=== PATIENT | male | born 1950 | race Two or more races ===

== ENCOUNTER 2020-08-26 16:28 | Emergency (ER) | payer MEDICARE, MEDICAID, SELFPAY ==
--- NOTE | ~2020-08-26 | XR_ITS ---
EXAMINATION: XR FINGER, LEFT CLINICAL INFORMATION: Finger laceration with saw. COMPARISON: No priors. TECHNIQUE: AP oblique and lateral radiographs of the left fifth finger. FINDINGS: The bones are normal. No fracture. Alignment is anatomic. No flexion or extension deformity at the PIP and DIP joints of the fifth finger respectively. Joint spaces are maintained. No radiopaque foreign body. XR/XR finger LT min 2V IMPRESSION: Left fifth finger: No acute fracture or malalignment.
[2020-08-26 16:58] VITALS: BP 132/60; PULSE 73; RESP 18; TEMP 36.4; O2SAT 97; BMI 27.7
--- NOTE | 2020-08-26 20:41 | ED.WOUNDLAC ---
HPI - Wound/Laceration General Chief Complaint: Wound/Laceration Stated Complaint: laceration Time Seen by Provider: 08/26/20 20:10 Source: patient Mode of arrival: ambulatory Limitations: no limitations History of Present Illness HPI narrative: 70-year-old male presents with laceration to his left 5th finger caused by a sawzall. He was cutting down a tree, the blade skipped and slipped down and cut his finger. He does not recall the last time he had a Tdap vaccine. He was able to apply pressure dressing and control the bleeding. Onset (ago): hour(s) (Within the hour of arrival) Extremity Location: left: hand (Fifth finger) Place: home Patient tetanus UTD: No Context: accidental Associated symptoms: pain Treatments prior to arrival: bandage Related Data Previous Rx's Medication Instructions Recorded carvedilol 3.125 mg tablet 3.125 mg PO BID 90 Days #180 tab 06/19/20 lisinopril 5 mg tablet 5 mg PO DAILY 90 Days #90 tab 06/19/20 amoxicillin-pot clavulanate 1 tab PO Q12H 10 Days #20 tab 08/26/20 [Augmentin] Allergies Allergy/AdvReac Type Severity Reaction Status Date / Time aspirin [ASPIRIN] Allergy Unknown SWELLING, Unverified 03/22/20 16:23 rash Review of Systems Review of Systems: Constitutional: No Fever, No Chills ENT/Mouth: No Ear Pain, No Hoarseness, No sore throat Eyes: No Eye Pain, No Swelling, No Redness, No Foreign Body Cardiovascular: No Chest Pain, No SOB Respiratory: No Cough, No Dyspnea Gastrointestinal: No Nausea, No Vomiting, No Diarrhea, No abdominal Pain Genitourinary: No Dysuria, No Hematuria Musculoskeletal: positive left 5th finger pain, No Myalgias, No Joint Swelling Skin: Positive left 5th finger lacerations, No rash Neuro: No Weakness, No Numbness, No Paresthesias, No Loss of Consciousness, No Dizziness, No Headache Psych: No Anxiety/Panic, No Depression Heme/Lymph: no easy bruising, no Lymphadenopathy Endocrine: No Polyuria, No Polydipsia Yes all other systems are reviewed and are negative [facility] Past Medical History Attestation statement: The following information was validated with the patient. Source: old records reviewed Social History Social History Advance Directives: No Advance Directives Information Provided: Yes Physical Exam Vital Signs: Vital Signs: Last Vital Signs Temp 97.5 F 08/26/20 16:58 Pulse 62 08/26/20 21:00 Resp 16 08/26/20 21:00 BP 123/78 08/26/20 21:00 Pulse Ox 99 08/26/20 21:00 Body Mass Index 27.7 Appearance: Alert. Oriented X3. No acute distress. Eyes: Pupils equal, round and reactive to light. ENT: Pharynx normal. Neck: Normal inspection. Neck supple. CVS: Normal heart rate and rhythm. Pulses normal. Respiratory: No respiratory distress. Breath sounds normal. Abdomen: Soft and nontender. Skin: Positive 2 cm laceration to the tip of left 5th digit at the D IP. Otherwise all other Skin warm and dry. Normal skin color. Normal skin turgor. Extremities: No lower extremity edema. Has full range of motion to all extremities, no indication of tendon injury, full strength and range of motion to the 5th digit. Brisk capillary refill, no sensory deficit noted. Neuro: No motor deficit. No sensory deficit. Course Course Course Narrative: 70-year-old male presents with a laceration to the tip of his left 5th finger caused by a sawzall. Plan of care is for x-ray, Tdap and laceration repair. Prepped and draped in sterile fashion, patient tolerated procedure well. Please refer to procedure note for full details. X-ray shows no indication of bone involvement. Will treat with p.o. Augmentin. Patient verbalized understanding of wound care. Patient verbalized understanding of and agrees to plan of care discharge home. Procedures Laceration Laceration 1: Site: hand Side (If applicable): left Size (cm): 2 Description: linear Depth: simple, single layer Local Anesthetic: lidocaine 2% Amount of anesthesia used (mL): 4 Pre-repair: wound explored, irrigated extensively, deep structures intact and extensive debridement Skin layer closed with: nylon Size (cm): 4-0 Number of sutures: 6 Technique: simple, interrupted MDM - Wound/Laceration Differential Diagnosis Differential diagnosis: Likely laceration Medical Records Attestation: I reviewed the patient's medical records. Imaging Data Finger x-ray: Attestation: I personally reviewed and interpreted this imaging study as follows: Radiologist's impression: EXAMINATION: XR FINGER, LEFT CLINICAL INFORMATION: Finger laceration with saw. COMPARISON: No priors. TECHNIQUE: AP oblique and lateral radiographs of the left fifth finger. FINDINGS: The bones are normal. No fracture. Alignment is anatomic. No flexion or extension deformity at the PIP and DIP joints of the fifth finger respectively. Joint spaces are maintained. No radiopaque foreign body. XR/XR finger LT min 2V IMPRESSION: Left fifth finger: No acute fracture or malalignment. Discharge Plan Discharge Clinical Impression: Laceration Patient Disposition: Home, Self-Care Instructions: Finger Laceration (ED) Additional Instructions: You were evaluated for laceration injury sustained from a sawzall. Please return in 10 days to have sutures removed please take Augmentin twice a day for the next 10 days. We updated your Tdap vaccine today . You may use Tylenol and Motrin as needed for pain management. Thank you for choosing this emergency department for evaluation. Please follow-up with primary care physician as needed. Return to the emergency department for any new, concerning, or worsening symptoms. Prescriptions: New amoxicillin-pot clavulanate [Augmentin] 875-125 mg tablet 1 tab PO Q12H 10 Days Qty: 20 RF: 0 No Action carvedilol 3.125 mg tablet 3.125 mg PO BID 90 Days Qty: 180 RF: 3 lisinopril 5 mg tablet 5 mg PO DAILY 90 Days Qty: 90 RF: 1 Interventions: ED Discharge Assessment Last Done: 08/26/20 22:58 Discharge Date/Time: 08/26/20 22:59
[2020-08-26 21:00] VITALS: BP 123/78; PULSE 62; RESP 16; O2SAT 99
[2020-08-26] MEDS: Lidocaine HCl 2 % MPF 5 ML VIAL SUBCUT (21:22)
--- NOTE | 2020-08-26 21:34 | PC.NURSE ---
Per RUSSELL Monterroso, elba to NOT have IV access placed. Pt to be sutured with Lidocaine to affected area, then discharge with PCP follow-up.
--- NOTE | 2020-08-26 22:12 | PC.NURSE ---
Sutures applied to fingertip by RUSSELL Monterroso. Bacitracin cream applied afterwards. Pt able to ambulate with steady gait, awaiting discharge instructions. Ice water given as requested. No acute distress noted.
[2020-08-26] MEDS: Amoxicillin/Potassium Clav 875 MG TABLET PO (22:55)
== END 2020-08-26 22:59 | disposition home or self-care (01) ==
PROVIDERS: Emergency Provider Internal Medicine
DX: S61.217A Laceration without foreign body of left little finger without damage to nail, initial encounter (principal); S60.417A Abrasion of left little finger, initial encounter; M79.645 Pain in left finger(s); W26.9XXA Contact with unspecified sharp object(s), initial encounter; Y93.9 Activity, unspecified; Y92.096 Garden or yard of other non-institutional residence as the place of occurrence of the external cause; Y99.8 Other external cause status; Z23 Encounter for immunization
CPT/HCPCS: 12031; 73140; 90471; 90715; 99284

== ENCOUNTER 2020-09-05 09:19 | Emergency (ER) | payer MEDICARE, MEDICAID, SELFPAY ==
[2020-09-05 09:51] VITALS: BP 130/64; PULSE 78; RESP 16; TEMP 36.9; O2SAT 99; BMI 27.4
--- NOTE | 2020-09-05 09:56 | ED_ITS ---
HPI - Recheck/Abnormal Lab/Rx General Chief Complaint: Wound/Laceration Stated Complaint: WOUND CHECK Time Seen by Provider: 09/05/20 09:56 Source: patient, old records reviewed and sign language interpreter Mode of arrival: ambulatory Limitations: no limitations History of Present Illness complaint: suture/staple removal Onset/Timin Initial visit (ago): day(s) Initial visit for: laceration Returns today for: staple/stitch removal Symptoms since prior visit: no new symptoms Context: planned re-check Associated symptoms: none Related Data Previous Rx's Medication Instructions Recorded carvedilol 3.125 mg tablet 3.125 mg PO BID 90 Days #180 tab 06/19/20 lisinopril 5 mg tablet 5 mg PO DAILY 90 Days #90 tab 06/19/20 amoxicillin-pot clavulanate 1 tab PO Q12H 10 Days #20 tab 08/26/20 [Augmentin] Allergies Allergy/AdvReac Type Severity Reaction Status Date / Time aspirin [ASPIRIN] Allergy Unknown SWELLING, Unverified 03/22/20 16:23 rash Review of Systems Review of Systems: Constitutional : No Fever, No Chills, Cardiovascular : No Chest Pain, No SOB Respiratory : No Dyspnea Gastrointestinal : No abdominal pain Musculoskeletal : No Joint Swelling Skin : No rash, no skin laceration Neuro : No Weakness, No Numbness Psych : No SI/HI PMFSH Past Medical History Attestation statement: The following information was validated with the patient. Social History Social History Smoked in Last 30 Days: No Use of substances other than those prescribed or required for medical reasons: No Physical Exam Vital Signs: Vital Signs: Last Vital Signs Temp 98.5 F 09/05/20 09:51 Pulse 78 09/05/20 09:51 Resp 16 09/05/20 09:51 BP 130/64 09/05/20 09:51 Pulse Ox 99 09/05/20 09:51 Body Mass Index 27.4 Appearance: Alert. Oriented X3. No acute distress. Eyes: Pupils equal, round and reactive to light. ENT: Pharynx normal. Neck: Normal inspection. Neck supple. CVS: Pulses normal. Respiratory: No respiratory distress. Skin: Skin warm and dry. Normal skin color. well healed no signs of infection L pinky finger [address] Extremities: No lower extremity edema. No calf ttp Neuro: Oriented X 3. No motor deficit. No sensory deficit. Procedures Procedure Narrative Procedure Narrative: cleansed with betadine removed 5 sutures without complication from left pinky finger MDM - Recheck/Abnormal Lab/Rx MDM Narrative Medical decision making narrative: 70 yo male 10 days post sutures for laceration no infection well healed here for removal Discharge Plan Discharge Clinical Impression: Visit for suture removal Patient Disposition: Home, Self-Care Instructions: Stitches Removal (ED) Additional Instructions: return to ED for any worsening symptoms or concerns Prescriptions: No Action carvedilol 3.125 mg tablet 3.125 mg PO BID 90 Days Qty: 180 RF: 3 lisinopril 5 mg tablet 5 mg PO DAILY 90 Days Qty: 90 RF: 1 amoxicillin-pot clavulanate [Augmentin] 875-125 mg tablet 1 tab PO Q12H 10 Days Qty: 20 RF: 0 Print Language: Kiswahili
== END 2020-09-05 10:15 | disposition home or self-care (01) ==
LOC: HO.ED 10:17
PROVIDERS: Emergency Provider Emergency Medicine; PCP Internal Medicine
DX: Z48.02 Encounter for removal of sutures (principal); S61.217D Laceration without foreign body of left little finger without damage to nail, subsequent encounter; X58.XXXD Exposure to other specified factors, subsequent encounter
CPT/HCPCS: 99283

== ENCOUNTER → 2020-09-17 10:16 | Outpatient (BNV) | payer MEDICARE, OTHER, MEDICAID, SELFPAY | PROVIDERS: PCP Internal Medicine; Visit Provider Internal Medicine | DX: D50.0 Iron deficiency anemia secondary to blood loss (chronic) (principal) | CPT/HCPCS: 99213 ==

== ENCOUNTER 2020-09-21 07:47 | Outpatient (REF) | payer MEDICARE, MEDICAID, SELFPAY ==
--- NOTE | ~2020-09-21 | US_ITS ---
EXAMINATION: US RETROPERITONEAL LIMITED (AORTA) CLINICAL INFORMATION: Smoking history. Age 70. Assess for occult abdominal aortic aneurysm. COMPARISON: None. TECHNIQUE: Ren-scale, color Doppler and spectral Doppler evaluation of the abdominal aorta. FINDINGS: The measurements of the aorta in maximum AP and transverse dimensions respectively are as follows: FINDINGS: There is no aneurysmal enlargement of the aorta or focal ectasia. There is no visible periaortic adenopathy or mass. Aortic measurements are as follows: Proximal: 2.5 x 2.5 cm. Mid: 1.8 x 1.6 cm. Distal: 1.8 x 1.6 cm. PSV: 75.2 cm/s Common iliac arteries: Right: 1.1 x 1.1 cm. Left: 1.2 x 1.1 cm. US/US abdominal aortic aneurysm IMPRESSION: Normal study.
== END 2020-09-21 07:48 | disposition home or self-care (01) ==
LOC: HO.US 07:47
PROVIDERS: PCP Internal Medicine; Visit Provider Internal Medicine
DX: Z13.6 Encounter for screening for cardiovascular disorders (principal); Z72.0 Tobacco use
CPT/HCPCS: 76706

== ENCOUNTER → 2021-03-29 11:00 | Outpatient (RCR) | payer MEDICARE, MEDICAID, SELFPAY | END | disposition home or self-care (01) | LOC: HO.PT 03-01 10:45 | PROVIDERS: PCP Emergency Medicine; Visit Provider Emergency Medicine | DX: M76.891 Other specified enthesopathies of right lower limb, excluding foot (principal) | CPT/HCPCS: 97110; 97161; 97530 ==

== ENCOUNTER → 2021-10-14 08:27 | Outpatient (REF) | payer MEDICARE, MEDICAID, SELFPAY ==
--- NOTE | 2021-10-14 08:31 | CA_ITS ---
Transthoracic Echocardiogram Patient (Last, First, Middle): Josh Souza, Gender: Male Date of : 1950 Age: 71 Procedure Date: 10/14/2021 Procedure Type: Transthoracic Echocardiogram Location: OP Height: 167.64 cm Weight: 77.11 kg BSA: 1.87 m2 Heart Rate: bpm BP: 132 / 70 mmHg Real Estate Sales Manager: ASHA Referring MD: Sunday Salinas MD Symptoms: I42.8 - Other cardiomyopathies Study Quality: Fair/Contrast ECG Rhythm: Sinus Conclusions: - The left ventricular systolic function is mildly decreased. The calculated ejection fraction is 50% by biplane method. - No obvious valvular pathology seen on this study. Findings Procedure Information Contrast agent, definity, is being given per protocol without apparent complications. Left Ventricle Normal left ventricular cavity size. There is normal left ventricular wall thickness. The left ventricular systolic function is mildly decreased. The calculated ejection fraction is 50% by biplane method. There is mild global hypokinesis. E/E prime ratio is <8, consistent with normal filling pressures. Evidence suggests grade I (mild) diastolic dysfunction. Right Ventricle Normal right ventricular cavity size and systolic function. Atria Both atria are normal in size. Aortic Valve There is a normal trileaflet aortic valve. There is no aortic valve stenosis. There is no aortic valve regurgitation. Mitral Valve The mitral valve appears normal. There is trace mitral valve regurgitation. There is no mitral valve stenosis. Pulmonic Valve The pulmonic valve is likely normal. There is trace to mild pulmonic valve regurgitation. Tricuspid Valve Normal tricuspid valve structure. There is trace tricuspid valve regurgitation. The pulmonary artery systolic pressure is normal. Great Vessels The aortic annulus, sinuses of valsalva, and asc aorta are normal in size. Venous The inferior vena cava is normal in size and collapses greater than 50% with inspiration. Pericardium/Pleural There is a trivial pericardial effusion. Prior Study Comparison Changes noted compared to prior study dated: 07/21/2019. LVEF lower than in prior study, but similar to older studies from 2018. Recommendations, Care & Conclusions No obvious valvular pathology seen on this study. Measurements 2D Linear Measurements IVSd: 1.04 0.6-0.9/0.6-1.0 cm LVIDd: 4.75 3.9-5.3/4.2-5.9 cm LVIDd Index: 2.54 2.4-3.2/2.2-3.1 cm/m2 LVIDs: 3.49 2.0-3.6 cm LVPWd: 1.00 0.7-1.1 cm LA Diam: 3.40 2.7-3.8/3.0-4.0 cm LAIDs Index: 1.82 1.5-2.3 cm/m2 LV Mass: 214.11 67-162/88-224 g LV Mass Index: 114.50 43-95/49-115 g/m2 LVOT Diam: 2.20 3.0+(-)1.3 cm 2D Systolic Function EF 4C: 51.60 >55% EF 2C: 46.70 >55% EF BiP: 49.70 >55% Mitral Valve MV Pk E: 0.54 MV PK A: 0.87 MV Decel Time: 162.00 E/A: 0.60 E'Lateral: 6.31 E'Medial: 5.77 E/E' Med: 9.30 E/E' Lat: 8.50 PHT: 48.00 MVA PHT: 4.58 Decel Collin: 3.30 Aortic Valve AoV Pk Stanley: 1.19 AoV Mn Stanley: 0.83 AoV VTI: 0.22 AoV Pk Grad: 6.00 Aov Mn Grad: 3.00 BHAVANI Cont.VTI: 2.56 LVOT LVOT Pk Stanley: 0.76 LVOT Mn Stanley: 0.50 LVOT VTI: 0.15 LVOT Pk Grad: 2.00 LVOT Mn Grad: 1.00 LVOT Diam: 2.20 LVOT Area: 3.80 Diastolic Function MV Pk E: 0.54 MV Pk A: 0.87 E/A: 0.60 E'Medial: 5.77 E/E' Med: 9.30 E' Laterial: 6.31 E/E' Lat: 8.50 Right Ventricle TAPSE (mm): 18.30 TVS' Stanley: 11.20 Tricuspid Valve TR Pk Stanley: 1.68 TR Pk Grad: 11.00 RA Press: 3.00 RVSP: 14.00 Great Vessels Aorta Sinus of Valsalva: 3.56 2.0-3.[address] Ridge: 3.25 1.7-3.4 cm Ao Asc: 3.60 2.1-3.4 cm Ao Arch: 2.70 Updated in Other Vendor System with Status of Final Sunday Salinas MD electronically signed on 10/14/2021 11:51:47 AM with status of Final
== END ==
LOC: HO.CARD 08:27
PROVIDERS: Visit Provider Internal Medicine
DX: I42.9 Cardiomyopathy, unspecified (principal)
CPT/HCPCS: 93306; Q9957

== ENCOUNTER → 2021-10-16 12:24 | Outpatient (BNVA) | payer MEDICARE, MEDICAID, SELFPAY | PROVIDERS: PCP Emergency Medicine; Referring Provider Emergency Medicine; Visit Provider Internal Medicine | DX: I42.8 Other cardiomyopathies (principal); G47.33 Obstructive sleep apnea (adult) (pediatric); Z79.899 Other long term (current) drug therapy | CPT/HCPCS: 93005; 99212 ==

== ENCOUNTER 2022-02-13 07:51 | Outpatient (REF) | payer MEDICARE, MEDICAID, SELFPAY ==
--- NOTE | ~2022-02-13 | XR_ITS ---
EXAMINATION: RIGHT TIBIA AND FIBULA. RIGHT FEMUR. CLINICAL INFORMATION: Pain. COMPARISON: None TECHNIQUE: 2 views right tibia-fibula. 2 views right femur FINDINGS: RIGHT TIBIA AND FIBULA: There is no visible acute fracture, dislocation or subluxation seen. No bony abnormality. The soft tissues are normal. RIGHT FEMUR: There is moderate loss of right hip joint space with periarticular spurring. No bony erosive changes. No visible acute fracture or dislocation. The soft tissues are normal. XR/XR femur RT 2V IMPRESSION: Degenerative arthritic changes right hip joint. No visible acute fracture or dislocation. Unremarkable right tibia and fibula.
--- NOTE | ~2022-02-13 | XR_ITS ---
EXAMINATION: RIGHT TIBIA AND FIBULA. RIGHT FEMUR. CLINICAL INFORMATION: Pain. COMPARISON: None TECHNIQUE: 2 views right tibia-fibula. 2 views right femur FINDINGS: RIGHT TIBIA AND FIBULA: There is no visible acute fracture, dislocation or subluxation seen. No bony abnormality. The soft tissues are normal. RIGHT FEMUR: There is moderate loss of right hip joint space with periarticular spurring. No bony erosive changes. No visible acute fracture or dislocation. The soft tissues are normal. XR/XR tibia fibula RT 2V IMPRESSION: Degenerative arthritic changes right hip joint. No visible acute fracture or dislocation. Unremarkable right tibia and fibula.
== END 2022-02-13 07:52 | disposition home or self-care (01) ==
LOC: HO.XRAY 07:51
PROVIDERS: PCP Internal Medicine; Visit Provider Internal Medicine
DX: M79.604 Pain in right leg (principal)
CPT/HCPCS: 73552; 73590

== ENCOUNTER 2023-01-20 08:32 | Outpatient (REF) | payer OTHER, MEDICAID, SELFPAY ==
[2023-01-20 12:36] LABS: Free T4 (Free Thyroxine) 1.15 ng/dL (0.71-1.85); T4 Thyroxine 8.5 ug/dL (4.5-12.0); Thyroid Stimulating Hormone 0.27 uIU/mL (0.32-4.0)
== END 2023-01-20 08:33 | disposition home or self-care (01) ==
LOC: HO.HHCL 08:32
PROVIDERS: Visit Provider Student in an Organized Health Care Education/Training Program
DX: E03.9 Hypothyroidism, unspecified (principal)
CPT/HCPCS: 36415; 84436; 84439; 84443

== ENCOUNTER 2023-02-06 09:00 | Outpatient (RCR) | payer MEDICARE, MEDICAID, SELFPAY | END 2023-02-26 10:27 | disposition home or self-care (01) | LOC: HO.PT 09:00 | PROVIDERS: PCP Student in an Organized Health Care Education/Training Program; Visit Provider Student in an Organized Health Care Education/Training Program | DX: R10.31 Right lower quadrant pain (principal) | CPT/HCPCS: 97110; 97140; 97161 ==

== ENCOUNTER 2023-02-22 16:33 | Emergency (ER) | payer OTHER, MEDICAID, SELFPAY ==
--- NOTE | 2023-02-22 | ECG_ITS ---
Test Reason : dizziness Blood Pressure : / mmHG Vent. Rate : 069 BPM Atrial Rate : 069 BPM P-R Int : 154 ms QRS Dur : 088 ms QT Int : 386 ms P-R-T Axes : 040 014 032 degrees QTc Int : 413 ms Normal sinus rhythm Normal ECG When compared with ECG of 19-JAN-2018 11:58, Nonspecific T wave abnormality is no longer Present Heart rate has increased Referred By: Generic ED Physician Electronically Signed By:OTTO ESPANA
--- NOTE | ~2023-02-22 | CT_ITS ---
EXAMINATION: CT HEAD WITHOUT CONTRAST CLINICAL INFORMATION: Multiple syncopal episodes COMPARISON: CT head from 03/22/2018 TECHNIQUE: Contiguous axial imaging was performed from the skull base to vertex without intravenous administration of contrast. This CT examination was performed using dose optimization techniques as appropriate, variously including the following: *Automated exposure control *Adjustment of mA and/or kV according to patient size (this includes techniques or standardized protocols for targeted exams where dose is matched to indication/reason for exam; i.e. extremities or head) *Use of iterative reconstruction technique DLP: 597 mGy-cm FINDINGS: There is no evidence of acute intracranial hemorrhage or territorial infarction. No abnormal mass effect or midline shift is seen. Ren to white matter differentiation is well preserved. No extra-axial fluid collections are identified. The ventricles are normal in size. There is no abnormal attenuation within the brain parenchyma. The osseous structures and soft tissues are normal. The mastoid air cells and visualized portions of the paranasal sinuses are well aerated. CT/CT head/brain wo IV con IMPRESSION: No acute intracranial pathology.
[2023-02-22 16:44] VITALS: BP 113/60; BP 116/56; PULSE 69; PULSE 74; RESP 12; TEMP 36.7; O2SAT 100; BMI 27.7
[2023-02-22 17:01] LABS: MANUAL DIFF FLAG NO
--- NOTE | 2023-02-22 17:02 | PC.NURSE ---
alert and oriented, respirations even and unlabored. per ems pt was diaphoretic upon arrival and hypotensive. approx 250mls given with positive effect. pt now resting comfortably on stretcher, labs drawn and sent. call bermeo within reach
[2023-02-22 17:03] LABS: Basophils Percent Auto 0.4 % (0-2); Eosinophils Absolute Auto 0.1 X10*3/uL (0.0-0.4); Eosinophils Percent Auto 1.3 % (0-4); Hematocrit 29.3 % (42.0-52.0); Hemoglobin 9.6 g/dl (14.0-18.0); Imm Gran Abs Auto 0.04 X10*3/uL (0.00-0.03); Imm Gran Pct Auto 0.8 % (0.0-0.4); Lymphocytes Absolute Auto 1.4 X10*3/uL (1.2-4.9); Lymphocytes Percent Auto 25.7 % (20-40); Mean Corpuscular HGB Conc 32.8 g/dl (31.0-36.0); Mean Corpuscular Volume 85.4 fL (80.0-98.0); Mean Platelet Volume 9.8 fL (9.4-12.4); Monocytes Absolute Auto 0.3 X10*3/uL (0.1-1.2); Monocytes Percent Auto 5.6 % (2-11); Neutrophils Absolute Auto 3.5 x10*3/uL (2.0-8.3); Neutrophils Percent Auto 66.2 % (45-73); Platelet Count 129 X10*3/uL (160-400); Red Blood Count 3.43 X10*6/uL (4.60-5.80); Red Cell Distribution Width 13.3 % (11.0-16.0); White Blood Count 5.3 X10*3/uL (4.8-10.8)
[2023-02-22 17:24] LABS: Alanine Aminotransferase 13 U/L (0-40); Alkaline Phosphatase 61 U/L (39-117); Anion Gap 14 (12-20); Aspartate Amino Transferase 13 U/L (5-37); Bilirubin Total 0.3 mg/dL (0.0-1.0); Blood Urea Nitrogen 17 mg/dL (9-16); Calcium 9.4 mg/dL (8.4-10.2); Carbon Dioxide 22 mmol/L (22-29); Chloride 111 mmol/L (96-108); Creatinine Clr Calc Pharmacy 47.5; Estimated Glomerular Filt Rate 49; Glucose Random 112 mg/dL (60-115); Potassium 3.5 mmol/L (3.3-5.1); Sodium 143 mmol/L (135-145); Total Protein 6.8 g/dL (6.5-8.0)
[2023-02-22 17:32] LABS: Troponin-I High Sensitivity < 2.7 ng/L (<3.5-35.0)
[2023-02-22 17:50] VITALS: BP 109/49; PULSE 79; RESP 13; TEMP 36.6; O2SAT 98
[2023-02-22 18:18] VITALS: BP 110/57; PULSE 75
[2023-02-22 18:21] VITALS: BP 115/62; PULSE 76
[2023-02-22 18:22] VITALS: BP 125/68; PULSE 77
--- NOTE | 2023-02-22 18:25 | ED.SYNCOPE ---
HPI - Syncope General Chief Complaint: Dizziness Stated Complaint: syncope per EMS Time Seen by Provider: 02/22/23 17:35 Source: patient, family and EMS Mode of arrival: EMS Limitations: no limitations History of Present Illness HPI narrative: patient is a 72-year-old male who presents to the emergency department with his daughter via EMS for evaluation after multiple syncopal episodes today. Patient was reportedly sitting in a chair in the garage outdoors, though there is also air conditioning. He had something to eat. Patient was without any complaints. Daughter reports that she looked over at him but he suddenly appeared urge to be unwell, Diffusely sweating, sitting in the chair and looking off to the side while not speaking. This lasted a few seconds. She reports tapping him in the face when he regained consciousness and was speaking. She reports that he just did not appear well. He had multiple episodes like this occurring over the next few minutes. They attempted to stand the patient up, when he became very limp and loss consciousness again, was lowered to the ground onto his knees. When he regained consciousness daughter was calling for EMS, and patient was requesting for her not to call. He does not recall the events. He denies any precipitating symptoms. He denies any current physical complaints. Denies any history, there was no bladder or bowel impairment. Daughter reports a history of a similar event a few months ago but he did not lose consciousness, and it only occurred a single time Related Data Home Medications Medication Instructions Recorded Confirmed levothyroxine 112 mcg tablet 112 mcg PO DAILY 10/16/21 10/16/21 Previous Rx's Medication Instructions Recorded lisinopril 5 mg tablet 5 mg PO DAILY 90 days #90 tabs 11/14/22 carvedilol 3.125 mg tablet 3.125 mg PO BID #180 tabs 01/08/23 Allergies Allergy/AdvReac Type Severity Reaction Status Date / Time aspirin [ASPIRIN] Allergy Unknown SWELLING, Verified 10/16/21 12:32 rash Review of Systems Review of Systems: Constitutional: No weight loss. No fever. No chills. No weakness. No fatigue. Eye: No swelling. No redness. ENT: No sore throat. No rhinorrhea. No nasal congestion. No sore throat. No difficulty swallowing. Skin: No rash. No itching. Cardiovascular: No chest pain. No chest pressure. No palpitations. No pedal edema. Respiratory: No shortness of breath. No cough. No sputum production. Gastrointestinal: No anorexia. No nausea. No vomiting. No diarrhea. No abdominal pain. No blood in stool. Genitourinary: No burning micturition. No urinary frequency. No incontinence. Neurologic: No headache. No dizziness. positiveyncope. No unilateral weakness. No ataxia. No numbness. No tingling. No change in bowel or bladder control. Musculoskeletal: No muscle pain. No back pain. No joint pain. No stiffness. Hematologic: No bleeding. No bruising. Lymphatics: No enlarged lymph nodes. Psychiatric:No depression. No anxiety. Endocrine: No reports of sweating. No cold or heat intolerance. No polyuria. No polydipsia. [facility] Past Medical History Attestation statement: The following information was validated with the patient. Source: old records reviewed Medical History Anemia HTN (hypertension) Hypothyroidism NICM (nonischemic cardiomyopathy) VIJI (obstructive sleep apnea) Urolithiasis Surgical History No pertinent past surgical history Family History Family History (Updated 10/16/21 @ 12:33 by FRANC Gomez) Father No problems noted. Mother No problems noted. Social History Social History (Updated 10/16/21 @ 12:46 by FRANC Gomez) Alcohol intake: never Patient Tobacco Use Status: Current everyday Tobacco user Cigarettes Per Day: 5 Use of substances other than those prescribed or required for medical reasons: No Advance Directives: No Advance Directives Information Provided: No Physical Exam Vital Signs: Vital Signs: Last Vital Signs Temp 98.1 F 02/22/23 19:23 Pulse 82 02/22/23 19:23 Resp 17 02/22/23 19:23 BP 117/53 L 02/22/23 19:23 Pulse Ox 99 02/22/23 19:23 O2 Del Method Room Air 02/22/23 19:23 BMI result Body Mass Index 27.7 Appearance: Alert.?Oriented to person, place and time. No acute distress.?Normal affect. Eyes: Pupils equal, round and reactive to light.? ENT: Pharynx normal.?? Neck: Normal inspection.? Neck supple.?? CVS: Heart sounds normal. Normal heart rate and rhythm.? Pulses normal.?? Respiratory: No respiratory distress.? Lung sounds clear to auscultation bilaterally?? Abdomen: Soft and non-tender. Normoactive bowel sounds. No pulsatile mass.?? Skin: Skin warm and dry.? Normal skin color.? Normal skin turgor.?? Extremities: No lower extremity edema.? No calf ttp? Neuro: No focal neurological deficit observed, CN II-XII intact, normal sensory observed, normal coordination observed. Level of consciousness: Appropriate for age. Motor strength: Proximal right upper extremity 5 /5, distal right upper extremity 5 /5, proximal left upper extremity 5 /5, distal left upper extremity 5 /5, right lower extremity 5 /5, left lower extremity 5 /5.?Speech: Normal, Gait: Normal, Njlqji-ng-[id number] test: Normal, Dzwu-gb-[id number] test: Normal. Course Reevaluation(s) Reevaluation #1: high sensitivity troponin non-detectable, EKG revealing normal sinus rhythm without acute ischemic findings. given age And multiple syncopal episodes of unknown etiology was recommended the patient be admitted to medicine service for further evaluation, at this time patient does not agree to hospital admission. I had an at length discussion with patient regarding potential complications of leaving against medical advice including and patient verbalizes understanding of this. He continues to wish to leave against medical advice at this time stating that he will follow up with his primary care provider tomorrow and/or return with any new or worsening symptoms or concerns. Time: 19:50 Medications Administered Discontinued Medications Generic Name Dose Route Start Last Admin Trade Name Freq PRN Reason Stop Dose Admin Sodium Chloride 1,000 mls @ 999 mls/hr 02/22/23 19:45 02/22/23 21:18 Ns IV 02/22/23 20:45 Infused .Q1H1M [facility] Infusion Medical Decision Making Medical Decision Making [facility] Narrative: Patient is a 72-year-old male presents emergency department with his daughter for evaluation of multiple syncopal episodes. Based on history and physical examination concern for ACS / cardiac etiology versus atypical seizure though this seems unlikely versus CVA. Will obtain CBC to evaluate for leukocytosis/ anemia, CMP and lipase to evaluate for abnormal electrolytes /abnormal renal function/ abnormal hepatic/biliary function, EKG and troponin to evaluate for ischemia/ACS. Chest x-ray to evaluate for consolidation/ infiltrate/ mass/ pulmonary congestion and Urinalysis. Differential Diagnosis Differential Diagnoses: The differential diagnosis associated with the presentation includes ( arrhythmia, ACS, pulmonary embolism, CVA, hemorrhage, anemia, atypical seizure) Admission/Observation Consideration of admission/observation: Escalation of care including admission/observation considered ( I considered admission for multiple syncopal episodes of unknown etiology, see course narrative for further detail) Lab Data MDM Lab Attestation statement: I reviewed the patient's lab results. CBC reveals no leukocytosis daughter is, normocytic anemia and thrombocytopenia. CMP revealing STEVE with BUN 17 creatinine 1.42. troponin nondetectable 02/22/23 16:54 02/22/23 16:54 Labs: Lab Results 02/22/23 02/22/23 02/22/23 Range/Units 16:54 16:54 16:54 WBC 5.3 (4.8-10.8) X10*3/uL RBC 3.43 L (4.60-5.80) X10*6/uL Hgb 9.6 L (14.0-18.0) g/dl Hct 29.3 L (42.0-52.0) % MCV 85.4 (80.0-98.0) fL MCH 28.0 (27.0-33.0) pg MCHC 32.8 (31.0-36.0) g/dl RDW 13.3 (11.0-16.0) % Plt Count 129 L (160-400) X10*3/uL MPV 9.8 (9.4-12.4) fL Immature Gran % (Auto) 0.8 H (0.0-0.4) % Neut % (Auto) 66.2 (45-73) % Lymph % (Auto) 25.7 (20-40) % [place] % (Auto) 5.6 (2-11) % Eos % (Auto) 1.3 (0-4) % Baso % (Auto) 0.4 (0-2) % Lymph # (Auto) 1.4 (1.2-4.9) X10*3/uL [place] # (Auto) 0.3 (0.1-1.2) X10*3/uL Eos # (Auto) 0.1 (0.0-0.4) X10*3/uL Baso # (Auto) 0.0 (0.0-0.2) X10*3/uL Abs Immat Gran (auto) 0.04 H (0.00-0.03) X10*3/uL Absolute Neuts (auto) 3.5 (2.0-8.3) x10*3/uL Absolute Nucleated RBC 0.000 (0.0-0.012) X10*3/uL Nucleated RBC % (auto) 0.0 (0.0-0.2) /100WBC Sodium 143 (135-145) mmol/L Potassium 3.5 (3.3-5.1) mmol/L Chloride 111 H (96-108) mmol/L Carbon Dioxide 22 (22-29) mmol/L Anion Gap 14 (12-20) BUN 17 H (9-16) mg/dL Creatinine 1.42 H (0.5-1.4) mg/dL Estim Creat Clear Calc 47.5 Estimated GFR 49 Random Glucose 112 (60-115) mg/dL Calcium 9.4 D (8.4-10.2) mg/dL Total Bilirubin 0.3 (0.0-1.0) mg/dL AST 13 (5-37) U/L ALT 13 (0-40) U/L Alkaline Phosphatase 61 (39-117) U/L Troponin I High Sens < 2.7 (<3.5-35.0) ng/L Total Protein 6.8 (6.5-8.0) g/dL Albumin 4.0 (3.5-5.0) g/dL Independent Interpretation I performed an independent interpretation of an: EKG Interpretation: Rate: Sixty-nine Rhythm:? normal sinus rhythm [place]:? normal Normal P waves.? Normal RIC.?? Normal QRS complex.?? ST T wave :?? no ST elevation, no ST depression, no T-wave inversion qTC: 413 The study has been interpreted contemporaneously by me. Radiology Impression Discussion of test interpretation with radiology: I have reviewed the radiologist's reading. Radiologist Impression: CT/CT head/brain wo IV con IMPRESSION: No acute intracranial pathology. Independent Historian Clinical information obtained from an independent historian. History obtained from or confirmed by: Other ( daughters present at bedside who confirms history) External Record Review External record reviewed: Outpatient record Discharge Plan Discharge Clinical Impression: Syncope, Acute kidney injury Patient Disposition: Left Against Medical Advice Additional Instructions: as discussed it was recommended that you remain in the hospital for further evaluation however you declined and chose to leave against medical advice. at this time it is unknown as to why you had these episodes of unconsciousness today. Because of these episodes may potentially be life threatening. He verbalized understanding of this and have chosen to leave against medical advice. Please contact your primary care provider to arrange for follow-up. You may return back to the emergency department at any time with any new or worsening symptoms or concerns. Prescriptions: No Action lisinopril 5 mg tablet 5 mg PO DAILY 90 Days Qty: 90 0RF Rx Instructions: Please call to schedule cardiology appt for refills carvedilol 3.125 mg tablet 3.125 mg PO BID Qty: 180 0RF Rx Instructions: OVERDUE FOR APPT. PLEASE CALL [phone] TO SCHEDULE FOLLOW UP FOR 2022 SO WE CAN CONTINUE REFILLING YOUR MEDICATIONS. If you do not want to schedule appt with customer success specialist, you can opt to get future refills from your PCP, Dr. Malinda Dunbar levothyroxine 112 mcg tablet 112 mcg PO DAILY Referrals: [facility] [Primary Care Provider] - Interventions: ED Discharge Assessment Last Done: 02/22/23 21:17 Discharge Date/Time: 02/22/23 21:19
[2023-02-22 19:23] VITALS: BP 117/53; PULSE 82; RESP 17; TEMP 36.7; O2SAT 99
[2023-02-22] MEDS: 0.9 % Sodium Chloride 1,000 ML 999 ML IV (19:53)
== END 2023-02-22 21:19 | disposition left against medical advice (07) ==
PROVIDERS: Emergency Provider Internal Medicine
DX: R55 Syncope and collapse (principal); R42 Dizziness and giddiness; F17.200 Nicotine dependence, unspecified, uncomplicated; Z71.6 Tobacco abuse counseling; Z79.899 Other long term (current) drug therapy
CPT/HCPCS: 36415; 70450; 80053; 84484; 85025; 93005; 99285

== ENCOUNTER 2023-02-26 09:43 | Outpatient (AMB) | payer MEDICARE, MEDICAID, SELFPAY ==
--- NOTE | 2023-02-26 09:48 | A.OFFVIS_ITS ---
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 Pt was diagnosed with VIJI around 2010 and has been using CPAP since then. He had a new CPAP 2017, but no repeat sleep study done. The CPAP working well but he has not received supplies more than 2 years. He does not have filler and keep coughing when he uses the current CPAP, and can't use it every night. Pt reports he sleeps well, 7-9 hours at night. Denies difficulty falling asleep or staying sleep. He states his snoring has improved with CPAP. He is on APAP [id number]. [facility] Medical History Anemia HTN (hypertension) Hypothyroidism NICM (nonischemic cardiomyopathy) VIJI (obstructive sleep apnea) Urolithiasis Surgical History No pertinent past surgical history Family History (Updated 10/16/21 @ 12:33 by FRANC Gomez) Father No problems noted. Mother No problems noted. Social History (Updated 02/26/23 @ 09:52 by Carlie Hallman CMA) Alcohol intake: never Patient Tobacco Use Status: Current everyday Tobacco user Cigarettes Per Day: 5 Review of Systems Const All systems reviewed & are unremarkable except as noted in HPI and below ENT Reports Normal hearing present Neuro Reports Normal hearing present Physical Exam Vital Signs: Last Vital Signs Pulse 75 02/26/23 09:52 BP 120/66 02/26/23 09:52 BMI result Body Mass Index 27.3 Const General: cooperative and comfortable Nutritional Appearance: overweight Orientation/consciousness: patient oriented x3 Neck Neck: Yes full ROM and Yes supple Resp Effort & Inspection: normal respiratory effort and able to speak in complete sentences Neuro General: patient oriented x3, gait normal, moves all extremities and no focal motor deficits Cranial nerves: Yes Bilaterally intact EOM present, Yes Normal facial strength present, Yes Midline tongue present, Yes Symmetric palate elevation present, Yes Normal hearing present, Yes Ability to bilaterally rotate head present and Yes Ability to bilaterally elevate shoulders present Cognition (Neuro): normal cognition Gait exam (Neuro): Normal gait present Motor exam (neuro): 5/5 motor strength present throughout, Pronator motor function not present and no tremor noted Psych Appearance: grossly normal Mental Status: mental status grossly normal Speech and movement: Normal speech and movement present Affect: normal affect Attitude: cooperative Assessment & Plan Assessment & Plan (1) VIJI (obstructive sleep apnea): Code(s): G47.33 - Obstructive sleep apnea (adult) (pediatric) Plan Pt is advised to undergo repeat home sleep study to assess for sleep apnea. Will f/u with pt after study to discuss results and appropriate treatment options. Will send supply prescription to [facility]. Pt to call with any worsening concerns or questions. Orders: Orders RT home sleep study Today G47.33 - Obstructive sleep apnea (adult) (pediatric), I42.8 - Other cardiomyopathies Coding Level of Care Code New Pt Level 3 (41130) Diagnoses VIJI (obstructive sleep apnea) G47.33
[2023-02-26 09:52] VITALS: BP 120/66; PULSE 75; BMI 27.3
== END 2023-02-26 10:30 | disposition home or self-care (01) ==
PROVIDERS: PCP Student in an Organized Health Care Education/Training Program; Visit Provider Nurse Practitioner Family
DX: G47.33 Obstructive sleep apnea (adult) (pediatric) (principal)
CPT/HCPCS: 99203

== ENCOUNTER → 2023-02-26 09:43 | Outpatient (BNVA) | payer MEDICARE, MEDICAID, SELFPAY | PROVIDERS: PCP Student in an Organized Health Care Education/Training Program; Visit Provider Nurse Practitioner Family | DX: G47.33 Obstructive sleep apnea (adult) (pediatric) (principal) | CPT/HCPCS: 99202 ==

== ENCOUNTER 2023-03-06 09:39 | Outpatient (AMB) | payer OTHER, MEDICAID, SELFPAY ==
--- NOTE | 2023-03-06 09:42 | A.OFFVIS_ITS ---
Intake Vital Signs 03/06/23 09:43 Height 5 ft 6 in Weight 170 lb 3.15 oz BMI 27.5 BP 120/72 Blood Pressure Location Lt brachial Position Sitting Pulse 69 Pulse Source Pulse Oximeter Intake Visit Reasons[place] [facility] [place] [facility] [place] Double End Tenon Operator Required: Yes Double End Tenon Operator Name: marcel morrell [id number] Allergies aspirin [ASPIRIN] Allergy (Unknown, Verified 03/06/23 09:48) SWELLING, rash Medication List - Last Reconciled 03/06/23 by Damaris Hobbs NP-C carvedilol 3.125 mg PO BID levothyroxine 112 mcg PO DAILY lisinopril 5 mg PO DAILY 90 days HPI [facility] [place] f[place]u HPI Details Josh is a 72-year-old male with past medical history of hypertension, obstructive sleep apnea, not treated, mild nonischemic cardiomyopathy who was recently seen in the emergency room for syncopal events at home. He had lab work showing mild STEVE, mild anemia. His EKG showed no acute findings. Admission was suggested however he signed out AMA. Today he reports he has been feeling generally well. He denies any recurrent presyncope or syncope. He denies chest discomfort at rest or with activity. No shortness of breath, palpitations, PND, orthopnea or edema. He tells me has been taking his meds as directed. He continues to not use CPAP. He uses a stationary bike at home for 50 minutes each day which he says he tolerates well. 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 [facility] Medical History Anemia HTN (hypertension) Hypothyroidism NICM (nonischemic cardiomyopathy) VIJI (obstructive sleep apnea) Urolithiasis Surgical History No pertinent past surgical history Family History Father No problems noted. Mother No problems noted. Social History Alcohol intake: never Patient Tobacco Use Status: Current everyday Tobacco user Cigarettes Per Day: 5 Review of Systems Const All systems reviewed & are unremarkable except as noted in HPI and below ENT Denies dizziness Card Denies chest pain, Denies chest pain at rest, Denies chest pain with activity, Denies rapid heart rate, Denies pedal edema, Denies edema, Denies leg edema, Denies lightheadedness, Denies palpitations, Denies dyspnea, Denies dyspnea on exertion and Denies orthopnea Resp Denies cough, Denies dyspnea and Denies dyspnea on exertion GI Denies hematochezia and Denies change in stool character Musc Denies abnormal gait, Denies limited range of motion, Denies muscle cramps, Denies muscle weakness, Denies numbness, Denies radiating pain into limb, Denies stiffness and Denies tingling Neuro Denies abnormal gait, Denies dizziness, Denies numbness and Denies tingling Endo Denies palpitations Physical Exam Vital Signs: Last Vital Signs Pulse 69 03/06/23 09:43 BP 120/72 03/06/23 09:43 BMI result Body Mass Index 27.5 Const General: cooperative, healthy appearing, comfortable and no acute distress Orientation/consciousness: patient oriented x3 Neck Neck: Yes normal visual inspection Resp Effort & Inspection: normal respiratory effort Auscultation: clear to auscultation bilaterally, no crackles, no rales, no rhonchi and no wheezes Cardio Jugular venous distension: no JVD Rate: regular rate Rhythm: regular rhythm Heart sounds: S1 normal heart sound present, S2 normal heart sound present, no gallops, no murmurs and no rubs Neuro General: patient oriented x3 Extrem General: Yes normal to inspection Psych Appearance: grossly normal Mental Status: mental status grossly normal Speech and movement: Normal speech and movement present Assessment & Plan Assessment & Plan (1) Syncope: Code(s): R55 - Syncope and collapse Plan: ER visit 02/22/2023 for reports of syncopal events at home, witnessed by family. Patient was sitting in chair, diaphoretic, appeared on well. Family assisted him to standing or he lost can not consciousness. EMS was called. Daughter describes similar events a few months ago. Blood pressure in the ER was on the low side. His lab work was done showing potassium 3.5, BUN 17, creatinine 1.42, hematocrit 29.9, troponin normal. He had no reported signs of bleeding. His EKG showed sinus rhythm with no acute ST or T-wave abnormalities, rate 69. Admission was recommended and patient signed out AMA. He tells me he has not perez d any recurrent events since that time. He denies dizziness or presyncope, no falls. Tells me he is feeling well and using his stationary bike 50 minutes each day. No anginal sounding symptoms. Blood pressure today 120/72. Will update echocardiogram to reassess EF, wall motion. Will check Holter monitor to assess for any arrhythmia. Will recheck lab work including CBC, CMP. Prior stress test a few years ago was normal. If EF is reduce then stress test will be ordered. Instructed to sit/lay down if he becomes lightheaded, presyncopal. Good hydration reviewed. Continue current meds at present time. Cardiology follow-up 2 months, sooner if needed (2) Acute kidney injury: Code(s): N17.9 - Acute kidney failure, unspecified Plan: Recent labs showing creatinine 1.42. He is on low-dose lisinopril for blood pressure control and history of mild nonischemic cardiomyopathy. Will be rechecking labs and adjust dose/med if warranted. (3) NICM (nonischemic cardiomyopathy): Code(s): I42.8 - Other cardiomyopathies Plan: History of nonischemic cardiomyopathy with EF as low as 40-45% in the past. Last echo 10/14/2021 showed EF 50%, no valve abnormalities. Will be updating echo as above (4) VIJI (obstructive sleep apnea): Code(s): G47.33 - Obstructive sleep apnea (adult) (pediatric) Plan: Does not use CPAP mask (5) Anemia: Code(s): D64.9 - Anemia, unspecified Plan: Mild anemia noted on lab work done in the emergency room recently. Patient denies any signs of bleeding. He is not on anticoagulation. Will recheck CBC and forward to PCP if he remains anemic Orders: Orders CA echo transthoracic complete Today I42.8 - Other cardiomyopathies, R55 - Syncope and collapse Comprehensive Met. Panel Today N17.9 - Acute kidney failure, unspecified, R55 - Syncope and collapse ECG 3 day holter monitor Today I42.8 - Other cardiomyopathies, R55 - Syncope and collapse Complete Blood Count Auto Diff Today D64.9 - Anemia, unspecified Coding Level of Care Code Est Pt Level 4 (74758) Diagnoses Syncope R55 Acute kidney injury N17.9 NICM (nonischemic cardiomyopathy) I42.8 VIJI (obstructive sleep apnea) G47.33 Anemia D64.9 Time Spent (min) 28 Comment Chart review, documentation, interview, assessment
[2023-03-06 09:43] VITALS: BP 120/72; PULSE 69; BMI 27.5
== END 2023-03-06 10:13 | disposition home or self-care (01) ==
PROVIDERS: PCP Student in an Organized Health Care Education/Training Program; Referring Provider Student in an Organized Health Care Education/Training Program; Visit Provider Nurse Practitioner Family
DX: R55 Syncope and collapse (principal); N17.9 Acute kidney failure, unspecified; I42.8 Other cardiomyopathies; G47.33 Obstructive sleep apnea (adult) (pediatric); D64.9 Anemia, unspecified
CPT/HCPCS: 99214

== ENCOUNTER → 2023-03-06 09:39 | Outpatient (BNVA) | payer OTHER, MEDICAID, SELFPAY | PROVIDERS: PCP Student in an Organized Health Care Education/Training Program; Referring Provider Student in an Organized Health Care Education/Training Program; Visit Provider Nurse Practitioner Family ==

== ENCOUNTER 2023-03-12 12:54 | Outpatient (REF) | payer MEDICARE, MEDICAID, SELFPAY ==
[2023-03-12 16:41] LABS: Free T4 (Free Thyroxine) 1.14 ng/dL (0.71-1.85); T4 Thyroxine 7.5 ug/dL (4.5-12.0); Thyroid Stimulating Hormone 0.39 uIU/mL (0.32-4.0)
== END 2023-03-12 12:55 | disposition home or self-care (01) ==
LOC: HO.HHCL 12:54
PROVIDERS: Visit Provider Student in an Organized Health Care Education/Training Program
DX: E03.9 Hypothyroidism, unspecified (principal)
CPT/HCPCS: 36415; 84436; 84439; 84443

== ENCOUNTER → 2023-04-02 14:41 | Outpatient (REF) | payer MEDICARE, MEDICAID, SELFPAY | LOC: HO.SL 14:41 | PROVIDERS: PCP Student in an Organized Health Care Education/Training Program; Visit Provider Nurse Practitioner Family | DX: G47.33 Obstructive sleep apnea (adult) (pediatric) (principal); I42.8 Other cardiomyopathies | CPT/HCPCS: 95806 ==

== ENCOUNTER → 2023-04-02 14:59 | Outpatient (BNV) | payer MEDICARE, MEDICAID, SELFPAY | PROVIDERS: PCP Student in an Organized Health Care Education/Training Program; Visit Provider Psychiatry & Neurology Neurology | DX: G47.33 Obstructive sleep apnea (adult) (pediatric) (principal) | CPT/HCPCS: 95806 ==

== ENCOUNTER → 2023-04-03 09:47 | Outpatient (REF) | payer MEDICARE, MEDICAID, SELFPAY ==
--- NOTE | 2023-04-03 09:50 | HM_ITS ---
Conclusion: 1. Patient was monitored for total period of 2 days and 22 hours 2. Baseline was normal sinus with average heart of 82 beats per minute 3. No significant pauses noted 4. Rare PVCs noted 5. No patient reported events MTDD
--- NOTE | 2023-04-03 09:50 | CA_ITS ---
Transthoracic Echocardiogram Patient (Last, First, Middle): Josh Asif, Gender: Male Date of : 1950 Age: 72 Procedure Date: 04/03/2023 Procedure Type: Transthoracic Echocardiogram Location: OP Height: 167.64 cm Weight: 77.11 kg BSA: 1.87 m2 Heart Rate: 76 bpm BP: 120 / 70 mmHg Polymer Scientist: ELOISE Gibson MD: Damaris Hobbs CASEWORKERGabriel Abnormal Psychology Teacher: Berhane Trinidad MD Symptoms: R55 - Syncope and collapse Study Quality: Adequate/w Contrast ECG Rhythm: Sinus Conclusions: - 1. Finp-su-blhnipdh LV systolic dysfunction with LVEF of 40-45% with grade 1 diastolic dysfunction 2. Normal cardiac valvular Dopplers 3. Mildly dilated ascending aorta 4. No gross pericardial effusion Findings Procedure Information Contrast agent, definity, is being given per protocol without apparent complications. Left Ventricle Normal left ventricular cavity size. There is normal left ventricular wall thickness. The left ventricular systolic function is mild to moderately decreased. The visually estimated ejection fraction is between 40-45%. Spectral Doppler is indicative of an impaired relaxation filling pattern. E/E prime ratio is <8, consistent with normal filling pressures. Evidence suggests grade I (mild) diastolic dysfunction. Right Ventricle Normal right ventricular cavity size and systolic function. Atria The left atrium is normal in size. There is no evidence of interatrial shunt. The right atrium is normal in size. Aortic Valve Normal aortic valve structure and function. There is no aortic valve stenosis. There is no aortic valve regurgitation. Mitral Valve Normal mitral valve structure and function. There is trace mitral valve regurgitation. There is no mitral valve stenosis. Pulmonic Valve The pulmonic valve is likely normal. Tricuspid Valve Normal tricuspid valve structure. Tricuspid regurgitation envelope is inadequate for calculation of right ventricular systolic pressure. Normal right atrial pressure. Great Vessels The pulmonary artery was not well visualized. There is mild dilatation of the ascending aorta measuring 3.80 cm. Venous The inferior vena cava is normal in size and collapses greater than 50% with inspiration. Pericardium/Pleural There is no evidence of pericardial effusion. Prior Study Comparison Changes noted compared to prior study dated: 10/14/2021. LV systolic function is reduced. Ascending aorta is mildly dilated Measurements 2D Linear Measurements IVSd: 0.94 0.6-0.9/0.6-1.0 cm LVIDd: 4.75 3.9-5.3/4.2-5.9 cm LVIDd Index: 2.54 2.4-3.2/2.2-3.1 cm/m2 LVIDs: 3.43 2.0-3.6 cm LVPWd: 0.78 0.7-1.1 cm LA Diam: 3.90 2.7-3.8/3.0-4.0 cm LAIDs Index: 2.09 1.5-2.3 cm/m2 LV Mass: 169.30 67-162/88-224 g LV Mass Index: 90.54 43-95/49-115 g/m2 LVOT Diam: 2.40 3.0+(-)1.3 cm 2D Systolic Function EF 4C: 42.90 >55% EF 2C: 41.80 >55% EF BiP: 42.10 >55% Mitral Valve MV Pk E: 0.55 MV PK A: 0.91 MV Decel Time: 221.00 E/A: 0.60 E'Lateral: 7.83 E'Medial: 6.42 E/E' Med: 8.50 E/E' Lat: 7.00 PHT: 65.00 MVA PHT: 3.38 Decel Churchill: 2.48 Aortic Valve AoV Pk Stanley: 1.03 AoV Mn Stanley: 0.81 AoV VTI: 0.21 AoV Pk Grad: 4.00 Aov Mn Grad: 3.00 BHAVANI Cont.VTI: 3.51 LVOT LVOT Pk Stanley: 0.85 LVOT Mn Stanley: 0.60 LVOT VTI: 0.16 LVOT Pk Grad: 3.00 LVOT Mn Grad: 2.00 LVOT Diam: 2.40 LVOT Area: 4.52 Diastolic Function MV Pk E: 0.55 MV Pk A: 0.91 E/A: 0.60 E'Medial: 6.42 E/E' Med: 8.50 E' Laterial: 7.83 E/E' Lat: 7.00 Right Ventricle TAPSE (mm): 22.40 TVS' Stanley: 10.10 Tricuspid Valve TR Pk Stanley: 1.84 TR Pk Grad: 14.00 Great Vessels Aorta Sinus of Valsalva: 3.60 2.0-3.5 cm Ao Asc: 3.80 2.1-3.4 cm Pulmonary Valve PV Pk Stanley: 0.90 Peak PV Grad: 3.00 Updated in Other Vendor System with Status of Final Berhane Trinidad MD electronically signed on 04/03/2023 2:34:17 PM with status of Final
== END ==
LOC: HO.CARD 09:47
PROVIDERS: PCP Student in an Organized Health Care Education/Training Program; Visit Provider Nurse Practitioner Family
DX: R55 Syncope and collapse (principal); I42.8 Other cardiomyopathies
CPT/HCPCS: 93242; 93306; Q9957

== ENCOUNTER → 2023-04-03 09:50 | Outpatient (BNV) | payer MEDICARE, MEDICAID, SELFPAY | PROVIDERS: PCP Student in an Organized Health Care Education/Training Program; Visit Provider Internal Medicine Cardiovascular Disease | DX: I49.3 Ventricular premature depolarization (principal) | CPT/HCPCS: 93244; 93306 ==

== ENCOUNTER 2023-04-14 09:03 | Outpatient (REF) | payer MEDICARE, MEDICAID, SELFPAY | END 2023-04-14 09:04 | disposition home or self-care (01) | LOC: HO.HHCL 09:03 | PROVIDERS: Visit Provider Internal Medicine | DX: N17.9 Acute kidney failure, unspecified (principal) | CPT/HCPCS: 36415; 80048 ==

== ENCOUNTER → 2023-04-21 08:23 | Outpatient (BNVA) | payer MEDICARE, MEDICAID, SELFPAY | PROVIDERS: PCP Student in an Organized Health Care Education/Training Program; Visit Provider Nurse Practitioner Family ==

== ENCOUNTER → 2023-05-21 08:21 | Outpatient (REF) | payer MEDICARE, MEDICAID, SELFPAY ==
--- NOTE | ~2023-05-21 | NM_ITS ---
EXERCISE MYOCARDIAL PERFUSION STUDY INDICATION: Cardiomyopathy, assess for ischemia TECHNIQUE: The patient was brought in for an exercise perfusion study on 05/21/2023. Patient performed exercise as per Sergio protocol and was injected 25 mCi of sestamibi once target heart rate was achieved. Images were obtained using the SPECT gamma camera interlaced with the gating device. Images were obtained in supine position. Resting perfusion study was performed on 05/22/2023. Patient was administered 25 mCi of sestamibi intravenously at rest. Images were then obtained in supine position. Images were processed with the software and compared side to side in short axis, horizontal long axis and vertical long axis views. Total DLP 97mGy-cm. FINDINGS: Raw images were reviewed. The stress perfusion study showed no significant perfusion abnormality. Both uncorrected as well as CT attenuation corrected images were reviewed. The gated study shows mildly diminished LV systolic function with calculated LVEF of 52%. LV cavity is normal in size. The gated study shows normal wall thickening and contraction of segments. Resting study shows no significant perfusion abnormality. Gating at rest reveals normal wall motion with ejection fraction at 42%. The findings are consistent with no clear reversible or fixed perfusion abnormality. NM/NM cardiolite stress test IMPRESSION: 1. Myocardial perfusion imaging study shows normal myocardial perfusion. 2. Gated LVEF is 52% during stress and 42% during rest. 3. Transient ischemic dilatation not present. EKG component of the test reported separately.
--- NOTE | 2023-05-21 08:24 | CA_ITS ---
Acquisition Time: 2023-05-21 08:40:00 Total Exercise Time: 00:05:01 Test Indications: CARDIOMYOPATHY Medications: CARVEDILOL LISINOPRIL LEVOTHYROXINE Protocol: CYN Max HR: 150 BPM 100% of Pred: 150 BPM Max BP: 184/040 mmHG Max Work Load: 7.0 METS Exercise stress test exercise 5 min 1 sec of Cyn protocol achieving 97% MPHR, without anginal symptoms, with isolated PAC and PVCs, with normotensive response to exericse, with t wave inversion in lead v3-v4. Nuclear images pending. Test reviewed with Dr. Salinas. Referred By: Damaris Hobbs Overread By: Dorie Oro
== END ==
LOC: HO.CARD 08:21
PROVIDERS: PCP Student in an Organized Health Care Education/Training Program; Visit Provider Nurse Practitioner Family
DX: I42.8 Other cardiomyopathies (principal); R93.1 Abnormal findings on diagnostic imaging of heart and coronary circulation
CPT/HCPCS: 78452; 93017; A9500

== ENCOUNTER → 2023-05-21 08:24 | Outpatient (BNV) | payer MEDICARE, MEDICAID, SELFPAY | PROVIDERS: PCP Student in an Organized Health Care Education/Training Program; Visit Provider Nurse Practitioner | DX: I42.8 Other cardiomyopathies (principal); R93.1 Abnormal findings on diagnostic imaging of heart and coronary circulation | CPT/HCPCS: 78452; 93016; 93018 ==

== ENCOUNTER 2023-06-09 11:07 | Outpatient (REF) | payer MEDICARE, MEDICAID, SELFPAY ==
--- NOTE | ~2023-06-09 | MR_ITS ---
EXAMINATION: MR HIP WITHOUT CONTRAST, RIGHT CLINICAL INFORMATION: Chronic right hip pain for one year, right hip locking COMPARISON: X-ray right femur on 02/13/2022, x-ray pelvis on 05/12/2019 TECHNIQUE: Examination was performed in a high field strength MRI scanner. Multiplanar multisequence MR imaging of right hip was performed without IV contrast enhancement. FINDINGS: BONES: The pelvis and right hip are intact. Patchy T2 hyperintensity is seen in the right acetabulum. There is marked lateral right acetabular osteophytosis. 2 prominent T2 hyperintense subcortical cystic erosions are seen in anterior superior right femoral head measuring up to 0.7 cm in diameter. Smaller subchondral cystic erosions are seen in anterior lateral right acetabular roof, series 5 image #7. There is marked loss of right acetabular and femoral head articular cartilage including full-thickness cartilage loss in superior right hip. A T1 hypointense lesion is seen in inferior left iliac bone extending to the left acetabulum, measuring 2.2 cm in vertical height and with, series 3 image #9. LIGAMENTS: The Left iliofemoral ligament is intact. LABRUM: The Left acetabular labrum is markedly eroded. FEMOROACETABULAR ANATOMY: There is marked over-coverage of femoral head by acetabulum, mostly due to hypertrophic osteophyte. The lateral center edge angle is 53 degrees (normal range 25-40 degrees). No significant acetabular retroversion is seen. No pistol bakery clerk deformity of the femoral head could be seen. The femoroacetabular impingement alpha angle is 53 degrees (normal limits 55 degrees). PELVIS: Urinary bladder is normal. Right Pelvic fat plane is clean. No abnormally enlarged right iliac or inguinal lymph nodes are found. MR/MR hip RT wo con IMPRESSION: 1. Severe osteoarthritis of the right hip is present. 2. No fracture or dislocation of right hip or signs of femoral head avascular necrosis could be seen. 3. Over coverage of right femoral head is due to lateral acetabular osteophytosis. No diagnostic evidence of femoroacetabular impingement syndrome could be found. 4. Incidental finding of T1 hypointense lesion in inferior left iliac bone extending to left acetabular roof, with no sclerotic lesion in the corresponding region seen on plain x-ray of pelvis on 05/12/2019. The lesion cannot be characterized by the current MRI of right hip. If the patient has known primary carcinoma, further evaluation with nuclear medicine bone scan is recommended.
== END 2023-06-09 11:08 | disposition home or self-care (01) ==
LOC: HO.MRI 11:07
PROVIDERS: PCP Student in an Organized Health Care Education/Training Program; Visit Provider Student in an Organized Health Care Education/Training Program
DX: R10.31 Right lower quadrant pain (principal)
CPT/HCPCS: 73721

== ENCOUNTER 2023-06-10 07:43 | Emergency (ER) | payer MEDICARE, MEDICAID, SELFPAY ==
--- NOTE | ~2023-06-10 | US_ITS ---
EXAMINATION: US RETROPERITONEAL LIMITED (RENAL ONLY) CLINICAL INFORMATION: Left low back pain, hematuria, UTI. COMPARISON: None available. TECHNIQUE: Routine grayscale imaging of kidneys was performed. FINDINGS: RIGHT KIDNEY: 10.3 x 5.7 x 5.9 cm (SAG x AP x TRV). The kidney is normal in size, contour, and echogenicity. Renal cortical thickness is normal. No calculi or focal parenchymal lesions. No hydronephrosis. There are 3 anechoic simple cysts seen. The largest cyst measures 6.0 x 4.0 x 5.0 cm in the midpole. LEFT KIDNEY: 11.4 x 6.7 x 4.9 cm (SAG x AP x TRV). The kidney is normal in size, contour, and echogenicity. Renal cortical thickness is normal. There is an echogenic nonobstructive calculi lower pole left kidney measuring 0.7 x 0.3 x 0.6 cm. There are 2 anechoic simple cysts. The largest simple cyst lower pole measures 1.7 x 1.5 x 2.0 cm. US/US renal BI IMPRESSION: Bilateral renal cysts. Nonobstructive echogenic calculi lower pole left kidney.
[2023-06-10 08:07] VITALS: BP 139/68; PULSE 75; RESP 16; TEMP 36.6; O2SAT 99; BMI 28.4
--- NOTE | 2023-06-10 08:36 | ED.BACK ---
HPI - Back Pain/Injury General Chief Complaint: Back Pain/Injury Stated Complaint: Low Back Pain No Injury Time Seen by Provider: 06/10/23 08:35 Source: patient, RN notes reviewed and old records reviewed Mode of arrival: ambulatory History of Present Illness HPI Narrative: 72-year-old male with a past medical history, anemia, VIJI, cardiomyopathy, hypothyroid, anemia, hypertension, presenting to the ED complaining of left low back pain radiating to left side/abdomen x4 days. Denies known injury, trauma or fall. Reports taking Tylenol at home with little relief. Reports MRI yesterday of right hip due to chronic pain ordered by PCP. Denies fever, chills, dysuria/hematuria, incontinence/retention, abdominal pain, nausea/vomiting. MD elicited complaint: back pain Related Data Home Medications Medication Instructions Recorded Confirmed levothyroxine 112 mcg tablet 112 mcg PO DAILY 10/16/21 05/06/23 Previous Rx's Medication Instructions Recorded lisinopril 5 mg tablet 5 mg PO DAILY 90 days #90 tabs 11/14/22 carvedilol 3.125 mg tablet 3.125 mg PO BID #180 tabs 04/10/23 bisacodyl 5 mg tablet,delayed 20 mg (4 x 5 mg) PO ONCE 1 day #4 04/21/23 release (Dulcolax (bisacodyl)) tabs polyethylene glycol 3350 17 238 g PO ONCE #238 grams 04/21/23 gram/dose oral powder (Miralax) ciprofloxacin HCl 500 mg tablet 500 mg PO BID 7 days #14 tabs 06/10/23 cyclobenzaprine 5 mg tablet 5 mg PO Q8H PRN pain (scale score 06/10/23 7-10) 5 days #14 tabs lidocaine 5 % topical patch 1 patch topical DAILY PRN pain #30 06/10/23 (Lidoderm) ea tamsulosin 0.4 mg capsule (Flomax) 0.4 mg PO DAILY #14 caps 06/10/23 Allergies Allergy/AdvReac Type Severity Reaction Status Date / Time aspirin [ASPIRIN] Allergy Unknown SWELLING, Verified 06/10/23 08:02 rash Review of Systems Review of Systems: Constitutional: No Fever, No Chills ENT/Mouth: No Ear Pain, No Nasal Congestion, No Sinus Pain, No Hoarseness, No sore throat, No Rhinorrhea, No Swallowing Difficulty Cardiovascular: No Chest Pain, No SOB Respiratory: No Cough, No Sputum Gastrointestinal: No Nausea, No Vomiting, No Diarrhea, No Constipation, No Abdominal pain Genitourinary: No Dysuria, No Urinary Frequency, No Hematuria, No Urinary Incontinence/retention, No Urgency, No Flank Pain Musculoskeletal: +joint pain, No Myalgias, No Joint Swelling Skin: No Skin Lesions, No rash Neuro: No Weakness, No Numbness, No Paresthesias Yes all other systems are reviewed and are negative Constitutional: Constitutional: Reports as per HPI Neurologic: Denies Sensory deficit (Neuro) [facility] Past Medical History Attestation statement: The following information was validated with the patient. Source: old records reviewed Medical History Abscess of scalp VIJI (obstructive sleep apnea) NICM (nonischemic cardiomyopathy) Urolithiasis Hypothyroidism Anemia HTN (hypertension) Surgical History No pertinent past surgical history Family History Family History Father No problems noted. Mother No problems noted. Social History Social History Household Members: Spouse Housing: Apartment Alcohol intake: never Patient Tobacco Use Status: Former Tobacco user Advance Directives: No Advance Directives Information Provided: No service: No Current occupational status: retired Physical Exam Vital Signs: Vital Signs: Last Vital Signs Temp 98 F 06/10/23 08:07 Pulse 75 06/10/23 08:07 Resp 16 06/10/23 08:07 BP 139/68 06/10/23 08:07 Pulse Ox 99 06/10/23 08:07 O2 Del Method Room Air 06/10/23 08:07 BMI result Body Mass Index 28.4 Const: General: cooperative, healthy appearing and no acute distress Orientation/consciousness: patient oriented x3 Limitations: no limitations HEENT: Head: Yes normal to inspection and Yes atraumatic Ears: hearing grossly normal bilaterally General nose exam: Normal external nose present Face and sinus: Yes normal facial exam Eyes: General: appearance normal, both eyes and all related structures EOM: EOMs intact bilaterally Neck: Neck: Yes normal visual inspection and Yes no meningeal signs Resp: Effort & Inspection: normal respiratory effort and no respiratory distress Auscultation: clear to auscultation bilaterally Cardio: Rate: regular rate Heart sounds: S1 normal heart sound present and S2 normal heart sound present GI: Inspection: Yes normal to inspection Palpation (GI): Soft to palpation, nontender, no guarding and not rigid : General: Yes no CVA tenderness Back/Spine/Pelvis: Other: No midline cervical/thoracic/lumbar spinous tenderness/step-off or deformity. + left-sided lower lumbar MSK reproducible ttp. No erythema/ecchymosis or rash Back: no CVA tenderness Skin: Rashes: no rashes Wounds: no wounds Neuro: Other: Strength intact throughout. No saddle anesthesia. Sensation intact to light touch. Neurovascular intact distally General: patient oriented x3, tone normal, moves all extremities, no meningeal signs and no focal motor deficits Cranial nerves: Yes CN's II-XII intact bilaterally Gait exam (Neuro): Antalgic gait present Motor exam (neuro): 5/5 motor strength present throughout Sensory Exam: No Sensory deficit (Neuro) Extrem: General: Yes normal to inspection Course Course Course Narrative: -0944--UA with blood/RBC's, leuk esterase and wbc's > will obtain labs and ultrasound for possible ?pyelo/stone although patient pain seems more MSK on exam -1226--no leukocytosis. Renal function WNL. Labs reassuring US renal BI IMPRESSION: Bilateral renal cysts. Nonobstructive echogenic calculi lower pole left kidney. > will treat patient for pyelonephritis due to back pain and UTI as well as MSK pain, possible he passed a stone. Will also refer to Urology Results discussed with patient including worrisome signs and symptoms and strict return precautions, and when to return to the emergency department. They verbalized understanding and feel safe for discharge at this time. Medications Administered Discontinued Medications Generic Name Dose Route Start Last Admin Trade Name Yovani PRN Reason Stop Dose Admin Lidocaine 1 patch 06/10/23 08:49 06/10/23 09:16 Lidocaine 4 % Patch Adh..Patch TRANSDERMA 06/10/23 08:50 1 patch ONCE ONE Administration Protocol Medical Decision Making Medical Decision Making [facility] Narrative: 72-year-old male with a past medical history, anemia, VIJI, cardiomyopathy, hypothyroid, anemia, hypertension, presenting to the ED complaining of left low back pain radiating to left side/abdomen x4 days. On exam vital signs stable, NAD, nontoxic appearing, no midline spinous tenderness throughout the physical exam as above reproduces said MSK tenderness to palpation. A ambulating with antalgic gait, no saddle anesthesia. No CVAT. Abdomen soft/nontender. Concern for MSK pain/strain. Renal stone/pyelo on differential however lower. Unlikely cauda equina/cord compression or epidural abscess Plan: UA, pain control Please refer to course for remaining clinical decision making, interpretation of labs/imaging results, and discussions with consultants and/or family members. Differential Diagnosis Differential Diagnoses: The differential diagnosis associated with the presentation includes As above Lab Data 06/10/23 10:57 06/10/23 10:57 Labs: Lab Results 06/10/23 06/10/23 Range/Units 09:18 10:57 WBC 6.1 (4.8-10.8) X10*3/uL RBC 4.51 L (4.60-5.80) X10*6/uL Hgb 12.4 L (14.0-18.0) g/dl Hct 38.9 L (42.0-52.0) % MCV 86.3 (80.0-98.0) fL MCH 27.5 (27.0-33.0) pg MCHC 31.9 (31.0-36.0) g/dl RDW 13.6 (11.0-16.0) % Plt Count 196 (160-400) X10*3/uL MPV 9.3 L (9.4-12.4) fL Immature Gran % (Auto) 0.3 (0.0-0.4) % Neut % (Auto) 61.3 (45-73) % Lymph % (Auto) 30.8 (20-40) % Louisa % (Auto) 5.7 (2-11) % Eos % (Auto) 1.6 (0-4) % Baso % (Auto) 0.3 (0-2) % Lymph # (Auto) 1.9 (1.2-4.9) X10*3/uL Louisa # (Auto) 0.4 (0.1-1.2) X10*3/uL Eos # (Auto) 0.1 (0.0-0.4) X10*3/uL Baso # (Auto) 0.0 (0.0-0.2) X10*3/uL Abs Immat Gran (auto) 0.02 (0.00-0.03) X10*3/uL Absolute Neuts (auto) 3.7 (2.0-8.3) x10*3/uL Absolute Nucleated RBC 0.000 (0.0-0.012) X10*3/uL Nucleated RBC % (auto) 0.0 (0.0-0.2) /100WBC Sodium 142 (135-145) mmol/L Potassium 4.0 (3.3-5.1) mmol/L Chloride 108 (96-108) mmol/L Carbon Dioxide 25 (22-29) mmol/L Anion Gap 13 (12-20) BUN 15 (9-16) mg/dL Creatinine 1.02 (0.5-1.4) mg/dL Estim Creat Clear Calc 66.9 Estimated GFR > 60 Random Glucose 86 (60-115) mg/dL Calcium 9.4 (8.4-10.2) mg/dL Total Bilirubin 0.4 (0.0-1.0) mg/dL Direct Bilirubin 0.2 (0.0-0.5) mg/dL AST 17 (5-37) U/L ALT 18 (0-40) U/L Alkaline Phosphatase 76 (39-117) U/L Total Protein 7.5 (6.5-8.0) g/dL Albumin 4.2 (3.5-5.0) g/dL Urine Color Yellow Urine Appearance Clear Urine pH 6.0 (5.0-9.0) Ur Specific Fletcher 1.025 (1.005-1.025) Urine Protein Negative (Neg-Trace) mg/dL Urine Glucose (UA) Negative (Negative) mg/dL Urine Ketones Negative (Negative) mg/dL Urine Blood Small (1+) H (Negative) Urine Nitrite Negative (Negative) Ur Leukocyte Esterase Small (1+) H (Negative) Urine RBC 11-20 H (0-2) /HPF Urine WBC 6-10 H (0-5) /HPF Ur Squamous Epith Cells 3-5 (0-2) /HPF Urine Bacteria None Seen (None Seen) Hyaline Casts 0-2 (0-2) /LPF External Record Review External record reviewed: Inpatient record, Office record, Outpatient record, Prior outpatient labs, Prior outpatient radiology, Primary care record and Outside ED record Tests considered The following testing was considered but not selected: As above Prescription Management I considered prescription management with: Pain Medication Discharge Plan Discharge Clinical Impression: Pyelonephritis, Strain of lumbar region Patient Disposition: Home, Self-Care Instructions: Kidney Infection (ED), Acute Low Back Pain (ED) Additional Instructions: You have a UTI/possible kidney infection. It is also possible you passed a stone Cipro is an antibiotic please take as prescribed Flomax to help dilate your ureter You need to follow-up with urology Flexeril is a muscle relaxer, take at night as it makes you drowsy, do not drive, drink alcohol, or operate machinery while taking it Lidoderm patches are numbing patches, apply to painful area In addition take Tylenol at home If symptoms persist or worsen, pain becomes unbearable, you developed urinary retention or incontinence, or weakness return to the ED Tiene elvia ITU/posible infecci?n renal. Tambi?n es posible que hayas pasado elvia diana. Cipro es un antibi?mary, t?reddy seg?n lo recetado. Flomax para ayudar a dilatar el ur?ter Necesitas seguimiento con urolog?a. Flexeril es un relajante muscular, t?reddy por la noche ya que produce somnolencia, no conduzca, elissa alcohol ni opere maquinaria mientras lo sonya. Los parches de Lidoderm son parches adormecedores, se aplican en el ?cristhian dolorida. Adem?s, tome Tylenol en casa. Si los s?ntomas persisten o empeoran, el dolor se vuelve insoportable, usted desarrolla retenci?n urinaria o incontinencia, o debilidad, regrese al servicio de urgencias. Prescriptions: New ciprofloxacin HCl 500 mg tablet 500 mg PO BID 7 Days Qty: 14 0RF tamsulosin [Flomax] 0.4 mg capsule 0.4 mg PO DAILY Qty: 14 0RF lidocaine [Lidoderm] 5 % adhesive patch,medicated 1 patch topical DAILY MDD remove after 12 hours PRN (Reason: pain) Qty: 30 0RF Rx Instructions: leave on most painful area for up to 12 hrs cyclobenzaprine 5 mg tablet 5 mg PO Q8H PRN (Reason: pain (scale score 7-10)) 5 Days Qty: 14 0RF No Action lisinopril 5 mg tablet 5 mg PO DAILY 90 Days Qty: 90 0RF Rx Instructions: Please call to schedule cardiology appt for refills carvedilol 3.125 mg tablet 3.125 mg PO BID Qty: 180 0RF levothyroxine 112 mcg tablet 112 mcg PO DAILY bisacodyl [Dulcolax (bisacodyl)] 5 mg tablet,delayed release (DR/EC) 20 mg PO ONCE 1 Days Qty: 4 0RF Rx Instructions: take 4 tabs at noon the day before your colonoscopy polyethylene glycol 3350 [Miralax] 17 gram/dose powder 238 g PO ONCE Qty: 238 0RF Rx Instructions: As directed by gastroenterology department at [facility] Referrals: [facility] – [place] U[facility] Services [Provider Group] - 1 week Malinda Flowers MD [Primary Care Provider] - Print Language: Yi
[2023-06-10] MEDS: Lidocaine 4 % Patch ADH..PATCH 1 PATCH TRANSDERMA (09:16)
[2023-06-10 09:25] LABS: Appearance Urine Clear; Color Urine Yellow; Glucose Urine UA Negative (Negative); Leukocyte Esterase Urine Small (1+) (Negative); Nitrite Urine Negative (Negative); Specific Gravity - Urine 1.025 (1.005-1.025); UMIC TRIGGER UACC YES; Urine Blood Small (1+) (Negative); Urine Ketones Negative (Negative); Urine Protein Negative (Neg-Trace)
--- NOTE | 2023-06-10 09:25 | PC.NURSE ---
aox4, ambulatory steady gait. reports lower left back pain since thursday. urine sample obtained and sent to lab, lido patch applied. plan of care ongoing
[2023-06-10 09:28] LABS: Bacteria Urine None Seen (None Seen); Hyaline Casts Urine 0-2 /LPF (0-2); UACC Culture Trigger YES
[2023-06-10 11:02] LABS: MANUAL DIFF FLAG NO
[2023-06-10 11:04] LABS: Basophils Percent Auto 0.3 % (0-2); Eosinophils Absolute Auto 0.1 X10*3/uL (0.0-0.4); Eosinophils Percent Auto 1.6 % (0-4); Hematocrit 38.9 % (42.0-52.0); Hemoglobin 12.4 g/dl (14.0-18.0); Imm Gran Abs Auto 0.02 X10*3/uL (0.00-0.03); Imm Gran Pct Auto 0.3 % (0.0-0.4); Lymphocytes Absolute Auto 1.9 X10*3/uL (1.2-4.9); Lymphocytes Percent Auto 30.8 % (20-40); Mean Corpuscular HGB Conc 31.9 g/dl (31.0-36.0); Mean Corpuscular Hemoglobin 27.5 pg (27.0-33.0); Mean Corpuscular Volume 86.3 fL (80.0-98.0); Mean Platelet Volume 9.3 fL (9.4-12.4); Monocytes Absolute Auto 0.4 X10*3/uL (0.1-1.2); Monocytes Percent Auto 5.7 % (2-11); Neutrophils Absolute Auto 3.7 x10*3/uL (2.0-8.3); Neutrophils Percent Auto 61.3 % (45-73); Platelet Count 196 X10*3/uL (160-400); Red Blood Count 4.51 X10*6/uL (4.60-5.80); Red Cell Distribution Width 13.6 % (11.0-16.0); White Blood Count 6.1 X10*3/uL (4.8-10.8)
[2023-06-10 11:34] LABS: Alanine Aminotransferase 18 U/L (0-40); Albumin Level 4.2 g/dL (3.5-5.0); Alkaline Phosphatase 76 U/L (39-117); Anion Gap 13 (12-20); Aspartate Amino Transferase 17 U/L (5-37); Bilirubin Direct 0.2 mg/dL (0.0-0.5); Bilirubin Total 0.4 mg/dL (0.0-1.0); Blood Urea Nitrogen 15 mg/dL (9-16); Calcium 9.4 mg/dL (8.4-10.2); Carbon Dioxide 25 mmol/L (22-29); Chloride 108 mmol/L (96-108); Creatinine Clr Calc Pharmacy 66.9; Estimated Glomerular Filt Rate > 60; Glucose Random 86 mg/dL (60-115); Sodium 142 mmol/L (135-145); Total Protein 7.5 g/dL (6.5-8.0)
== END 2023-06-10 12:47 | disposition home or self-care (01) ==
PROVIDERS: Physician Assistant; Emergency Provider Emergency Medicine Emergency Medical Services; PCP Student in an Organized Health Care Education/Training Program
DX: N12 Tubulo-interstitial nephritis, not specified as acute or chronic (principal); S39.012A Strain of muscle, fascia and tendon of lower back, initial encounter; X58.XXXA Exposure to other specified factors, initial encounter; I10 Essential (primary) hypertension; Y93.9 Activity, unspecified; Y92.9 Unspecified place or not applicable; Y99.9 Unspecified external cause status; Z87.891 Personal history of nicotine dependence
CPT/HCPCS: 36415; 76775; 80048; 80076; 81001; 85025; 87086; 99282; 99284

== ENCOUNTER 2023-06-22 09:14 | Outpatient (AMB) | payer MEDICARE, MEDICAID, SELFPAY ==
--- NOTE | 2023-06-22 09:16 | A.OFFVIS_ITS ---
Intake Vital Signs 06/22/23 09:21 Height 5 ft 6 in BP 140/80 H Blood Pressure Location Rt brachial Position Sitting Intake Visit Reasons: 4m f/u VIJI-LVM Intake Note: Patient presents for 4 month follow up VIJI. Allergies aspirin [ASPIRIN] Allergy (Unknown, Verified 07/02/23 12:57) SWELLING, rash HPI HPI Comments History of Present Illness Details 72 male patient with VIJI on CPAP present s for follow up. Pt was diagnosed with VIJI around 2010 and has been using CPAP since then. He had a repeat sleep study done. The home sleep study result was significant for a mild degree of sleep apnea. The AHI was 7/hr and oxygen hermelindo was 84%. He started APAP [id number]. The CPAP compliance and therapy response (05/23/23-06/21/23) reviewed. The usage days 30% and the average usage hours 4 hrs 35 min. The max pressure was 10.3 and the residual AHI was 0.9/hr. Pt reports he had tooth infection and had difficulty using CPAP due to face swelling. He finished ABT for tooth infection. Pt reports he sleeps well, 7-9 hours at night. Denies difficulty falling asleep or staying sleep. He states his snoring has improved with CPAP. [facility] Medical History (Updated 07/03/23 @ 08:41 by Santiago Henry CNP) Abscess of scalp VIJI (obstructive sleep apnea) NICM (nonischemic cardiomyopathy) Urolithiasis Hypothyroidism Anemia HTN (hypertension) Surgical History No pertinent past surgical history Family History Father No problems noted. Mother No problems noted. Social History Household Members: Spouse Housing: Apartment Alcohol intake: never Patient Tobacco Use Status: Former Tobacco user service: No Current occupational status: retired Review of Systems Const All systems reviewed & are unremarkable except as noted in HPI and below ENT Reports Normal hearing present Neuro Reports Normal hearing present Physical Exam Vital Signs: Last Vital Signs BP 140/80 H 06/22/23 09:21 Const General: cooperative and comfortable Nutritional Appearance: overweight Orientation/consciousness: patient oriented x3 Neck Neck: Yes full ROM and Yes supple Resp Effort & Inspection: normal respiratory effort and able to speak in complete sentences Neuro General: patient oriented x3, gait normal, moves all extremities and no focal motor deficits Cranial nerves: Yes Bilaterally intact EOM present, Yes Normal facial strength present, Yes Midline tongue present, Yes Symmetric palate elevation present, Yes Normal hearing present, Yes Ability to bilaterally rotate head present and Yes Ability to bilaterally elevate shoulders present Cognition (Neuro): normal cognition Gait exam (Neuro): Normal gait present Motor exam (neuro): 5/5 motor strength present throughout, Pronator motor function not present and no tremor noted Psych Appearance: grossly normal Mental Status: mental status grossly normal Speech and movement: Normal speech and movement present Affect: normal affect Attitude: cooperative Assessment & Plan Assessment & Plan (1) VIJI (obstructive sleep apnea): Comment: Mild degree of sleep apnea. The AHI was 7/hr and oxygen hermelindo was 84%. Code(s): G47.33 - Obstructive sleep apnea (adult) (pediatric) Plan Advised patient to continue to use APAP [id number] as patient experiences good clinical effects, less snoring, sleep quality has improved. Stressed compliance, use CPAP nightly and more than 4 hrs. Coding Level of Care Code Est Pt Level 3 (77032) Diagnoses VIJI (obstructive sleep apnea) G47.33
[2023-06-22 09:21] VITALS: BP 140/80
== END 2023-06-22 09:31 | disposition home or self-care (01) ==
PROVIDERS: PCP Student in an Organized Health Care Education/Training Program; Visit Provider Nurse Practitioner Family
DX: G47.33 Obstructive sleep apnea (adult) (pediatric) (principal)
CPT/HCPCS: 99213

== ENCOUNTER → 2023-06-22 09:14 | Outpatient (BNVA) | payer MEDICARE, MEDICAID, SELFPAY | PROVIDERS: PCP Student in an Organized Health Care Education/Training Program; Visit Provider Nurse Practitioner Family | DX: G47.33 Obstructive sleep apnea (adult) (pediatric) (principal) | CPT/HCPCS: 99212 ==

== ENCOUNTER 2023-07-01 10:25 | Emergency (ER) | payer MEDICARE, MEDICAID, SELFPAY ==
[2023-07-01 10:31] VITALS: BP 101/61; PULSE 94; RESP 18; TEMP 36.7; O2SAT 97; BMI 29.2
--- NOTE | 2023-07-01 10:42 | ECG_ITS ---
Test Reason : SYNCOPE Blood Pressure : / mmHG Vent. Rate : 079 BPM Atrial Rate : 079 BPM P-R Int : 156 ms QRS Dur : 088 ms QT Int : 394 ms P-R-T Axes : 042 -02 048 degrees QTc Int : 451 ms Normal sinus rhythm Nonspecific T wave abnormality Borderline ECG When compared with ECG of 22-FEB-2023 17:13, No significant change was found Referred By: Generic ED Physician Electronically Signed By:DELMIS ROJAS
[2023-07-01 11:12] LABS: MANUAL DIFF FLAG NO
[2023-07-01 11:13] LABS: Basophils Percent Auto 0.7 % (0-2); Eosinophils Absolute Auto 0.1 X10*3/uL (0.0-0.4); Eosinophils Percent Auto 1.8 % (0-4); Hematocrit 39.5 % (42.0-52.0); Hemoglobin 12.8 g/dl (14.0-18.0); Imm Gran Abs Auto 0.04 X10*3/uL (0.00-0.03); Imm Gran Pct Auto 0.7 % (0.0-0.4); Lymphocytes Absolute Auto 1.8 X10*3/uL (1.2-4.9); Lymphocytes Percent Auto 32.8 % (20-40); Mean Corpuscular HGB Conc 32.4 g/dl (31.0-36.0); Mean Corpuscular Hemoglobin 28.3 pg (27.0-33.0); Mean Corpuscular Volume 87.4 fL (80.0-98.0); Monocytes Absolute Auto 0.3 X10*3/uL (0.1-1.2); Monocytes Percent Auto 5.3 % (2-11); Neutrophils Absolute Auto 3.2 x10*3/uL (2.0-8.3); Neutrophils Percent Auto 58.7 % (45-73); Platelet Count 175 X10*3/uL (160-400); Red Blood Count 4.52 X10*6/uL (4.60-5.80); Red Cell Distribution Width 13.4 % (11.0-16.0); White Blood Count 5.5 X10*3/uL (4.8-10.8)
[2023-07-01 11:45] LABS: Troponin-I High Sensitivity < 2.7 ng/L (<3.5-35.0)
[2023-07-01 12:00] VITALS: BP 111/56; PULSE 76; RESP 16; O2SAT 97
--- NOTE | 2023-07-01 12:05 | PC.NURSE ---
Pt resting on stretcher A&Ox3 skin pwd respirations even unlabored, VSS. Offers no complaints, denies any symptoms. Awaiting results and MD reeval, aware of plan of care.
[2023-07-01 12:06] LABS: Anion Gap 11 (12-20)
[2023-07-01 12:09] LABS: Blood Urea Nitrogen 14 mg/dL (9-16); Calcium 9.7 mg/dL (8.4-10.2); Carbon Dioxide 27 mmol/L (22-29); Chloride 106 mmol/L (96-108); Creatinine Clr Calc Pharmacy 61.1; Estimated Glomerular Filt Rate > 60; Glucose Random 146 mg/dL (60-115); Potassium 3.8 mmol/L (3.3-5.1); Sodium 140 mmol/L (135-145)
--- NOTE | 2023-07-01 13:54 | ED_ITS ---
HPI - Syncope General Chief Complaint: Syncope Stated Complaint: Low blood pressure Time Seen by Provider: 07/01/23 11:09 Source: patient and other (Triage nurse) Mode of arrival: ambulatory Limitations: no limitations History of Present Illness HPI narrative: 72-year-old male who presents emergency department for evaluation of itchiness, diaphoresis and syncope. 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 He then became diaphoretic and felt weak. He came to the emergency department he states that the patient has had resolved but he was still feeling weak. Patient was triaged in the triage chair, stood up to get on the scale when he felt lightheaded, he then developed nausea and vomited. Triage nurse then states the patient had a syncopal episode where his eyes rolled in the back of his head and he lost consciousness briefly. By the time I got into the room the patient was awake and alert and had no complaints. He denied fever, chills, rhinorrhea, sore throat, cough, chest pain, change in his bowel movements, black stools or tarry stools. He denied frequency, urgency or dysuria Related Data Home Medications Medication Instructions Recorded Confirmed levothyroxine 112 mcg tablet 112 mcg PO DAILY 10/16/21 05/06/23 Previous Rx's Medication Instructions Recorded lisinopril 5 mg tablet 5 mg PO DAILY 90 days #90 tabs 11/14/22 carvedilol 3.125 mg tablet 3.125 mg PO BID #180 tabs 04/10/23 bisacodyl 5 mg tablet,delayed 20 mg (4 x 5 mg) PO ONCE 1 day #4 04/21/23 release (Dulcolax (bisacodyl)) tabs polyethylene glycol 3350 17 238 g PO ONCE #238 grams 04/21/23 gram/dose oral powder (Miralax) ciprofloxacin HCl 500 mg tablet 500 mg PO BID 7 days #14 tabs 06/10/23 cyclobenzaprine 5 mg tablet 5 mg PO Q8H PRN pain (scale score 06/10/23 7-10) 5 days #14 tabs lidocaine 5 % topical patch 1 patch topical DAILY PRN pain #30 06/10/23 (Lidoderm) ea tamsulosin 0.4 mg capsule (Flomax) 0.4 mg PO DAILY #14 caps 06/10/23 Allergies Allergy/AdvReac Type Severity Reaction Status Date / Time aspirin [ASPIRIN] Allergy Unknown SWELLING, Verified 07/01/23 10:31 rash Review of Systems 2 Review of Systems: Yes all other systems are reviewed and are negative [facility] Past Medical History [facility] Narrative: Social history: He denies tobacco, alcohol and drug use. Medical History Abscess of scalp VIJI (obstructive sleep apnea) NICM (nonischemic cardiomyopathy) Urolithiasis Hypothyroidism Anemia HTN (hypertension) Surgical History No pertinent past surgical history Family History Family History Father No problems noted. Mother No problems noted. Social History Social History Household Members: Spouse Housing: Apartment Alcohol intake: never Patient Tobacco Use Status: Former Tobacco user Smoked in Last 30 Days: No Use of substances other than those prescribed or required for medical reasons: No Advance Directives: No Advance Directives Information Provided: Yes service: No Current occupational status: retired Physical Exam 2 Vital Signs: Vital Signs: Last Vital Signs Temp 98.0 F 07/01/23 10:31 Pulse 76 07/01/23 12:00 Resp 16 07/01/23 12:00 BP 111/56 L 07/01/23 12:00 Pulse Ox 97 07/01/23 12:00 O2 Del Method Room Air 07/01/23 12:00 BMI result Body Mass Index 29.2 Vital signs were normal Exam: General: Awake, alert in no distress Head: Normocephalic, atraumatic EENT: PERRL, Lids normal, sclera normal, conjunctiva normal, nose normal , ears normal, throat without erythema or exudates Neck: Supple, no adenopathy, no trachea midline or C-spine tenderness Lung: breath sounds symmetric, no wheezing, rales or rhonchi Chest: symmetric movement, nontender Heart: regular rate and rhythm, normal S1, S2 no murmurs or rubs Abdomen: soft, non-tender, nondistended, normal bowel sounds Back: no vertebral tenderness, no CVAT Extremities: no deformities, moves all extremities symmetrically Skin: no rashes, no lesion, normal color and warmth Neuro: Awake, alert, oriented, normal speech, cranial nerves intact, moves all extremities symmetrically Psych: Pleasant, cooperative Medical Decision Making Medical Decision Making [facility] Narrative: 72-year-old male with history of hypertension, hypothyroidism, kidney stones who presented to the emergency department for evaluation of itchiness and diaphoresis. While he was being triaged he stood up, developed nausea, vomiting and had a syncopal episode. Patient's vital signs were normal. His physical examination was unremarkable. Following evaluation was ordered: CBC, BMP, troponin, EKG. Patient was placed on a cardiac and O2 saturation monitor 14:27 My interpretation patient's laboratory evaluation is as follows: CBC was normal. BMP revealed an elevated glucose of 146. Troponin was below detectable limits. EKG was unremarkable. Patient most likely had allergic reaction which then caused his blood pressure dropped and while he was here in the emergency department had a vasovagal event. Patient was given printed and verbal instructions and discharged home. Differential Diagnosis Differential Diagnoses: The differential diagnosis associated with the presentation includes Differential diagnosis includes was not limited to myocardial infarction, myocardial ischemia, electrolyte abnormalities, anemia, arrhythmia Admission/Observation Consideration of admission/observation: Escalation of care including admission/observation considered Lab Data [facility] Lab Attestation statement: I reviewed the patient's lab results. See [facility] 07/01/23 11:08 07/01/23 11:50 Labs: Lab Results 07/01/23 07/01/23 Range/Units 11:08 11:50 WBC 5.5 (4.8-10.8) X10*3/uL RBC 4.52 L (4.60-5.80) X10*6/uL Hgb 12.8 L (14.0-18.0) g/dl Hct 39.5 L (42.0-52.0) % MCV 87.4 (80.0-98.0) fL MCH 28.3 (27.0-33.0) pg MCHC 32.4 (31.0-36.0) g/dl RDW 13.4 (11.0-16.0) % Plt Count 175 (160-400) X10*3/uL MPV 10.0 (9.4-12.4) fL Immature Gran % (Auto) 0.7 H (0.0-0.4) % Neut % (Auto) 58.7 (45-73) % Lymph % (Auto) 32.8 (20-40) % O'Brien % (Auto) 5.3 (2-11) % Eos % (Auto) 1.8 (0-4) % Baso % (Auto) 0.7 (0-2) % Lymph # (Auto) 1.8 (1.2-4.9) X10*3/uL O'Brien # (Auto) 0.3 (0.1-1.2) X10*3/uL Eos # (Auto) 0.1 (0.0-0.4) X10*3/uL Baso # (Auto) 0.0 (0.0-0.2) X10*3/uL Abs Immat Gran (auto) 0.04 H (0.00-0.03) X10*3/uL Absolute Neuts (auto) 3.2 (2.0-8.3) x10*3/uL Absolute Nucleated RBC 0.000 (0.0-0.012) X10*3/uL Nucleated RBC % (auto) 0.0 (0.0-0.2) /100WBC Sodium 140 (135-145) mmol/L Potassium 3.8 (3.3-5.1) mmol/L Chloride 106 (96-108) mmol/L Carbon Dioxide 27 (22-29) mmol/L Anion Gap 11 L (12-20) BUN 14 (9-16) mg/dL Creatinine 1.13 (0.5-1.4) mg/dL Estim Creat Clear Calc 61.1 Estimated GFR > 60 Random Glucose 146 H (60-115) mg/dL Calcium 9.7 (8.4-10.2) mg/dL Troponin I High Sens < 2.7 (<3.5-35.0) ng/L Independent Interpretation I performed an independent interpretation of an: EKG Interpretation: My independent interpretation patient's 12 EKG done at 10:54 hours is as follows: Normal sinus rhythm with a rate of 79, normal OH interval, QRS duration QTC interval, no ST segment elevation, no ST segment depression, no T- wave abnormalities, no PACs no PVCs Chronic Conditions Patient?s care impacted by: Hypertension Discharge Plan Discharge Clinical Impression: Vasovagal syncope Allergic reaction Qualifiers: Encounter type: initial encounter Qualified Code(s): T78.40XA - Allergy, unspecified, initial encounter Patient Disposition: Home, Self-Care Instructions: General Allergic Reaction (ED), Syncope (ED) Additional Instructions: Your symptoms of itchiness and sweatiness is consistent with an allergic reaction. When you have an allergic reaction this could make your blood pressure low and cause you to pass out. While your in the triage room, you developed nausea, vomited and then passed out-this is very common if your dehydrated or having allergic reaction. Your blood work was normal. Your EKG was normal. Make sure you eat enough food throughout the day today and make sure you increase your fluid intake to prevent dehydration. Follow-up with your doctor in 2 days. Please return to the emergency department if your symptoms get worse or if you develop any symptoms that are concerning to you. Prescriptions: No Action lisinopril 5 mg tablet 5 mg PO DAILY 90 Days Qty: 90 0RF Rx Instructions: Please call to schedule cardiology appt for refills carvedilol 3.125 mg tablet 3.125 mg PO BID Qty: 180 0RF ciprofloxacin HCl 500 mg tablet 500 mg PO BID 7 Days Qty: 14 0RF tamsulosin [Flomax] 0.4 mg capsule 0.4 mg PO DAILY Qty: 14 0RF lidocaine [Lidoderm] 5 % adhesive patch,medicated 1 patch topical DAILY MDD remove after 12 hours PRN (Reason: pain) Qty: 30 0RF Rx Instructions: leave on most painful area for up to 12 hrs cyclobenzaprine 5 mg tablet 5 mg PO Q8H PRN (Reason: pain (scale score 7-10)) 5 Days Qty: 14 0RF levothyroxine 112 mcg tablet 112 mcg PO DAILY bisacodyl [Dulcolax (bisacodyl)] 5 mg tablet,delayed release (DR/EC) 20 mg PO ONCE 1 Days Qty: 4 0RF Rx Instructions: take 4 tabs at noon the day before your colonoscopy polyethylene glycol 3350 [Miralax] 17 gram/dose powder 238 g PO ONCE Qty: 238 0RF Rx Instructions: As directed by gastroenterology department at [facility]
[2023-07-01 14:30] VITALS: BP 117/52; PULSE 83; RESP 15; O2SAT 98
== END 2023-07-01 14:41 | disposition home or self-care (01) ==
PROVIDERS: Emergency Provider Emergency Medicine Emergency Medical Services; PCP Student in an Organized Health Care Education/Training Program
DX: R55 Syncope and collapse (principal); T78.40XA Allergy, unspecified, initial encounter; X58.XXXA Exposure to other specified factors, initial encounter; I10 Essential (primary) hypertension
CPT/HCPCS: 36415; 80048; 84484; 85025; 93005; 99283; 99285

== ENCOUNTER → 2023-07-01 10:42 | Outpatient (BNV) | payer MEDICARE, MEDICAID, SELFPAY | PROVIDERS: Emergency Provider Emergency Medicine Emergency Medical Services; PCP Student in an Organized Health Care Education/Training Program; Visit Provider Internal Medicine | DX: R55 Syncope and collapse (principal) | CPT/HCPCS: 93010 ==

== ENCOUNTER 2023-07-02 12:47 | Outpatient (AMB) | payer OTHER, MEDICAID, SELFPAY ==
[2023-07-02 12:54] VITALS: BP 120/72; PULSE 79; BMI 28.8
--- NOTE | 2023-07-02 12:54 | A.OFFVIS_ITS ---
Intake Vital Signs 07/02/23 12:54 Height 5 ft 6 in Weight 178 lb 9.191 oz BMI 28.8 BP 120/72 Blood Pressure Location Lt brachial Position Sitting Pulse 79 Pulse Source Pulse Oximeter Intake Visit Reasons: 3 month follow up after testing Reconciliation Accountant Required: Yes Reconciliation Accountant Name: marcel quick [id number] Allergies aspirin [ASPIRIN] Allergy (Unknown, Verified 07/02/23 12:57) SWELLING, rash Medication List - Last Reconciled 07/02/23 by Damaris Hobbs NP-C bisacodyl (Dulcolax (bisacodyl)) 20 mg (4 x 5 mg) PO ONCE 1 day ciprofloxacin HCl 500 mg PO BID 7 days cyclobenzaprine 5 mg PO Q8H PRN 5 days levothyroxine 112 mcg PO DAILY lidocaine 5% (Lidoderm) 1 patch topical DAILY PRN MDD remove after 12 hours lisinopril 5 mg PO DAILY 90 days metoprolol succinate ER 25 mg PO DAILY polyethylene glycol 3350 (Miralax) 238 grams PO ONCE tamsulosin (Flomax) 0.4 mg PO DAILY HPI 3 month follow up after testing HPI Details Josh is a 72-year-old male with past medical history of hypertension, obstructive sleep apnea, not treated, mild nonischemic cardiomyopathy who was in the emergency room for syncopal event at home 02/2023. He was seen in cardiology and testing was ordered including echo, stress and Holter monitor. Was seen again in the emergency room yesterday initially for itchiness that led to a witnessed syncopal event in which they suspected to be vasovagal in response to allergic reaction to unknown cause. He now presents for follow-up. Today he reports that he did have a syncopal episode about 2 months ago. He said he was cleaning his car and then became hot and lightheaded and proceeding to pass out. He did not seek medical care at that time. No reports of chest discomfort at rest or with activity. No heart palpitations, shortness of breat h, PND, orthopnea or edema. He does report feeling lightheaded at times in an upright position. He reports having no history of syncope up until the last few months. Takes all meds as directed. Reports being well hydrated. No recent med changes. [facility] Medical History Abscess of scalp VIJI (obstructive sleep apnea) NICM (nonischemic cardiomyopathy) Urolithiasis Hypothyroidism Anemia HTN (hypertension) Surgical History No pertinent past surgical history Family History Father No problems noted. Mother No problems noted. Social History Household Members: Spouse Housing: Apartment Alcohol intake: never Patient Tobacco Use Status: Former Tobacco user service: No Current occupational status: retired Review of Systems Const All systems reviewed & are unremarkable except as noted in HPI and below ENT Denies dizziness Card Denies chest pain, Denies chest pain at rest, Denies chest pain with activity, Reports syncope, Denies rapid heart rate, Denies pedal edema, Denies edema, D enies leg edema, Denies lightheadedness, Denies palpitations, Denies dyspnea, Denies dyspnea on exertion and Denies orthopnea Resp Denies cough, Denies dyspnea and Denies dyspnea on exertion GI Denies hematochezia and Denies change in stool character Musc Denies abnormal gait, Denies limited range of motion, Denies muscle cramps, Denies muscle weakness, Denies numbness, Denies radiating pain into limb, Denies stiffness and Denies tingling Neuro Denies abnormal gait, Denies dizziness, Reports syncope, Denies numbness and Denies tingling Endo Denies palpitations Physical Exam Vital Signs: Last Vital Signs Pulse 79 07/02/23 12:54 BP 120/72 07/02/23 12:54 BMI result Body Mass Index 28.8 Const General: cooperative, healthy appearing, comfortable and no acute distress Orientation/consciousness: patient oriented x3 Neck Neck: Yes normal visual inspection Resp Effort & Inspection: normal respiratory effort Auscultation: clear to auscultation bilaterally, no crackles, no rales, no rhonchi and no wheezes Cardio Jugular venous distension: no JVD Rate: regular rate Rhythm: regular rhythm Heart sounds: S1 normal heart sound present, S2 normal heart sound present, no gallops, no murmurs and no rubs Neuro General: patient oriented x3 Extrem General: Yes normal to inspection Psych Appearance: grossly normal Mental Status: mental status grossly normal Speech and movement: Normal speech and movement present Assessment & Plan Assessment & Plan (1) Syncope: Code(s): R55 - Syncope and collapse Plan: ER visit 02/22/2023 for reports of syncopal events at home, witnessed by family. Prior to that visit Patient was sitting in chair, diaphoretic, appeared on well. Family assisted him to standing or he lost can not consciousness. EMS was called. Daughter described similar events a few months ago. Blood pressure in the ER was on the low side, no acute findings noted on lab work or EKG. Admission was recommended and patient signed out AMA. He was thought to have orthostatic hypotension. On last visit cardiac testing was ordered. He underwent an echocardiogram on 04/03/2023 showing EF 40-45% which is unchanged from prior echo, grade 1 diastolic dysfunction, normal valves, mild dilated ascending aorta. A Holter monitor was done on 04/03/2023 for 3 days showing sinus rhythm with average heart rate 82, rare PVC. And exercise nuclear stress test was done on 05/21/2023 with exercise 5 minutes, no anginal symptoms, T-wave inversions noted, myocardial perfusion imaging was normal. He was in the emergency room yesterday for itchiness, feeling diaphoretic and weak. While in triage she reported lightheadedness and then proceeded to have a witnessed syncopal event with brief loss of consciousness. Once evaluated by the ER physician he was alert and oriented without complaints. This episode was felt to be vasovagal. Today he reports that he also had a syncopal event 2 months ago when he was cleaning his car. He says he the then became hot and sweaty then passed out. He did not seek emergency medical care at that time. At present he reports feeling well with no concerning symptoms. He is not orthostatic on examination. He tells me that he rides his stationary bike 50 minutes a day and does not have symptoms with that activity. His blood pressure today is normal range. When in the ER his blood pressure again was on the low side. Will have him stop carvedilol and changed to metoprolol XL as this will have less effect on blood pressure. Continue lisinopril low-dose 5 mg daily. Will order tilt-table test to further evaluate type of syncope so it can be better managed. Instructed on increasing fluid intake, patient given a pair of compression stockings from our office stock and instructed on their use. Inform to recognize symptoms and get in a sitting or laying down position if presyncope occurs. Emergency care if needed. Cardiology follow-up in 6 weeks, sooner if needed. (2) NICM (nonischemic cardiomyopathy): Code(s): I42.8 - Other cardiomyopathies Plan: History of nonischemic cardiomyopathy with EF as low as 40-45% in the past. Echo 10/14/2021 showed EF 50%, no valve abnormalities. Echo recently done again with EF 40-45%. Nuclear imaging on stress test is normal. (3) VIJI (obstructive sleep apnea): Code(s): G47.33 - Obstructive sleep apnea (adult) (pediatric) Plan: Does not use CPAP mask. This can contribute to his nonischemic cardiomyopathy (4) Anemia: Code(s): D64.9 - Anemia, unspecified Plan: Stable mild anemia noted. No signs of bleeding reported. Hematocrit 39.5 on recent labs. Plan Time spent on chart review, documentation, interview and assessment Orders: Orders ECG Tilt Table Test Today I42.8 - Other cardiomyopathies, R55 - Syncope and collapse Medications: New metoprolol succinate ER Replaces Carvedilol Take one tablet daily 25 mg PO DAILY 30 tabs 5RF Discontinued carvedilol Discontinued Reason: Doctor's Order 3.125 mg PO BID 180 tabs 0RF Coding Level of Care Code Est Pt Level 4 (57404) Diagnoses Syncope R55 NICM (nonischemic cardiomyopathy) I42.8 VIJI (obstructive sleep apnea) G47.33 Anemia D64.9 Time Spent (min) 30
== END 2023-07-02 13:27 | disposition home or self-care (01) ==
PROVIDERS: PCP Student in an Organized Health Care Education/Training Program; Visit Provider Nurse Practitioner Family
DX: R55 Syncope and collapse (principal); I42.8 Other cardiomyopathies; G47.33 Obstructive sleep apnea (adult) (pediatric); D64.9 Anemia, unspecified
CPT/HCPCS: 99214

== ENCOUNTER → 2023-07-02 12:47 | Outpatient (BNVA) | payer OTHER, MEDICAID, SELFPAY | PROVIDERS: PCP Student in an Organized Health Care Education/Training Program; Visit Provider Nurse Practitioner Family ==

== ENCOUNTER 2023-08-12 09:23 | Outpatient (AMB) | payer MEDICARE, MEDICAID, SELFPAY ==
[2023-08-12 09:31] VITALS: BMI 28.7
--- NOTE | 2023-08-12 09:31 | MHC.OFFVIS ---
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 MRI was done of his right hip on 06/09/23. Patient reports ongoing pain for more than 5 years. He states that his pain is worse when bending forward to put his socks on. Hx of PT with relief. No hx of injections. Patient reports that his pain from his lower back goes down to his hips. 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 Allergies aspirin [ASPIRIN] Allergy (Unknown, Verified 08/12/23 09:32) SWELLING, rash Medication List - Last Reconciled 08/12/23 by Iris Victor MD bisacodyl (Dulcolax (bisacodyl)) 20 mg (4 x 5 mg) PO ONCE 1 day ciprofloxacin HCl 500 mg PO BID 7 days cyclobenzaprine 5 mg PO Q8H PRN 5 days levothyroxine 112 mcg PO DAILY lidocaine 5% (Lidoderm) 1 patch topical DAILY PRN MDD remove after 12 hours lisinopril 5 mg PO DAILY 90 days metoprolol succinate ER 25 mg PO DAILY polyethylene glycol 3350 (Miralax) 238 grams PO ONCE tamsulosin (Flomax) 0.4 mg PO DAILY HPI HPI Comments History of Present Illness Details Referred to us for back pain but he's had recent issues of hip pain as well. Patient says both are the same. He denies personal or family history of cancer. Previous smoker, quit last March 2022, but denies being heavy smoker, was only occasional/social in the past. MRI Right hip reported severe OA and increase signal on left iliac bone/left acetabular. PCP was apparently aware of the results. Points to right lateral hip, with dificulty bending forward. Right groin pain. Denies much left side hip/groin pain. Back pain is midline, goes to right hip, then goes down to right knee. Denies numbness. No foot drop. He's had these issues for at least 3 years. Treated with PT. 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 Mother No problems noted. Social History Household Members: Spouse Housing: Apartment Alcohol intake: never Patient Tobacco Use Status: Former Tobacco user service: No Current occupational status: retired Review of Systems Const All systems reviewed & are unremarkable except as noted in HPI and below Physical Exam Vital Signs: BMI result Body Mass Index 28.7 Constitutional: Patient appears to be in no acute distress, well nourished and well developed. Patient was appropriately conversant and oriented. Good historian. MSK: No specific abnormalities found on inspection of the spine and all extremities. No pain with palpation over the lumbar area. Lumbar ROM was full. Straight-leg raising test negative. FABERE test positive bilateral. Limited bilateral hip range of motion, worse than right. Strength is 5/5 in all muscle groups tested. No increased tone noted. Neurological: Neurologic examination of the upper and lower extremities was nonfocal with intact sensation, muscle stretch reflexes and without focal motor deficits . Vickers?s negative bilaterally. Babinski was down going bilaterally. Clonus was negative. Gait is antalgic without loss of balance. Results Reviewed Results Reviewed: Ordering Physician: Malinda Flowers MD Date of Service: 06/09/23 Procedure(s): MR hip RT wo con Accession Number(s): [id number] cc: Malinda Flowers MD~ EXAMINATION: MR HIP WITHOUT CONTRAST, RIGHT CLINICAL INFORMATION: Chronic right hip pain for one year, right hip locking COMPARISON: X-ray right femur on 02/13/2022, x-ray pelvis on 05/12/2019 TECHNIQUE: Examination was performed in a high field strength MRI scanner. Multiplanar multisequence MR imaging of right hip was performed without IV contrast enhancement. FINDINGS: BONES: The pelvis and right hip are intact. Patchy T2 hyperintensity is seen in the right acetabulum. There is marked lateral right acetabular osteophytosis. 2 prominent T2 hyperintense subcortical cystic erosions are seen in anterior superior right femoral head measuring up to 0.7 cm in diameter. Smaller subchondral cystic erosions are seen in anterior lateral right acetabular roof, series 5 image #7. There is marked loss of right acetabular and femoral head articular cartilage including full-thickness cartilage loss in superior right hip. A T1 hypointense lesion is seen in inferior left iliac bone extending to the left acetabulum, measuring 2.2 cm in vertical height and with, series 3 image #9. LIGAMENTS: The Left iliofemoral ligament is intact. LABRUM: The Left acetabular labrum is markedly eroded. FEMOROACETABULAR ANATOMY: There is marked over-coverage of femoral head by acetabulum, mostly due to hypertrophic osteophyte. The lateral center edge angle is 53 degrees (normal range 25-40 degrees). No significant acetabular retroversion is seen. No pistol market research consultant deformity of the femoral head could be seen. The femoroacetabular impingement alpha angle is 53 degrees (normal limits 55 degrees). PELVIS: Urinary bladder is normal. Right Pelvic fat plane is clean. No abnormally enlarged right iliac or inguinal lymph nodes are found. MR/MR hip RT wo con IMPRESSION: 1. Severe osteoarthritis of the right hip is present. 2. No fracture or dislocation of right hip or signs of femoral head avascular necrosis could be seen. 3. Over coverage of right femoral head is due to lateral acetabular osteophytosis. No diagnostic evidence of femoroacetabular impingement syndrome could be found. 4. Incidental finding of T1 hypointense lesion in inferior left iliac bone extending to left acetabular roof, with no sclerotic lesion in the corresponding region seen on plain x-ray of pelvis on 05/12/2019. The lesion cannot be characterized by the current MRI of right hip. If the patient has known primary carcinoma, further evaluation with nuclear medicine bone scan is recommended. I reviewed records from the following: Notes from Dr. Spivey back in 2019 reviewed. Patient was seen for hip impingement. Assessment & Plan Assessment & Plan (1) Abnormal MRI: Code(s): R93.89 - Abnormal findings on diagnostic imaging of other specified body structures (2) Degenerative joint disease of right hip: Code(s): M16.11 - Unilateral primary osteoarthritis, right hip Qualifiers: Osteoarthritis type: primary Qualified Code(s): M16.11 - Unilateral primary osteoarthritis, right hip Plan Given increased signal seen on left iliac on last MRI, it would be reasonable to get bone scan to rule out malignancy. Patient denies any history of primary malignancy. Then will arrange for him to see Dr. Spivey again, question left hip replacement? Assessment and plan discussed with patient, and patient was agreeable. All questions were answered thoroughly. Iris Victor MD, DEMETRIUS Board Certified, [place] Board [employer] and Rehabilitation (ABPMR) Board Certified, [place] Board of Electrodiagnostic Medicine (ABEM) Orders: Orders XR lumbar spine 2-3V Today M54.9 - Dorsalgia, unspecified NM bone scan whole body Today M16.12 - Unilateral primary osteoarthritis, left hip, R93.89 - Abnormal findings on diagnostic imaging of other specified body structures Referrals Orthopedics Referral M16.12 - Unilateral primary osteoarthritis, left hip, R93.89 - Abnormal findings on diagnostic imaging of other specified body structures Coding Level of Care Code New Pt Level 4 (64542) Diagnoses Abnormal MRI R93.89 Primary osteoarthritis of right hip M16.11 Osteoarthritis type: primary
== END 2023-08-12 10:11 | disposition home or self-care (01) ==
PROVIDERS: PCP Student in an Organized Health Care Education/Training Program; Visit Provider Physical Medicine & Rehabilitation
DX: R93.89 Abnormal findings on diagnostic imaging of other specified body structures (principal); M16.11 Unilateral primary osteoarthritis, right hip
CPT/HCPCS: 99204

== ENCOUNTER 2023-08-12 11:11 | Outpatient (REF) | payer MEDICARE, SELFPAY ==
--- NOTE | ~2023-08-12 | XR_ITS ---
EXAMINATION: XR LUMBOSACRAL SPINE CLINICAL INFORMATION: Dorsalgia. COMPARISON: None available. TECHNIQUE: AP and lateral views of the lumbar spine and lateral view of the lumbosacral junction. FINDINGS: There is bony demineralization. There is marked disc space narrowing at L5-S1. The remaining disc spaces are relatively well-maintained. No acute fracture or spondylolisthesis is seen. There is multi-level marked lower thoracic and mild upper lumbar spondylosis, with an appearance suggesting possible DISH (diffuse idiopathic skeletal hyperostosis). There is multi-level lumbar facet arthropathy. The posterior elements are intact. The paravertebral soft tissues are unremarkable. XR/XR lumbar spine 2-3V IMPRESSION: 1. There is marked degenerative disc disease at L5-S1. 2. There is multi-level thoracolumbar spondylosis, with an appearance suggesting possible DISH. 3. There is multi-level lumbar facet arthropathy.
== END 2023-08-12 11:12 | disposition home or self-care (01) ==
LOC: HO.HOSX 11:11
PROVIDERS: Visit Provider Physical Medicine & Rehabilitation
DX: M54.9 Dorsalgia, unspecified (principal); M16.11 Unilateral primary osteoarthritis, right hip; R93.89 Abnormal findings on diagnostic imaging of other specified body structures
CPT/HCPCS: 72100; 99202

== ENCOUNTER 2023-08-13 13:31 | Outpatient (AMB) | payer OTHER, MEDICAID, SELFPAY ==
[2023-08-13 13:57] VITALS: BP 124/70; PULSE 69; BMI 29.4
--- NOTE | 2023-08-13 13:57 | A.OFFVIS_ITS ---
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 Programmer Language: Uzbek Allergies aspirin [ASPIRIN] Allergy (Unknown, Verified 08/13/23 13:59) SWELLING, rash Medication List - Last Reconciled 08/13/23 by JORGE Chavarria bisacodyl (Dulcolax (bisacodyl)) 20 mg (4 x 5 mg) PO ONCE 1 day ciprofloxacin HCl 500 mg PO BID 7 days cyclobenzaprine 5 mg PO Q8H PRN 5 days levothyroxine 112 mcg PO DAILY lidocaine 5% (Lidoderm) 1 patch topical DAILY PRN MDD remove after 12 hours lisinopril 5 mg PO DAILY 90 days metoprolol succinate ER 25 mg PO DAILY polyethylene glycol 3350 (Miralax) 238 grams PO ONCE tamsulosin (Flomax) 0.4 mg PO DAILY HPI 6 week follow up after tilt table HPI Details Josh is a 73 year-old male with past medical history of hypertension, obstructive sleep apnea, not treated, mild nonischemic cardiomyopathy who was in the emergency room for syncopal event at home 02/2023. He was seen in cardiology and testing was ordered including echo, stress and Holter monitor without significant findings. He then was seen again in the emergency room, on 07/01/2023 initially for itchiness that led to a witnessed syncopal event in which they suspected to be vasovagal in response to allergic reaction to unknown cause. On last visit a tilt-table test was ordered and now he presents for follow-up. Today he reports he has been feeling very well since his last visit in June. At that time his carvedilol was changed to metoprolol due to low blood pressure readings. He says he is feeling much better on this medication. He has not had any lightheadedness, presyncope, syncope, falls. No chest discomfort at rest or with activity. No heart palpitations, shortness of breath, PND, orthopnea or edema. He is taking meds as directed. He reports t olerating normal ADLs without difficulty. Certified per diem interpreter used. 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 Mother No problems noted. Social History Household Members: Spouse Housing: Apartment Alcohol intake: never Patient Tobacco Use Status: Former Tobacco user service: No Current occupational status: retired Review of Systems Const All systems reviewed & are unremarkable except as noted in HPI and below Denies fatigue Card Denies chest pain, Denies chest pain at rest, Denies chest pain with activity, D enies syncope, Denies rapid heart rate, Denies palpitations, Denies dyspnea on exertion and Denies orthopnea Resp Denies dyspnea on exertion Musc Denies back pain and Denies myalgias Neuro Denies syncope Endo Denies fatigue and Denies palpitations Physical Exam Vital Signs: Last Vital Signs Pulse 69 08/13/23 13:57 BP 124/70 08/13/23 13:57 BMI result Body Mass Index 29.4 Const General: cooperative, healthy appearing, comfortable and no acute distress Orientation/consciousness: patient oriented x3 Neck Neck: Yes normal visual inspection Resp Effort & Inspection: normal respiratory effort Auscultation: clear to auscultation bilaterally, no crackles, no rales, no rhonchi and no wheezes Cardio Jugular venous distension: no JVD Rate: regular rate Rhythm: regular rhythm Heart sounds: S1 normal heart sound present, S2 normal heart sound present, no gallops, no murmurs and no rubs Neuro General: patient oriented x3 Extrem General: Yes normal to inspection Psych Appearance: grossly normal Mental Status: mental status grossly normal Speech and movement: Normal speech and movement present Assessment & Plan Assessment & Plan (1) Syncope: Comment: Tilt-table test showing orthostatic hypotension, 08/11/2023 Code(s): R55 - Syncope and collapse Plan: ER visit 02/22/2023 for reports of syncopal events at home, witnessed by family. Prior to that visit Patient was sitting in chair, diaphoretic, appeared on well. Family assisted him to standing or he lost can not consciousness. EMS was called. Blood pressure in the ER was on the low side, no acute findings noted on lab work or EKG. He was thought to have orthostatic hypotension. He was seen in Cardiology and had testing including echocardiogram on 04/03/2023 s howing EF 40-45% which is unchanged from prior echo, grade 1 diastolic dysfunction, normal valves, mild dilated ascending aorta. A Holter monitor was done on 04/03/2023 for 3 days showing sinus rhythm with average heart rate 82, rare PVC. Exercise nuclear stress test was done on 05/21/2023 with exercise 5 minutes, no anginal symptoms, T-wave inversions noted, myocardial perfusion imaging was normal. He was in the emergency room 07/01/2023 for itchiness, feeling diaphoretic and weak. While in triage he reported lightheadedness and then proceeded to have a witnessed syncopal event with brief loss of consciousness. Once evaluated by the ER physician he was alert and oriented without complaints. This episode was felt to be vasovagal. On cardiology follow-up he reports that he also had a syncopal event a few months ago when he was cleaning his car. He says he the then became hot and sweaty then passed out. He did not seek emergency medical care at that time. On last visit a tilt-table test was ordered then done on 08/11/2023 showing orthostatic hypotension. He was instructed to increase his fluid intake. Test results reviewed with him in detail. On last visit he was changed from carvedilol over to metoprolol. He states that change made a big difference in how he feels. He has not had any recurrent presyncopal or syncopal events in the last 6 weeks. His blood pressure is in the normal range at present. Reviewed ongoing increased fluid intake, use of Gatorade 2 to 3 times a week, use of compression stockings daily, take off at night. Recognize symptoms of presyncope then sit or lay down. ED care if recurrent symptoms. Cardiology follow-up 6 months, sooner if needed. (2) NICM (nonischemic cardiomyopathy): Code(s): I42.8 - Other cardiomyopathies Plan: History of nonischemic cardiomyopathy with EF as low as 40-45% in the past. Echo 10/14/2021 showed EF 50%, no valve abnormalities. Echo recently done again with EF 40-45%. Nuclear imaging on stress test is normal. He is on metoprolol XL and lisinopril for neurohormonal modulation. Heart rate and blood pressure are well controlled. No signs of heart failure on examination. (3) VIJI (obstructive sleep apnea): Comment: Mild degree of sleep apnea. The AHI was 7/hr and oxygen hermelindo was 84%. Code(s): G47.33 - Obstructive sleep apnea (adult) (pediatric) Plan: Does not use CPAP mask. This can contribute to his nonischemic cardiomyopathy (4) Anemia: Code(s): D64.9 - Anemia, unspecified Plan: Stable mild anemia noted. No signs of bleeding reported. Hematocrit 39.5 on recent labs. Plan Time spent on chart review, documentation, interview and assessment Coding Level of Care Code Est Pt Level 3 (93999) Diagnoses Syncope R55 NICM (nonischemic cardiomyopathy) I42.8 VIJI (obstructive sleep apnea) G47.33 Anemia D64.9 Time Spent (min) 24
== END 2023-08-13 14:22 | disposition home or self-care (01) ==
PROVIDERS: PCP Student in an Organized Health Care Education/Training Program; Visit Provider Nurse Practitioner Family
DX: R55 Syncope and collapse (principal); I42.8 Other cardiomyopathies; G47.33 Obstructive sleep apnea (adult) (pediatric); D64.9 Anemia, unspecified
CPT/HCPCS: 99213

== ENCOUNTER → 2023-08-13 13:31 | Outpatient (BNVA) | payer OTHER, MEDICAID, SELFPAY | PROVIDERS: PCP Student in an Organized Health Care Education/Training Program; Visit Provider Nurse Practitioner Family ==

== ENCOUNTER 2023-08-20 12:00 | Outpatient (REF) | payer OTHER, MEDICAID, SELFPAY ==
[2023-08-21 12:18] LABS: Urine Cytology See Pathology rpt
== END 2023-08-20 12:01 | disposition home or self-care (01) ==
LOC: HO.LNP 12:00
PROVIDERS: Visit Provider Nurse Practitioner Family
DX: R31.29 Other microscopic hematuria (principal)
CPT/HCPCS: 88112

== ENCOUNTER 2023-08-20 14:44 | Outpatient (AMB) | payer OTHER, MEDICAID, SELFPAY ==
--- NOTE | 2023-08-20 15:02 | MHC.OFFVIS ---
Intake Intake Visit Reasons: kidney stones Intake Note: New Patient presents for initial visit for kidney stones Urology Medications: none Blood Thinner: none Chief Supply Chain Officer Required: Yes Chief Supply Chain Officer Name: YIMI CONROYLEANDER & LISSETT Billet Worker: Billet Worker offered & declined Accompanied by: Self / Same As Patient Allergies aspirin [ASPIRIN] Allergy (Unknown, Verified 08/20/23 21:32) SWELLING, rash Medication List - Last Reconciled 08/20/23 by NAVJOT RiveraP- bisacodyl (Dulcolax (bisacodyl)) 20 mg (4 x 5 mg) PO ONCE 1 day cyclobenzaprine 5 mg PO Q8H PRN 5 days levothyroxine 112 mcg PO DAILY lidocaine 5% (Lidoderm) 1 patch topical DAILY PRN MDD remove after 12 hours lisinopril 5 mg PO DAILY 90 days metoprolol succinate ER 25 mg PO DAILY polyethylene glycol 3350 (Miralax) 238 grams PO ONCE tamsulosin (Flomax) 0.4 mg PO DAILY HPI HPI Comments History of Present Illness Details Josh is a very pleasant 73-year-old Thai-speaking male patient of Dr. Frank Dunbar. 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 He presents to the office today as a new patient for nephrolithiasis. In discussion with the patient today reports having seeked emergency room care approximately the beginning of June for left lower back pain radiating to left side/abdomen at which time a renal ultrasound was ordered for further assessment evaluation. These results were reviewed with the patient today. Right kidney with no lesions or hydronephrosis. There are 3 anechoic simple cysts seen the largest measuring 6 cm in the midpole. Left kidney with nonobstructive calculi in the lower pole measuring 0.7 cm. There are 2 anechoic simple cyst the largest measuring approximately 2.0cm. When asked he does continue to report intermittent left-sided flank pain. Discussed at length potential causes of nephrolithiasis. Recent urinalysis results reviewed with the patient today. When asked he does reported history of nicotine dependence however quit in March of last year. He reports smoking intermittently throughout his life for approximately a total of 6 years. He otherwise denies any bothersome urinary issues. He denies urinary urgency, urinary frequency, incontinence, nocturia, hematuria, dysuria, foul smelling urine, changes to urinary stream, fever, and or chills. He is happy with his current voiding parameters. He does however report noting a long standing history of intermittent scrotal discomfort. In assessment of the patient penis, scrotum, and testicles no lesions, drainage, or redness noted. No masses, lumps, or edema noted. Mild bilateral epididymal head tenderness noted otherwise no other pain elicited on exam today. Discussed further workup with CT urogram and scrotal ultrasound for further assessment and evaluation. When asked he denies any previous history of nephrolithiasis and or surgical intervention for nephrolithiasis. He otherwise offers no other issues or concerns at this time [facility] Medical History Degenerative joint disease of right hip Degenerative joint disease of left hip Abscess of scalp VIJI (obstructive sleep apnea) NICM (nonischemic cardiomyopathy) Urolithiasis Hypothyroidism Anemia HTN (hypertension) Surgical History No pertinent past surgical history Family History Father No problems noted. Mother No problems noted. Social History Household Members: Spouse Housing: Apartment Alcohol intake: never Patient Tobacco Use Status: Former Tobacco user service: No Current occupational status: retired Review of Systems Const Reports no additional complaints Eyes Reports no additional complaints ENT Reports no additional complaints Card Reports as per HPI Resp Reports as per HPI GI Reports no additional complaints Reports as per HPI Musc Reports as per HPI Neuro Reports no additional complaints Psych Reports no additional complaints Endo Reports no additional complaints Usman/Lymph Reports as per HPI Aller/Immun Reports no additional complaints Physical Exam Const General: cooperative, healthy appearing, comfortable, no acute distress, well developed, alert and awake Orientation/consciousness: patient oriented x3 Limitations: no limitations HEENT Head: Yes normal to inspection, Yes normocephalic and Yes atraumatic Ears: hearing grossly normal bilaterally Eyes General: appearance normal, both eyes and all related structures Neck Neck: Yes normal visual inspection and Yes trachea midline Chest Chest palpation & inspection: normal inspection of the chest Resp Effort & Inspection: normal respiratory effort and able to speak in complete sentences Cardio Rate: regular rate GI Inspection: Yes normal to inspection General: Yes no CVA tenderness Back/Spine/Pelvis Back: no CVA tenderness Skin General skin exam: no rashes or lesions noted Neuro General: patient oriented x3 Extrem General: Yes normal to inspection Psych Appearance: grossly normal and well kempt Mental Status: mental status grossly normal Speech and movement: Normal speech and movement present and Clear speech present Affect: normal affect Attitude: cooperative Thought process: Normal thought process present Thought content: Normal thought content present Insight: Fair insight present (Psych) Judgement: Fair judgement present (Psych) Results AMB Urinalysis, Automated UA Leukoctes 15 Susana/uL Last Edit by SoSocio on 08/20/23 15:19 UA Nitrite Negative Last Edit by SoSocio on 08/20/23 15:19 UA Urobilinogen 0.2 mg/dL Last Edit by SoSocio on 08/20/23 15:19 UA Protein 0 mg/dL Last Edit by SoSocio on 08/20/23 15:19 UA pH 6.0 Last Edit by SoSocio on 08/20/23 15:19 UA Blood 200 Ike/uL Last Edit by SoSocio on 08/20/23 15:19 UA Specific Wishram 1.025 Last Edit by SoSocio on 08/20/23 15:19 UA Ketone Negative Last Edit by SoSocio on 08/20/23 15:19 UA Bilirubin 0 mg/dL Last Edit by SoSocio on 08/20/23 15:19 UA Glucose 0 mg/dL Last Edit by SoSocio on 08/20/23 15:19 Results Reviewed Results Reviewed: Laboratory Last Values Urine pH (Auto) 6.0 08/20/23 15:10 Specific Wishram (Auto) 1.025 08/20/23 15:10 Urine Protein (Auto) 0 mg/dL 08/20/23 15:10 Glucose (UA)(Auto) 0 mg/dL 08/20/23 15:10 Urine Ketones (Auto) Negative 08/20/23 15:10 Urine Blood (Auto) 200 Ike/uL 08/20/23 15:10 Urine Nitrite (Auto) Negative 08/20/23 15:10 Urine Bilirubin (Auto) 0 mg/dL 08/20/23 15:10 Urine Urobilinogen (Auto) 0.2 mg/dL 08/20/23 15:10 Leukocyte Esterase (Auto) 15 Susana/uL 08/20/23 15:10 Date of Service: 06/10/23 EXAMINATION: US RETROPERITONEAL LIMITED (RENAL ONLY) FINDINGS: RIGHT KIDNEY: 10.3 x 5.7 x 5.9 cm (SAG x AP x TRV). The kidney is normal in size, contour, and echogenicity. Renal cortical thickness is normal. No calculi or focal parenchymal lesions. No hydronephrosis. There are 3 anechoic simple cysts seen. The largest cyst measures 6.0 x 4.0 x 5.0 cm in the midpole. LEFT KIDNEY: 11.4 x 6.7 x 4.9 cm (SAG x AP x TRV). The kidney is normal in size, contour, and echogenicity. Renal cortical thickness is normal. There is an echogenic nonobstructive calculi lower pole left kidney measuring 0.7 x 0.3 x 0.6 cm. There are 2 anechoic simple cysts. The largest simple cyst lower pole measures 1.7 x 1.5 x 2.0 cm. IMPRESSION: Bilateral renal cysts. Nonobstructive echogenic calculi lower pole left kidney. Assessment & Plan Assessment & Plan (1) Microscopic hematuria: Code(s): R31.29 - Other microscopic hematuria (2) Nephrolithiasis: Code(s): N20.0 - Calculus of kidney (3) Scrotal pain: Code(s): N50.82 - Scrotal pain (4) Renal cyst: Code(s): N28.1 - Cyst of kidney, acquired Plan In office urinalysis results reviewed with the patient today; as noted above; send urine for cytology Recent renal imaging results reviewed with the patient today; as noted above. Discussed at length potential causes of nephrolithiasis as well as scrotal discomfort. Discussed potential causes of renal cysts; will continue with surveillance monitoring. Will obtain CT urogram and scrotal ultrasound for further assessment evaluation. BUN, creatinine, and PSA ordered Discussed, educated, and encouraged to drink water daily. Discussed adding 1 oz of lemon juice to water daily. He reports be happy with current voiding parameters. Follow-up in 1 to 2 months with imaging and labs to be completed prior; or sooner with any issues, concerns, and or questions. Orders: Orders CT urogram 08/20/23 N20.0 - Calculus of kidney, R31.29 - Other microscopic hematuria Blood Urea Nitrogen 08/20/23 R31.29 - Other microscopic hematuria Creatinine 08/20/23 R31.29 - Other microscopic hematuria US scrotum 08/20/23 N50.82 - Scrotal pain AMB Urinalysis Automated 08/20/23 Z13.9 - Encounter for screening, unspecified Urine Cytology Today R31.29 - Other microscopic hematuria Prostate Specific Antigen 02/18/24 N40.0 - Benign prostatic hyperplasia without lower urinary tract symptoms Patient Instructions: The patient had an opportunity to ask questions regarding the treatment plan. All questions were answered. Physical exam, labs, and imaging were discussed and reviewed in detail. As well as risks, benefits, and discussion of treatment choices. No major barriers to understanding were identified. The patient expressed understanding and agreement with the above treatment plan. The patient was made aware they should contact our office by phone for worsening of their current condition, the appearance of new symptoms, or with any questions or concerns. Compliance is encouraged with any medications and follow up testing that is ordered. It is a privilege to be allowed the opportunity to participate in? your urological care.? Again, if you have any questions or concerns If you have any questions or concerns please do not hesitate to contact me. The office is [phone]. This note is constructed using voice recognition software. While every effort has been made to ensure accuracy detective bureau chief errors may have been included. Yours sincerely, ROWAN Rivera Coding Level of Care Code New Pt Level 3 (17988) Diagnoses Microscopic hematuria R31.29 Nephrolithiasis N20.0 Scrotal pain N50.82 Renal cyst N28.1
== END 2023-08-20 15:45 | disposition home or self-care (01) ==
PROVIDERS: PCP Student in an Organized Health Care Education/Training Program; Visit Provider Nurse Practitioner Family
DX: R31.29 Other microscopic hematuria (principal); N20.0 Calculus of kidney; N50.82 Scrotal pain; N28.1 Cyst of kidney, acquired
CPT/HCPCS: 99203

== ENCOUNTER → 2023-08-20 14:44 | Outpatient (BNVA) | payer OTHER, MEDICAID, SELFPAY | PROVIDERS: PCP Student in an Organized Health Care Education/Training Program; Visit Provider Nurse Practitioner Family | DX: R31.29 Other microscopic hematuria (principal); N20.0 Calculus of kidney; N50.82 Scrotal pain; N28.1 Cyst of kidney, acquired | CPT/HCPCS: 81003 ==

== ENCOUNTER 2023-08-25 10:15 | Outpatient (REF) | payer OTHER, MEDICAID, SELFPAY ==
[2023-08-25 11:22] LABS: Blood Urea Nitrogen 12 mg/dL (9-16); Estimated Glomerular Filt Rate > 60
== END 2023-08-25 10:16 | disposition home or self-care (01) ==
LOC: HO.10HDL 10:15
PROVIDERS: Visit Provider Nurse Practitioner Family
DX: R31.29 Other microscopic hematuria (principal)
CPT/HCPCS: 36415; 82565; 84520

== ENCOUNTER 2023-09-07 10:13 | Outpatient (AMB) | payer OTHER, MEDICAID, SELFPAY ==
--- NOTE | 2023-09-07 10:37 | MHC.OFFVIS ---
Intake Intake Visit Reasons: OV - Right Hip OA - Discuss surgery Intake Note: Josh is a 73 year old Lithuanian speaking male who presents today for a follow up appointment for his left hip OA. He was referred by to discuss ANDREWS Allergies aspirin [ASPIRIN] Allergy (Unknown, Verified 09/10/23 08:51) SWELLING, rash HPI OV - Right Hip OA - Discuss surgery HPI Details Josh is a 73 year old man who presents with complaints of right hip OA pain. He complains of pain with daily activity.. He localizes his pain to his groin. he was referred by Dr. Mann to discuss possible surgery following a right hip MRI. He describes pain in his groin and anterior hip. He describes pain with daily activities including getting into and out of cars, standing from a seated position, sleeping, walking. He states he walks with a limp. He feels quality of his life is diminished. [facility] Medical History Degenerative joint disease of right hip Degenerative joint disease of left hip Abscess of scalp VIJI (obstructive sleep apnea) NICM (nonischemic cardiomyopathy) Urolithiasis Hypothyroidism Anemia HTN (hypertension) Surgical History H/O colonoscopy Family History Father No problems noted. Mother No problems noted. Social History Household Members: Spouse Housing: Apartment Alcohol intake: never Patient Tobacco Use Status: Former Tobacco user Quit Date: 03/2023 service: No Current occupational status: retired Review of Systems Const All systems reviewed & are unremarkable except as noted in HPI and below Physical Exam Const General: no acute distress, alert and awake Orientation/consciousness: patient oriented x3 HEENT Head: Yes normocephalic and Yes atraumatic Mouth: moist mucous membranes Eyes General: appearance normal, both eyes and all related structures EOM: EOMs intact bilaterally Chest Other: no audible wheezing. Resp Other: No audible wheezing Effort & Inspection: normal respiratory effort and able to speak in complete sentences Cardio Other: Radial pulse palpable with no rythmic abnormalities Jugular venous distension: no JVD Back/Spine/Pelvis Cervical Spine: normal cervical lordosis Skin General skin exam: turgor normal Rashes: no rashes Neuro General: patient oriented x3 Extrem Other: Antalgic Trendelenburg gait Positive impingement test Positive [facility] Psych Appearance: grossly normal Mental Status: mental status grossly normal Speech and movement: Normal speech and movement present Affect: normal affect Attitude: cooperative Results Reviewed Results Reviewed: I personally reviewed relevant radiographs. Right hip osteoarthritis, moderate to severe with subchondral sclerosis and superior joint space is severely narrowed I personally reviewed the MR images. 1. Severe osteoarthritis of the right hip is present. Assessment & Plan Assessment & Plan (1) Degenerative joint disease of right hip: Code(s): M16.11 - Unilateral primary osteoarthritis, right hip Qualifiers: Osteoarthritis type: primary Qualified Code(s): M16.11 - Unilateral primary osteoarthritis, right hip Plan: This is a 73-year-old gentleman with severe osteoarthritis of the right hip. He is severely disabled by this and I recommend right hip arthroplasty. I reviewed his MRI and his x-rays with him. I discussed the surgery and the risks, benefits and alternatives including but not limited to the risk of infection, pain, leg length discrepancy, fracture, dislocation, aseptic loosening and the potential need for further surgeries as well as the potential medical complications associated with surgery and arthroplasty including blood clots and cardiopulmonary complications. He expressed understanding and we will proceed forward accordingly. Plan Prepared for Isiah Spivey MD by Lawson Vigil, medical assistant, on 09/07/23 at 10:42 AM, EST. Orders: Orders XR pelvis 1-2V 09/07/23 M25.559 - Pain in unspecified hip Coding Level of Care Code Est Pt Level 4 (65163) Diagnoses Primary osteoarthritis of right hip M16.11 Osteoarthritis type: primary
== END 2023-09-07 11:03 | disposition home or self-care (01) ==
PROVIDERS: PCP Student in an Organized Health Care Education/Training Program; Visit Provider Orthopaedic Surgery
DX: M16.11 Unilateral primary osteoarthritis, right hip (principal)
CPT/HCPCS: 99214

== ENCOUNTER 2023-09-07 10:19 | Outpatient (REF) | payer OTHER, MEDICAID, SELFPAY ==
--- NOTE | ~2023-09-07 | XR_ITS ---
EXAMINATION: XR PELVIS CLINICAL INFORMATION: Pain in right hip COMPARISON: Right hip joint from 02/13/2022 TECHNIQUE: AP view of the pelvis. FINDINGS: There are no abnormal findings in the left hip. On the right there is narrowing of hip joint with marginal spurring and subchondral sclerosis. There is no joint effusion. There is no fracture or subluxation seen. There is mild cephalad migration of the right femoral head. XR/XR pelvis 1-2V IMPRESSION: Changes of osteoarthritis in the right hip joint
== END 2023-09-07 10:20 | disposition home or self-care (01) ==
LOC: HO.HOSX 10:19
PROVIDERS: Visit Provider Orthopaedic Surgery
DX: M25.551 Pain in right hip (principal); M25.552 Pain in left hip
CPT/HCPCS: 72170

== ENCOUNTER 2023-09-07 14:23 | Outpatient (REF) | payer OTHER, MEDICAID, SELFPAY ==
--- NOTE | ~2023-09-07 | US_ITS ---
EXAMINATION: US SCROTUM CLINICAL INFORMATION: Scrotal pain. COMPARISON: Scrotal ultrasound 05/04/2018. TECHNIQUE: A sonogram of the scrotum was performed assessing lozano-scale appearance and color Doppler flow. Spectral Doppler analysis of the arterial and venous flow were performed in the testes bilaterally. FINDINGS: RIGHT: Right testicle measures 3.3 x 2.2 x 2.7 cm, volume 10.2 mL. Small intratesticular cyst measures 0.2 x 0.2 x 0.2 cm. Spectral Doppler analysis of the arterial and venous flow is normal in the right testis. Right epididymal head is normal in size. No right hydrocele or varicocele is seen. Right epididymal Doppler flow is normal. LEFT: Left testicle measures 4.2 x 1.9 x 2.8 cm, volume 11.7 mL. No focal testicular parenchymal lesions are visualized. Spectral Doppler analysis of the arterial and venous flow is normal in the left testis. Left testicular appendix. Left epididymal head cyst measures 0.5 x 0.4 x 0.4 cm. No left hydrocele or varicocele is seen. Left epididymal Doppler flow is normal. US/US scrotum IMPRESSION: Small right intratesticular cyst measuring 2 mm. Left epididymal head cyst. Left testicular appendix.
== END 2023-09-07 14:24 | disposition home or self-care (01) ==
LOC: HO.US 14:23
PROVIDERS: PCP Student in an Organized Health Care Education/Training Program; Visit Provider Nurse Practitioner Family
DX: N50.82 Scrotal pain (principal)
CPT/HCPCS: 76870

== ENCOUNTER 2023-09-10 08:22 | Day surgery (SDC) | payer OTHER, MEDICAID, SELFPAY ==
[2023-09-08 12:22] VITALS: BMI 29.4
--- NOTE | 2023-09-09 08:46 | P.CONAN_ITS ---
Documented by User: Candida Esparza NP 09/09/23 08:51 HPI - Anesthesia Eval Consult details Narrative: 73yo M for Colonoscopy [place] [facility] [place] NICM (last EF 45-50%), orthostatic hypotension. OK to proceed per workload. Last office visit 08/2023 and cleared for hip surgery. [facility] Active Problems Active Problems: All Active Problems (Updated 09/08/23 @ 12:20 by Abbi Rosas RN) Renal cyst (Acute) Scrotal pain (Acute) Nephrolithiasis (Acute) Microscopic hematuria (Acute) Abnormal MRI (Acute) Syncope and collapse (Acute) Abnormal echocardiogram (Acute) Anemia (Chronic) Degenerative joint disease of right hip (Acute) Degenerative joint disease of left hip (Acute) VIJI (obstructive sleep apnea) (Acute) NICM (nonischemic cardiomyopathy) (Acute) Past Medical History Medical History Degenerative joint disease of right hip Degenerative joint disease of left hip Abscess of scalp VIJI (obstructive sleep apnea) NICM (nonischemic cardiomyopathy) Urolithiasis Hypothyroidism Anemia HTN (hypertension) Family History Family History Father No problems noted. Mother No problems noted. Surgical History Surgical History H/O colonoscopy Social History Social History Household Members: Spouse Housing: Apartment Alcohol intake: never Patient Tobacco Use Status: Former Tobacco user Quit Date: 03/2023 Use of substances other than those prescribed or required for medical reasons: No Are you DNR?: No Advance Directives: No Advance Directives Information Provided: Yes service: No Current occupational status: retired Meds Allergies Allergy/AdvReac Type Severity Reaction Status Date / Time aspirin [ASPIRIN] Allergy Unknown SWELLING, Verified 09/10/23 08:51 rash Home Medications Medication Instructions Recorded Confirmed Last Taken Type levothyroxine 112 mcg tablet 112 mcg PO DAILY 10/16/21 09/10/23 Unknown History Exam Height,Weight and Vital Signs: Height 5 ft 6 in Weight 82.554 kg Narrative Narrative: EKG 06/2023 Vent. Rate : 079 BPM Atrial Rate : 079 BPM P-R Int : 156 ms QRS Dur : 088 ms QT Int : 394 ms P-R-T Axes : 042 -02 048 degrees QTc Int : 451 ms Normal sinus rhythm Nonspecific T wave abnormality Borderline ECG When compared with ECG of 22-FEB-2023 17:13, No significant change was found ECHO 03/2023 Conclusions: - 1. Obpc-sa-osydwmia LV systolic dysfunction with LVEF of 40-45% with grade 1 diastolic dysfunction 2. Normal cardiac valvular Dopplers 3. Mildly dilated ascending aorta 4. No gross pericardial effusion NM cardiolite stress test 05/2023 IMPRESSION: 1. Myocardial perfusion imaging study shows normal myocardial perfusion. 2. Gated LVEF is 52% during stress and 42% during rest. 3. Transient ischemic dilatation not present. EKG component of the test reported separately. Assessment and Plan Assessment Anesthesia Assessment: Chart Reviewed Documented by User: Shoshana Hanna MD 09/10/23 09:17 PMFSH Past Medical History Medical History Degenerative joint disease of right hip Degenerative joint disease of left hip Abscess of scalp VIJI (obstructive sleep apnea) NICM (nonischemic cardiomyopathy) Urolithiasis Hypothyroidism Anemia HTN (hypertension) Family History Family History Father No problems noted. Mother No problems noted. Family history of problems with anesthesia: No Surgical History Surgical History H/O colonoscopy History of Problems with Anesthesia: Yes Social History Social History Household Members: Spouse Housing: Apartment Alcohol intake: never Patient Tobacco Use Status: Former Tobacco user Quit Date: 03/2023 Use of substances other than those prescribed or required for medical reasons: No Are you DNR?: No Advance Directives: No Advance Directives Information Provided: Yes service: No Current occupational status: retired Meds Allergies Allergy/AdvReac Type Severity Reaction Status Date / Time aspirin [ASPIRIN] Allergy Unknown SWELLING, Verified 09/10/23 08:51 rash Home Medications Medication Instructions Recorded Confirmed Last Taken Type levothyroxine 112 mcg tablet 112 mcg PO DAILY 10/16/21 09/10/23 Unknown History Exam Airway Mallampati Class: II TM Dist: >3cm Neck ROM: Full Heart: rrr Lungs: cta Assessment and Plan Assessment Anesthesia Assessment: Anesthesia Plan Discussed Final Anesthetic Review Family History of Problems with Anesthesia: No History of Problems with Anesthesia: Yes NPO: Yes ASA Class: III Final Preanesthetic Review: No Changes in Pt Med Stat, Meds/Allgs Chart Reviewed, Consent Obtained/Reviewed and Anes Risks/Benef Reviewed Patient Risk: Intermediate Procedure Risk: Low Anesthetic Plan Anesthetic Plan: MAC: Disposition: Standard PACU
[2023-09-10 08:46] VITALS: BMI 29.0
--- NOTE | 2023-09-10 08:50 | MHC.SHP ---
Pre-Procedural Eval Section A - 24 Hr Update-Section A only Date of Service: 09/10/23 Section B - Complete if H&P > 30 days Chief Complaint: screening Relevant Family History (Specify if Yes): No Relevant Social History: None Present Medications: see Short Stay Collaborative assessment Medical History: Significant History (VIJI (obstructive sleep apnea) NICM (nonischemic cardiomyopathy) Urolithiasis Hypothyroidism Anemia HTN (hypertension)) History of Previous Operations: No relevant previous surgery Allergies: Allergies Allergy/AdvReac Type Severity Reaction Status Date / Time aspirin [ASPIRIN] Allergy Unknown SWELLING, Verified 08/20/23 21:32 rash Review of Systems Sugical H&P ROS: Negative: Constitution, Cardiovascular, Respiratory, Neurological, Psychiatric, Hem-Onc, Allergic/Immunologic, Gastrointestinal, Genitourinary, Musculoskeletal, Integumentary, Endocrine and Eyes/Ears/Nose/Throat Exam Surgical H&P Exam: Normal: HEENT, Normal: Heart, Normal: Lungs, Normal: Extremities, Normal: Abdomen, Normal: Skin and Normal: Neurological Plan Diagnosis/Plan: Unchanged I have reviewed the history and physical and performed a pertinent physical examination on my patient. No changes have occurred unless specified. Time Spent With Patient Time: Total time managing care of this patient today ____ minutes.
[2023-09-10 08:57] VITALS: BP 137/69; PULSE 98; RESP 15; TEMP 36.1; O2SAT 99
[2023-09-10] MEDS: Lactated Ringers 1,000 ML 50 ML IVCONT (09:22)
--- NOTE | 2023-09-10 10:04 | W.PM.OPN ---
Operative Note Operative Note Date of Service: 09/10/23 Narrative: Operative Information Procedure Description: Colonoscopy Indication: screening Anesthesia: MAC COLONOSCOPY Instrument: Olympus variable stiffness pediatric scope 190L Colonoscopy Monitoring: Vital signs and clinical assessment, continuous EKG monitoring, Pulse oximetry, Carbon Dioxide monitoring and blood pressure monitoring were done throughout the procedure. Colon withdrawal time was 9 minutes. Procedure: The patient was placed in the left lateral decubitis position and pre-procedure medications were administered. After a digital rectal examination of the ano-rectum, the video colonoscope was inserted into the rectum and advanced through the colon to the cecum/TI. The colonoscope was slowly withdrawn in a retrograde panoramic fashion and the colon mucosa was carefully examined including a retroflexed view of the rectum. Findings and interventions are described below. Procedure Difficulty: easy Findings: Terminal Ileum-normal Cecum:normal Ascending Colon: normal Transverse Colon -normal Descending Colon:normal Sigmoid Colon: normal Rectum: Retroflexion with small internal hemorrhoids seen, grade I Anorectum - normal Intervention: none Colon preparation: [place] Bowel Preparation Scale Right colon; 2 Transverse colon: 3 Left colon; 3 (0 = Unprepared colon segment with mucosa not seen due to solid stool that cannot be cleared. 1 = Portion of mucosa of the colon segment seen, but other areas of the colon segment not well seen due to staining, residual stool and/or opaque liquid. 2 = Minor amount of residual staining, small fragments of stool and/or opaque liquid, but mucosa of colon segment seen well. 3 = Entire mucosa of colon segment seen well with no residual staining, small fragments of stool or opaque liquid) Impression and Post Procedure Diagnosis: internal hemorrhoids Plan: High fiber diet leaflet Avoid straining at stool, epsom salts and sitz bath, anusol supps or cream Repeat Colonoscopy in 10 years if health allows and patient wishes to pursue or earlier if clinically indicated, otherwise this would be the last screening colonoscopy Above findings were reviewed with the patient and relevant handouts were provided if indicated.
[2023-09-10 10:35] VITALS: BP 99/51; PULSE 88; RESP 18; TEMP 36.1; O2SAT 98
[2023-09-10 10:50] VITALS: BP 99/48; PULSE 88; RESP 18; TEMP 36.3; O2SAT 99
== END 2023-09-10 11:18 | disposition home or self-care (01) ==
PROVIDERS: PCP Student in an Organized Health Care Education/Training Program; Visit Provider Internal Medicine Gastroenterology
PROC: 0DJD8ZZ Inspection of Lower Intestinal Tract, Via Natural or Artificial Opening Endoscopic (ICD-10-PCS; CPT 45378; principal; 2023-09-10 10:30)
DX: Z12.11 Encounter for screening for malignant neoplasm of colon (principal); Z86.010 Personal history of colon polyps; K64.0 First degree hemorrhoids; I10 Essential (primary) hypertension; I42.8 Other cardiomyopathies; D64.9 Anemia, unspecified; E03.9 Hypothyroidism, unspecified; N20.9 Urinary calculus, unspecified; G47.33 Obstructive sleep apnea (adult) (pediatric); Z99.89 Dependence on other enabling machines and devices; Z79.899 Other long term (current) drug therapy; Z88.8 Allergy status to other drugs, medicaments and biological substances; Z87.891 Personal history of nicotine dependence
CPT/HCPCS: 45378; J2704

== ENCOUNTER → 2023-09-10 08:22 | Outpatient (BNV) | payer OTHER, MEDICAID, SELFPAY | PROVIDERS: PCP Student in an Organized Health Care Education/Training Program; Visit Provider Internal Medicine Gastroenterology | DX: Z12.11 Encounter for screening for malignant neoplasm of colon (principal); K64.8 Other hemorrhoids | CPT/HCPCS: 45378 ==

== ENCOUNTER → 2023-09-11 09:45 | Outpatient (REF) | payer OTHER, MEDICAID, SELFPAY ==
--- NOTE | ~2023-09-11 | NM_ITS ---
EXAMINATION: NM BONE SCAN OF THE WHOLE BODY CLINICAL INFORMATION: A 73-year-old male with chronic right hip pain for one year following to have severe osteoarthrosis of the right hip and incidental 2.2 x 2.2 cm subchondral T1 hypointense lesion at the roof of the left acetabulum on MRI of the right hip done on 06/09/2023. Subsequent follow-up radiographs of the pelvis done on 09/07/2023 shows moderate to severe osteoarthrosis of the right hip and mild osteoarthrosis and possible subchondral cyst corresponding to the previous MR detected abnormality. COMPARISON: MRI of the right hip done on 06/09/2023 and radiographs of the lumbosacral spine and pelvis done on 08/12/2023 and 09/07/2023 respectively. TECHNIQUE: Multiple gamma scintillation camera images of the whole body were performed 3 hours following the intravenous administration of 29.0 mCi Tc-99m MDP. The radiotracer was injected through the left antecubital superficial vein without complications. FINDINGS: In the head, no suspicious focal abnormality. Incidental note is made of asymmetric increased focal tracer avidity involving the proximal part of the right mandible likely represent changes secondary to dental/odontogenic disease. In the thoracic cage and upper extremities, increased tracer avidity around both shoulder and sternoclavicular joints (right greater than left), most consistent with degenerative arthropathy. In the spine, focal increased tracer avidity at L2 vertebral body to the left of the midline and T8 vertebral body also to the left of the midline projecting in the region of the costovertebral junction likely represent degenerative arthritic/spondylotic changes. In the pelvis, corresponding to the prior MRI, there is indeed asymmetric increased tracer avidity is noted around the right hip, consistent with moderate to severe degenerative arthropathy. Concordant with prior MRI study at the roof of the left acetabulum, there is a focal increased tracer avidity present. Although this is nonspecific however, given its location and morphology as well as the MR findings, this would be most consistent with incidental subchondral degenerative cyst. Follow-up dedicated CT scan may be considered for further clarification, if clinically appropriate. In the lower extremities, increased tracer avidity around both knees (left greater than right) predominantly medially is most consistent with arthritic changes. No other definite bony abnormalities are noted. The urinary bladder and faint visualization of both kidneys are noted. NM/NM bone scan whole body IMPRESSION: 1. No definite evidence of any tracer avid disease to suspect metastasis. Specifically, previous MR detected focal lesion at the left supra-acetabular region is well-visualized however, as you know, the bone scan finding is nonspecific. Based on its location and morphology the finding would be most consistent with subchondral degenerative cyst/arthropathy. 2. Asymmetric increased periarticular tracer avidity at right hip is consistent with moderate to severe degenerative arthropathy. 3. Foci of increased tracer avidity at left-sided L2 and left-sided T8 vertebral body/costovertebral junction likely represent degenerative arthritic/spondylotic changes as well. 4. Increased periarticular tracer avidity around both shoulder, sternoclavicular joints and both knees are also noted, most consistent with nonspecific arthritic changes.
== END ==
LOC: HO.NUCMED 09:45
PROVIDERS: PCP Student in an Organized Health Care Education/Training Program; Visit Provider Physical Medicine & Rehabilitation
DX: M16.12 Unilateral primary osteoarthritis, left hip (principal); R93.89 Abnormal findings on diagnostic imaging of other specified body structures
CPT/HCPCS: 78306; A9503

== ENCOUNTER 2023-09-21 13:43 | Outpatient (AMB) | payer MEDICARE, MEDICAID, SELFPAY ==
[2023-09-21 13:48] VITALS: BP 155/72; PULSE 93; BMI 29.3
--- NOTE | 2023-09-21 13:48 | A.OFFVIS_ITS ---
Intake Vital Signs 09/21/23 13:48 Height 5 ft 6 in Weight 181 lb 10.574 oz BMI 29.3 BP 155/72 H Blood Pressure Location Rt brachial Position Sitting Pulse 93 Intake Visit Reasons: S/P [place]; Chapman Intake Note: Josh returns to in office follow up s/p colonoscopy on 09/09/[address] Chapman. CC: Patient reports doing well and denies having any new GI concerns or symptoms. Ammonium Nitrate Crystallizer Required: No Accompanied by: Self / Same As Patient Allergies aspirin [ASPIRIN] Allergy (Unknown, Verified 09/10/23 08:51) SWELLING, rash HPI S/P [place]; Adela HPI Details LAST VISIT Screen for colon cancer Patient denies any GI, cardiac or respiratory symptoms.? Occasional constipation, drinking water helps. Denies any issues with anesthesia in the past.? History of sleep apnea, using CPAP every night..? No history infectious diseases in the past or present.? Not on any anticoagulation therapy.? No family or personal history of colon cancer. As mentioned above in HPI patient had colonoscopy in 2016 that showed tubular adenoma? Patient denies melena, hematochezia, unintentional weight loss or ribbon like stools.? Patient denies any chest pain or shortness of breath. Syncopal episode, seen in the ER. Currently is being evaluated by Cardiology. Will go for stress testing. Please call Cardiology for clearance. Discussed at length the pre-procedure,? prep, diet & medications as well as what to expect prior, during and after the procedure.?? Stressed the importance of good bowel prep. ?Recommended the use of Vaseline or Calmoseptine OTC & baby wipes with bowel movements to promote comfo rt.? ?Patient verbalizes understanding and agrees to plan of care.? He was given the opportunity to ask questions and all questions answered.? We will see him after the procedure.? Plan Medications New bisacodyl (Dulcolax (bisacodyl)) take 4 tabs at noon the day before your colonoscopy 20 mg (4 x 5 mg) PO ONCE 1 day 4 tabs 0R F Z12.11 polyethylene glycol 3350 (Miralax) As directed by gastroenterology department at [facility] 238 grams PO ONCE 238 grams 0RF Z12.11 COLONOSCOPY Findings: Terminal Ileum-normal Cecum:normal Ascending Colon: normal Transverse Colon -normal Descending Colon:normal Sigmoid Colon: normal Rectum: Retroflexion with small internal hemorrhoids seen, grade I Anorectum - normal Intervention: none Colon preparation: [place] Bowel Preparation Scale Right colon; 2 Transverse colon: 3 Left colon; 3 (0 = Unprepared colon segment with mucos a not seen due to solid stool that cannot be cleared. 1 = Portion of mucosa of the colon segme nt seen, but other areas of the colon segment not well seen due to staining, residual stool and/or opaque liquid. 2 = Minor amount of residual staining, s mall fragments of stool and/or opaque liquid, but mucosa of colon segment seen well. 3 = Entire mucosa of colon segment seen well with no residual staining, small fragments of stool or opaque liquid) Impression and Post Procedure Diagnosis: internal hemorrhoids Plan: High fiber diet leaflet Avoid straining at stool, epsom salts and sitz bath, anusol supps or cream Repeat Colonoscopy in 10 years if health allows and patient wishes to pursue or earlier if clinically indicated, otherwise this would be the last screening colonoscopy TODAY'S VISIT Patient is here today for follow-up and to discuss colonoscopy results. Patient reports that he is feeling well, denies any GI concerning symptoms. States that he has no ill effects from the prep, anesthesia or procedure itself. Patient states that he tolerated procedure well. Denies any melena, hematochezia, unintentional weight loss or ribbon like stools. No polyps found no diverticulosis. Internal hemorrhoids without complications found. Colonoscopy recommended in 10 years if health allows or earlier if clinically necessary. Patient will follow-up in our office on as needed basis. 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 Mother No problems noted. Social History Household Members: Spouse Housing: Apartment Alcohol intake: never Patient Tobacco Use Status: Former Tobacco user Quit Date: 03/2023 service: No Current occupational status: retired Review of Systems Const Denies weight gain and Denies weight loss ENT Reports no additional complaints, Denies dysphagia and Denies odynophagia Card Reports no additional complaints Resp Reports no additional complaints GI Denies abdominal pain, Denies belching, Denies melena, Denies bloating, Denies change in bowel habits, Denies dysphagia, Denies excessive flatus, Denies dyspepsia, Denies heartburn, Denies diarrhea, Denies loose stools, Denies nausea, Denies odynophagia and Denies vomiting Reports no additional complaints Musc Reports no additional complaints Neuro Reports no additional complaints Psych Reports no additional complaints Endo Reports no additional complaints Physical Exam Vital Signs: Last Vital Signs Pulse 93 09/21/23 13:48 BP 155/72 H 09/21/23 13:48 BMI result Body Mass Index 29.3 Const General: healthy appearing and no acute distress Nutritional Appearance: obese Orientation/consciousness: patient oriented x3 Resp Effort & Inspection: normal respiratory effort, able to speak in complete sentences, no tracheal deviation and symmetric chest movement Auscultation: clear to auscultation bilaterally Cardio Rate: regular rate GI Inspection: Yes normal to inspection, No distended and Yes obesity Palpation (GI): Soft to palpation, not firm, nontender and No hepatosplenomegaly present Auscultation: normal bowel sounds General: Yes no CVA tenderness Back/Spine/Pelvis Back: no CVA tenderness Skin General skin exam: elasticity normal, turgor normal and dry skin Neuro General: patient oriented x3 Psych Appearance: grossly normal Mental Status: mental status grossly normal Assessment & Plan Assessment & Plan (1) Status post colonoscopy: Code(s): Z98.890 - Other specified postprocedural states (2) Internal hemorrhoids without complication: Code(s): K64.8 - Other hemorrhoids Plan Normal colonoscopy. Internal hemorrhoids found. Patient was encouraged to increase fiber in his diet. May take stool softener if needed. Patient will call our office if he will have any GI concerning symptoms otherwise colorectal screening in 10 years if help allows. Patient is agreeable to current plan of care and verbalizes understanding of instructions. He was given the opportunity to ask questions and all questions answered. Thank you for allowing me to participate in his care Coding Level of Care Code Est Pt Level 3 (07962) Diagnoses Status post colonoscopy Z98.890 Internal hemorrhoids without complication K64.8 Time Spent (min) 25 Comment 15 minutes spent with patient and additional 10 minutes spent reviewing his records
== END 2023-09-21 14:13 | disposition home or self-care (01) ==
PROVIDERS: PCP Student in an Organized Health Care Education/Training Program; Visit Provider Nurse Practitioner Family
DX: Z98.890 Other specified postprocedural states (principal); K64.8 Other hemorrhoids
CPT/HCPCS: 99213

== ENCOUNTER → 2023-09-21 13:43 | Outpatient (BNVA) | payer MEDICARE, MEDICAID, SELFPAY | PROVIDERS: PCP Student in an Organized Health Care Education/Training Program; Visit Provider Nurse Practitioner Family | DX: Z98.890 Other specified postprocedural states (principal); K64.8 Other hemorrhoids; Z12.11 Encounter for screening for malignant neoplasm of colon | CPT/HCPCS: 99212 ==

== ENCOUNTER 2023-10-27 08:47 | Outpatient (REF) | payer MEDICARE, MEDICAID, SELFPAY ==
[2023-10-27 11:34] LABS: MANUAL DIFF FLAG NO
[2023-10-27 11:43] LABS: Basophils Percent Auto 0.5 % (0-2); Eosinophils Absolute Auto 0.1 X10*3/uL (0.0-0.4); Eosinophils Percent Auto 1.8 % (0-4); Hematocrit 40.4 % (42.0-52.0); Imm Gran Abs Auto 0.02 X10*3/uL (0.00-0.03); Imm Gran Pct Auto 0.3 % (0.0-0.4); Lymphocytes Percent Auto 32.6 % (20-40); Mean Corpuscular HGB Conc 32.2 g/dl (31.0-36.0); Mean Corpuscular Hemoglobin 27.8 pg (27.0-33.0); Mean Corpuscular Volume 86.3 fL (80.0-98.0); Mean Platelet Volume 10.5 fL (9.4-12.4); Monocytes Absolute Auto 0.4 X10*3/uL (0.1-1.2); Monocytes Percent Auto 6.1 % (2-11); Neutrophils Absolute Auto 3.6 x10*3/uL (2.0-8.3); Neutrophils Percent Auto 58.7 % (45-73); Platelet Count 209 X10*3/uL (160-400); Red Blood Count 4.68 X10*6/uL (4.60-5.80); Red Cell Distribution Width 13.7 % (11.0-16.0); White Blood Count 6.2 X10*3/uL (4.8-10.8)
[2023-10-27 12:20] LABS: Anion Gap 11 (12-20); Blood Urea Nitrogen 12 mg/dL (9-16); Calcium 9.6 mg/dL (8.4-10.2); Carbon Dioxide 27 mmol/L (22-29); Chloride 107 mmol/L (96-108); Estimated Glomerular Filt Rate > 60; Glucose Random 94 mg/dL (60-115); Sodium 141 mmol/L (135-145)
== END 2023-10-27 08:48 | disposition home or self-care (01) ==
LOC: HO.HHCL 08:47
PROVIDERS: Visit Provider Internal Medicine Geriatric Medicine
DX: Z01.818 Encounter for other preprocedural examination (principal)
CPT/HCPCS: 36415; 80048; 85025

== ENCOUNTER 2023-11-05 06:50 | Outpatient (REF) | payer MEDICARE, MEDICAID, SELFPAY ==
--- NOTE | ~2023-11-05 | XR_ITS ---
EXAMINATION: XR HIP, RIGHT CLINICAL INFORMATION: Pain in right hip, preoperative. COMPARISON: 09/07/2023. TECHNIQUE: AP view of the pelvis as well as AP and lateral views of the right hip. FINDINGS: Rounded and horizontal linear radiopaque markers overlie the central and left pelvis. Coiled and disc/snap-like radiopaque devices overlie the left mid abdomen. Degenerative changes in the imaged lower lumbar spine. Bilateral sacroiliac joints are symmetric. Moderate narrowing of superior joint space with subchondral sclerosis on AP view of the left hip. Redemonstration of marked narrowing along the superior aspect of the right hip joint with subchondral sclerosis and hypertrophic change. XR/XR hip RT min 2V IMPRESSION: 1. Marked degenerative changes in the right hip. 2. Moderate degenerative changes in the left hip.
== END 2023-11-05 06:51 | disposition home or self-care (01) ==
LOC: HO.HOSX 06:50
PROVIDERS: Visit Provider Physician Assistant
DX: M16.11 Unilateral primary osteoarthritis, right hip (principal)
CPT/HCPCS: 73502

== ENCOUNTER 2023-11-05 10:31 | Outpatient (AMB) | payer OTHER, MEDICAID, SELFPAY ==
--- NOTE | 2023-11-05 06:49 | A.OFFVIS_ITS ---
Vital Signs 11/05/23 10:37 Height 5 ft 6 in Weight 182 lb 8.6 oz BMI 29.5 Intake Visit Reasons: Pre-Op R ANDREWS w/NE 11/10/23 Intake Note: Josh is a 73 year old male, right hand dominant, who presents today for pre-op, right ANDREWS with Dr. Spivey. Patient reports right hip pain has been going on for about 2-3 year. Reports pain is on and off, 1 on a 0-10 pain scale. Patient does not take pain medication. Trim Stencil Maker Required: Yes Trim Stencil Maker Language: Kazakh Information Interpreted: non-clinical & clinical Allergies aspirin [ASPIRIN] Allergy (Intermediate, Verified 11/04/23 09:49) SWELLING, rash Medication List - Last Reconciled 11/05/23 by Ashley Flores PA-C levothyroxine 112 mcg PO QAM lisinopril 5 mg PO QAM metoprolol succinate ER 25 mg PO QAM walker Folding Front wheeled walker HPI Comments Details: Mr Jack presents to the office today for preop visit. He is scheduled for right total hip arthroplasty with Dr. Spivey. He continues to have ongoing pain and difficulty with ambulation in the right hip, which is affecting his quality of life; therefore, he has elected to move forward with surgery. 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 Mother No problems noted. Social History (Updated 11/05/23 @ 10:45 by FRANC Cordero) Household Members: Spouse Housing: Apartment Are you a primary ostomy care nurse to a significant other at home: No Do you presently have visiting nurse or other home services: No Alcohol intake: never Patient Tobacco Use Status: Former Tobacco user Quit Date: 03/2023 Tobacco use type: Cigarette Years Smoked: 5 service: No Current occupational status: retired Current occupation: rt handed Review of Systems Const All systems reviewed & are unremarkable except as noted in HPI and below Physical Exam Vital Signs: BMI result Body Mass Index 29.5 Const General: cooperative and no acute distress Orientation/consciousness: patient oriented x3 Neck Neck: Yes normal visual inspection and Yes no lymphadenopathy Resp Effort & Inspection: normal respiratory effort and able to speak in complete sentences Cardio Peripheral pulses: Peripheral pulses 2+ throughout GI Inspection: Yes normal to inspection Palpation (GI): Soft to palpation Skin General skin exam: no rashes or lesions noted Neuro General: patient oriented x3 Extrem Other: Right hip: Skin intact. No open wound or abrasions. He does have pain with ROM of hip and hip flexion. NVI. Results Reviewed Results Reviewed: Cardiology clearance Pt is scheduled for total hip replacement on 11/10/23. He has known hx of mild nonischemic cardiomyopathy and orthostatic hypotension. Can proceed with low to intermediate cardiac risk. Continue Metoprolol and lisinopril. Avoid dehydration. Call/ consult cardiology if needed Addendum Documented By:Damaris Hobbs 09/07/23 1254 Addendum Signed By: <Electronically signed by Damaris Hobbs> Assessment & Plan Assessment & Plan (1) Degenerative joint disease of right hip: Code(s): M16.11 - Unilateral primary osteoarthritis, right hip Category: Medical Qualifiers: Osteoarthritis type: primary Qualified Code(s): M16.11 - Unilateral primary osteoarthritis, right hip Plan: I discussed in detail the procedure and what to expect pre and post operatively. We discussed the risks, benefits and alternatives to the surgery as well as the rehabilitation course. The risks; which include, but are not limited to infection, bleeding, nerve injury, ongoing pain, swelling, and stiffness, perioperative risk of injury to bones and soft tissues, and blood clots. I?ve answered all questions and with their understanding they have consented to move forward with Right total hip arthroplasty with Dr. Spivey He was given an order for walker and an order for PT was placed to attend [facility] core Orders: Orders XR hip RT min 2V Today M25.551 - Pain in right hip PT Evaluation and Treatment Today Z96.641 - Presence of right artificial hip joint Medications: Refilled walker Folding Front wheeled walker 1 ea 0RF M16.11 - Unilateral primary osteoarthritis, right hip Patient Instructions: Scribed for Ta-KAEL Marcum-C, by [place], medical logistics specialist, on 11/05/2023 at 10:30 AM TONYA. Carrie, Ashley Flores PA-C, have personally reviewed and agree with the information entered by the scribe. Coding Level of Care Code Est Pt Level 3 (95282) Diagnoses Primary osteoarthritis of right hip M16.11 Osteoarthritis type: primary
[2023-11-05 10:37] VITALS: BMI 29.5
== END 2023-11-05 11:02 | disposition home or self-care (01) ==
PROVIDERS: PCP Student in an Organized Health Care Education/Training Program; Visit Provider Physician Assistant
DX: M16.11 Unilateral primary osteoarthritis, right hip (principal)
CPT/HCPCS: 99024

== ENCOUNTER 2023-11-10 09:02 | Day surgery (SDC) | payer MEDICARE, MEDICAID, SELFPAY ==
[2023-11-04 13:04] VITALS: BP 137/73; PULSE 75; RESP 20; O2SAT 100; BMI 29.4
--- NOTE | 2023-11-04 13:19 | HO.ANESPROP2 ---
Documented by User: Candida Esparza NP 11/04/23 13:28 HPI - Anesthesia Eval Consult details Narrative: 73yo M for Right Hip Total Replacement Follows [facility] cardiology for mild nonischemic cardiomyopathy and orthostatic hypotension. Cleared for surgery. PCP cleared No recent illness No CP/SOB with biking, walking VIJI: CPAP QHS Orthostatic: Only symptomatic twice. Last episode [facility] Active Problems Active Problems: All Active Problems Renal cyst (Acute) Scrotal pain (Acute) Nephrolithiasis (Acute) Microscopic hematuria (Acute) Abnormal MRI (Acute) Syncope and collapse (Acute) Abnormal echocardiogram (Acute) Anemia (Chronic) Degenerative joint disease of right hip (Acute) Degenerative joint disease of left hip (Acute) VIJI (obstructive sleep apnea) (Acute) NICM (nonischemic cardiomyopathy) (Acute) Past Medical History Medical History Syncope Degenerative joint disease of right hip Degenerative joint disease of left hip Abscess of scalp VIJI (obstructive sleep apnea) NICM (nonischemic cardiomyopathy) Urolithiasis Hypothyroidism Anemia HTN (hypertension) Family History Family History Father No problems noted. Mother No problems noted. Family history of problems with anesthesia: No Surgical History Surgical History H/O colonoscopy History of Problems with Anesthesia: No Social History Social History Household Members: Spouse Housing: Apartment Are you a primary manager medicare marketing to a significant other at home: No Do you presently have visiting nurse or other home services: No Alcohol intake: never Patient Tobacco Use Status: Former Tobacco user Quit Date: 03/2023 Tobacco use type: Cigarette Years Smoked: 5 service: No Current occupational status: retired Current occupation: rt handed Meds Allergies Allergy/AdvReac Type Severity Reaction Status Date / Time aspirin [ASPIRIN] Allergy Intermediate SWELLING, Verified 11/04/23 09:49 rash Home Medications ?Medication ?Instructions ?Recorded ?Confirmed ?Last Taken ?Type levothyroxine 112 mcg tablet 112 mcg PO QAM 10/16/21 11/05/23 11/10/23 History lisinopril 5 mg tablet 5 mg PO QAM 11/04/23 11/05/23 11/09/23 History metoprolol succinate 25 mg 25 mg PO QAM 11/04/23 11/05/23 11/10/23 History tablet,extended release 24 hr Exam Height,Weight and Vital Signs: Height 5 ft 6 in Weight 82.554 kg Last Vital Signs Pulse 75 11/04/23 13:04 Resp 20 11/04/23 13:04 BP 137/73 11/04/23 13:04 Pulse Ox 100 11/04/23 13:04 O2 Del Method Room Air 11/04/23 13:04 Pertinent Lab Results Pertinent Lab Results: Laboratory Tests 10/27/23 08:49 WBC 6.2 Hgb 13.0 L Hct 40.4 L Plt Count 209 Sodium 141 Potassium 4.0 Chloride 107 Carbon Dioxide 27 BUN 12 Creatinine 1.10 Narrative Narrative: EKG 06/2023 Vent. Rate : 079 BPM Atrial Rate : 079 BPM P-R Int : 156 ms QRS Dur : 088 ms QT Int : 394 ms P-R-T Axes : 042 -02 048 degrees QTc Int : 451 ms Normal sinus rhythm Nonspecific T wave abnormality Borderline ECG When compared with ECG of 22-FEB-2023 17:13, No significant change was found ECHO 2022 Conclusions: - 1. Esjp-iq-welooldv LV systolic dysfunction with LVEF of 40-45% with grade 1 diastolic dysfunction 2. Normal cardiac valvular Dopplers 3. Mildly dilated ascending aorta 4. No gross pericardial effusion NM cardiolite stress test 2022 IMPRESSION: 1. Myocardial perfusion imaging study shows normal myocardial perfusion. 2. Gated LVEF is 52% during stress and 42% during rest. 3. Transient ischemic dilatation not present. EKG component of the test reported separately. 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 Mother No problems noted. Surgical History Surgical History H/O colonoscopy Social History Social History Household Members: Spouse Housing: Apartment Are you a primary manager medicare marketing to a significant other at home: No Do you presently have visiting nurse or other home services: No Alcohol intake: never Patient Tobacco Use Status: Former Tobacco user Quit Date: 03/2023 Tobacco use type: Cigarette Years Smoked: 5 service: No Current occupational status: retired Current occupation: rt handed Meds Allergies Allergy/AdvReac Type Severity Reaction Status Date / Time aspirin [ASPIRIN] Allergy Intermediate SWELLING, Verified 11/04/23 09:49 rash Home Medications ?Medication ?Instructions ?Recorded ?Confirmed ?Last Taken ?Type levothyroxine 112 mcg tablet 112 mcg PO QAM 10/16/21 11/05/23 11/10/23 History lisinopril 5 mg tablet 5 mg PO QAM 11/04/23 11/05/23 11/09/23 History metoprolol succinate 25 mg 25 mg PO QAM 11/04/23 11/05/23 11/10/23 History tablet,extended release 24 hr Assessment and Plan Assessment Anesthesia Assessment: Chart Reviewed Final Anesthetic Review NPO: Yes ASA Class: III Final Preanesthetic Review: No Changes in Pt Med Stat, Meds/Allgs Chart Reviewed, Consent Obtained/Reviewed and Anes Risks/Benef Reviewed Patient Risk: Intermediate Procedure Risk: Intermediate Anesthetic Plan Anesthetic Plan: GA Disposition: Standard PACU
[2023-11-04 16:31] LABS: MRSA Nasal PCR NEGATIVE (Negative); SA Nasal PCR NEGATIVE (Negative)
[2023-11-10] VITALS (15 sets, daily range): BP systolic 101–154; BP diastolic 40–87; PULSE 69–84; RESP 14–20; TEMP 36.1–36.6; O2SAT 96–99; BMI 29.4; BMI 30.6
--- NOTE | ~2023-11-10 | XR_ITS ---
EXAMINATION: XR PELVIS CLINICAL INFORMATION: Right total hip arthroplasty COMPARISON: 11/05/2023 TECHNIQUE: Portable postoperative view of the pelvis FINDINGS: Prosthetic components of the right total hip arthroplasty are appropriately aligned. No periprosthetic fracture. Gas from recent surgery is present in the surrounding soft tissues. Skin adelita are seen over the right hip. XR/XR pelvis 1-2V IMPRESSION: Satisfactory appearance of right total hip arthroplasty.
[2023-11-10] MEDS: Lactated Ringers 1,000 ML 100 ML IVCONT ×2 (10:00→16:23)
[2023-11-10] MEDS: oxyCODONE HCl ER 10 MG TAB.ER.12H PO ×2 (10:01→21:00)
--- NOTE | 2023-11-10 10:45 | MHC.SHP ---
Pre-Procedural Eval Section A - 24 Hr Update-Section A only Date of Service: 11/10/23 The patient is an INPATIENT: No Changes since office visit: No Cold of Flu in the past 2 weeks, No New Medical Problems, No Changes in Medication and No Patient answered all questions The patient has been examined within 24 hours of the surgical procedure. The History & Physical has been completed within 30 days and I have reviewed it.: Yes Section B - Complete if H&P > 30 days Chief Complaint: Unilateral primary osteoarthritis, right hip Allergies: Allergies Allergy/AdvReac Type Severity Reaction Status Date / Time aspirin [ASPIRIN] Allergy Intermediate SWELLING, Verified 11/04/23 09:49 rash Plan I have reviewed the history and physical and performed a pertinent physical examination on my patient. No changes have occurred unless specified. Time Spent With Patient Time: Total time managing care of this patient today ____ minutes.
--- NOTE | 2023-11-10 13:45 | P.BOP_ITS ---
Brief Operative Note Date of Service: 11/10/23 Pre-op diagnosis: Right hip OA Post-op diagnosis: same Procedure: Right ANDREWS Implants: Ina Trident2 54 [place] Accoalde2 #6 127 deg with +0 36 ceramic femoral head Surgeon: Isiah Spivey MD Anesthesia: GETA and local Was an Human Resources Designate used for this Procedure?: Yes Human Resources Designate: Ashley Flores Estimated blood loss (mL): 200 IV fluids (mL): 1,000 Pathology: other Condition: stable Disposition: PACU
[2023-11-10] MEDS: HYDROmorphone HCl 0.5 MG/0.5 ML SYRINGE 0.25 MG IVPUSH ×4 (14:05→14:26)
--- NOTE | 2023-11-10 14:58 | PHA.MEDREC ---
Pharmacy Consult ? Medication Reconciliation Pharmacy has reviewed the medication reconciliation completed by nursing.
--- NOTE | 2023-11-10 16:28 | P.CONHOSP_ITS ---
History of Present Illness Data of Consult Primary Care Provider: Malinda Dunbar MD PENDING SALE TO [facility] Medical History Syncope Degenerative joint disease of right hip Degenerative joint disease of left hip Abscess of scalp VIJI (obstructive sleep apnea) NICM (nonischemic cardiomyopathy) Urolithiasis Hypothyroidism Anemia HTN (hypertension) Family History Father No problems noted. Mother No problems noted. Surgical History H/O colonoscopy Social History Household Members: Spouse Housing: Apartment Are you a primary pharmacist critical care to a significant other at home: No Do you presently have visiting nurse or other home services: No Alcohol intake: never Patient Tobacco Use Status: Former Tobacco user Quit Date: 03/2023 Tobacco use type: Cigarette Years Smoked: 5 service: No Current occupational status: retired Current occupation: rt handed Meds Allergies Allergy/AdvReac Type Severity Reaction Status Date / Time aspirin [ASPIRIN] Allergy Intermediate SWELLING, Verified 11/04/23 09:49 rash Active Medications: Current Medications Acetaminophen (Acetaminophen 325 Mg Tablet) 650 mg PO Q6H PRN PRN Reason: Pain, Mild (Pain Scale 1-3) Aspirin (Aspirin 325 Mg Tablet) 325 mg PO BID [facility] Celecoxib (Celecoxib 200 Mg Capsule) 200 mg PO BID [facility] Docusate Sodium (Docusate Sodium 100 Mg Capsule) 100 mg PO BID [facility] Hydromorphone HCl (Hydromorphone Hcl 0.5 Mg/0.5 Ml Syringe) 0.25 mg IVPUSH Q4H PRN; Protocol PRN Reason: Pain, Severe (Pain Scale 7-10) Lactated Ringer's (Lr) 1,000 mls @ 100 mls/hr IVCONT .Q10H [facility] Stop: 11/11/23 13:55 Last Admin: 11/10/23 16:23 Dose: 100 mls/hr Cefazolin Sodium/Dextrose (Ancef) 2 gm in 50 mls @ 100 mls/hr IV POSTOP ONE Stop: 11/10/23 18:29 Levothyroxine Sodium (Levothyroxine Sodium 112 Mcg Tablet) 112 mcg PO DAILY@0600 [facility] Metoprolol Succinate (Metoprolol Succinate Er 25 Mg Tab.Er.24h) 25 mg PO DAILY [facility]; Protocol Ondansetron HCl (Ondansetron Hcl 4 Mg/2 Ml Vial) 4 mg IVPUSH Q8H PRN PRN Reason: Nausea and Vomiting Oxycodone HCl (Oxycodone Hcl Immed Release 5 Mg Tablet) 5 mg PO Q4H PRN PRN Reason: Pain, Moderate(Pain Scale 4-6) Oxycodone HCl (Oxycodone Hcl Er 10 Mg Tab.Er.12h) 10 mg PO BID [facility] Sodium Chloride (0.9 % Sodium Chloride Flush 3 Ml Syringe) [address] [facility] Last Admin: 11/10/23 16:27 Dose: Not Given Home Medications ?Medication ?Instructions ?Recorded ?Confirmed ?Last Taken ?Type levothyroxine 112 mcg tablet 112 mcg PO [facility] 10/16/21 11/05/23 11/10/23 History lisinopril 5 mg tablet 5 mg PO [facility] 11/04/23 11/05/23 11/09/23 History metoprolol succinate 25 mg 25 mg PO [facility] 11/04/23 11/05/23 11/10/23 History tablet,extended release 24 hr Physical Exam Vital Signs and Narrative: Vital Signs: Last Vital Signs Temp 97.3 F 11/10/23 16:21 Pulse 82 11/10/23 16:21 Resp 16 11/10/23 16:21 BP 136/71 11/10/23 16:21 Pulse Ox 96 11/10/23 16:21 O2 Del Method Room Air 11/10/23 16:21 O2 Flow Rate 2 11/10/23 15:47 BMI result Body Mass Index 29.4
--- NOTE | 2023-11-10 16:34 | PC.NURSE ---
waiting for Turkish interp, vss, no resp distress, scant dressing on RLE. +CMS s/p right hip surgery.
--- NOTE | 2023-11-10 16:59 | HO.PM.IMCN ---
History of Present Illness Data of Consult Service Date: 11/10/23 Primary Care Provider: Malinda Dunbar MD HPI 73-year-old man admitted by Orthopedic surgery with a history of hypertension, hypothyroidism. Status post right total hip arthroplasty. Surgery was unremarkable. Patient has been able to eat and drink without any nausea or vomiting. Patient is hemodynamically stable. No acute medical complaints at this time. Review of Systems Review of Systems: Denies any recent fever chills or decrease in appetite respiratory denies any shortness of breath cardiovascular is adjustment of any PND or edema gastrointestinal denies any dysphagia abdominal pain nausea vomiting or diarrhea genitourinary denies any dysuria frequency or hematuria musculoskeletal denies any joint pain or swelling neuropsych denies any weakness or seizures all other systems reviewed are negative PMFSH Medical History Syncope Degenerative joint disease of right hip Degenerative joint disease of left hip Abscess of scalp VIJI (obstructive sleep apnea) NICM (nonischemic cardiomyopathy) Urolithiasis Hypothyroidism Anemia HTN (hypertension) Family History Father No problems noted. Mother No problems noted. Surgical History H/O colonoscopy Social History Household Members: Family Housing: Apartment Are you a primary patient care associate to a significant other at home: No Do you presently have visiting nurse or other home services: No Alcohol intake: never Patient Tobacco Use Status: Former Tobacco user Quit Date: 03/2023 Tobacco use type: Cigarette Years Smoked: 5 service: No Current occupational status: retired Current occupation: rt handed Meds Allergies Allergy/AdvReac Type Severity Reaction Status Date / Time aspirin [ASPIRIN] Allergy Intermediate SWELLING, Verified 11/04/23 09:49 rash Active Medications: Current Medications Acetaminophen (Acetaminophen 325 Mg Tablet) 650 mg PO Q6H PRN PRN Reason: Pain, Mild (Pain Scale 1-3) Aspirin (Aspirin 325 Mg Tablet) 325 mg PO BID [facility] Celecoxib (Celecoxib 200 Mg Capsule) 200 mg PO BID [facility] Docusate Sodium (Docusate Sodium 100 Mg Capsule) 100 mg PO BID [facility] Hydromorphone HCl (Hydromorphone Hcl 0.5 Mg/0.5 Ml Syringe) 0.25 mg IVPUSH Q4H PRN; Protocol PRN Reason: Pain, Severe (Pain Scale 7-10) Lactated Ringer's (Lr) 1,000 mls @ 100 mls/hr IVCONT .Q10H [facility] Stop: 11/11/23 13:55 Last Admin: 11/10/23 16:23 Dose: 100 mls/hr Cefazolin Sodium/Dextrose (Ancef) 2 gm in 50 mls @ 100 mls/hr IV POSTOP ONE Stop: 11/10/23 18:29 Levothyroxine Sodium (Levothyroxine Sodium 112 Mcg Tablet) 112 mcg PO DAILY@0600 [facility] Metoprolol Succinate (Metoprolol Succinate Er 25 Mg Tab.Er.24h) 25 mg PO DAILY [facility]; Protocol Ondansetron HCl (Ondansetron Hcl 4 Mg/2 Ml Vial) 4 mg IVPUSH Q8H PRN PRN Reason: Nausea and Vomiting Oxycodone HCl (Oxycodone Hcl Immed Release 5 Mg Tablet) 5 mg PO Q4H PRN PRN Reason: Pain, Moderate(Pain Scale 4-6) Oxycodone HCl (Oxycodone Hcl Er 10 Mg Tab.Er.12h) 10 mg PO BID [facility] Sodium Chloride (0.9 % Sodium Chloride Flush 3 Ml Syringe) 3 ml IVFLUSH QSHIFT [facility] Last Admin: 11/10/23 16:27 Dose: Not Given Home Medications ?Medication ?Instructions ?Recorded ?Confirmed ?Last Taken ?Type levothyroxine 112 mcg tablet 112 mcg PO [facility] 10/16/21 11/05/23 11/10/23 History lisinopril 5 mg tablet 5 mg PO [facility] 11/04/23 11/05/23 11/09/23 History metoprolol succinate 25 mg 25 mg PO [facility] 11/04/23 11/05/23 11/10/23 History tablet,extended release 24 hr Physical Exam Vital Signs and Narrative: Vital Signs: Last Vital Signs Temp 97.3 F 11/10/23 16:21 Pulse 82 11/10/23 16:21 Resp 16 11/10/23 16:21 BP 136/71 11/10/23 16:21 Pulse Ox 96 11/10/23 16:21 O2 Del Method Room Air 11/10/23 16:21 O2 Flow Rate 2 11/10/23 15:47 BMI result Body Mass Index 30.6 Appearing in no acute distress head is normocephalic atraumatic eyes pupils are PERRLA sclera is anicteric mouth throat mucous membranes are intact and moist neck is supple no lymphadenopathy, no JVD noted lung sounds are clear to auscultation heart regular rate rhythm, clear S1, S2 positive bowel sounds, abdomen is soft, nontender neuro patient is alert x3, no focal deficits Results Labs 11/11/23 05:40 11/11/23 05:40 Assessment and Plan (1) S/P total right hip arthroplasty: Status: Acute Plan 73 year old admitted by orthopedic surgery and is status post ANDREWS Right total hip arthroplasty Management as per surgical team Pain management Hypertension Stable blood pressure Continue lisinopril and metoprolol Hypothyroidism Continue levothyroxine DVT prophylaxis with full-dose aspirin Full code Medical consultation complete. Will sign off
[2023-11-10] MEDS: ceFAZolin Sodium/Dextrose,Iso 2 GM/50 ML PIGGYBACK IV (17:09)
[2023-11-10] MEDS: ondansetron HCL 4 MG/2 ML VIAL IVPUSH (18:15)
[2023-11-10] MEDS: Celecoxib 200 MG CAPSULE PO (21:00)
[2023-11-10] MEDS: Docusate Sodium 100 MG CAPSULE PO (21:00)
[2023-11-11] MEDS: Lactated Ringers 1,000 ML 100 ML IVCONT ×2 (02:05→12:20)
[2023-11-11 03:28] VITALS: BP 102/51; PULSE 80; RESP 18; TEMP 36.5; O2SAT 96
[2023-11-11] MEDS: Levothyroxine Sodium 112 MCG TABLET PO (05:20)
[2023-11-11 07:04] LABS: MANUAL DIFF FLAG NO
[2023-11-11 07:27] LABS: Basophils Percent Auto 0.1 % (0-2); Hematocrit 31.6 % (42.0-52.0); Hemoglobin 10.7 g/dl (14.0-18.0); Imm Gran Abs Auto 0.06 X10*3/uL (0.00-0.03); Imm Gran Pct Auto 0.6 % (0.0-0.4); Lymphocytes Absolute Auto 0.8 X10*3/uL (1.2-4.9); Lymphocytes Percent Auto 8.1 % (20-40); Mean Corpuscular HGB Conc 33.9 g/dl (31.0-36.0); Mean Corpuscular Hemoglobin 28.8 pg (27.0-33.0); Mean Corpuscular Volume 85.2 fL (80.0-98.0); Mean Platelet Volume 10.2 fL (9.4-12.4); Monocytes Absolute Auto 0.8 X10*3/uL (0.1-1.2); Monocytes Percent Auto 7.6 % (2-11); Neutrophils Absolute Auto 8.2 x10*3/uL (2.0-8.3); Neutrophils Percent Auto 83.6 % (45-73); Platelet Count 170 X10*3/uL (160-400); Red Blood Count 3.71 X10*6/uL (4.60-5.80); Red Cell Distribution Width 13.5 % (11.0-16.0); White Blood Count 9.8 X10*3/uL (4.8-10.8)
[2023-11-11 07:32] LABS: Anion Gap 13 (12-20); Blood Urea Nitrogen 14 mg/dL (9-16); Calcium 8.9 mg/dL (8.4-10.2); Carbon Dioxide 24 mmol/L (22-29); Chloride 106 mmol/L (96-108); Creatinine Clr Calc Pharmacy 68.9; Estimated Glomerular Filt Rate > 60; Glucose Fasting 117 mg/dL (60-99); Potassium 4.2 mmol/L (3.3-5.1); Sodium 139 mmol/L (135-145)
[2023-11-11 07:42] VITALS: BP 112/57; PULSE 75; RESP 18; TEMP 36.5; O2SAT 95
--- NOTE | 2023-11-11 07:52 | PM.PNORT ---
Subjective Subjective Date of Service: 11/11/23 Interval history: POD1 s/p RTHA Patient is resting in bed comfortably No overnight events Pain is managed No additional complaints Physical Exam Vital Signs: Vital Signs: Last Vital Signs Temp 97.7 F 11/11/23 07:42 Pulse 75 11/11/23 07:42 Resp 18 11/11/23 07:42 BP 112/57 L 11/11/23 07:42 Pulse Ox 95 11/11/23 07:42 O2 Del Method Room Air 11/11/23 07:42 O2 Flow Rate 2 11/10/23 15:47 BMI result Body Mass Index 30.6 Extrem: Other: rt hip dressing is c/d/i. Able to dorsi/plantar flex. Calf is supple and nontender. Sensation intact. Pedal pulse intact. Procedures Date of Service Date of Service: 11/11/23 Progress Note: A&P Assessment and plan (1) S/P total right hip arthroplasty: Status: Acute Assessment and Plan: Continue pain mgmnt Begin ASA for dvt ppx begin PT/OT for RTHA Dispo planning-Pending PT eval, pain mgmnt Time Spent With Patient Time: Total time managing care of this patient today ____ minutes. Quality Stroke Does the patient have a stroke diagnosis?: No VTE Prior VTE?: No VTE Risk Level:: Medical - moderate - high VTE Device Contraindication: N/A - Device Ordered VTE Drug Contraindication: N/A - Med Ordered
--- NOTE | 2023-11-11 09:02 | HO.POSTANES ---
Post Anesthesia Evaluation Post Anesthesia Evaluation Date of Service: 11/10/23 Vital Signs: Vital Signs Temp Pulse Resp BP Pulse Ox O2 Del Method 11/11/23 07:42 97.7 F 75 18 112/57 L 95 Room Air 11/11/23 03:28 97.7 F 80 18 102/51 L 96 CPAP Anesthesia: Monitored and Spinal Mental Status: Awake Pain Control: Satisfactory Nausea/Vomiting: None Hydration: Adequate Anesthesia-Related Issues: No Anes. Related Issues
--- NOTE | 2023-11-11 09:07 | MHC.CM.PN ---
pt lives with will be going home with hvns for home pt pt has own ride home
[2023-11-11 09:12] VITALS: BP 112/57; PULSE 75
[2023-11-11] MEDS: 0.9 % Sodium Chloride Flush 3 ML SYRINGE IVFLUSH (09:12)
[2023-11-11] MEDS: Docusate Sodium 100 MG CAPSULE PO (09:12)
[2023-11-11] MEDS: Celecoxib 200 MG CAPSULE PO (09:12)
[2023-11-11] MEDS: Metoprolol Succinate ER 25 MG TAB.ER.24H PO (09:12)
[2023-11-11] MEDS: oxyCODONE HCl ER 10 MG TAB.ER.12H PO (09:12)
[2023-11-11] MEDS: Aspirin 325 MG TABLET PO (12:20)
--- NOTE | 2023-11-11 13:03 | P.DS_ITS ---
DS: Providers Provider Date of Service: 11/11/23 Primary care physician: Malinda Dunbar MD Consults: 11/10/23 16:19 Consult to Hospitalist Routine Comment: Consulting Provider: Hospitalist Reason For Exam: VIJI, cardiomyopathy DS: Diagnosis Discharge Diagnosis (1) S/P total right hip arthroplasty: Status: Acute DS: Summary Hospital Course Hospital Course: The patient underwent a successful right total hip arthroplasty, they were transferred to PACU and then to the floor to recover. During their stay, their vitals were stable, afebrile at 97.7. Labs were unremarkable, H/H 10.7/31.6. POD 1 they were started on Aspirin 325mg po bid for DVT ppx, they also received Physical Therapy services twice a day. Prior to discharge, their dressing was clean dry and intact and the plan was to be discharged home with VNA services. Time Attestation Discharge Coordination Time (in mins): 30 Quality: Safe Use of Opioids Does Pt have an Active Cancer Diagnosis on the Problem List?: No Quality: Stroke Does the patient have a stroke diagnosis?: No Physical Exam Vital Signs: Vital Signs: Last Vital Signs Temp 97.7 F 11/11/23 07:42 Pulse 75 11/11/23 09:12 Resp 18 11/11/23 07:42 BP 112/57 L 11/11/23 09:12 Pulse Ox 95 11/11/23 07:42 O2 Del Method Room Air 11/11/23 07:42 O2 Flow Rate 2 11/10/23 15:47 BMI result Body Mass Index 30.6 Const: General: cooperative, healthy appearing and no acute distress Resp: Effort & Inspection: normal respiratory effort and able to speak in complete sentences Cardio: Rate: regular rate Peripheral pulses: Peripheral pulses 2+ throughout GI: Palpation (GI): Soft to palpation Skin: Lesions: no lesions Rashes: no rashes Extrem: Other: right hip dressing is c/d/i. Able to dorsi/plantar flex. Calf is supple and nontender. Sensation intact. Pedal pulse intact. DS: Data Data Completed and Pending Pending studies at discharge: Pending at discharge 11/10/23 13:27 Surgical [PTH] Routine Labs on day of discharge: Laboratory Results - last 24 hr 11/11/23 05:40 WBC 9.8 RBC 3.71 L D Hgb 10.7 L Hct 31.6 L D MCV 85.2 MCH 28.8 MCHC 33.9 RDW 13.5 Plt Count 170 MPV 10.2 Immature Gran % (Auto) 0.6 H Neut % (Auto) 83.6 H Lymph % (Auto) 8.1 L [place] % (Auto) 7.6 Eos % (Auto) 0.0 Baso % (Auto) 0.1 Lymph # (Auto) 0.8 L [place] # (Auto) 0.8 Eos # (Auto) 0.0 Baso # (Auto) 0.0 Abs Immat Gran (auto) 0.06 H Absolute Neuts (auto) 8.2 Absolute Nucleated RBC 0.000 Nucleated RBC % (auto) 0.0 Sodium 139 Potassium 4.2 Chloride 106 Carbon Dioxide 24 Anion Gap 13 BUN 14 Creatinine 1.01 Estim Creat Clear Calc 68.9 Estimated GFR > 60 Fasting Glucose 117 H Calcium 8.9 D Discharge Plan Discharge Patient Disposition: Home, Self-Care Referrals: Ashley Flores PA-C [Physician Cogeneration Operator] - 11/26/23 1:30 pm Discharge Medications: New celecoxib 200 mg Capsule 200 mg PO BID 30 Days Qty: 60 0RF acetaminophen 325 mg Tablet 650 mg PO Q6H PRN (Reason: Pain, Mild (Pain Scale 1-3)) 30 Days Qty: 240 0RF aspirin 325 mg Tablet 325 mg PO BID 42 Days Qty: 84 0RF docusate sodium 100 mg Capsule 100 mg PO BID 30 Days Qty: 60 0RF oxycodone 5 mg Tablet 5 mg PO Q4H PRN (Reason: Pain, Moderate(Pain Scale 4-6)) 7 Days Qty: 42 0RF Rx Instructions: Partial Fill upon patient request. Continued (DME) Raised toilet seat See Rx Instructions .ROUTE .MEDSUPPLY Qty: 1 0RF Rx Instructions: duration-99days lisinopril 5 mg tablet 5 mg PO QAM Rx Instructions: Please call to schedule cardiology appt for refills metoprolol succinate 25 mg tablet extended release 24 hr 25 mg PO QAM Rx Instructions: Replaces Carvedilol Take one tablet daily levothyroxine 112 mcg tablet 112 mcg PO QAM (DME) walker Misc See Rx Instructions .MEDSUPPLY Qty: 1 0RF Rx Instructions: Folding Front wheeled walker Discharge Orders: Discharge Order (Routine); Ordered 11/11/23 Ordered By: Alena Eisenberg Diet: Advance to usual diet Activity on Discharge: Use cane or walker Activity Restrictions/Additional Instructions: Physical Therapy for total hip arthroplasty: posterior precautions, gait training, ROM, strength Limit stair climbing No showering, no tub bath-keep dressing clean, dry and intact No driving x6 weeks Continue Lovenox tabs once a day x 4 weeks Follow up with [facility] Orthopedics in 2 weeks Print Language: Wolof
--- NOTE | 2023-11-11 13:04 | W.MHC.F2F ---
Service Date Service Date: 11/11/23 Encounter Date of encounter: 11/11/23 Reasons for Services Signs and symptoms assessed: s/p RTHA Pt. is considered homebound due to recent surgery. Unable to drive, poor balance, poor gait mechanics. Reason for physical therapy: home safety and mobility, therapeutic exercises, restore joint function, gait/transfer training, assess need for DME and ADL training Reason for occupational therapy: home safety and mobility, therapeutic exercises, restore joint function, gait/transfer training, assess need for DME and ADL training Homebound: Leaving the home is medically contraindicated at this time without the asist of a device and/or another person due th the listed conditions above and below. Reason homebound: unsteady gait / fall risk, leg weakness, pain with ambulation, poor balance / fall risk and unable to drive Certification: Based on the above findings, I certify that this patient is confined to the home and needs intermittent senior care care, physical therapy and/or speech therapy, or continues to need occupational therapy. The patient is under my care, and I have initiated the establishment of the plan of care. The patient will be followed by a physician who will periodically review the plan of care. Time Spent With Patient Time: Total time managing care of this patient today ____ minutes.
[2023-11-11 15:21] VITALS: BP 129/60; PULSE 78; RESP 18; TEMP 36.8; O2SAT 96
[2023-11-11] MEDS: Enoxaparin Sodium 40 MG/0.4 ML SYRINGE SUBCUT (15:38)
--- NOTE | 2023-11-19 07:36 | P.OP_ITS ---
Operative Note Operative Note Date of Service: 11/10/23 Narrative: Date of Service: 11/10/23 Pre-op diagnosis: Right hip OA Post-op diagnosis: same Procedure: Right ANDREWS Implants: [place] Trident2 54 [place] Accoalde2 #6 127 deg with +0 36 ceramic femoral head Surgeon: Isiah Spivey MD Anesthesia: GETA and local Was an Reception Interviewer used for this Procedure?: Yes Reception Interviewer: Ashley Flores Estimated blood loss (mL): 200 IV fluids (mL): 1,000 Pathology: other Condition: stable Disposition: PACU Procedure in detail: Patient was brought into the operating room and placed in the right lateral decubitus position. All bony prominences were well padded and the limb was prepped and draped in standard sterile fashion. A time-out was called to identify proper site procedure proper surgeon IV antibiotics and 1 g of transaxemic acid were administered. I began by making a curvilinear incision over the posterolateral aspect of the greater trochanter. Dissection was taken down to the tensor fascia which was incised in line with the incision and a Charnley retractor was placed. Cautery was used to maintain hemostasis. The hip was internally rotated and the external rotators were identified. The vessels were cauterized and a full-thickness capsular/external rotator layer was devel oped starting just proximal to the piriformis. This layer was tagged and a dull Hohmann retractor was placed underneath the neck in the hip was dislocated. A neck cut was made 1 cm proximal to the lesser trochanter and the head and neck were removed and measured 50mm on the back table. I then removed the labrum and cauterized the fovea. I started with a 44 reamer and medialized to the inner table. I sequentially reamed up to a size 53 and impacted a 54mm cup at 45 degrees of inclination and 25 degrees of version. I then placed a 20 deg posterior lipped liner and turned my attention to the femur. I identified the piriformis insertion and used this as a starting point for my pool cutter. The medius tendon was protected with a Hibs retractor. A Charnley awl was inserted in the canal and a curved curette used to remove the lateral bone. I irrigated copiously. I then sequentially broached in the patient's natural version to a size 6 and placed my trial implants. I used a #6/127/+0 ba sed on my pre-operative template. Using a trail head I took the hip through range of motion. I was satisfied with the stability and length. I removed all instrumentation and copiously irrigated. I placed my final femoral implant and again took the hip through range of motion and was satisfied with the stability and length. The final +0 implant was impacted in place and the hip reduced. I then irrigatedcopiously and placed 1 g of local transaxemic acid. I performed a capsular closure with 2.0 fiberwire, Calixto's fascia with 0 Vicryl, subcuticular with 2-0 Vicryl and the skin with adelita. Patient was placed into a sterile dressing. Patient was extubated brought to the recovery room in stable condition. There were no known complications.
== END 2023-11-11 16:03 | disposition home health service (06) ==
LOC: HO.SSS 13:57 → HO.S3 15:59
PROVIDERS: Physician Assistant; PCP Student in an Organized Health Care Education/Training Program; Visit Provider Orthopaedic Surgery
PROC: (CPT 27130; principal; 2023-11-10 13:30)
DX: M16.11 Unilateral primary osteoarthritis, right hip (principal); M25.551 Pain in right hip; R26.2 Difficulty in walking, not elsewhere classified; I10 Essential (primary) hypertension; I42.8 Other cardiomyopathies; D64.9 Anemia, unspecified; R55 Syncope and collapse; E03.9 Hypothyroidism, unspecified; G47.33 Obstructive sleep apnea (adult) (pediatric); Z79.899 Other long term (current) drug therapy; Z88.8 Allergy status to other drugs, medicaments and biological substances; Z87.891 Personal history of nicotine dependence
CPT/HCPCS: 27130; 36415; 72170; 80048; 85025; 86850; 86900; 86901; 87640; 87641; 88304; 88311; 97161; C1776; J0131; J0690; J1100; J1170; J1650; J1885; J2405; J2704; J2795; J3010; J7120

== ENCOUNTER → 2023-11-10 09:02 | Outpatient (BNV) | payer MEDICARE, MEDICAID, SELFPAY | PROVIDERS: PCP Student in an Organized Health Care Education/Training Program; Visit Provider Nurse Practitioner Acute Care | DX: Z96.641 Presence of right artificial hip joint (principal) | CPT/HCPCS: 99222 ==

== ENCOUNTER → 2023-11-10 09:02 | Outpatient (BNV) | payer MEDICARE, MEDICAID, SELFPAY | PROVIDERS: PCP Student in an Organized Health Care Education/Training Program; Visit Provider Orthopaedic Surgery | DX: Z47.1 Aftercare following joint replacement surgery (principal); Z96.641 Presence of right artificial hip joint | CPT/HCPCS: 27130; 99024; G0180 ==

== ENCOUNTER 2023-11-26 12:40 | Outpatient (AMB) | payer OTHER, MEDICAID, SELFPAY ==
--- NOTE | 2023-11-26 12:47 | MHC.OFFVIS ---
Intake Visit Reasons: 2WK PO: R ANDREWS w/NE 11/10/23 Intake Note: Day 73 year old male who presents today for a post operative visit of right ANDREWS on 11/10/23 NE. Patient reports he is doing well, states his pain level is a 2 out of 10. Wildlife Conservationist Name: Laury ID#[id number] Allergies aspirin [ASPIRIN] Allergy (Intermediate, Verified 11/26/23 13:03) SWELLING, rash HPI HPI 2WK PO: R ANDREWS w/NE 11/10/23: Details: 73-year-old male who returns to the office today for post-op right ANDREWS, 11/10/[address] Spivey. He states he has pain and rates the pain as 2 on the scale of 0-10. He is taking oxycodone at night. He is attending physical therapy for his hip. He is doing well overall and has no concerns today. 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 Mother No problems noted. Social History Household Members: Family Housing: Apartment Are you a primary health care facilities inspector to a significant other at home: No Do you presently have visiting nurse or other home services: No Alcohol intake: never Patient Tobacco Use Status: Former Tobacco user Quit Date: 03/2023 Tobacco use type: Cigarette Years Smoked: 5 service: No Current occupational status: retired Current occupation: rt handed Review of Systems Const All systems reviewed & are unremarkable except as noted in HPI and below Physical Exam Const General: cooperative and no acute distress Orientation/consciousness: patient oriented x3 Resp Effort & Inspection: normal respiratory effort and able to speak in complete sentences Cardio Peripheral pulses: Peripheral pulses 2+ throughout Neuro General: patient oriented x3 Extrem Other: Right hip: Incision clean, dry and intact. No erythema or drainage. He has good ROM of hip. No pain with hip flexion. Calf supple, nontender. NVI. Assessment & Plan Assessment & Plan (1) S/P total right hip arthroplasty: Code(s): Z96.641 - Presence of right artificial hip joint Category: Surgical Plan [place] removed, steri strips applied. He will begin to transition to Outpatient PT to continue working on Gait training, ROM and quad strength. No driving for another 4 weeks. He will require ppx abx for dental procedures. He will f/u in 4 weeks, sooner if needed. Patient Instructions: Scribed for Ashley Flores PA-C, by [place] registered medical transcriptionist, on 11/26/2023 at 1:00 PM EST.? I, Ashley Flores PA-C, have personally reviewed and agree with the information entered by the scribe. Coding Level of Care Code Global (18046) Diagnoses S/P total right hip arthroplasty Z96.641
== END 2023-11-26 14:49 | disposition home or self-care (01) ==
PROVIDERS: PCP Student in an Organized Health Care Education/Training Program; Visit Provider Physician Assistant
DX: Z96.641 Presence of right artificial hip joint (principal)
CPT/HCPCS: 99024

== ENCOUNTER → 2023-11-26 12:40 | Outpatient (BNVA) | payer OTHER, MEDICAID, SELFPAY | PROVIDERS: PCP Student in an Organized Health Care Education/Training Program; Visit Provider Physician Assistant ==

== ENCOUNTER → 2023-12-01 11:00 | Outpatient (BNV) | payer MEDICARE, MEDICAID, SELFPAY | PROVIDERS: PCP Student in an Organized Health Care Education/Training Program; Visit Provider Physician Assistant | DX: M16.11 Unilateral primary osteoarthritis, right hip (principal); Z47.1 Aftercare following joint replacement surgery | CPT/HCPCS: G0180 ==

== ENCOUNTER 2023-12-03 08:36 | Outpatient (REF) | payer OTHER, MEDICAID, SELFPAY ==
--- NOTE | ~2023-12-03 | CT_ITS ---
EXAMINATION: CT ABDOMEN AND PELVIS WITHOUT AND WITH CONTRAST CLINICAL INFORMATION: Microscopic hematuria. COMPARISON: Renal ultrasound 06/10/2023. TECHNIQUE: Noncontrast CT of the abdomen and pelvis is performed followed by split bolus contrast-enhanced images using 85 mL Omnipaque 350 contrast.? Postcontrast imaging is performed during the combined nephrogram and excretion phase. Sagittal and coronal reformatted images were obtained on the technologist's workstation for both the precontrast and postcontrast phases. This CT examination was performed using dose optimization techniques as appropriate, variously including the following: *Automated exposure control *Adjustment of mA and/or kV according to patient size (this includes techniques or standardized protocols for targeted exams where dose is matched to indication/reason for exam; i.e. extremities or head) *Use of iterative reconstruction technique DLP: 822 mGy-cm FINDINGS: LUNG BASES: The visualized lung bases are unremarkable. LIVER, GALLBLADDER, AND BILIARY TREE: The liver is normal in size, shape, and attenuation. No focal hepatic lesion or biliary ductal dilatation is present. The gallbladder is unremarkable with no evidence of radiopaque gallstones, gallbladder wall thickening, or obvious pericholecystic inflammatory changes. PANCREAS: Unremarkable. SPLEEN: Unremarkable. ADRENAL GLANDS: Unremarkable. There is mild thickening of the lateral limb of the left adrenal without discrete mass. KIDNEYS AND URETERS: The kidneys are normal in size, shape, and attenuation. 2 calculi are present in the lower pole of the left kidney with the largest measuring 3 mm in size. This measures approximately 700 Hounsfield units and is 9.6 cm from posterior axillary line. No hydronephrosis, hydroureter, or right-sided or ureteral calculi seen. No perinephric stranding. BLADDER: Some mild irregularity seen at the bladder base (9:536). No other bladder abnormality is seen. GASTROINTESTINAL TRACT: The small and large bowel are unremarkable. The appendix is unremarkable. ABDOMINAL WALL: No significant hernia is appreciated. Tiny left inguinal hernia seen containing only fat. LYMPH NODES: Retroperitoneal lymphadenopathy. VASCULAR: Unremarkable. PELVIC VISCERA: Mildly prominent prostate with normal-appearing seminal vesicles. Detail is obscured by artifact from the right hip prosthesis. OSSEUS STRUCTURES: Mild degenerative changes in the spine. Right total hip prosthesis. CT/CT urogram IMPRESSION: 1. Nonobstructing left lower pole renal calculi. 2. Mild irregularity at the bladder base. Cystoscopy may be useful for further evaluation. 3. Other incidental findings as described above.
[2023-12-03] MEDS: iohexoL 350 MG/ML 100 ML INFUS..BTL 85 ML IV (09:52)
== END 2023-12-03 08:37 | disposition home or self-care (01) ==
LOC: HO.CT 08:36
PROVIDERS: PCP Student in an Organized Health Care Education/Training Program; Visit Provider Nurse Practitioner Family
DX: R31.29 Other microscopic hematuria (principal); N20.0 Calculus of kidney
CPT/HCPCS: 74178; Q9967

== ENCOUNTER 2023-12-17 06:40 | Outpatient (REF) | payer OTHER, SELFPAY ==
--- NOTE | ~2023-12-17 | XR_ITS ---
EXAMINATION: XR PELVIS CLINICAL INFORMATION: Pain in hip, unspecified. COMPARISON: 11/10/2023, pelvis. TECHNIQUE: AP view of the pelvis. FINDINGS: The right hip arthroplasty components are in the usual position and alignment without evidence of loosening or fracture. Moderate left hip osteoarthritis with superolateral joint space narrowing, degenerative cysts and sclerosis with small marginal osteophytes. XR/XR pelvis 1-2V IMPRESSION: Intact right hip arthroplasty. Moderate left hip osteoarthritis.
== END 2023-12-17 06:41 | disposition home or self-care (01) ==
LOC: HO.HOSX 06:40
PROVIDERS: Visit Provider Orthopaedic Surgery
DX: M25.559 Pain in unspecified hip (principal)
CPT/HCPCS: 72170

== ENCOUNTER 2023-12-17 08:43 | Outpatient (AMB) | payer OTHER, MEDICAID, SELFPAY ==
--- NOTE | 2023-12-17 08:50 | MHC.OFFVIS ---
Intake Visit Reasons: 6WK PO R ANDREWS w/NE 11/10/23 Intake Note: Josh is a 73 year old male who presents today for a post operative appointment s/p right ANDREWS on 11/10/23 NE Allergies aspirin [ASPIRIN] Allergy (Intermediate, Verified 12/17/23 08:50) SWELLING, rash HPI HPI 6WK PO R ANDREWS w/NE 11/10/23: Details: Tyler is 6 weeks status post right hip replacement. He is doing well. He has walking without a cane. He has no complaints. He is asking whether he needs to continue Lovenox. 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 Mother No problems noted. Social History Household Members: Family Housing: Apartment Are you a primary day care attendant to a significant other at home: No Do you presently have visiting nurse or other home services: No Alcohol intake: never Patient Tobacco Use Status: Former Tobacco user Tobacco use type: Cigarette Years Smoked: 5 service: No Current occupational status: retired Current occupation: rt handed Physical Exam Extrem Other: inc c/d/i No pain with hip range of motion. Minimal Trendelenburg gait Results Reviewed Results Reviewed: I personally reviewed relevant radiographs. Right ANDREWS in expected post operative position with no hardware complications or evidence of loosening Assessment & Plan Assessment & Plan (1) S/P total right hip arthroplasty: Code(s): Z96.641 - Presence of right artificial hip joint Category: Surgical Plan: Doing very well status post hip replacement. May discontinue Lovenox. Follow up in 6 weeks. Orders: Orders XR pelvis 1-2V Today M25.559 - Pain in unspecified hip Coding Level of Care Code Global (56817) Diagnoses S/P total right hip arthroplasty Z96.641
== END 2023-12-17 09:07 | disposition home or self-care (01) ==
PROVIDERS: PCP Student in an Organized Health Care Education/Training Program; Visit Provider Orthopaedic Surgery
DX: Z96.641 Presence of right artificial hip joint (principal)
CPT/HCPCS: 99024

== ENCOUNTER 2023-12-29 10:00 | Outpatient (RCR) | payer MEDICARE, OTHER, MEDICAID, SELFPAY ==
--- NOTE | 2023-11-12 13:08 | W.MHC.F2F ---
Service Date Service Date: 11/12/23 Encounter Date of encounter: 11/11/23 Reasons for Services Signs and symptoms assessed: s/p RTHA Pt. is considered homebound due to recent surgery. Unable to drive, poor balance, poor gait mechanics. Reason for prison: administration of IV, SQ, or IM injection and medication treatment Reason for physical therapy: home safety and mobility, therapeutic exercises, restore joint function, gait/transfer training, assess need for DME and ADL training Reason for occupational therapy: home safety and mobility, therapeutic exercises, restore joint function, gait/transfer training, assess need for DME and ADL training Homebound: Leaving the home is medically contraindicated at this time without the asist of a device and/or another person due th the listed conditions above and below. Reason homebound: unsteady gait / fall risk, leg weakness, pain with ambulation, poor balance / fall risk and unable to drive Certification: Based on the above findings, I certify that this patient is confined to the home and needs intermittent prison care, physical therapy and/or speech therapy, or continues to need occupational therapy. The patient is under my care, and I have initiated the establishment of the plan of care. The patient will be followed by a physician who will periodically review the plan of care. Time Spent With Patient Time: Total time managing care of this patient today ____ minutes.
--- NOTE | 2023-12-01 13:36 | MHC.PT.EP ---
[facility] [place] Office [place] Office [place] Office [address] Haroldo Marcus [address] [phone] F: [phone] F: [phone] F: [phone] F: [phone] Physical Therapy Plan of Care Date of Evaluation: 12/01/23 Date of Surgery: 11/10/23 Diagnosis: R ANDREWS 11/10/23 (RL) Assessment: pt is a 73 y/o male presenting to physical therapy w/ referring diagnosis of ANDREWS right. Impairments include pain, decreased range of motion, decreased strength, impaired functional mobility, impaired postural awareness, and altered ambulation mechanics. pt is a good candidate for skilled PT due to age, potential remediation of impairments, typical disease/condition progression and prognosis, comorbidities, and motivation. pt would benefit from skilled PT intervention to provide a tailored strengthening and stretching exercise program, functional training, gait training, postural re-training, neuromuscular re-education, modalities as needed for pain, equipment safety demonstration. Frequency and Duration: The patient will be seen 2x/wk for 4 wks Short Term Goals: pt will be I w/ HEP to promote self-management of condition. pt will improve B hip abduction by at least 1 MMT grade to promote ease in ambulation w/o AD. Environmental Marketer Goals: pt will report a statistically significant improvement in self-reported outcome measure, LEFI, to promote return to PLOF. pt will ascend/descend 12 stairs using reciprocal pattern to promote ease in accessing living spaces. Treatment Plan: Modalities to reduce pain, spasms and effusion. Manual therapy to restore motion and function. Therapeutic exercise to improve strength and flexibility. Neuromuscular re-education for posture and balance. Therapeutic activities to return to functional activities of daily living. Electronically signed by: Rubi Hoyos PT, DPT Please sign and return to therapist. Thank you for your referral.
--- NOTE | 2024-01-22 15:58 | MHC.PT.DC ---
[facility] [place] Office [place] Office [place] Office [address] Haroldo Marcus 140 [facility] [phone] F: [phone] F: [phone] F: [phone] F: [phone] Physical Therapy Discharge Report Diagnosis: R ANDREWS 11/10/23 (RL) Date of Surgery: 11/10/23 Date of Evaluation: 12/01/23 Date of Discharge: 01/22/24 Treatments to Date: 9 Cancellations to Date: 0 No Shows to Date: 0 Discharge Status: Improved Function Independent with HEP Discharge Summary: The patient has made significant progress in physical therapy for his ANDREWS. He is ambulating long distances without obvious gait deviation and no assistive device. He is independent with all aspects of care and household management at this time. He is independent with his home exercise program which we reviewed today and patient endorsed he has cuff weights to use at home. The patient feels he is ready for discharge home to his home exercise program. Electronically signed by: Rubi Hoyos PT, DPT Please sign and return to therapist. Thank you for your referral.
== END 2024-01-22 15:59 | disposition home or self-care (01) ==
LOC: HO.PT 10:00
PROVIDERS: PCP Student in an Organized Health Care Education/Training Program; Visit Provider Physician Assistant
DX: Z96.641 Presence of right artificial hip joint (principal)
CPT/HCPCS: 97110; 97162; 97530

== ENCOUNTER 2024-01-25 09:15 | Outpatient (REF) | payer OTHER, SELFPAY ==
--- NOTE | ~2024-01-25 | XR_ITS ---
EXAMINATION: XR HIP, RIGHT CLINICAL INFORMATION: Pain right hip COMPARISON: 12/17/2023 TECHNIQUE: AP and crosstable lateral views of the right hip. FINDINGS: Prosthetic components of the right total hip arthroplasty are appropriately aligned without periprosthetic fracture or abnormal lucency. No component migration. Soft tissues are normal. Moderate degenerative change in the left hip XR/XR hip RT min 2V IMPRESSION: Appropriate alignment of the right total hip arthroplasty without surrounding abnormalities.
== END 2024-01-25 09:16 | disposition home or self-care (01) ==
LOC: HO.HOSX 09:15
PROVIDERS: Visit Provider Physician Assistant
DX: Z47.1 Aftercare following joint replacement surgery (principal); Z96.641 Presence of right artificial hip joint
CPT/HCPCS: 73502; 99212

== ENCOUNTER 2024-01-25 09:52 | Outpatient (AMB) | payer OTHER, SELFPAY ==
--- NOTE | 2024-01-25 10:09 | A.OFFVIS_ITS ---
Intake Visit Reasons: 6WK PO R ANDREWS w/NE 11/10/23 Intake Note: Day 73 year old male who presents today for a post operative right ANDREWS on 11/10/23 with NE. Patient reports he is doing well, denies any discomfort or pain. He continues to attend PT. He has concerns of constant pain in his left knee as well as his hip. Allergies aspirin [ASPIRIN] Allergy (Intermediate, Verified 01/25/24 10:14) SWELLING, rash HPI HPI 6WK PO R ANDREWS w/NE 11/10/23: Details: 6wk f/u right hip s/p RT ANDREWS 11/10/23. He states he is doing well, he has completed PT. He denies pain. He does c/o left hip pain . 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 Mother No problems noted. Social History Household Members: Family Housing: Apartment Are you a primary manager critical care to a significant other at home: No Do you presently have visiting nurse or other home services: No Alcohol intake: never Patient Tobacco Use Status: Former Tobacco user Tobacco use type: Cigarette Years Smoked: 5 service: No Current occupational status: retired Current occupation: rt handed Review of Systems Const All systems reviewed & are unremarkable except as noted in HPI and below Physical Exam Extrem Other: Right hip incision well healed. No erythema. No pain with hip ROM and hip flexion. NVI. Results Reviewed Results Reviewed: Xrays were obtained in the office today and personally reviewed by me of the right hip show intact hip prosthesis without signs of loosening. Assessment & Plan Assessment & Plan (1) S/P total right hip arthroplasty: Code(s): Z96.641 - Presence of right artificial hip joint Category: Surgical Plan He will continue home exercises. I did remind him of the need for ppx abx with dental visits. He will see us back in [address] Spivey, sooner if needed. Orders: Orders XR hip RT min 2V Today M25.551 - Pain in right hip Coding Level of Care Code Global (57041) Diagnoses S/P total right hip arthroplasty Z96.641
== END 2024-01-25 10:24 | disposition home or self-care (01) ==
PROVIDERS: PCP Student in an Organized Health Care Education/Training Program; Visit Provider Physician Assistant
DX: Z96.641 Presence of right artificial hip joint (principal)
CPT/HCPCS: 99024

== ENCOUNTER 2024-02-10 10:16 | Outpatient (AMB) | payer OTHER, SELFPAY ==
--- NOTE | 2024-02-10 10:21 | MHC.OFFVIS ---
Vital Signs 02/10/24 10:23 Height 5 ft 6 in Weight 186 lb 1.122 oz BMI 30.0 BP 138/66 Blood Pressure Location Lt brachial Position Sitting Pulse 70 Pulse Source Pulse Oximeter Intake Visit Reasons: 6 month fu Medical Appointment Scheduler Required: No Accompanied by: Self / Same As Patient Allergies aspirin [ASPIRIN] Allergy (Intermediate, Verified 01/25/24 10:14) SWELLING, rash Medication List - Last Reconciled 02/10/24 by Sunday Salinas MD acetaminophen 650 mg (2 x 325 mg) PO Q6H PRN 30 days celecoxib 200 mg PO BID 30 days docusate sodium 100 mg PO BID 30 days enoxaparin (Lovenox) 40 mg (0.4 mL) subcut Q24H 42 days levothyroxine 112 mcg PO QAM lisinopril 5 mg PO QAM metoprolol succinate ER 25 mg PO QAM [Raised toilet seat duration-99days] walker Folding Front wheeled walker HPI Comments Details: Josh returns for follow-up regarding cardiomyopathy. He has mild nonischemic cardiomyopathy. Overall, he states he is doing fine. No complaints like angina or shortness of breath or in fact anything cardiac sounding. In the past, it seems that he has had syncopal episodes thought to be vasovagal. Subsequently, he underwent tilt-table testing which diagnosed orthostatic hypotension. After that, it seems that carvedilol has been switched to metoprolol. Otherwise, no new concerns. 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 Mother No problems noted. Social History Household Members: Family Housing: Apartment Are you a primary customer care representative to a significant other at home: No Do you presently have visiting nurse or other home services: No Alcohol intake: never Patient Tobacco Use Status: Former Tobacco user Tobacco use type: Cigarette Years Smoked: 5 service: No Current occupational status: retired Current occupation: rt handed Review of Systems Const Denies chills, Denies fatigue, Denies fever(s), Denies weight gain and Denies weight loss ENT Denies dizziness Card Denies chest pain, Denies leg edema, Denies lightheadedness, Denies palpitations, Denies dyspnea on exertion, Denies orthopnea and Denies other Resp Denies cough and Denies dyspnea on exertion GI Denies hematochezia and Denies change in stool character Musc Denies abnormal gait, Denies muscle weakness, Denies numbness, Denies radiating pain into limb and Denies tingling Neuro Denies abnormal gait, Denies dizziness, Denies numbness and Denies tingling Endo Denies fatigue and Denies palpitations Physical Exam Vital Signs: Last Vital Signs Pulse 70 02/10/24 10:23 BP 138/66 02/10/24 10:23 BMI result Body Mass Index 30.0 Const General: comfortable and no acute distress Orientation/consciousness: patient oriented x3 HEENT Other: Unremarkable Head: Yes normal to inspection Neck Neck: Yes normal visual inspection Chest Chest palpation & inspection: normal inspection of the chest Resp Auscultation: clear to auscultation bilaterally Cardio Palpation: normal PMI Heart sounds: S1 normal heart sound present, S2 normal heart sound present, no gallops, no murmurs and no rubs GI Palpation (GI): Soft to palpation Back/Spine/Pelvis Other: unremarkable Skin General skin exam: no rashes or lesions noted Neuro General: patient oriented x3 Extrem General: Yes normal to inspection Psych Mental Status: mental status grossly normal Assessment & Plan Assessment & Plan (1) NICM (nonischemic cardiomyopathy): Comment: follows w/HCS Code(s): I42.8 - Other cardiomyopathies Category: Medical Plan: Last LVEF 40-45%. Myocardial perfusion imaging study done few years back had shown no ischemic findings or evidence of infarction. In that study, LVEF was 46%. He seems to have mild nonischemic cardiomyopathy but no clinical symptoms or signs of heart failure. Remains on a small dose of beta-blockers and lisinopril. (2) Orthostatic hypotension: Code(s): I95.1 - Orthostatic hypotension Category: Medical Plan: Has had a tilt-table test that shows orthostatic hypotension. Carvedilol has been switched to metoprolol. Patient does not have any further symptoms at this time. (3) VIJI (obstructive sleep apnea): Comment: uses CPAP QHS-Mild degree of sleep apnea. The AHI was 7/hr and oxygen hermelindo was 84%. Code(s): G47.33 - Obstructive sleep apnea (adult) (pediatric) Category: Medical Plan Total time spent including review of data, counseling, documentation, coordination of care 31 minutes. Orders: Orders CA echo transthoracic complete 6 Months I42.8 - Other cardiomyopathies Coding Level of Care Code Est Pt Level 4 (25290) Diagnoses NICM (nonischemic cardiomyopathy) I42.8 Orthostatic hypotension I95.1 VIJI (obstructive sleep apnea) G47.33
[2024-02-10 10:23] VITALS: BP 138/66; PULSE 70
== END 2024-02-10 10:44 | disposition home or self-care (01) ==
PROVIDERS: PCP Student in an Organized Health Care Education/Training Program; Visit Provider Internal Medicine
DX: I42.8 Other cardiomyopathies (principal); I95.1 Orthostatic hypotension; G47.33 Obstructive sleep apnea (adult) (pediatric)
CPT/HCPCS: 99214

== ENCOUNTER → 2024-02-10 10:16 | Outpatient (BNVA) | payer OTHER, SELFPAY | PROVIDERS: PCP Student in an Organized Health Care Education/Training Program; Visit Provider Internal Medicine | DX: I42.8 Other cardiomyopathies (principal); I95.1 Orthostatic hypotension; G47.33 Obstructive sleep apnea (adult) (pediatric) | CPT/HCPCS: 99212 ==

== ENCOUNTER 2024-02-24 10:08 | Emergency (ER) | payer OTHER, SELFPAY ==
[2024-02-24 10:12] VITALS: BP 159/74; PULSE 70; RESP 18; TEMP 36.5; O2SAT 100; BMI 29.6
[2024-02-24 10:26] LABS: MANUAL DIFF FLAG NO
[2024-02-24 10:36] LABS: Basophils Percent Auto 0.7 % (0-2); Eosinophils Absolute Auto 0.1 X10*3/uL (0.0-0.4); Hematocrit 39.9 % (42.0-52.0); Imm Gran Abs Auto 0.02 X10*3/uL (0.00-0.03); Imm Gran Pct Auto 0.3 % (0.0-0.4); Lymphocytes Absolute Auto 1.8 X10*3/uL (1.2-4.9); Lymphocytes Percent Auto 30.6 % (20-40); Mean Corpuscular HGB Conc 32.6 g/dl (31.0-36.0); Mean Corpuscular Hemoglobin 27.5 pg (27.0-33.0); Mean Corpuscular Volume 84.5 fL (80.0-98.0); Mean Platelet Volume 9.4 fL (9.4-12.4); Monocytes Absolute Auto 0.4 X10*3/uL (0.1-1.2); Monocytes Percent Auto 6.3 % (2-11); Neutrophils Absolute Auto 3.6 x10*3/uL (2.0-8.3); Neutrophils Percent Auto 60.1 % (45-73); Platelet Count 223 X10*3/uL (160-400); Red Blood Count 4.72 X10*6/uL (4.60-5.80); Red Cell Distribution Width 13.5 % (11.0-16.0)
[2024-02-24 10:42] LABS: Alanine Aminotransferase 15 U/L (0-40); Albumin Level 4.2 g/dL (3.5-5.0); Alkaline Phosphatase 92 U/L (39-117); Anion Gap 12 (12-20); Aspartate Amino Transferase 18 U/L (5-37); Bilirubin Total 0.4 mg/dL (0.0-1.0); Blood Urea Nitrogen 14 mg/dL (9-16); Calcium 9.7 mg/dL (8.4-10.2); Carbon Dioxide 26 mmol/L (22-29); Chloride 106 mmol/L (96-108); Creatinine Clr Calc Pharmacy 64.1; Estimated Glomerular Filt Rate > 60; Glucose Random 106 mg/dL (60-115); Potassium 3.7 mmol/L (3.3-5.1); Sodium 140 mmol/L (135-145); Total Protein 7.5 g/dL (6.5-8.0)
--- NOTE | 2024-02-24 12:30 | ED.GENADULT ---
HPI - General Adult General Chief complaint: General Medical Stated complaint: swollen mouth Time Seen by Provider: 02/24/24 12:30 Source: patient and clinical nursing assistant (all interactions with this patient were facilitated with an [facility] machine operations supervisor) Mode of arrival: ambulatory Limitations: language barrier (all interactions with this patient were facilitated with an [facility] machine operations supervisor) History of Present Illness ED Provider: Klaudia Almanzar PA-C HPI narrative: Patient is a 73 year old assigned male at with a history of anemia and HTN presenting to the emergency department today with left sided facial and mouth swelling. Patient states that over the last few months he randomly gets left sided facial swelling that eventually resolves with ice. Patient states that he has never been evaluated for this before but today he thought he should. Patient states that he takes lisinopril for his high blood pressure. Patient denies any dizziness, lightheadedness, abdominal pain, nausea, vomiting, fever, chills, blurry vision, double vision, loss of vision, chest pain, difficulty breathing, shortness of breath, back pain, night sweats, pain with urination, increased urinary frequency, increased urinary urgency, blood in his urine or stool, syncope or a near syncopal episode, recent trauma or falls, bowel incontinence, bladder incontinence, or any other complaints at this time. Relieving factors: none Exacerbating factors: none Associated symptoms: denies other symptoms Treatments prior to arrival: none Related Data Home Medications ?Medication ?Instructions ?Recorded ?Confirmed levothyroxine 112 mcg tablet 112 mcg PO QAM 10/16/21 02/10/24 Previous Rx's ?Medication ?Instructions ?Recorded walker #1 ea 11/05/23 Raised toilet seat #1 ea 11/11/23 acetaminophen 325 mg tablet 650 mg (2 x 325 mg) PO Q6H PRN 11/11/23 Pain, Mild (Pain Scale 1-3) 30 days #240 tabs celecoxib 200 mg capsule 200 mg PO BID 30 days #60 caps 11/11/23 docusate sodium 100 mg capsule 100 mg PO BID 30 days #60 caps 11/11/23 enoxaparin 40 mg/0.4 mL 40 mg (0.4 mL) subcut Q24H 42 days 11/11/23 subcutaneous syringe (Lovenox) #16.8 mL metoprolol succinate 25 mg 25 mg PO QAM #90 tabs 12/31/23 tablet,extended release 24 hr Allergies Allergy/AdvReac Type Severity Reaction Status Date / Time aspirin [ASPIRIN] Allergy Intermediate SWELLING, Verified 02/24/24 10:15 rash Review of Systems Constitutional: Constitutional: Reports no additional constitutional complaints, Denies chills, Denies fever(s) and Denies night sweats Eyes: Eyes: Reports no additional eye complaints, Denies blurry vision, Denies change in vision, Denies diplopia, Denies eye discharge, Denies loss of vision and Denies eye pain ENT: Denies dizziness Comments: left sided facial and mouth swelling Cardiovascular: Cardiovascular: Reports no additional cardiovascular complaints, Denies chest pain, Denies lightheadedness, Denies Loss of Consciousness and Denies dyspnea Respiratory: Respiratory: Reports no additional respiratory complaints and Denies dyspnea Gastrointestinal: Gastrointestinal: Reports no additional gastrointestinal complaints, Denies abdominal pain, Denies melena, Denies hematochezia, Denies change in bowel habits and Denies change in stool character Genitourinary: Genitourinary: Reports no additional male genitourinary complaints, Denies hematuria, Denies oliguria, Denies difficulty urinating, Denies dysuria, Denies urinary frequency, Denies urinary hesitancy, Denies urinary incontinence and Denies urinary urgency Musculoskeletal: Musculoskeletal: Reports no additional musculoskeletal complaints, Denies numbness and Denies tingling Neurologic: Denies dizziness, Denies loss of vision, Denies numbness and Denies tingling Psychiatric: Psychiatric: Reports no additional psychiatric complaints Endocrine: Endocrine: Reports no additional endocrine complaints Hematologic/Lymphatic: Hematologic/Lymphatic: Reports no additional hematologic/lymphatic complaints Allergic/Immunologic: Allergic/Immunologic: Reports no additional allergic/immunologic complaints [facility] Past Medical History Attestation statement: The following information was validated with the patient. 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 Mother No problems noted. Social History Social History Household Members: Family Housing: Apartment Are you a primary career representative to a significant other at home: No Do you presently have visiting nurse or other home services: No Alcohol intake: never Patient Tobacco Use Status: Former Tobacco user Tobacco use type: Cigarette Years Smoked: 5 Advance Directives: No Advance Directives Information Provided: Yes Do you have a plan to hurt others: No Plan service: No Current occupational status: retired Current occupation: rt handed Physical Exam ED Vital Signs: Vital Signs - 24 hr 02/24/24 10:12 02/24/24 13:19 02/24/24 14:52 Temperature 97.7 F 97.2 F 97.2 F Pulse Rate 70 57 57 Respiratory Rate 18 16 16 Blood Pressure 159/74 H 148/69 H 148/69 H Pulse Oximetry 100 99 99 Oxygen Delivery Method Room Air Room Air Room Air BMI result Body Mass Index 29.6 Const General: cooperative, no acute distress, alert and awake Nutritional Appearance: well nourished Orientation/consciousness: patient oriented x3 Limitations: no limitations HENMT Head: Yes normal to inspection and Yes atraumatic Ears: hearing grossly normal bilaterally and external ears normal General nose exam: Normal external nose present, no nasal discharge noted and no epistaxis Face and sinus: No abrasion, No laceration and Yes other (patient has swelling to the left side of upper and lower lips) Mouth: Normal oral and palatal mucosa present, no drooling and no muffled voice Eyes General: appearance normal, both eyes and all related structures Periorbital: periorbital findings normal Eyelids: Yes eyelids normal Conjunctivae: conjunctivae normal Pupils: Equal, round and reactive pupils present EOM: EOMs intact bilaterally Neck Neck: Yes normal visual inspection, Yes full ROM and Yes no lymphadenopathy Chest Chest palpation & inspection: normal inspection of the chest Resp Effort & Inspection: normal respiratory effort and able to speak in complete sentences GI Inspection: Yes normal to inspection Neuro General: patient oriented x3 and moves all extremities Cranial nerves: Yes Equal, round and reactive pupils present Cognition (Neuro): normal cognition Extrem General: Yes normal to inspection, Yes full ROM and Yes capillary refill normal Psych Appearance: grossly normal Mental Status: mental status grossly normal Affect: normal affect Attitude: cooperative Thought process: Normal thought process present Thought content: Normal thought content present Insight: Good insight present (Psych) Medications Administered Discontinued Medications Generic Name Dose Route Start Last Admin Trade Name Yovani PRN Reason Stop Dose Admin Diphenhydramine HCl 25 mg 02/24/24 13:08 02/24/24 13:31 Diphenhydramine Hcl 50 Mg/Ml Vial IVPUSH 02/24/24 13:09 25 mg ONCE ONE Administration Famotidine 20 mg 02/24/24 13:08 02/24/24 13:32 Famotidine/Pf 20 Mg/2 Ml Vial IVPUSH 02/24/24 13:09 20 mg ONCE ONE Administration Methylprednisolone Sodium Succinate 60 mg 02/24/24 13:02/24/24 13:31 Methylprednisolone Sod Succ 125 Mg/2 Ml Vial IVPUSH 02/24/24 13:09 60 mg ONCE ONE Administration Medical Decision Making Medical Decision Making MDM Narrative: Patient is a 73 year old assigned male at with a history of anemia and HTN presenting to the emergency department today with left sided facial and mouth swelling. Patient's physical exam showed left sided upper and lower lip swelling with underlying mucousal swelling but a clear airway with no uvular or pharyngeal swelling. Patient's blood work was unremarkable. I staffed this patient with my attending physician, Dr. Rey. We agreed that this is likely angioedema secondary to lisinopril and to treat the patient with usual angioedema medication, monitor, and discharge with strict return precautions and instructions to discontinue the lisinopril. I explained my physical exam findings as well as all test results to the patient. I answered all questions asked by the patient. Patient was given IV Solu-Medrol, pepcid, and benadryl and monitored with no worsening of symptoms. I stressed the importance of the patient taking his medication as directed (either prescribed or as the over the counter packaging recommends) and discontinuing his lisinopril. I stressed the importance of the patient following up with his primary care provider. I stressed the importance of the patient returning to the emergency department immediately if his symptoms were to worsen or if he were to develop any dizziness, shortness of breath, difficulty breathing, chest pain, blurry vision, loss of vision, nausea, vomiting, abdominal pain, fever, chills, back pain, or any other complaints. Patient verbalized agreement and understanding with this treatment plan and discharge. Differential Diagnosis Differential Diagnoses: The differential diagnosis associated with the presentation includes Angioedema Lisinopril angioedema Admission/Observation Consideration of admission/observation: Escalation of care including admission/observation considered Patient would have been admitted to the hospital had his work up had any findings where hospital admission was appropriate and his clinical presentation warranted hospital admission. Lab Data [facility] Lab Attestation statement: I reviewed the patient's lab results. My interpretation of these results are in the [facility] Rationale portion of this note. 02/24/24 10:21 02/24/24 10:21 Labs: Lab Results 02/24/24 Range/Units 10:21 WBC 6.0 (4.8-10.8) X10*3/uL RBC 4.72 D (4.60-5.80) X10*6/uL Hgb 13.0 L D (14.0-18.0) g/dl Hct 39.9 L D (42.0-52.0) % MCV 84.5 (80.0-98.0) fL MCH 27.5 (27.0-33.0) pg MCHC 32.6 (31.0-36.0) g/dl RDW 13.5 (11.0-16.0) % Plt Count 223 D (160-400) X10*3/uL MPV 9.4 (9.4-12.4) fL Immature Gran % (Auto) 0.3 (0.0-0.4) % Neut % (Auto) 60.1 (45-73) % Lymph % (Auto) 30.6 (20-40) % Door % (Auto) 6.3 (2-11) % Eos % (Auto) 2.0 (0-4) % Baso % (Auto) 0.7 (0-2) % Lymph # (Auto) 1.8 (1.2-4.9) X10*3/uL Door # (Auto) 0.4 (0.1-1.2) X10*3/uL Eos # (Auto) 0.1 (0.0-0.4) X10*3/uL Baso # (Auto) 0.0 (0.0-0.2) X10*3/uL Abs Immat Gran (auto) 0.02 (0.00-0.03) X10*3/uL Absolute Neuts (auto) 3.6 (2.0-8.3) x10*3/uL Absolute Nucleated RBC 0.000 (0.0-0.012) X10*3/uL Nucleated RBC % (auto) 0.0 (0.0-0.2) /100WBC Sodium 140 (135-145) mmol/L Potassium 3.7 (3.3-5.1) mmol/L Chloride 106 (96-108) mmol/L Carbon Dioxide 26 (22-29) mmol/L Anion Gap 12 (12-20) BUN 14 (9-16) mg/dL Creatinine 1.07 (0.5-1.4) mg/dL Estim Creat Clear Calc 64.1 Estimated GFR > 60 Random Glucose 106 (60-115) mg/dL Calcium 9.7 D (8.4-10.2) mg/dL Total Bilirubin 0.4 (0.0-1.0) mg/dL AST 18 (5-37) U/L ALT 15 (0-40) U/L Alkaline Phosphatase 92 (39-117) U/L Total Protein 7.5 (6.5-8.0) g/dL Albumin 4.2 (3.5-5.0) g/dL Tests considered The following testing was considered but not selected: I considered obtaining imaging of the patient's face however, the patient's clinical presentation does not warrant this. I discussed this with the patient who verbalized agreement and understanding. Discharge Plan Discharge Clinical Impression: Angioedema Patient Disposition: Home, Self-Care Instructions: Angioedema (ED) Additional Instructions: Follow up with your primary care provider. Return to the emergency department immediately if your symptoms worsen or if you develop any dizziness, shortness of breath, difficulty breathing, chest pain, blurry vision, loss of vision, nausea, vomiting, abdominal pain, fever, chills, back pain, or any other complaints. Alfredo?seguimiento?con silva m?dico de atenci?n primaria. Acuda inmediatamente al servicio de urgencias si bo s?ntomas empeoran o si presenta falta de aliento, dificultad para respirar, dolor tor?cico, mareos, aturdimiento, dolor de espalda, dolor abdominal, fiebre, escalofr?os o cualquier otro s?ntoma. STOP TAKING YOUR LISINOPRIL IMMEDIATELY DEJE DE ALFA SILVA LISINOPRIL INMEDIATAMENTE Prescriptions: Discontinued lisinopril 5 mg tablet 5 mg PO QAM Rx Instructions: Please call to schedule cardiology appt for refills No Action (DME) Raised toilet seat See Rx Instructions .ROUTE .MEDSUPPLY Qty: 1 0RF Rx Instructions: duration-99days metoprolol succinate 25 mg tablet extended release 24 hr 25 mg PO QAM Qty: 90 3RF celecoxib 200 mg Capsule 200 mg PO BID 30 Days Qty: 60 0RF acetaminophen 325 mg Tablet 650 mg PO Q6H PRN (Reason: Pain, Mild (Pain Scale 1-3)) 30 Days Qty: 240 0RF docusate sodium 100 mg Capsule 100 mg PO BID 30 Days Qty: 60 0RF enoxaparin [Lovenox] 40 mg/0.4 mL syringe 40 mg subcut Q24H 42 Days Qty: 16.8 0RF levothyroxine 112 mcg tablet 112 mcg PO QAM (DME) walker Misc See Rx Instructions .MEDSUPPLY Qty: 1 0RF Rx Instructions: Folding Front wheeled walker Referrals: Malinda Flowers MD [Primary Care Provider] - Interventions: ED Discharge Assessment Last Done: 02/24/24 14:52 Discharge Date/Time: 02/24/24 14:52 Print Language: Hungarian
[2024-02-24 13:19] VITALS: BP 148/69; PULSE 57; RESP 16; TEMP 36.2; O2SAT 99
[2024-02-24] MEDS: diphenhydrAMINE HCL 50 MG/ML VIAL 25 MG IVPUSH (13:31)
[2024-02-24] MEDS: methylPREDNISolone Sod Succ 125 MG/2 ML VIAL 60 MG IVPUSH (13:31)
[2024-02-24] MEDS: Famotidine/PF 20 MG/2 ML VIAL IVPUSH (13:32)
--- NOTE | 2024-02-24 14:51 | PC.NURSE ---
pt reports improvement with medications. pt swelling has decreased. no airway involvement, speaking in full sentences, VSS
[2024-02-24 14:52] VITALS: BP 148/69; PULSE 57; RESP 16; TEMP 36.2; O2SAT 99
== END 2024-02-24 14:52 | disposition home or self-care (01) ==
PROVIDERS: Emergency Provider Emergency Medicine; PCP Student in an Organized Health Care Education/Training Program
DX: R51.9 Headache, unspecified (principal); I10 Essential (primary) hypertension; D64.9 Anemia, unspecified; E03.9 Hypothyroidism, unspecified; Z79.899 Other long term (current) drug therapy; Z96.649 Presence of unspecified artificial hip joint
CPT/HCPCS: 36415; 80053; 85025; 96374; 96375; 99283; 99284; J1200; J2919

== ENCOUNTER 2024-03-08 08:31 | Outpatient (REF) | payer OTHER, SELFPAY ==
[2024-03-08 11:38] LABS: Hematocrit 41.2 % (42.0-52.0); Mean Corpuscular HGB Conc 31.6 g/dl (31.0-36.0); Mean Corpuscular Hemoglobin 27.3 pg (27.0-33.0); Mean Corpuscular Volume 86.4 fL (80.0-98.0); Mean Platelet Volume 10.6 fL (9.4-12.4); Platelet Count 210 X10*3/uL (160-400); Red Blood Count 4.77 X10*6/uL (4.60-5.80); Red Cell Distribution Width 13.9 % (11.0-16.0); White Blood Count 5.7 X10*3/uL (4.8-10.8)
[2024-03-08 11:43] LABS: Estimated Average Glucose 123 mg/dL; Hemoglobin A1c % 5.9 % (<6.0)
[2024-03-08 12:04] LABS: Alanine Aminotransferase 16 U/L (0-40); Albumin Level 4.1 g/dL (3.5-5.0); Alkaline Phosphatase 78 U/L (39-117); Anion Gap 12 (12-20); Aspartate Amino Transferase 16 U/L (5-37); Bilirubin Total 0.3 mg/dL (0.0-1.0); Blood Urea Nitrogen 9 mg/dL (9-16); Calcium 9.5 mg/dL (8.4-10.2); Carbon Dioxide 25 mmol/L (22-29); Chloride 108 mmol/L (96-108); Cholesterol 160 mg/dL (<200); Estimated Glomerular Filt Rate > 60; Glucose Random 98 mg/dL (60-115); HDL Cholesterol 43 mg/dL (>40); Iron 82 mcg/dL (45-160); LDL Cholesterol Calculated 95 mg/dL (<100); Percent Iron Saturation 31 % (15-50); Potassium 3.9 mmol/L (3.3-5.1); Sodium 141 mmol/L (135-145); Total Iron Binding Capacity 262 mcg/dL (228-428); Total Protein 7.4 g/dL (6.5-8.0); Triglycerides 110 mg/dL (<150); Unsaturated Iron Binding 180 ug/dL
[2024-03-08 12:20] LABS: Ferritin 62 ng/mL (20-250); Free T4 (Free Thyroxine) 1.07 ng/dL (0.71-1.85); Thyroid Stimulating Hormone 3.07 uIU/mL (0.32-4.0)
[2024-03-08 12:35] LABS: Folate 14.5 ng/mL (> or = 4.0); Prostate Specific Antigen 0.62 ng/mL (<0.05-4.0); Vitamin B12 586 pg/mL (200-900)
[2024-03-15 14:13] LABS: ANA Pattern 2 Nuclear, Speckled; ANA Titer 2 1:40 titer; Anti Nuclear Antibody Screen POSITIVE (NEGATIVE)
== END 2024-03-08 08:32 | disposition home or self-care (01) ==
LOC: HO.HHCL 08:31
PROVIDERS: Visit Provider Student in an Organized Health Care Education/Training Program
DX: Z00.00 Encounter for general adult medical examination without abnormal findings (principal); D64.89 Other specified anemias; Z12.5 Encounter for screening for malignant neoplasm of prostate; Z13.1 Encounter for screening for diabetes mellitus; Z13.89 Encounter for screening for other disorder
CPT/HCPCS: 36415; 80053; 80061; 82607; 82728; 82746; 83036; 83540; 84153; 84439; 84443; 85027; 86038; 86039

== ENCOUNTER 2024-03-21 10:08 | Outpatient (AMB) | payer OTHER, SELFPAY ==
[2024-03-21 10:16] VITALS: BMI 29.5
--- NOTE | 2024-03-21 10:16 | MHC.OFFVIS ---
Vital Signs 03/21/24 10:16 Height 5 ft 6 in Weight 183 lb BMI 29.5 Intake Visit Reasons: OV- 8wk f/u rt bernabe Allergies aspirin [ASPIRIN] Allergy (Intermediate, Verified 02/24/24 10:15) SWELLING, rash HPI HPI OV- 8wk f/u rt bernabe : Details: Josh is a 73 year old male who presents today for a follow up visit s/p right BERNABE DOS: 11/10/23. Patient reports he is doing very well. He mentions no pain or discomfort at this time. He describes being able to walk comfortably and is happy with his results. 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 Mother No problems noted. Social History Household Members: Family Housing: Apartment Are you a primary medicare compliance auditor to a significant other at home: No Do you presently have visiting nurse or other home services: No Alcohol intake: never Patient Tobacco Use Status: Former Tobacco user Tobacco use type: Cigarette Years Smoked: 5 service: No Current occupational status: retired Current occupation: rt handed Physical Exam Vital Signs: BMI result Body Mass Index 29.5 Extrem Other: Normal gait. No pain with hip range of motion. Well-healed incision. Assessment & Plan Assessment & Plan (1) S/P total right hip arthroplasty: Code(s): Z96.641 - Presence of right artificial hip joint Category: Surgical Plan: Tyler is doing well 4 months status post right hip replacement. I discussed the importance of maintaining activity and he can follow up as needed. Coding Level of Care Code Est Pt Level 3 (29395) Diagnoses S/P total right hip arthroplasty Z96.641
== END 2024-03-21 10:44 | disposition home or self-care (01) ==
PROVIDERS: PCP Student in an Organized Health Care Education/Training Program; Visit Provider Orthopaedic Surgery
DX: Z47.1 Aftercare following joint replacement surgery (principal); Z96.641 Presence of right artificial hip joint
CPT/HCPCS: 99212

== ENCOUNTER → 2024-03-21 10:08 | Outpatient (BNVA) | payer OTHER, SELFPAY | PROVIDERS: PCP Student in an Organized Health Care Education/Training Program; Visit Provider Orthopaedic Surgery | DX: Z96.641 Presence of right artificial hip joint (principal) | CPT/HCPCS: 99212 ==

== ENCOUNTER 2024-04-13 10:07 | Emergency (ER) | payer OTHER, SELFPAY ==
--- NOTE | ~2024-04-13 | XR_ITS ---
EXAMINATION: XR KNEE, LEFT CLINICAL INFORMATION: Knee pain COMPARISON: None available. TECHNIQUE: Four views of the left knee. FINDINGS: Examination of the left knee shows medial joint space narrowing and subchondral sclerosis. No fracture, subluxation or joint effusion is detected. XR/XR knee LT 4V IMPRESSION: Medial tibiofemoral osteoarthrosis. Electronically signed by: Josh Mchugh MD 04/13/2024 11:52 AM EDT
--- NOTE | ~2024-04-13 | XR_ITS ---
EXAMINATION: XR HIP, LEFT CLINICAL INFORMATION: Hip pain COMPARISON: 11/10/2023. TECHNIQUE: Two views of the left hip. FINDINGS: Advanced degenerative change noted with a subchondral cyst or geode in the acetabular roof. There is diffuse symmetric joint space narrowing but no fracture, dislocation or destructive process. There is a right hip prosthesis noted. Pelvis is intact. XR/XR hip LT w PEL1V IMPRESSION: Degenerative change noted. No change from 11/10/2023. Electronically signed by: Jignesh Albert MD 04/13/2024 11:43 AM EDT
[2024-04-13 10:25] VITALS: BP 125/61; PULSE 72; RESP 16; TEMP 37; O2SAT 98; BMI 29.0
--- NOTE | 2024-04-13 11:58 | ED.EXTPRO ---
HPI - Extremity Problem General Chief complaint: Extremity Problem Stated complaint: l leg pain Time Seen by Provider: 04/13/24 11:57 Source: patient and old records reviewed Mode of arrival: ambulatory Limitations: no limitations History of Present Illness ED Provider: JANIE LAROSE Narrative: 73 yo male with PMH of VIJI, NICM, s/p R total hip arthroplasty here with c/o L hip pain x 2 weeks no trauma or injury worse with moving and walking. No fevers or rash. Taking tylenol no relief. He hasn't seen ortho for it yet. MD Complaint: joint pain Onset (ago): week(s) (2) Pain Consistency: intermittent Location: left and lower extremity Quality: aching and constant Radiation: distal Relieving factors: immobilization Exacerbating factors: range of motion, weight bearing and walking Associated symptoms: denies other symptoms Context: other Related Data Home Medications ?Medication ?Instructions ?Recorded ?Confirmed levothyroxine 112 mcg tablet 112 mcg PO QAM 10/16/21 02/10/24 Previous Rx's ?Medication ?Instructions ?Recorded walker #1 ea 11/05/23 Raised toilet seat #1 ea 11/11/23 acetaminophen 325 mg tablet 650 mg (2 x 325 mg) PO Q6H PRN 11/11/23 Pain, Mild (Pain Scale 1-3) 30 days #240 tabs celecoxib 200 mg capsule 200 mg PO BID 30 days #60 caps 11/11/23 docusate sodium 100 mg capsule 100 mg PO BID 30 days #60 caps 11/11/23 enoxaparin 40 mg/0.4 mL 40 mg (0.4 mL) subcut Q24H 42 days 11/11/23 subcutaneous syringe (Lovenox) #16.8 mL metoprolol succinate 25 mg 25 mg PO QAM #90 tabs 12/31/23 tablet,extended release 24 hr hydrocodone 5 mg-acetaminophen 325 1 tab PO Q6H PRN pain #10 tabs 04/13/24 mg tablet Allergies Allergy/AdvReac Type Severity Reaction Status Date / Time aspirin [ASPIRIN] Allergy Intermediate SWELLING, Verified 04/13/24 10:28 rash Review of Systems Review of Systems: Constitutional : No Fever, No Chills ENT/Mouth : No Ear Pain, No Hoarseness, No sore throat Eyes: No Eye Pain, No Swelling, No Redness, No Foreign Body Cardiovascular : No Chest Pain, No SOB Respiratory : No Cough, No Dyspnea Gastrointestinal : No Nausea, No Vomiting, No Diarrhea, No abdominal Pain Genitourinary : No Dysuria, No Hematuria Musculoskeletal : positive joint pain, No Myalgias, No Joint Swelling Skin : No Skin lacerations, No rash Neuro : No Weakness, No Numbness, No Loss of Consciousness, No Dizziness, No Headache All other systems reviewed and are negative [facility] Past Medical History Attestation statement: The following information was validated with the patient. 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 Mother No problems noted. Social History Social History Household Members: Family Housing: Apartment Are you a primary home care and home health aides teacher to a significant other at home: No Do you presently have visiting nurse or other home services: No Alcohol intake: never Patient Tobacco Use Status: Former Tobacco user Tobacco use type: Cigarette Years Smoked: 5 Advance Directives: No Advance Directives Information Provided: No service: No Current occupational status: retired Current occupation: rt handed Physical Exam Vital Signs: Vital Signs: Last Vital Signs Temp 98.6 F 04/13/24 10:25 Pulse 72 04/13/24 10:25 Resp 16 04/13/24 10:25 BP 125/61 04/13/24 10:25 Pulse Ox 98 04/13/24 10:25 O2 Del Method Room Air 04/13/24 10:25 BMI result Body Mass Index 29.0 Appearance: Alert. Oriented X3. No acute distress. Eyes: Pupils equal, round and reactive to light. ENT: Pharynx normal. Neck: Normal inspection. Neck supple. CVS: Normal heart rate and rhythm. Pulses normal. Respiratory: No respiratory distress. Breath sounds normal. Abdomen: Soft and nontender. Skin: Skin warm and dry. Normal skin color. Normal skin turgor. Extremities: No lower extremity edema. pain with movement of L hip no redness/rash or flank pain/rash noted Neuro: Oriented X 3. No motor deficit. No sensory deficit. Medical Decision Making Medical Decision Making [facility] Narrative: 73 yo male with PMH of VIJI, NICM, s/p R total hip arthroplasty here with c/o L hip and knee pain known arthritis no trauma, no swelling, pulses intact no fevers no rash - at this time asking for short course of pain medications and will follow up with orthopedics - xrays ordered Differential Diagnosis Differential Diagnoses: The differential diagnosis associated with the presentation includes arthritis, arthralgia Independent Interpretation I performed an independent interpretation of an: Plain X-Ray (arthritis) Radiology Impression Discussion of test interpretation with radiology: I have reviewed the radiologist's reading. External Record Review External record reviewed: Office record Discharge Plan Discharge Clinical Impression: Arthralgia Qualifiers: Joint pain location: hip Laterality: left Qualified Code(s): M25.552 - Pain in left hip Patient Disposition: Home, Self-Care Instructions: Arthralgia (ED) Additional Instructions: arthritis on xrays no broken bones return for worsening pain, fevers, rash, swelling please follow up with Dr. Watts office take pain medications as needed Prescriptions: New hydrocodone-acetaminophen 5-325 mg tablet 1 tab PO Q6H PRN (Reason: pain) Qty: 10 0RF Rx Instructions: partial fill okay; Partial Fill upon patient request. No Action (DME) Raised toilet seat See Rx Instructions .ROUTE .MEDSUPPLY Qty: 1 0RF Rx Instructions: duration-99days metoprolol succinate 25 mg tablet extended release 24 hr 25 mg PO QAM Qty: 90 3RF celecoxib 200 mg Capsule 200 mg PO BID 30 Days Qty: 60 0RF acetaminophen 325 mg Tablet 650 mg PO Q6H PRN (Reason: Pain, Mild (Pain Scale 1-3)) 30 Days Qty: 240 0RF docusate sodium 100 mg Capsule 100 mg PO BID 30 Days Qty: 60 0RF enoxaparin [Lovenox] 40 mg/0.4 mL syringe 40 mg subcut Q24H 42 Days Qty: 16.8 0RF levothyroxine 112 mcg tablet 112 mcg PO QAM (DME) bucky Misc See Rx Instructions .MEDSUPPLY Qty: 1 0RF Rx Instructions: Folding Front wheeled walker Print Language: Uzbek
[2024-04-13 12:19] VITALS: BP 125/61; PULSE 72; RESP 16; TEMP 37; O2SAT 98
== END 2024-04-13 12:21 | disposition home or self-care (01) ==
PROVIDERS: Emergency Provider Emergency Medicine; PCP Student in an Organized Health Care Education/Training Program
DX: M25.552 Pain in left hip (principal); M79.605 Pain in left leg
CPT/HCPCS: 73502; 73564; 99282; 99283

== ENCOUNTER 2024-04-20 07:47 | Outpatient (AMB) | payer OTHER, SELFPAY ==
[2024-04-20 08:05] VITALS: BP 124/74; PULSE 79; O2SAT 97; BMI 29.8
--- NOTE | 2024-04-20 08:05 | A.OFFVIS_ITS ---
Vital Signs 04/20/24 08:05 Height 5 ft 6 in Weight 184 lb 11.958 oz BMI 29.8 BP 124/74 Blood Pressure Location Lt brachial Position Sitting Pulse 79 Pulse Source Pulse Oximeter Pulse Oximetry (%) 97 Oxygen Delivery Method Room Air Intake Visit Reasons: +CARLITOS Intake Note: Patient is a new patient externally referred by PCP for +CARLITOS. Allergies aspirin [ASPIRIN] Allergy (Intermediate, Verified 04/20/24 08:07) SWELLING, rash lisinopril Adverse Reaction (Severe, Verified 04/20/24 08:40) Angioedema Medication List - Last Reconciled 04/20/24 by Corinne Chapa MD hydrocodone-acetaminophen 5-325 mg 1 tab PO Q6H PRN levothyroxine 112 mcg PO QAM metoprolol succinate ER 25 mg PO QAM HPI Comments Details: Patient is a 73 y.o. male with Grave's Disease s/p ablation now with hypothyroidism on levothyroxine, OA, nonischemic cardiomyopathy and orthostatic hypotension who presents for evaluation of elevated CARLITOS in the setting of anemia. Denies rashes, photosensitivity, alopecia, oral/nasal ulcers, sicca symptoms, lymphadenopathy, chest pain/shortness of breath, inflammatory type joint pain, foamy urine, lower extremity edema, muscle weakness, Raynaud's Also denies history of seizure, CVA, psychosis, history of kidney problems, history of cytopenias, history of VTE. Had episodes of recurrent syncope about 1 year ago and was subsequently diagnosed with orthostatic hypotension after tilt table testing Given his cardiomyopathy he was placed on lisinopril and developed angioedema. the lisinopril was stopped and no furtehr episodes of angioedema occurred With respect to his anemia, had colonoscopy 2023 which was normal (per patient). Had hip replacement for hip OA 11/2023, Hb fell post op but has been slowing increasing. No evidence of hemolysis on labs. 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 Mother No problems noted. Social History Household Members: Family Housing: Apartment Are you a primary hearing healthcare practitioner to a significant other at home: No Do you presently have visiting nurse or other home services: No Alcohol intake: never Patient Tobacco Use Status: Former Tobacco user Tobacco use type: Cigarette Years Smoked: 5 service: No Current occupational status: retired Current occupation: rt handed Review of Systems Const Details: Review of Systems Constitutional: Denies fever, chills, weight loss ENT: Denies vision changes, eye pain or eye redness, dental caries, dry mouth GI: Denies nausea, vomiting, diarrhea, abdominal pain, change in BM Pulm: Denies SOB, RIOS, hemoptysis, wheezing Cards: Denies chest pain, palpitations Skin: Denies Raynaud's, rash, nail changes, photosensitivity, COOK SHORT ORDER: Denies headaches, weakness, paresthesias, recurrent falls MSK: as per HPI All other systems reviewed and are unremarkable except noted above Physical Exam Vital Signs: Last Vital Signs Pulse 79 04/20/24 08:05 BP 124/74 04/20/24 08:05 Pulse Ox 97 04/20/24 08:05 Oxygen Delivery Method Room Air 04/20/24 08:05 BMI result Body Mass Index 29.8 Const Other: Physical Examination Patient well appearing and in no apparent painful distress Able to rise from chair without support. ?Gait normal. Constitutional Mucous membranes pink and moist patient alert and cooperative HEENT Conjunctiva and sclera clear. ?Pupils equal round and reactive to light. ?No lymphadenopathy. ?Normal dentition. Respiratory System Normal respiratory effort and able to speak in complete sentences. ?Clear to auscultation bilaterally. ?No crackles, rales, rhonchi, wheezes heard. Cardiac System Regular rate and rhythm. ?S1 and S2 heard no murmurs. ?Radial pulses intact bilaterally MSK No deformity, swelling, abnormalities noted to bilateral hands. Heberden's nodes noted. ?No evidence of synovitis. ?Able to move all joints with full range of motion, without limitation. Results Reviewed Results Reviewed: Laboratory Tests 11/11/23 02/24/24 03/08/24 05:40 10:21 08:37 WBC 9.8 6.0 5.7 RBC 3.71 L D 4.72 D 4.77 Hgb 10.7 L 13.0 L D 13.0 L Hct 31.6 L D 39.9 L D 41.2 L Plt Count 170 223 D 210 Sodium 139 140 141 Potassium 4.2 3.7 3.9 Chloride 106 106 108 Carbon Dioxide 24 26 25 BUN 14 14 9 Creatinine 1.01 1.07 1.04 Estimated GFR > 60 > 60 > 60 Calcium 8.9 D 9.7 D 9.5 Iron 82 TIBC 262 Unsat Iron Binding 180 Ferritin 62 Total Bilirubin 0.4 0.3 AST 18 16 ALT 15 16 Alkaline Phosphatase 92 78 Total Protein 7.5 7.4 CARLITOS Screen POSITIVE A CARLITOS Titer 1:1280 H CARLITOS Pattern 2 Nuclear, Speckled A Assessment & Plan Assessment & Plan (1) CARLITOS positive: Code(s): R76.8 - Other specified abnormal immunological findings in serum Category: Medical Plan: #CARLITOS positive in the setting of Grave's Disease The presence of antinuclear antibodies (CARLITOS) is mainly associated with connective tissue diseases (CTD). ?However, their presence is found in healthy people, infections, medications, thyroid disease, liver disease, lung disease and cancer. At this time there is low suspicion for a connective tissue disease. 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 Nory et al reviewed 265 patients with Grave's Disease. ANAs were detected in 212 (80%) of patients. CARLITOS titres tended to be >/= 1:160. His history of angioedema related to lisinopril administration is a well known side effect. There is no correlation of underlying autoimmunity with regards to the angioedema as the mechanism is thought to be due accumulation of bradykinins caused by ALEJANDRO inhibition. At this time there is low suspicion for an underlying autoimmune condition. His anemia is slowly improving post op as is expected. 1. Blaine Yoder, Ruthie Goldberg, Amaury Freeman. Antinuclear antibodies in healthy people and non-rheumatic diseases - diagnostic and clinical implications. Reumatologia. 2018;56(4):243-248. doi: 10.5114/reum.2018.05733. Epub 2017Mar 05. PMID: [id number]; PMCID: [id number]. 2. Piaz EM, Shonda TE, Kelly JS, Edmundo B, Heriberto R, Don MJ, You T, Regan JA, Tyesha JR, Obie RG, Valentine RN, Norma JS, Audrey NF, Chris RJ, Taktesise Y, Paco A, Tacos MR, Carol JA. Range of antinuclear antibodies in healthy individuals. Arthritis Rheum. 1996;40(9):1601-11. doi: 10.1002/art.0306677582. PMID: 9690495. 3. Nory G, Anita L, Shanei M, Lauriei S, Aidei F, Jan MN, Posmaya C, Fig M, Thangi C, Libia M. Anti-nuclear autoantibodies in Graves' disease and Graves' orbitopathy. J Endocrinol Invest. 2022;46(2):337-344. doi: 10.1007/t38830-290-69551-7. Epub 2021Mar 01. PMID: 77925796; PMCID: [id number]. 4. Rigo ORTIZ, Aramis J, Alexis H, Dannie N, Renata SI. Angiotensin-Converting Enzyme Inhibitor-Induced Angioedema: A Case Report With a Review of Management Options. Cureus. 2022Dec 15;15(6):j67547. doi: 10.7759/cureus.00632. PMID: 15963205; PMCID: [id number]. Plan I spent 30 minutes reviewing the record and labs, seeing the patient, discussing the treatment plan and documenting in the medical record Medications: Discontinued acetaminophen Discontinued Reason: Order 650 mg (2 x 325 mg) PO Q6H 30 days PRN 240 tabs 0RF Pain, Mild (Pain Scale 1-3) celecoxib Discontinued Reason: Order 200 mg PO BID 30 days 60 caps 0RF docusate sodium Discontinued Reason: Patient Completed Course 100 mg PO BID 30 days 60 caps 0RF enoxaparin (Lovenox) Discontinued Reason: Patient Completed Course 40 mg (0.4 mL) subcut Q24H 42 days 16.8 mL 0RF walker Discontinued Reason: Order Folding Front wheeled walker 1 ea 0RF M16.11 - Unilateral primary osteoarthritis, right hip [Raised toilet seat] Discontinued Reason: Order duration-99days 1 ea 0RF M16.11 - Unilateral primary osteoarthritis, right hip Coding Level of Care Code New Pt Level 3 (14108) Diagnoses CARLITOS positive R76.8
== END 2024-04-20 08:39 | disposition home or self-care (01) ==
PROVIDERS: PCP Student in an Organized Health Care Education/Training Program; Visit Provider Student in an Organized Health Care Education/Training Program
DX: R76.8 Other specified abnormal immunological findings in serum (principal)
CPT/HCPCS: 99203

== ENCOUNTER → 2024-04-20 07:47 | Outpatient (BNVA) | payer OTHER, SELFPAY | PROVIDERS: PCP Student in an Organized Health Care Education/Training Program; Visit Provider Student in an Organized Health Care Education/Training Program | DX: R76.8 Other specified abnormal immunological findings in serum (principal) | CPT/HCPCS: 99202 ==

== ENCOUNTER 2024-05-05 10:01 | Outpatient (AMB) | payer OTHER, SELFPAY ==
--- NOTE | 2024-05-05 10:14 | A.OFFVIS_ITS ---
Vital Signs 05/05/24 10:15 Height 5 ft 6 in Weight 183 lb BMI 29.5 Intake Visit Reasons: 6 mo f/u - Viji Intake Note: Patient presents for 6 month follow up VIJI. Allergies aspirin [ASPIRIN] Allergy (Intermediate, Verified 05/05/24 10:24) SWELLING, rash lisinopril Adverse Reaction (Severe, Verified 05/05/24 10:24) Angioedema HPI Comments Details: 73 year old male with h/o cardiomyopathy and orthostatic hypotension, here for a 6 month follow up of VIJI. He is feeling good today, sleeping through the night and uses his CPAP machine regularly. He denies, dizziness, headaches, neck pain, and swallowing issues, and leg pains. He had R. Hip surgery November 2023. L. knee bothers him d/t arthritis, and takes pain meds PRN. He wears his compression stockings for bp control. He is active runs on the treadmill at home for 15 minutes, and walks daily, gets exercise daily. He doesn't have any problems with the pressures or leaks. He cleans the mask and tubing as needed. 90 day CPAP compliance report (Feb-Apr 2024) APAP 5-20 cmH2O Usage >4 hours 79% Average use total days 4 hours 51 min Median Pressures 7.0, max pressure 9.7. Leaks 3.7 AHI 0.8/hr Serial # [id number] [facility] Medical History Graves disease CARLITOS positive Syncope Degenerative joint disease of right hip Degenerative joint disease of left hip Abscess of scalp VIJI (obstructive sleep apnea) NICM (nonischemic cardiomyopathy) Urolithiasis Hypothyroidism Anemia HTN (hypertension) Surgical History History of hip replacement H/O colonoscopy Family History Father No problems noted. Mother No problems noted. Social History Household Members: Family Housing: Apartment Are you a primary urgent care physician to a significant other at home: No Do you presently have visiting nurse or other home services: No Alcohol intake: never Patient Tobacco Use Status: Former Tobacco user Tobacco use type: Cigarette Years Smoked: 5 service: No Current occupational status: retired Current occupation: rt handed Review of Systems Const Reports as per HPI Physical Exam Vital Signs: BMI result Body Mass Index 29.5 Const General: cooperative, comfortable and no acute distress Nutritional Appearance: average body habitus Orientation/consciousness: patient oriented x3 HEENT Mouth: tongue normal Eyes General: appearance normal, both eyes and all related structures Pupils: Equal, round and reactive pupils present, Pupils normal by confrontation and Pupil accommodation reflex normal Neck Neck: Yes normal visual inspection and Yes full ROM Resp Effort & Inspection: normal respiratory effort and able to speak in complete sentences Neuro General: patient oriented x3 Cranial nerves: Yes Equal, round and reactive pupils present Cognition (Neuro): normal cognition Gait exam (Neuro): Normal gait present Psych Appearance: grossly normal Attitude: cooperative Insight: Good insight present (Psych) Judgement: Good judgement present (Psych) Assessment & Plan Assessment & Plan (1) VIJI (obstructive sleep apnea): Comment: uses CPAP QHS-Mild degree of sleep apnea. The AHI was 7/hr and oxygen hermelindo was 84%. Code(s): G47.33 - Obstructive sleep apnea (adult) (pediatric) Category: Medical Plan: Continue using CPAP daily for more than 4 hours a night at a minimum, as pt continues to have good clinical effect from use. Good compliance per last report. Practice Good Hygiene habits Continue to wash mask and equipment daily F/U in 6 months Plan Pt seen by Andres SCRUGGS in coordination w/ myself GUZMAN Lopez- MARGARET, I agree with the above documentation and plan. Coding Level of Care Code Est Pt Level 3 (94099) Diagnoses VIJI (obstructive sleep apnea) G47.33
[2024-05-05 10:15] VITALS: BMI 29.5
== END 2024-05-05 10:47 | disposition home or self-care (01) ==
LOC: HO.HSMS 10:01
PROVIDERS: Absent Provider Nurse Practitioner Family; PCP Student in an Organized Health Care Education/Training Program; Visit Provider Nurse Practitioner Family
DX: G47.33 Obstructive sleep apnea (adult) (pediatric) (principal)
CPT/HCPCS: 99213

== ENCOUNTER → 2024-05-05 10:01 | Outpatient (BNVA) | payer OTHER, SELFPAY | PROVIDERS: Absent Provider Nurse Practitioner Family; PCP Student in an Organized Health Care Education/Training Program; Visit Provider Nurse Practitioner Family | DX: G47.33 Obstructive sleep apnea (adult) (pediatric) (principal); Z99.89 Dependence on other enabling machines and devices | CPT/HCPCS: 99212 ==

== ENCOUNTER → 2024-08-12 08:55 | Outpatient (REF) | payer OTHER, SELFPAY ==
--- OUTSIDE RECORDS SUMMARY | 2024-08-12 09:13 | XMS_ITS | Encounter Summary ---
Author Organization [employer] Address [address] [place] [address] Care Team Providers Care Spanish Interpreter Name Role Phone Malinda Flowers MD Primary Care Pro vider Encounter Details Date Type Department Care Team (Late st Contact Info) Description 10/27/2023 Orders Only [facility] [address] [place] [address] ProviderJose MD Social History Tobacco Use Types Packs/Day Years Used Date Smoking Tobacco: Former Cigarettes Passive Smoke Exposure: Current Smokeless Tobacco: Current Comments:Tobacco smoking 3-5 cigarettes a day--started at 37y until 42 y then stopped and again since 62 y until now --total years of smoking 15 --janice PQT a year 3.75 Alcohol Use Standard Drinks/Week Comments Not Currently 0 (1 standard drink = 0.6 oz pur e alcohol) Depression Answer Date Recorded Patient Health Questionnaire-9 Score 0 12/04/2022 Housing Stability Answer Date Recorded What is your housing situation today? I have emmanuel lanier 04/20/[address] you li ve. Do you have problems with any of the following? None of the above 04/20/2023 Food Insecurity Answer Date Recorded Within the past 12 months, y ou worried that your food would run out before you got money to buy more: Never True 04/20/2023 Within the past 12 months,th e food you bought just didn't last and you didn't have enough money to get more: Never True Transportation Answer Date Recorded In the past 12 months, has l ack of transportation kept you from medical appts, meetings, work or from getting things needed for daily living? No 04/20/2023 Utilities Answer Date Recorded In the past 12 months, has t he electric, gas, oil or water company threatened to shut off services in your home? No 04/20/2023 Depression Answer Date Recorded Patient Health Questionnaire-2 Score 0 12/04/2022 Sex and Gender Information Value Date Recorded Sex Assigned at Male 05/05/2022 10:16 AM EDT Legal Sex Male 10:16 AM EDT Gender Identity Male 05/05/2022 10:16 AM EDT Sexual Orientation Straight 05/05/2022 10 :16 AM EDT documented as of this encounter Plan of Treatment Upcoming Encounters Date Type Department Care Team (Late st Contact Info) Description 10/27/2024 9:30 AM EDT Office Visit [facility] [address] [place] [address] [phone] Malinda Flowers MD [address] [place] [phone] documented as of this encounter Procedures Procedure Name Priority Date/Time Associated Diagnosis Comments HM COLONOSCOPY Routine 11/28/2015 2:35 PM EDT documented in this encounter Results * Hm Colonoscopy (11/28/2015 2:35 PM EDT) us Historical Provider HEALTH MAINTENANCE Final Result documented in this encounter Visit Diagnoses Not on filedocumented in this encounter Additional Health Concerns Assessment Noted Time PHQ-9 Depression Total Score: 0 12/05/19 9:34 AM EDT documented as of this encounter Care Teams Spanish Interpreter Relationship Specialty Start Date End Date Malinda Flowers MD [address] [place] [phone] PCP - General Internal Medicine 11/13/22 documented as of this encounter
--- OUTSIDE RECORDS SUMMARY | 2024-08-12 09:13 | XMS_ITS | Encounter Summary ---
Author Organization [employer] Address [address] [place] [address] [address] [place] [address] Care Team Providers Care Executive Chef Name Role Phone Malinda Flowers MD Primary Care Pro vider Encounter Details Date Type Department Care Team ([facility] st Contact Info) Description 12/17/2022 Abstract [facility] [address] [place] [address] Malinda Flowers MD [address] [place] [address] Social History Tobacco Use Types Packs/Day Years Used Date Smoking Tobacco: Some Days Cigarettes Passive Smoke Exposure: Current Smokeless Tobacco: [...] Recorded Patient Health Questionnaire-9 Score 0 12/04/2022 Depression Answer Date Recorded Patient Health Questionnaire-2 Score 0 12/04/2022 Sex and Gender Information Value Date Recorded Sex Assigned at Male 05/05/2022 10:16 AM EDT Legal Sex Male 10:16 AM EDT Gender Identity Male 05/05/2022 10:16 AM EDT Sexual Orientation Straight 05/05/2022 10 :16 AM EDT COVID-19 Exposure Response Date Recorded In the last 10 days, have yo u been in contact with someone who was confirmed or suspected to have Coronavirus/COVID-19? No / Unsure 12/04/2022 9:18 AM EDT documented as of this encounter Plan of Treatment Upcoming Encounters Date Type Department Care Team (Late st Contact Info) Description 10/27/2024 9:30 AM EDT Office Visit [facility] [address] [place] [address] Malinda Flowers MD [address] [place] [address] documented as of this encounter Visit Diagnoses Not on filedocumented in this encounter Additional Health Concerns Assessment Noted Time PHQ-9 Depression Total Score: 0 12/05/19 9:34 AM EDT documented as of this encounter Care Teams Executive Chef Relationship Specialty Start Date End Date Malinda Flowers MD [address] [place] [id number] PCP - General Internal Medicine 11/13/22 documented as of this encounter
--- OUTSIDE RECORDS SUMMARY | 2024-08-12 09:14 | XMS_ITS | Clinical Summary ---
Author Organization [employer] Address [address] [place] [address] [address] [place] [address] Care Team Providers Care Submarine Worker Name Role Phone Malinda Flowers MD Primary Care Pro vider Allergies Active Allergy Reactions Criticality Noted Date Comments Aspirin Rash Low 11/12/2016 PT tolerates NSAIDS as ibuprofen and celecoxib Lisinopril Angioedema 03/10/2024 Medications acetaminophen (Tylenol) 500 MG tablet Take by mouth. Activ e EPINEPHrine (Epipen) 0.3 MG/0.3ML injection syringeIndicati ons:Angioedema, sequela Inject 0.3 mL (0.3 mg) as directed 1 (one) time if needed for anaphylaxis for up to 1 dose. Inject into upper leg. Call 911 after use. 1 each 2 4 Active Diclofenac Sodium 1 % gel APPLY TO AFFECTED AREA TOPICALLY EVERY DAY NEEDED FOR HIP PAIN 100 g 4 Active levothyroxine (Synthroid, Levoxyl) 112 MCG tablet TAKE 1 TABLET BY MOUTH EVERY DAY IN THE MORNING 90 tablet 4 Active metoprolol succinate XL (Toprol-XL) 25 MG 24 hr tablet TAKE 1 TABLET (25 MG) BY MOUTH ONCE PER DAY. DO NOT CRUSH OR CHEW. 90 tablet 4 Active Active Problems Problem Noted Date Diagnosed Date Angioedema 03/10/2024 Prediabetes 03/10/2024 Orthostatic hypotension 01/14/2024 Non-ischemic cardiomyopathy 01/14/2024 Osteoarthritis 07/16/2023 Kidney cysts 07/16/2023 Tobacco abuse 12/04/2022 Assessment & Plan (01/02/2023 9:35 PM EDT): Tobacco smoking 3-5 cigarettes a day--started at 37y until 42 y then stopped and again since 62 y until now --total years of smoking 15 --janice PQT a year 3.75 -no indication x lung ca screening -AAA 2020 neg -advised in length to stop smoking -refusing x now patches nor lozenges nor chantix -refusing x now tobacco cessation program referral -currently stopped x last 4 weeks -will continue to monitor Assessment & Plan (12/04/2022 10:06 PM EDT): Tobacco smoking 3-5 cigarettes a day--started at 37y until 42 y then stopped and again since 62 y until now --total years of smoking 15 --janice PQT a year 3.75 -no indication x lung ca screening -AAA 2020 neg -advised in length to stop smoking -refusing x now patches nor lozenges nor chantix -refusing x now tobacco cessation program referral Health care maintenance 12/04/2022 Assessment & Plan (01/02/2023 9:38 PM EDT): -colonoscopy 2015: Two polyps were identified at 60 cm and removed with a snare and the biopsy forceps,measuring 6 mm and 4 mm, respectively. ---no bx result but per pt told to repeat in 5 years ----referred already---pt needs to call x apt -already received letter w info of referral -PSA 12/2022 : wnl -vaccines: s/p covid 19 x2 and Bivalent booster, s/p p23 in 2006 and p13 in 2021---s/p p20 12/2022, s/p tdap 2020,s/p zoster x1-states has active refill x 2nd dose -advise pt to get vaccine at px and bring record. Hep B cleared infection w immunity Assessment & Plan (12/04/2022 10:10 PM EDT): -colonoscopy 2016: Two polyps were identified at 60 cm and removed with a snare and the biopsy forceps,measuring 6 mm and 4 mm, respectively. ---no bx result but per pt told to repeat in 5 years ----referred pt today to GI to repeat colonoscopy -vaccines: s/p covid 19 x2 and Bivalent booster, s/p p23 in 2006 and p13 in 2021---today gave p20 here, s/p tdap 2020,s/p zoster x1-states has active refill x 2nd dose -advise pt to get vaccine at px and bring record -labs x annual exam -will RTC in fasting -pt agreed to have STI testing including HIV to have for baseline CARLITOS positive 12/04/2022 Assessment & Plan (01/02/2023 9:33 PM EDT): Hx of + CARLITOS 1: 320 from ems manager note --evaluated for chronic anemia w no other concerning symptoms x lupus -if clinically indicated will repeat CARLITOS titers Assessment & Plan (12/04/2022 10:12 PM EDT): Hx of + CARLITOS 1: 320 from ems manager note --evaluated for chronic anemia w no other concerning symptoms x lupus -if clinically indicated will repeat CARLITOS titers Other specified anemias 12/04/2022 Assessment & Plan (01/02/2023 9:34 PM EDT): Pt w hx of chronic anemia in eval with hematology -had complete workup done w no obvious cause except + CARLITOS but no clinical concern x lupus -had colonoscopy -last 2015 w no source of bleeding and neg stool occult blood 12/2022 hb 13<--12.9 Hb is close to normal -pt will call his ems manager's office to check if due x f up apt Assessment & Plan (12/04/2022 10:14 PM EDT): Pt w hx of chronic anemia in eval with hematology -had complete workup done w no obvious cause -had colonoscopy -last 2015 w no source of bleeding and neg stool occult blood -pt will call his ems manager's office to check if due x f up apt Overweight (BMI 25.0-29.9) 12/04/2022 Assessment & Plan (01/02/2023 9:32 PM EDT): Advised pt to improve diet and exercise,discussed healthy life style -discussed street openings inspector referral --refusing x now Assessment & Plan (12/04/2022 10:17 PM EDT): Advised pt to improve diet and exercise,discussed healthy life style -discussed street openings inspector referral --refusing x now Obstructive sleep apnea syndrome 12/03/2022 Assessment & Plan (01/02/2023 9:29 PM EDT): Pt w VIJI-states not using CPAP x issues with machine -referred to sleep med --has apt scheduled x 02/2023 Assessment & Plan (12/04/2022 9:55 PM EDT): Pt w VIJI-states not using CPAP x issues with machine -referred to sleep med Hypothyroidism 12/17/2017 Assessment & Plan (01/02/2023 9:32 PM EDT): Of levothyroxine x 3 days at the time of last test on 11/2022 TSH 6.13, t4 0.8 -pt reports taking med consistently x the past 4 weeks -will repeat TFT in 2 weeks -will call pt w results Assessment & Plan (12/04/2022 10:04 PM EDT): Of levothyroxine x 3 days -refill meds today -will check labs at baseline but if abnormal will hold on med change and will repeat in 4 to 6 weeks External hemorrhoids 04/06/2012 Urolithiasis 04/06/2012 Assessment & Plan (01/02/2023 9:30 PM EDT): Reports hx of urolithiasis asymptomatic x years Assessment & Plan (12/04/2022 10:15 PM EDT): Reports hx of urolithiasis asymptomatic x years Resolved Problems Problem Noted Date Diagnosed Date Resolved Date Syncope 07/16/2023 01/14/2024 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 Counseled to remain hydrated, avoid Outside activities on days of extreme heat, temp above 87 degrees, drink plenty of water. Complete cardiac w/u per cardiology Nonischemic congestive cardiomyopathy 10/18/2021 07/16/2023 Assessment & Plan (01/02/2023 9:30 PM EDT): -Echocardiogram 2020:Normal LV systolic function with grade 1 diastolic dysfunction -EKG 2018: Sinus bradycardia,Nonspecific T wave abnormality.Nonspecific T wave abnormality now evident in Inferior leads -exercise myocardial perfusion study 2018: Myocardial perfusion imaging study shows likely normal myocardial perfusion. No evidence of ischemia or infarction. LVEF is mildly diminished; 46% during stress; 44% during rest. -Exercise stress test 2018: neg Pt f w cardiology for cardiomyopathy -states f once a year w cards---pt will call to his etcher apprentice photoengraving to check if due x f up Assessment & Plan (12/04/2022 10:03 PM EDT): -Echocardiogram 2020:Normal LV systolic function with grade 1 diastolic dysfunction -EKG 2018: Sinus bradycardia,Nonspecific T wave abnormality.Nonspecific T wave abnormality now evident in Inferior leads -exercise myocardial perfusion study 2018: Myocardial perfusion imaging study shows likely normal myocardial perfusion. No evidence of ischemia or infarction. LVEF is mildly diminished; 46% during stress; 44% during rest. -Exercise stress test 2018: neg Pt f w cardiology for cardiomyopathy -states f once a year w cards---pt will call to his etcher apprentice photoengraving to check if due x f up Chronic low back pain 04/06/20122022 Impaired fasting glucose 04/06/201207/2022 Hepatitis B carrier 11/13/2010 12/05/19 23 Encounters Date Type Department Care Team Description 08/11/2024 Telephone [facility] [address] [place] [place] [phone] Liya Hurley MA October06/25/2024 Refill [facility] [address] [facility] [place] [phone] Malinda Flowers MD 06/13/2024 Telephone [facility] [address] [place] [phone] Liya Hurley MA Appointment 06/06/2024 Telephone [facility] [address] [place] [address] Liya Hurley MA chart prep 05/28/2024 Refill [facility] [address] [place] [address] Malinda Flowers MD 05/15/2024 Refill [facility] [address] [place] [address] Yue Potter ANP from Last 3 Months Immunizations Name Administration Dates Next Due Influenza High-dose Quadriva lent Preservative Free 04/16/2023 Influenza injectable quadriv alent IIV4 with preservative 07/02/2017,06/10/2016,06/04/2015 Influenza injectable quadriv alent preservative free 07/14/2022 Influenza, High Dose Seasona l, Preservative Free 03/29/2018 Influenza, IIV3, injectable 08/06/2005 Pfizer Covid-19 Vaccine 12+ Bivalent 07/14/2022 Pneumococcal Conjugate PCV 13 11/07/2021 Pneumococcal Conjugate PCV 20 01/13/2023, 023 Pneumococcal Polysaccharide PPSV23 11/11/2006 TD (adult), 2 Lf tetanus tox oid, preservative free, adsorbed 11/11/2006 Tdap 08/26/2020,04/06/2012 Zoster, Recombinant 08/12/2023,03/06/2022 Social History Tobacco Use Types Packs/Day Years Used Date Smoking Tobacco: Former Cigarettes Passive Smoke Exposure: Current Smokeless Tobacco: Current Tobacco Cessation:Ready to Q uit: Not Asked; Counseling Given: Not Answered Comments:Tobacco smoking 3-5 cigarettes a day--started at 37y until 42 y then stopped and again since 62 y And stopped 03/2023 --total years of smoking 15 --janice PQT a year 3.75 Alcohol Use Standard Drinks/Week Comments Not Currently 0 (1 standard drink = 0.6 oz pur e alcohol) Depression Answer Date Recorded Patient Health Questionnaire-9 Score 0 01/14/2024 Patient Health Questionnaire-9 Score 0 01/14/2024 Last PHQ-9: Questionnaire Data Not on file 0 01/14/2024 Housing Stability Answer Date Recorded What is your housing situation today? I have emmanuel lanier 01/06/[address] you li ve. Do you have problems with any of the following? None of the above 01/06/2024 Food Insecurity Answer Date Recorded Within the past 12 months, y ou worried that your food would run out before you got money to buy more: Never True 01/06/2024 Within the past 12 months,th e food you bought just didn't last and you didn't have enough money to get more: Never True 09/2023 Transportation Answer Date Recorded In the past 12 months, has l ack of transportation kept you from medical appts, meetings, work or from getting things needed for daily living? No 01/06/2024 Utilities Answer Date Recorded In the past 12 months, has t he electric, gas, oil or water company threatened to shut off services in your home? No 01/06/2024 Depression Answer Date Recorded Patient Health Questionnaire-2 Score 0 01/14/2024 Internet Access Answer Date Recorded Internet Access Q1 Yes 03/07/2024 Internet Access Q2 Not on file 03/07/2024 Sex and Gender Information Value Date Recorded Sex Assigned at Male 05/05/2022 10:16 AM EDT Legal Sex Male 10:16 AM EDT Gender Identity Male 05/05/2022 10:16 AM EDT Sexual Orientation Straight 05/05/2022 10 :16 AM EDT Last Filed Vital Signs Vital Sign Reading Time Taken Comments Blood Pressure 138/80 03/10/2024 9:22 AM EDT Pulse 87 03/10/2024 9:22 AM EDT Temperature 36.1 ??C (96.9 ??F) 03/10/2024 9:22 AM ED T Respiratory Rate 20 03/10/2024 9:22 AM EDT Oxygen Saturation 97% 03/10/2024 9:22 AM EDT Inhaled Oxygen Concentration - - Weight 84.3 kg (185 lb 12.8 oz) 03/10/2024 9:22 AM EDT Height 167.6 cm (5' 6 ) 03/10/2024 9:22 AM EDT Body Mass Index 29.99 03/10/2024 9:22 AM EDT Plan of Treatment Upcoming Encounters Date Type Department Care Team (Late st Contact Info) Description 10/27/2024 9:30 AM EDT Office Visit [facility] [address] [place] [phone] Malinda Flowers MD [address] [place] [address] Health Maintenance Due Date Last Done Comments CT Colonography 1952 FIT DNA/Cologuard 1952 FIT 1952 Sigmoidoscopy 1952 Alcohol/Substance Use Screening 1964 COVID-19 Vaccine ( season) 2024 07/14/2022, 10/09/2020, 09/11/2020 Influenza Vaccine (#1) 2024 , 07/14/2022, 03/29/2018, Additional history exists FOBT 04/16/2024 04/16/2023 Depression Screening 01/13/2025 01/14/2024, 01/14/20 24 SDOH Screening 01/13/2025 01/14/2024 Diabetes: Hemoglobin A1C 03/08/2025 024, 12/05/2022, 11/19/2021, Additional history exists Tobacco Screening 03/10/2025 03/10/2024 Colonoscopy 11/27/2025 11/28/2015 Colorectal Cancer Screening 11/27/2025 RSV Patients and Patients Aged 60 years or older (1 - 1-dose 75+ series) 2027 Lipid Panel 03/08/2029 03/08/2024, 06/0 08/2022, 08/28/2020 DTaP/Tdap/Td Vaccines (3 - Td or Tdap) 08/26/2030 08/26/2020, 04/06/2012, 11/11/2006 Hepatitis C Screening Completed 12/05/2022 Pneumococcal Vaccine: 50+ Years Completed 01/13/2023, 12/04/2022, 11/07/2021, Additional history exists Zoster Vaccines Completed 08/12/2023, 03/06/2022 HIB Vaccines Aged Out No longer eligi ble based on patient's age to complete this topic HPV Vaccines Aged Out No longer eligi ble based on patient's age to complete this topic Hepatitis A Vaccines Aged Out No long er eligible based on patient's age to complete this topic Hepatitis B Vaccines Aged Out No long er eligible based on patient's age to complete this topic IPV Vaccines Aged Out No longer eligi ble based on patient's age to complete this topic Meningococcal Vaccine Aged Out No arnaldo raeann eligible based on patient's age to complete this topic RSV under 20 months Aged Out No longe r eligible based on patient's age to complete this topic Rotavirus Vaccines Aged Out No longer eligible based on patient's age to complete this topic Procedures Procedure Name Priority Date/Time Associated Diagnosis Comments HEMOGLOBIN A1C Routine 03/08/2024 8:37 AM EDT Annual physical exam LIPID PANEL, STANDARD Routine 03/08/2024 8:37 AM EDT Annual physical exam POCT OCCULT BLOOD BY PEROXID,FECES,1-3 NON CA SCREEN Routine 04/16/2023 2:24 PM EDT Iron deficiency anemia, unspecified iron deficiency anemia type HEPATITIS C AB W/REFL TO HCV RNA, QN, PCR Routine 12/05/2022 8:11 AM EDT Health care maintenance HM COLONOSCOPY Routine 11/28/2015 2:35 PM EDT from Last 3 Months or Most Recently Relevant to Health Maintenance Results * Hemoglobin A1c (03/08/2024 8:37 AM EDT) Hemoglobin A1c 5.9 <6.0 % [facility] Comment:Hemoglobin A1C Refer ence Range Adults: 4.8 - 6.0 % Non diabetic: < 6.0 % Goal: < 7.0 %Additional Action Suggested: > 8.0 %Note: Hemoglobin A1c results are invalid for patients with abnormal amounts of HbF. Blood transfusions may impact the HbA1c concentration in the patient sample. Estimated Average Glucose 123 mg/dL [facility] Comment:eAG = Estimated ave rage glucose which is %A1C expressed asaverage glucose, using the formula of the T7S-[id number] Glucose study (ADAG), Diabetes Care, Vol.31,#8,2007 Blood Venous blood specimen / Unknown 03/08/2024 8:37 AM EDT 03/08/2024 11:22 AM EDT us Malinda Dunbar MD LAB BLOOD ORDERAB LES Final Result Performing Organization Address [facility] Co de Phone Number [facility] [address] [place] [address] [phone] * Lipid Panel, Standard (03/08/2024 8:37 AM EDT) Triglycerides 110 <150 mg/dL [facility] Comment:Desirable Triglyceri de: less than 150 mg/dLBorderline High Triglyceride 150-199 mg/dLHigh Triglyceride: 200-499 mg/dLVery High Triglyceride: greater than or equal to 5OO mg/dL Cholesterol 160 <200 mg/dL [facility] Comment:Desirable Cholestero l: less than 200 mg/dLBorderline High Cholesterol: 200-239 mg/dLHigh Cholesterol: greater than 239 mg/dL LDL Cholesterol Calculated 95 <100 mg/dL [facility] Comment:Desirable LDL: less than 100 mg/dLNear Optimal/Above Optimal LDL: 110- 129 mg/dLBorderline High LDL: 130-159 mg/dLHigh LDL: 160-189 mg/dLVery High LDL: greater than or equal to 190 mg/dL HDL Cholesterol 43 >40 mg/dL [facility] Comment:Desirable HDL: great er than 40 mg/dL Note: This HDL assay may give artificially low results in patients with liver disease. Blood Venous blood specimen / Unknown 03/08/2024 8:37 AM EDT 03/08/2024 11:22 AM EDT us Malinda Dunbar MD LAB BLOOD ORDERAB LES Final Result Performing Organization Address [facility]/ZIP Co de Phone Number [facility] [address] [place] [address] [phone] * POCT Occult Blood by Peroxid, Feces, 1-3 Non CA Screen (04/16/2023 2:24 PM EDT) Fecal Occult Blood 1 Negative QC Media Lot # [id number] Lot# Expiration Date [id number] Stool 04/16/2023 2:24 PM EDT Malinda Dunbar MD POINT OF CARE SKIP T ENTER/EDIT ORDERABLES Final Result * Hepatitis C Antibody with Reflex to HCV, RNA, Quantitative, Real-Time PCR (12/05/2022 8:11 AM EDT) Hepatitis C Antibody NON-REACT JASON NON-REACT JASON Edgar Index 0.03 <1.00 Edgar Comment: HCV antibody was non-reactive. There is no laboratory evidence of HCV infection. In most cases, no further action is required. However, if recent HCV exposure is suspected, a test for HCV RNA (test code 83393) is suggested. For additional information please refer to http://education.Namshi/faq/PMK82z7 (This link is being provided for informational/ educational purposes only.) Blood Venous blood specimen / Unknown 12/05/2022 8:11 AM EDT 12/05/2022 8:17 AM EDT Narrative [facility] - 12/10/2022 9:56 AM EDT FASTING:NO PATIENT UNABLE TO VOID; ADVISED TO RETURN FOR COLLECTION. FASTING: NO Malinda Dunbar MD LAB BLOOD ORDERAB LES Final Result [facility] [address], [place] [address] [employer] [address] [place] [address] * Hm Colonoscopy (11/28/2015 2:35 PM EDT) Historical Provider HEALTH MAINTENANCE Final Result from Last 3 Months or Most Recently Relevant to Health Maintenance Insurance [facility] Care Teams Submarine Worker Relationship Specialty Start Date End Date Malinda Flowers MD [address] [place] [address] PCP - General Internal Medicine 11/13/22
--- OUTSIDE RECORDS SUMMARY | 2024-08-12 09:14 | XMS_ITS | Encounter Summary ---
Author Organization [employer] Address [address] [facility] [address] [place] [address] Care Team Providers Care Surgeon Chief Name Role Phone Malinda Flowers MD Primary Care Pro vider Reason for Visit * Reason Onset Date Comments October08/11/2024 Encounter Details Date Type Department Care Team ([facility] st Contact Info) Description 08/11/2024 Telephone [facility] [address] [place], [place] [phone] Liya Hurley MA October recall Social History Tobacco Use Types Packs/Day Years [...] AM EDT documented as of this encounter Miscellaneous Notes * Telephone Encounter - Liya Hurley MA - 08/11/2024 1:40 PM EST T/C- Mutuel Clerk and Patient made a Office Visit appointment with Frank roman October. Appointment reminder sent via mail. documented in this encounter Plan of Treatment Upcoming Encounters Date Type Department Care Team (Late st Contact Info) Description 10/27/2024 9:30 AM EDT Office Visit [facility] [address] [place] [phone] Malinda Flowers MD [address] [place] [phone] documented as of this encounter Visit Diagnoses Not on filedocumented in this encounter Additional Health Concerns Assessment Noted Time PHQ-9 Depression Total Score: 0 01/14/20 24 8:56 AM EDT documented as of this encounter Care Teams Surgeon Chief Relationship Specialty Start Date End Date Malinda Flowers MD [address] [place] [phone] PCP - General Internal Medicine 11/13/22 documented as of this encounter
== END ==
LOC: HO.CARD 08:55
PROVIDERS: PCP Student in an Organized Health Care Education/Training Program; Visit Provider Internal Medicine
DX: I42.8 Other cardiomyopathies (principal)

== ENCOUNTER → 2024-08-12 08:58 | Outpatient (BNV) | payer OTHER, SELFPAY | PROVIDERS: PCP Student in an Organized Health Care Education/Training Program; Visit Provider Internal Medicine Cardiovascular Disease | DX: I35.8 Other nonrheumatic aortic valve disorders (principal) | CPT/HCPCS: 93306 ==

== ENCOUNTER 2024-08-16 09:59 | Outpatient (AMB) | payer OTHER, SELFPAY ==
[2024-08-16 10:17] VITALS: BP 136/76; PULSE 78; BMI 29.2
--- NOTE | 2024-08-16 10:17 | MHC.OFFVIS ---
Vital Signs 08/16/24 10:17 Height 5 ft 6 in Weight 181 lb 3.52 oz BMI 29.2 BP 136/76 Blood Pressure Location Lt brachial Position Sitting Pulse 78 Intake Visit Reasons: 6 mth s/p echo Commercial Production Editor Required: Yes Commercial Production Editor Services: Commercial Production Editor Present Commercial Production Editor Name: Jaime [id number] Accompanied by: Self / Same As Patient Allergies aspirin [ASPIRIN] Allergy (Intermediate, Verified 05/05/24 10:24) SWELLING, rash lisinopril Adverse Reaction (Severe, Verified 05/05/24 10:24) Angioedema Medication List - Last Reconciled 08/16/24 by Sunday Salinas MD hydrocodone-acetaminophen 5-325 mg 1 tab PO Q6H PRN levothyroxine 112 mcg PO QAM metoprolol succinate ER 25 mg PO QAM HPI Comments Details: Josh returns for follow-up regarding cardiomyopathy. He has mild nonischemic cardiomyopathy. He is doing fine for the most part. Does not have any cardiac complaints whatsoever. In the past, he has had syncope thought to be vasovagal. Then underwent tilt-table testing that showed orthostatic hypotension. After that, carvedilol was switched to metoprolol. He was on lisinopril but not in his list anymore. He does not know. Since last seen, no new concerns. [facility] Medical History Graves disease CARLITOS positive Syncope Degenerative joint disease of right hip Degenerative joint disease of left hip Abscess of scalp VIJI (obstructive sleep apnea) NICM (nonischemic cardiomyopathy) Urolithiasis Hypothyroidism Anemia HTN (hypertension) Surgical History History of hip replacement H/O colonoscopy Family History Father No problems noted. Mother No problems noted. Social History Household Members: Family Housing: Apartment Are you a primary childcare administrator to a significant other at home: No Do you presently have visiting nurse or other home services: No Alcohol intake: never Patient Tobacco Use Status: Former Tobacco user Tobacco use type: Cigarette Years Smoked: 5 service: No Current occupational status: retired Current occupation: rt handed Review of Systems Const Denies chills, Denies fatigue, Denies fever(s), Denies weight gain and Denies weight loss ENT Denies dizziness Card Denies chest pain, Denies leg edema, Denies lightheadedness, Denies palpitations, Denies dyspnea on exertion, Denies orthopnea and Denies other Resp Denies cough and Denies dyspnea on exertion GI Denies hematochezia and Denies change in stool character Musc Denies abnormal gait, Denies muscle weakness, Denies numbness, Denies radiating pain into limb and Denies tingling Neuro Denies abnormal gait, Denies dizziness, Denies numbness and Denies tingling Endo Denies fatigue and Denies palpitations Physical Exam Vital Signs: Last Vital Signs Pulse 78 08/16/24 10:17 BP 136/76 08/16/24 10:17 BMI result Body Mass Index 29.2 Const General: comfortable and no acute distress Orientation/consciousness: patient oriented x3 HEENT Other: Unremarkable Head: Yes normal to inspection Neck Neck: Yes normal visual inspection Chest Chest palpation & inspection: normal inspection of the chest Resp Auscultation: clear to auscultation bilaterally Cardio Palpation: normal PMI Heart sounds: S1 normal heart sound present, S2 normal heart sound present, no gallops, no murmurs and no rubs GI Palpation (GI): Soft to palpation Back/Spine/Pelvis Other: unremarkable Skin General skin exam: no rashes or lesions noted Neuro General: patient oriented x3 Extrem General: Yes normal to inspection Psych Mental Status: mental status grossly normal Office Procedures EKG Details: EKG with underlying sinus rhythm at 78/Min; voltage criteria for LVH; nonspecific ST-[place] changes; [place] [address]-Ilnrqindjkdxrdjvb, Complete Assessment & Plan Assessment & Plan (1) NICM (nonischemic cardiomyopathy): Comment: follows w/[facility] Code(s): I42.8 - Other cardiomyopathies Category: Medical Plan: In the most recent echocardiogram, LVEF is 50-55%. In 2022, 40-45%. In 2021, 50%. Myocardial perfusion imaging study from 2022 with normal perfusion. In that study, gated LVEF was 52% during stress and 42% during rest. Overall, mild nonischemic cardiomyopathy with mostly recovered LVEF. Clinically, it does not have any symptoms or signs of congestive heart failure. Okay to continue the small dose of beta-blockers. No longer on lisinopril. (2) Orthostatic hypotension: Code(s): I95.1 - Orthostatic hypotension Category: Medical Plan: Has had a tilt-table test that shows orthostatic hypotension. Carvedilol has been switched to metoprolol. Also has been taken off lisinopril. No further changes today. (3) VIJI (obstructive sleep apnea): Comment: uses CPAP QHS-Mild degree of sleep apnea. The AHI was 7/hr and oxygen hermelindo was 84%. Code(s): G47.33 - Obstructive sleep apnea (adult) (pediatric) Category: Medical Plan: Continue CPAP. Coding Level of Care Code Est Pt Level 4 (02979) Diagnoses NICM (nonischemic cardiomyopathy) I42.8 Orthostatic hypotension I95.1 VIJI (obstructive sleep apnea) G47.33 CPT Codes EKG - CPT: 13471-Ulceanryqdzaqswhk, Complete ([id number])
== END 2024-08-16 10:33 | disposition home or self-care (01) ==
PROVIDERS: PCP Student in an Organized Health Care Education/Training Program; Visit Provider Internal Medicine
DX: I42.8 Other cardiomyopathies (principal); I95.1 Orthostatic hypotension; G47.33 Obstructive sleep apnea (adult) (pediatric)
CPT/HCPCS: 93010; 99214

== ENCOUNTER → 2024-08-16 09:59 | Outpatient (BNVA) | payer OTHER, SELFPAY | PROVIDERS: PCP Student in an Organized Health Care Education/Training Program; Visit Provider Internal Medicine | DX: I42.8 Other cardiomyopathies (principal); I95.1 Orthostatic hypotension; G47.33 Obstructive sleep apnea (adult) (pediatric); R94.31 Abnormal electrocardiogram [ECG] [EKG] | CPT/HCPCS: 93005; 99212 ==

== ENCOUNTER 2024-11-11 11:23 | Outpatient (AMB) | payer OTHER, SELFPAY ==
--- NOTE | 2024-11-11 11:42 | MHC.OFFVIS ---
Vital Signs 11/11/24 11:43 Height 5 ft 6 in Weight 185 lb BMI 29.9 BP 140/80 H Blood Pressure Location Lt brachial Pulse 85 Pulse Source Pulse Oximeter Pulse Oximetry (%) 96 Oxygen Delivery Method Room Air Intake Visit Reasons: Follow Up 6mo Intake Note: Patient presents 6 month follow up for VIJI, Compliance in chart. Secondary Social Studies Teacher Required: Yes Secondary Social Studies Teacher Name: Víctor Accompanied by: Self / Same As Patient Allergies aspirin [ASPIRIN] Allergy (Intermediate, Verified 11/11/24 11:44) SWELLING, rash lisinopril Adverse Reaction (Severe, Verified 11/11/24 11:44) Angioedema HPI Comments Details: 74-year-old male presents for follow-up for VIJI on CPAP. Patient denies any significant interval medical history changes. Patient reports his orthostatic lightheadedness symptoms have resolved following BP medication adjustments by [facility] agricultural science professor. Patient reports he continues to sleep well with CPAP use. He states he has good daytime energy. He reports he continues to cleaning changes CPAP supplies regularly. He states he has sufficient CPAP supplies. He states that he is using distilled water in his CPAP water reservoir. 90 day CPAP compliance report (08/06/2024 - 11/03/2024) Respiratory company: [facility] Overall usage 97% Usage greater than 4 hours 78% Average usage on days used 4 hours and 46 minutes ResMed AirSense 10 AutoSet Serial # [id number] APAP 5-20 cm H2O with EPR 3 Maximum pressure 10.3 cm H2O Median leaks 10.6 L/min AHI 0.6 per hour [facility] Medical History Graves disease CARLITOS positive Syncope Degenerative joint disease of right hip Degenerative joint disease of left hip Abscess of scalp VIJI (obstructive sleep apnea) NICM (nonischemic cardiomyopathy) Urolithiasis Hypothyroidism Anemia HTN (hypertension) Surgical History History of hip replacement H/O colonoscopy Family History Father No problems noted. Mother No problems noted. Social History Household Members: Family Housing: Apartment Are you a primary progressive care manager to a significant other at home: No Do you presently have visiting nurse or other home services: No Alcohol intake: never Patient Tobacco Use Status: Former Tobacco user Tobacco use type: Cigarette Years Smoked: 5 service: No Current occupational status: retired Current occupation: rt handed Physical Exam Vital Signs: Last Vital Signs Pulse 85 11/11/24 11:43 BP 140/80 H 11/11/24 11:43 Pulse Ox 96 11/11/24 11:43 Oxygen Delivery Method Room Air 11/11/24 11:43 BMI result Body Mass Index 29.9 Const General: no acute distress Orientation/consciousness: patient oriented x3 Resp Effort & Inspection: normal respiratory effort and able to speak in complete sentences Neuro General: patient oriented x3 Psych Mental Status: mental status grossly normal Speech and movement: Clear speech present Attitude: cooperative Assessment & Plan Assessment & Plan (1) VIJI (obstructive sleep apnea): Comment: uses CPAP QHS-Mild degree of sleep apnea. The AHI was 7/hr and oxygen hermelindo was 84%. Code(s): G47.33 - Obstructive sleep apnea (adult) (pediatric) Category: Medical Plan For VIJI: Continue APAP 5-20 cmH2O w/ EPR 3 nightly > 4 hours, as pt continues to have good clinical effect from use. Clean CPAP machine and supplies routinely. Change CPAP supplies routinely. Use distilled water in CPAP water reservoir. Pt to contact us or respiratory company with any questions or concerns. Pt to follow-up in 12 months or sooner prn. Coding Level of Care Code Est Pt Level 3 (14457) Diagnoses VIJI (obstructive sleep apnea) G47.33
[2024-11-11 11:43] VITALS: BP 140/80; PULSE 85; O2SAT 96; BMI 29.9
--- OUTSIDE RECORDS SUMMARY | 2024-11-11 11:51 | XMS_ITS | Encounter Summary ---
Author Organization [employer] Address [address] [place] [address] 7 [place] [address] Care Team Providers Care Jewelry Casting Model Maker Apprentice Name Role Phone Malinda Flowers MD Primary Care Pro vider Encounter Details Date Type Department Care Team ([facility] st Contact Info) Description 12/17/2022 Abstract [facility] [address] [place] [address] Malinda Flowers MD [address] [place] [address] Social History Tobacco Use Types Packs/Day Years [...] Care Team (Late st Contact Info) Description 01/19/2025 9:00 AM EDT Office Visit [facility] [address] [place] [address] Malinda Flowers MD [address] [place] [address] documented as of this encounter Visit Diagnoses Not on filedocumented in this encounter Additional Health Concerns Assessment Noted Time PHQ-9 Depression Total Score: 0 12/05/19 9:34 AM EDT documented as of this encounter Care Teams Jewelry Casting Model Maker Apprentice Relationship Specialty Start Date End Date Malinda Flowers MD [address] [place] [phone] PCP - General Internal Medicine 11/13/22 documented as of this encounter
--- OUTSIDE RECORDS SUMMARY | 2024-11-11 11:51 | XMS_ITS | Encounter Summary ---
Author Organization [employer] Address [address] [facility] 7t [place] [address] Care Team Providers Care Evaluator Transfer Students Name Role Phone Malinda Flowers MD Primary Care Pro vider Encounter Details Date Type Department Care Team (Late st Contact Info) Description 10/27/2023 Orders Only [facility] [address] [place] [address] ProviderJose MD Social History Tobacco Use Types [...] Description 01/19/2025 9:00 AM EDT Office Visit [facility] [address] [place] [address] [phone] Malinda Flowers MD [address] [place] [phone] documented as of this encounter Procedures Procedure Name Priority Date/Time Associated Diagnosis Comments HM COLONOSCOPY Routine 11/28/2015 2:35 PM EDT documented in this encounter Results * Hm Colonoscopy (11/28/2015 2:35 PM EDT) Historical Provider HEALTH MAINTENANCE Final Result documented in this encounter Visit Diagnoses Not on filedocumented in this encounter Additional Health Concerns Assessment Noted Time PHQ-9 Depression Total Score: 0 12/05/19 23 9:34 AM EDT documented as of this encounter Care Teams Evaluator Transfer Students Relationship Specialty Start Date End Date Malinda Flowers MD [address] [place] [phone] PCP - General Internal Medicine 11/13/22 documented as of this encounter
--- OUTSIDE RECORDS SUMMARY | 2024-11-11 11:51 | XMS_ITS | Clinical Summary ---
Author Organization [employer] Address [address] [place] [address] 7t [place] [address] Care Team Providers Care Php Mysql Developer Name Role Phone Malinda Flowers MD Primary [...] EVERY DAY IN THE MORNING 90 tablet 5 Active metoprolol succinate XL (Toprol-XL) 25 MG 24 hr tablet TAKE 1 TABLET (25 MG) BY MOUTH ONCE PER DAY. DO NOT CRUSH OR CHEW. 90 tablet 5 Active Active Problems Problem Noted Date Diagnosed Date Angioedema 03/10/2024 Prediabetes 03/10/2024 Orthostatic hypotension 01/14/2024 Non-ischemic cardiomyopathy 01/14/2024 Osteoarthritis 07/16/2023 Kidney cysts 07/16/2023 Health care maintenance 12/04/2022 Assessment & Plan (01/02/2023 9:38 PM EDT): -colonoscopy 2016: Two polyps were [...] Hx of + CARLITOS 1: 320 from sharples machine operator note --evaluated for chronic anemia w no other concerning symptoms x lupus -if clinically indicated will repeat CARLITOS titers Assessment & Plan (12/04/2022 10:12 PM EDT): Hx of + CARLITOS 1: 320 from sharples machine operator note --evaluated for chronic anemia w no [...] close to normal -pt will call his sharples machine operator's office to check if due x f up apt Assessment & Plan (12/04/2022 10:14 PM EDT): Pt w hx of chronic anemia in eval with hematology -had complete workup done w no obvious cause -had colonoscopy -last 2015 w no source of bleeding and neg stool occult blood -pt will call his sharples machine operator's office to check if due x f up apt Overweight (BMI 25.0-29.9) 12/04/2022 Assessment & Plan (01/02/2023 9:32 PM EDT): Advised pt to improve diet and exercise,discussed healthy life style -discussed manager pipeline referral --refusing x now Assessment & Plan (12/04/2022 10:17 PM EDT): Advised pt to improve diet and exercise,discussed healthy life style -discussed manager pipeline referral --refusing x now Obstructive sleep apnea [...] of water. Complete cardiac w/u per cardiology Tobacco abuse 12/04/2022 10/27/2024 Assessment & Plan (01/02/2023 9:35 PM EDT): Tobacco smoking 3-5 cigarettes a day--started at 37y until 42 y then stopped and again since 62 y until now --total years of smoking 15 --janice PQT a year 3.75 -no indication x lung ca screening -AAA US 2020 neg -advised in length to stop [...] -no indication x lung ca screening -AAA US 2020 neg -advised in length to stop smoking -refusing x now patches nor lozenges nor chantix -refusing x now tobacco cessation program referral Nonischemic congestive cardiomyopathy 10/18/2021 07/16/2023 Assessment & [...] year w cards---pt will call to his customer care professional to check if due x f up [...] year w cards---pt will call to his customer care professional to check if due x f up Chronic low back pain 04/06/20122022 Impaired fasting glucose 04/06/201207/2022 Hepatitis B carrier 11/13/2010 12/05/19 23 Encounters Date Type Department Care Team Description 10/27/2024 9:30 AM EDT Office Visit [facility] [address] [place] [address] Malinda Flowers MD Overweight (BMI 25.0-29.9) (Primary Dx); Non-ischemic cardiomyopathy (CMS/HCC); Dietary counseling; Exercise counseling; Health care maintenance; Postablative hypothyroidism 10/27/2024 Travel 10/26/2024 Telephone [facility] [address] [place] [address] Malinda Flowers MD chart prep 10/21/2024 Travel 10/18/2024 Patient Outreach [facility] [address] [place] [address] Malinda Flowers MD Pre-visit Planning (SDOH negative, Tobacco screening negative) 09/22/2024 Refill [facility] [address] [place] [address] Jessenia Rouse MD 08/26/2024 Refill [facility] [address] [place], [place] [phone] Malinda Flowers MD from Last 3 Months Immunizations Name Administration [...] 20 01/13/2023, 023 Pneumococcal Polysaccharide PPSV23 11/11/2006 RSV Bivalent 04/13/2024 TD (adult), 2 Lf tetanus tox oid, [...] Reading Time Taken Comments Blood Pressure 138/80 10/27/2024 9:42 AM EDT Pulse 75 10/27/2024 9:42 AM EDT Temperature 36.1 ??C (96.9 ??F) 10/27/2024 9:42 AM ED T Respiratory Rate 20 10/27/2024 9:42 AM EDT Oxygen Saturation 99% 10/27/2024 9:42 AM EDT Inhaled Oxygen Concentration - - Weight 84 kg (185 lb 3.2 oz) 10/27/2024 9:42 AM EDT Height 167.6 cm (5' 6 ) 10/27/2024 9:42 AM EDT Body Mass Index 29.89 10/27/2024 9:42 AM EDT Plan of Treatment Upcoming Encounters Date Type Department Care Team ([facility] st Contact Info) Description 01/19/2025 9:00 AM EDT Office Visit [facility] [address] [place] [address] Malinda Flowers MD [address] [place], [place] [phone] Health Maintenance Due Date Last Done Comments CT Colonography 1952 FIT DNA/Cologuard 1950 FIT 1950 Sigmoidoscopy 1950 COVID-19 Vaccine ( season) 2024 07/14/2022, 10/09/2020, 09/11/2020 Influenza Vaccine (#1) 2024 , 07/14/2022, 03/29/2018, Additional history exists FOBT 04/16/2024 04/16/2023 Depression Screening 01/13/2025 01/14/2024, 01/14/20 Diabetes: Hemoglobin A1C 03/08/2025 024, 12/05/2022, 11/19/2021, Additional history exists SDOH Screening 10/18/2025 10/18/2024 Alcohol/Substance Use Screening 10/27/2025 10/27/2024 Tobacco Screening 10/27/2025 10/27/2024 Colonoscopy 11/27/2025 11/28/2015 Colorectal Cancer Screening 11/27/2025 Lipid Panel 03/08/2029 03/08/2024, 06/0 08/2022, 08/28/2020 DTaP/Tdap/Td Vaccines (3 - Td or Tdap) 08/26/2030 08/26/2020, 04/06/2012, 11/11/2006 Hepatitis C Screening Completed 12/05/2022 Pneumococcal Vaccine: 50+ Years Completed 01/13/2023, 12/04/2022, 11/07/2021, Additional history exists Zoster Vaccines Completed 08/12/2023, 03/06/2022 RSV Patients and Patients Aged 60 years or older Completed 04/13/2024 HIB Vaccines Aged Out No longer eligi [...] Procedure Name Priority Date/Time Associated Diagnosis Comments AMB REFERRAL TO ALLERGY Routine 09/14/2024 Angioedema, sequela HEMOGLOBIN A1C Routine 03/08/2024 8:37 AM EDT [...] Recently Relevant to Health Maintenance Results * Referral to Allergy (09/14/2024) Malinda Dunbar MD OUTPATIENT REFERR AL ORDERABLES Final Result * Hemoglobin A1c (03/08/2024 8:37 AM EDT) Hemoglobin A1c 5.9 <6.0 % [facility] Comment:Hemoglobin A1C Refer ence Range Adults: 4.8 - 6.0 % Non diabetic: < 6.0 % Goal: < 7.0 %Additional Action Suggested: > 8.0 %Note: Hemoglobin A1c results are invalid for patients with abnormal amounts of HbF. Blood transfusions may impact the HbA1c concentration in the patient sample. Estimated Average Glucose 123 mg/dL [facility] Comment:eAG = Estimated ave rage glucose which is %A1C expressed asaverage glucose, using the formula of the Q2Q-DozooiaQzgbidr Glucose study (ADAG), Diabetes Care, Vol.31,#8,Feb. 2007 Blood Venous blood specimen / Unknown 03/08/2024 8:37 AM EDT 03/08/2024 11:22 AM EDT Malinda Dunbar MD LAB BLOOD ORDERAB LES Final Result [facility] [address] [place] [phone] * Lipid Panel, Standard (03/08/2024 8:37 AM EDT) Triglycerides 110 <150 mg/dL [facility] Comment:Desirable Triglyceri de: less than 150 mg/dLBorderline High Triglyceride 150-199 mg/dLHigh Triglyceride: 200-499 mg/dLVery High Triglyceride: greater than or equal to 5OO mg/dL Cholesterol 160 <200 mg/dL [facility] Comment:Desirable Cholestero l: less than 200 mg/dLBorderline High Cholesterol: 200-239 mg/dLHigh Cholesterol: greater than 239 mg/dL LDL Cholesterol Calculated 95 <100 mg/dL [facility] Comment:Desirable LDL: less than 100 mg/dLNear Optimal/Above Optimal LDL: 110- 129 mg/dLBorderline High LDL: 130-159 mg/dLHigh LDL: 160-189 mg/dLVery High LDL: greater than or equal to 190 mg/dL HDL Cholesterol 43 >40 mg/dL [facility] Comment:Desirable HDL: great er than 40 mg/dL Note: This HDL assay may give artificially low results in patients with liver disease. Blood Venous blood specimen / Unknown 03/08/2024 8:37 AM EDT 03/08/2024 11:22 AM EDT Malinda Dunbar MD LAB BLOOD ORDERAB LES Final Result [facility] [address] [place] [phone] * POCT Occult Blood by Per[employer], Feces, 1-3 Non CA Screen (04/16/2023 2:24 PM EDT) Fecal Occult Blood 1 Negative QC Media Lot # [id number] Lot# Expiration Date [id number] Stool 04/16/2023 2:24 PM EDT Result [facility] Malinda Dunbar MD POINT OF CARE SKIP T ENTER/EDIT ORDERABLES Final Result * Hepatitis C Antibody with Reflex to HCV, RNA, Quantitative, Real-Time PCR (12/05/2022 8:11 AM EDT) Hepatitis C Antibody NON-REACT JASON NON-REACT JASON [employer] [place] [employer]t Index 0.03 <1.00 [facility] [place] [employer] Comment: HCV antibody was non-reactive. There is no laboratory evidence of HCV infection. In most cases, no further action is required. However, if recent HCV exposure is suspected, a test for HCV RNA (test code 19550) is suggested. For additional information please refer to http://education.[employer]/faq/ABE05c6 (This link is being provided for informational/ educational purposes only.) Blood Venous blood specimen / Unknown 12/05/2022 8:11 AM EDT 12/05/2022 8:17 AM EDT Narrative [facility] - 12/10/2022 9:56 AM EDT FASTING:NO PATIENT UNABLE TO VOID; ADVISED TO RETURN FOR COLLECTION. FASTING: NO Malinda Dunbar MD LAB BLOOD ORDERAB LES Final Result [facility] [address] [place] [address], [place] [address] [facility] [address] [place] [phone] * Hm Colonoscopy (11/28/2015 2:35 PM EDT) us Historical Provider HEALTH MAINTENANCE Final Result from Last 3 Months or Most Recently Relevant to Health Maintenance Insurance [facility] STANDARD [facility] OPTIONS (HMO D-SNP) Care Teams Php Mysql Developer Relationship Specialty Start Date End Date Malinda Flowers MD [address] [place] [address] PCP - General Internal Medicine 11/13/22
== END 2024-11-11 12:14 | disposition home or self-care (01) ==
LOC: HO.HSMS 11:24
PROVIDERS: PCP Student in an Organized Health Care Education/Training Program; Visit Provider Nurse Practitioner Family
DX: G47.33 Obstructive sleep apnea (adult) (pediatric) (principal)
CPT/HCPCS: 99213

== ENCOUNTER → 2024-11-11 11:23 | Outpatient (BNVA) | payer OTHER, SELFPAY | PROVIDERS: PCP Student in an Organized Health Care Education/Training Program; Visit Provider Nurse Practitioner Family | DX: G47.33 Obstructive sleep apnea (adult) (pediatric) (principal); Z99.89 Dependence on other enabling machines and devices | CPT/HCPCS: 99212 ==

== ENCOUNTER 2025-01-23 08:51 | Outpatient (REF) | payer OTHER, SELFPAY ==
--- NOTE | ~2025-01-23 | XR_ITS ---
EXAMINATION: XR KNEE 3 VIEWS LEFT HISTORY: ongoing left knee pain - chronic COMPARISON: Comparison is made with the prior examination dated 04/13/2024. FINDINGS: Three views of the left knee are submitted. Osseous mineralization is normal. There is no fracture or dislocation. There is moderate osteoarthritis of the medial compartment with joint space narrowing and osteophyte formation. Findings have progressed since the prior study. There is mild degenerative change of the patellofemoral compartment. The soft tissues are unremarkable. There is no joint effusion. XR/XR knee LT 3V IMPRESSION: Moderate osteoarthritis of the medial compartment with progression since the prior study. Electronically signed by: Ranjeet Drake MD 01/23/2025 09:41 AM EDT
== END 2025-01-23 08:52 | disposition home or self-care (01) ==
LOC: HO.HHCX 08:51
PROVIDERS: PCP Student in an Organized Health Care Education/Training Program; Visit Provider Student in an Organized Health Care Education/Training Program
DX: M25.562 Pain in left knee (principal); G89.29 Other chronic pain
CPT/HCPCS: 73562

== ENCOUNTER → 2025-01-23 09:05 | Outpatient (BNV) | payer OTHER, SELFPAY | PROVIDERS: PCP Student in an Organized Health Care Education/Training Program; Visit Provider Radiology Diagnostic Radiology | DX: M17.12 Unilateral primary osteoarthritis, left knee (principal) | CPT/HCPCS: 73562 ==

== ENCOUNTER 2025-01-31 12:55 | Outpatient (REF) | payer OTHER, SELFPAY | END 2025-01-31 12:56 | disposition home or self-care (01) | LOC: HO.LAB 12:55 | PROVIDERS: PCP Student in an Organized Health Care Education/Training Program; Visit Provider Nurse Practitioner Family | DX: N39.0 Urinary tract infection, site not specified (principal); R31.9 Hematuria, unspecified | CPT/HCPCS: 87086; 88112 ==

== ENCOUNTER 2025-02-20 13:33 | Outpatient (AMB) | payer OTHER, SELFPAY ==
--- NOTE | 2025-02-20 13:37 | MHC.OFFVIS ---
Vital Signs 02/20/25 13:41 Height 5 ft 6 in Weight 180 lb BMI 29.0 Intake Visit Reasons: Newprob-Left knee pain Intake Note: Josh is a 74 year old male who presents today as a new problem for his Left knee pain. Patient has had a X Ray of the left knee,01/23/25. At today's visit he states that the pain has been going on since 2010 and the pain radiates down to the martínez. He reports that he does have a burning sensation that radiates down the leg but is not consistent. Patient added that he has gone to physical therapy but never tried injections to help with the pain. Allergies aspirin (ASPIRIN) Allergy (Intermediate, Verified 02/20/25 13:42) SWELLING, rash lisinopril Adverse Reaction (Severe, Verified 02/20/25 13:42) Angioedema HPI HPI Newprob-Left knee pain: Details: 74-year-old gentleman presents to the office today for a new problem left knee pain which he has been experiencing for quite some time. 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 He also complains of anterior knee pain associated with grinding sensation. 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 Mother No problems noted. 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 Medial joint line tenderness present. No ligamentous laxity. Neurovascularly intact. Results Reviewed Results Reviewed: XR knee LT 3V IMPRESSION: Moderate osteoarthritis of the medial compartment with progression since the prior study. Assessment & Plan Assessment & Plan (1) Osteoarthritis of left knee: Code(s): M17.12 - Unilateral primary osteoarthritis, left knee Category: Medical Plan: We discussed options today which includes physical therapy. An order was placed today and he will contact them to make an appointment. He tolerated Celebrex in the past with a previous hip replacement therefore a new order for Celebrex was sent to the pharmacy to help with discomfort. He will take this twice a day for 2 weeks. If symptoms worsen he will contact our office to discuss steroid injection otherwise she will follow up as needed. Orders: Orders PT Evaluation and Treatment Today M17.12 - Unilateral primary osteoarthritis, left knee Medications: New celecoxib (Celebrex) 200 mg PO BID 60 caps 3RF 30 days Coding Level of Care Code Est Pt Level 3 (77043) Complex EM visit Add On G2211 Diagnoses Osteoarthritis of left knee M17.12
[2025-02-20 13:41] VITALS: BMI 29.0
--- OUTSIDE RECORDS SUMMARY | 2025-02-20 14:27 | XMS_ITS | Encounter Summary ---
Author Organization [employer] Address [address] [facility] [address] [place] [address] Care Team Providers Care Nuclear Monitoring Technician Name Role Phone Malinda Flowers MD Primary Care Pro vider Encounter Details Date Type Department Care Team (Late st Contact Info) Description 10/27/2023 Orders Only [facility] MED[facility]INE [address] [place] [address] ProviderJose MD Social History Tobacco Use Types [...] Care Team (Late st Contact Info) Description 03/16/2025 9:30 AM EDT Office Visit [facility] [address] [place] [address] [phone] Malinda Flowers MD [address] [place] [phone] documented as of this encounter Procedures Procedure [...] documented as of this encounter Care Teams Nuclear Monitoring Technician Relationship Specialty Start Date End Date Malinda Flowers MD [address] [place] [phone] PCP - General Internal Medicine 11/13/22 documented as of this encounter
== END 2025-02-20 14:21 | disposition home or self-care (01) ==
LOC: HO.HOS 13:34
PROVIDERS: PCP Student in an Organized Health Care Education/Training Program; Visit Provider Physician Assistant
DX: M17.12 Unilateral primary osteoarthritis, left knee (principal)
CPT/HCPCS: 99213; G2211

== ENCOUNTER → 2025-02-20 13:33 | Outpatient (BNVA) | payer OTHER, SELFPAY | PROVIDERS: PCP Student in an Organized Health Care Education/Training Program; Visit Provider Physician Assistant | DX: M17.12 Unilateral primary osteoarthritis, left knee (principal) | CPT/HCPCS: 99212 ==

== ENCOUNTER 2025-03-13 08:46 | Outpatient (REF) | payer OTHER, SELFPAY ==
--- OUTSIDE RECORDS SUMMARY | 2025-03-13 09:48 | XMS_ITS | Encounter Summary ---
Author Organization [employer] Address [address] [facility] 7t [place] [address] Care Team Providers Care Camera Assembler Name Role Phone Malinda Flowers MD Primary Care Pro vider Encounter Details Date Type Department Care Team ([facility] st Contact Info) Description 12/17/2022 Abstract [facility] MEDICINE [address] [place] [address] Malinda Flowers MD [address] [place] [address] Social History Tobacco Use Types Packs/Day Years [...] Description 03/16/2025 9:30 AM EDT Office Visit [facility]IC[facility] [address] [place] [address] Malinda Flowers MD [address] [place] [address] 06/20/2025 11:00 AM EST Office Visit [facility] OPTOMETRY [address] [place] [address] TarkaLaury, OD [address] [place] [address] documented as of this encounter Visit Diagnoses Not on filedocumented in this encounter Additional Health Concerns Assessment Noted Time PHQ-9 Depression Total Score: 0 12/05/19 9:34 AM EDT documented as of this encounter Care Teams Camera Assembler Relationship Specialty Start Date End Date Malinda Flowers MD [address] [place] [phone] PCP - General Internal Medicine 11/13/22 documented as of this encounter
--- OUTSIDE RECORDS SUMMARY | 2025-03-13 09:48 | XMS_ITS | Clinical Summary ---
Author Organization [employer] Address [address] [facility] [address] [place] [address] Care Team Providers Care Case Operator Name Role Phone Malinda Flowers MD Primary Care Pro vider Allergies Active Allergy Reactions Criticality Noted Date Comments Aspirin Rash Low 11/12/2016 PT tolerates NSAIDS as ibuprofen and celecoxib Lisinopril Angioedema 03/10/2024 Medications acetaminophen (Tylenol) 500 MG tablet Take by mouth. Activ e levothyroxine (Synthroid, Levoxyl) 112 MCG tablet TAKE 1 TABLET BY MOUTH EVERY DAY IN THE MORNING 90 tablet 1 5 Active metoprolol succinate XL (Toprol-XL) 25 MG 24 hr tablet TAKE 1 TABLET (25 MG) BY MOUTH ONCE PER DAY. DO NOT CRUSH OR CHEW. 90 tablet 5 Active EPINEPHrine (Epipen) 0.3 MG/0.3ML injection syringeIndicati ons:Angioedema, sequela Inject 0.3 mL (0.3 mg) as directed 1 (one) time if needed for anaphylaxis for up to 1 dose. Inject into upper leg. Call 911 after use. 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 --evaluated for chronic anemia w no other concerning symptoms x lupus -if clinically indicated will repeat CARLITOS titers Assessment & Plan (12/04/2022 10:12 PM EDT): Hx of + CARLITOS 1: 320 from front desk worker note --evaluated for chronic anemia w no [...] close to normal -pt will call his front desk worker's office to check if due x f up apt Assessment & Plan (12/04/2022 10:14 PM EDT): Pt w hx of chronic anemia in eval with hematology -had complete workup done w no obvious cause -had colonoscopy -last 2015 w no source of bleeding and neg stool occult blood -pt will call his front desk worker's office to check if due x f up apt Overweight (BMI 25.0-29.9) 12/04/2022 Assessment & Plan (01/02/2023 9:32 PM EDT): Advised pt to improve diet and exercise,discussed healthy life style -discussed actuarial associate referral --refusing x now Assessment & Plan (12/04/2022 10:17 PM EDT): Advised pt to improve diet and exercise,discussed healthy life style -discussed actuarial associate referral --refusing x now Obstructive sleep apnea [...] year w cards---pt will call to his platform engineer to check if due x f up [...] year w cards---pt will call to his platform engineer to check if due x f up Chronic low back pain 04/06/20122022 Impaired fasting glucose 04/06/201207/2022 Hepatitis B carrier 11/13/2010 12/05/19 23 Encounters Date Type Department Care Team Description 01/27/2025 8:00 AM EDT Office Visit [facility] ADULT DENTAL [address] [place] [address] Kayla Hannah Dental caries (Primary Dx) 01/26/2025 Travel 01/23/2025 Results Follow-Up [facility] MEDICINE [address] [place] [address] Malinda Flowers MD XR Knee 3 Views Left 01/20/2025 2:00 PM EDT Office Visit [facility]AL [address] [place] [address] Kayla Hannah Periodontal disease (Primary Dx) 01/19/2025 9:00 AM EDT Office Visit [address] [address] Malinda Flowers MD Chronic pain of left knee (Primary Dx); Angioedema, sequela; Annual physical exam; Postablative hypothyroidism; Health care maintenance 01/19/2025 Travel 01/18/[address] [address] Malinda Flowers MD CHART PREP 01/16/2025 8:00 AM EDT Office Visit [facility] ADULT DENTAL [address] [place] [address] Kayla Hannah Excessive attrition of teeth (Primary Dx); Non-carious lesion at cervical margin of tooth; Periodontal disease; Missing teeth, acquired; Dental plaque; Dental caries; Dental calculus; Gingival bleeding 01/12/2025 Patient Outreach [facility] [address] [place] [address] Malinda Flowers MD 01/12/2025 Patient Outreach [facility] [address] [place] [address] Malinda Flowers MD Pre-visit Planning (SDOH was already completed) 12/18/[address] [address] Ki Crane MD from Last 3 Months Immunizations Immunization Administration Dates Next Due Influenza High-dose Quadriva [...] Date Recorded Patient Health Questionnaire-9 Score 0 01/19/2025 Patient Health Questionnaire-9 Score 0 01/19/2025 Last PHQ-9: Questionnaire Data Not on file 0 01/19/2025 Housing Stability Answer Date Recorded What is [...] Date Recorded Patient Health Questionnaire-2 Score 0 01/19/2025 Internet Access Answer Date Recorded Internet Access [...] Sign Reading Time Taken Comments Blood Pressure 130/80 01/27/2025 7:59 AM EDT Pulse 70 01/27/2025 7:59 AM EDT Temperature 36.2 C (97.1 F) 01/19/2025 9:03 AM EDT Respiratory Rate 20 01/19/2025 9:03 AM EDT Oxygen Saturation 99% 01/19/2025 9:03 AM EDT Inhaled Oxygen Concentration - - Weight 83.6 kg (184 lb 6.4 oz) 01/19/2025 9:03 A M EDT Height 167.6 cm (5' 6 ) 01/19/2025 9:03 AM EDT Body Mass Index 29.76 01/19/2025 9:03 AM EDT Plan of Treatment Upcoming Encounters Date Type Department Care Team (Late st Contact Info) Description 03/16/2025 9:30 AM EDT Office Visit [facility] [address] [place] [address] Malinda Flowers MD [address] [place] [address] 06/20/2025 11:00 AM EST Office Visit [facility] OPTOMETRY [address] [place] [address] Laury Ceballos, OD [address] [place] [address] Health Maintenance Due Date Last Done Comments CT Colonography 1950 FIT DNA/Cologuard 1950 FIT 1950 Sigmoidoscopy 1950 FOBT 04/16/2024 04/16/2023 COVID-19 Vaccine ( season) 2025 07/14/2022, 10/09/2020, 09/11/2020 Influenza Vaccine (#1) 2025 , 07/14/2022, 03/29/2018, Additional history exists Diabetes: Hemoglobin A1C 03/08/2025 024, 12/05/2022, 11/19/2021, Additional history exists Dental Oral Exam 07/20/2025 01/16/2025 Dental Prophylaxis 07/20/2025 01/16/2025 SDOH Screening 10/18/2025 10/18/2024 Alcohol/Substance Use Screening 10/27/2025 10/27/2024 Colonoscopy 11/27/2025 11/28/2015 Colorectal Cancer Screening 11/27/2025 Dental X-Ray: Bitewings 01/17/2026 01/16/2025 Depression Screening 01/19/2026 01/19/2025, 01/20/20 Tobacco Screening 01/27/2026 01/27/2025 Dental X-Ray: Full Mouth 01/18/2028 01/16/2025 Lipid Panel 03/08/2029 03/08/2024, 06/0 08/2022, 08/28/2020 [...] patient's age to complete this topic Meningococcal B Vaccine Aged Out No l onger eligible based on patient's age to complete [...] Procedure Name Priority Date/Time Associated Diagnosis Comments CYTOPATH-CELL ENHANCED Routine 4:50 PM EDT CULTURE, URINE, ROUTINE Routine 01/31/2025 12:55 PM EDT 1 O RESIN-BASED COMPOSITE - 1 SURF, POSTERIOR Routine 01/27/2025 8:00 AM EDT Dental caries XR KNEE 3 VIEWS LEFT Routine 01/23/2025 8:27 AM EDT Chronic pain of left knee 14 EXTRACTION, ERUPTED TOOTH OR EXPOSED ROOT (ELEVATION/FORCEPS REMOVAL) Routine 01/20/2025 2:00 PM EDT CASE PRESENTATION, DETAILED AND EXTENSIVE TREATMENT PLANNING Routine 01/20/2025 2:00 PM EDT CASE PRESENTATION, DETAILED AND EXTENSIVE TREATMENT PLANNING Routine 01/16/2025 8:00 AM EDT ORAL HYGIENE INSTRUCTIONS Routine 01/16/2025 8:00 AM EDT INTRAORAL - COMPLETE SERIES OF RADIOGRAPHIC IMAGES Routine 01/16/2025 8:00 AM EDT PROPHYLAXIS - ADULT Routine 01/16/2025 8 :00 AM EDT Dental plaque Dental calculus Gingival bleeding COMPREHENSIVE ORAL EVALUATION - NEW OR ESTABLISHED PATIENT Routine 01/16/2025 8:00 AM EDT Excessive attrition of teeth Non-carious lesion at cervical margin of tooth Periodontal disease Missing teeth, acquired Dental plaque Dental caries Dental calculus Gingival bleeding 14 O AMALGAM FILLING Routine 01/16/2025 12:00 AM EDT 32 O AMALGAM FILLING Routine 01/16/2025 12:00 AM EDT HEMOGLOBIN A1C Routine 03/08/2024 8:37 AM EDT [...] Recently Relevant to Health Maintenance Results * Cytopath-cell enhanced (01/31/2025 4:50 PM EDT) 01/31/2025 4:50 PM EDT 02/01/2025 9:41 AM EDT [facility] - 02/01/2025 4:06 PM EDT ----- ------- Name: Josh Asif Age/Sex: 74/M : 1950 Unit#: [id number] Attend Dr: Giselle Batista [facility] Re01/31/25 Status: DEP [facility] Disch: ----- ------- SPEC : [id number] RECD: 02/01/25 STATUS: STEPH CALABRESE NUM: [id number] MARTHA: 01/31/[address]: Giselle Batista [facility]- ENTERED: 02/01/25 SP TYPE: Cytology OTHR DR: Malinda Flowers MD ORDERED: Cyto-enhanced Diagnosis Urine: Negative for high-grade urothelial carcinoma. See comment. COMMENT: Cellular specimen consisting of single urothelial cells with reactive and degenerative changes, squamous cells, red blood cells and acute inflammatory cells. Clinical History Hematuria, unspecified Material Received Urine Gross Description Received is 25 cc of clear yellow fluid from which a ThinPrep slide is prepared. IHC S/NG Disclaimer NOTE: Unless otherwise stated, all tissue is formalin-fixed and paraffin-embedded. Some or all of the immunohistochemical tests reported herein may have been developed and their performance characteristics determined by [facility]. They have not been cleared or approved by the U.S. Food and Drug Administration (FDA). However, the FDA has determined that such clearance or approval is not necessary. This laboratory is certified under the Clinical Laboratory Improvement Amendments of 1988 (CLIA) as qualified to perform high complexity clinical laboratory testing. Copies To: Giselle Batista [facility] [address] [place] [address] [address] [place] [address] [email or web address] Malinda Flowers MD [address] [place] [phone] CONTINUED ON NEXT PAGE ----- ------- Name: Josh Asif Age/Sex: 74/M : 1950 Unit#: [id number] Attend Dr: Giselle Batista [facility] Re01/31/25 Status: DEP REF Location: .LAB Disch: ----- ------- SPEC : [id number] RECD: 02/01/25 STATUS: STEPH CALABRESE NUM: [id number] MARTHA: 01/31/25 [facility] DR: Giselle Batista [facility]- ENTERED: 02/01/25 SP TYPE: Cytology OTHR DR: Frank Dunbar,Malinda De Leon MD ORDERED: Cyto-enhanced ----- ------- Signed (signature on file) Morgan Hercules MD 02/01/25 1606 ----- ------- END OF REPORT Generic External Data Provider LAB CYTOLOGY PAULINA ARCE Final Result Performing Organization Address [facility] Co de Phone Number [facility] [address] [place] [phone] * Culture, Urine, Routine (01/31/2025 12:55 PM EDT) Urine Urine specimen obtained by clean catch procedure / Unknown 01/31/2025 12:55 PM EDT 01/31/2025 4:51 PM EDT Comment:[facility] Narrative [facility] - 02/02/2025 10:14 AM EDT Urine Culture No growth. Specimen Source: Urine clean catch Generic External Data Provider LAB MICROBIOLOGY - GENERAL ORDERABLES Final Result Performing Organization Address [facility] Co de Phone Number [facility] [address] [place] [address] [phone] * XR Knee 3 Views Left (01/23/2025 8:27 AM EDT) Anatomical Region Laterality Modality Lower Extremities, Knee Left Radiogra phic Imaging 01/23/2025 8:27 AM EDT Narrative 01/23/2025 9:45 AM EDT [address] [address] XRay Report Signed Patient: Josh Asif MR#: [id number] : 1950 Acct:[id number] Age/Sex: 74 / M ADM Date: 01/23/25 Loc: HO.HHCX Attending Dr: Malinda Dunbar MD Ordering Physician: Malinda Flowers MD Date of Service: 01/23/25 Procedure(s): XR knee LT 3V Accession Number(s): [id number] cc: Malinda Flowers MD EXAMINATION: XR KNEE 3 VIEWS LEFT HISTORY: ongoing left knee pain - chronic COMPARISON: Comparison is made with the prior examination dated 04/13/2024. FINDINGS: Three views of the left knee are submitted. Osseous mineralization is normal. There is no fracture or dislocation. There is moderate osteoarthritis of the medial compartment with joint space narrowing and osteophyte formation. Findings have progressed since the prior study. There is mild degenerative change of the patellofemoral compartment. The soft tissues are unremarkable. There is no joint effusion. XR/XR knee LT 3V IMPRESSION: Moderate osteoarthritis of the medial compartment with progression since the prior study. Electronically signed by: Ranjeet Drake MD 01/23/2025 09:41 AM EDT Dictated By: Ranjeet Drake MD Signed By: <Electronically signed by Ranjeet Drake MD in OV> 01/23/25 0941 DD/ 0827 TD/TT: 01/23/25 0900 Electric Motor Repairer: Procedure Note Donotuseinterpreter, Image - 01/23/2025 [facility] [address] [place] [address] XRay Report Signed Patient: Melinda Asif#: [id number] : 2Acct:[id number] Age/Sex: 74 / MADM Date: 01/23/25 Loc: .HHCX Attending Dr: Malinda Dunbar MD Ordering Physician: Malinda Flowers MD Date of Service: 01/23/25 Procedure(s): XR knee LT 3V Accession Number(s): [id number] cc: Malinda Flowers MD EXAMINATION: XR KNEE 3 VIEWS LEFT HISTORY: ongoing left knee pain - chronic COMPARISON: Comparison is made with the prior examination dated 04/13/2024. FINDINGS: Three views of the left knee are submitted. Osseous mineralization is normal. There is no fracture or dislocation. There is moderate osteoarthritis of the medial compartment with joint space narrowing and osteophyte formation. Findings have progressed since the prior study. There is mild degenerative change of the patellofemoral compartment. The soft tissues are unremarkable. There is no joint effusion. XR/XR knee LT 3V IMPRESSION: Moderate osteoarthritis of the medial compartment with progression since the prior study. Electronically signed by: Ranjeet Drake MD 01/23/2025 09:41 AM EDT Dictated By: Ranjeet Drake MD Signed By: <Electronically signed by Ranjeet Drake MD in OV> 01/23/25 0941 DD/ 08 TD/TT: 01/23/25 09 Electric Motor Repairer: us Malinda Dunbar MD IMG XR PROCEDURES Final Result * Hemoglobin A1c (03/08/2024 8:37 AM EDT) Hemoglobin A1c 5.9 <6.0 % [facility] Comment:Hemoglobin A1C Refer ence Range Adults: 4.8 - 6.0 % Non diabetic: < 6.0 % Goal: < 7.0 %Additional Action Suggested: > 8.0 %Note: Hemoglobin A1c results are invalid for patients with abnormal amounts of HbF. Blood transfusions may impact the HbA1c concentration in the patient sample. Estimated Average Glucose 123 mg/dL [facility] Comment:eAG = Estimated ave rage glucose which is %A1C expressed asaverage glucose, using the formula of the A2W-DrmyqzoSalbpsw Glucose study (ADAG), Diabetes Care, Vol.31,#8,Feb. 2007 Blood Venous blood specimen / Unknown 03/08/2024 8:37 AM EDT 03/08/2024 11:22 AM EDT us Malinda Dunbar MD LAB BLOOD ORDERAB LES Final Result [facility] [address] [place] [phone] * Lipid Panel, Standard (03/08/2024 8:37 AM EDT) Triglycerides 110 <150 mg/dL [facility] Comment:Desirable Triglyceri de: less than 150 mg/dLBorderline High Triglyceride 150-199 mg/dLHigh Triglyceride: 200-499 mg/dLVery High Triglyceride: greater than or equal to 5OO mg/dL Cholesterol 160 <200 mg/dL [facility] Comment:Desirable Cholestero l: less than 200 mg/dLBorderline High Cholesterol: 200-239 mg/dLHigh Cholesterol: greater than 239 mg/dL LDL Cholesterol Calculated 95 <100 mg/dL [facility] Comment:Desirable LDL: less than 100 mg/dLNear Optimal/Above Optimal LDL: 110- 129 mg/dLBorderline High LDL: 130-159 mg/dLHigh LDL: 160-189 mg/dLVery High LDL: greater than or equal to 190 mg/dL HDL Cholesterol 43 >40 mg/dL [facility] Comment:Desirable HDL: great er than 40 mg/dL Note: This HDL assay may give artificially low results in patients with liver disease. Blood Venous blood specimen / Unknown 03/08/2024 8:37 AM EDT 03/08/2024 11:22 AM EDT us Malinda Dunbar MD LAB BLOOD ORDERAB LES Final Result [facility] [address] [place] [address] [phone] * POCT Occult Blood by Peroxid, Feces, 1-3 Non CA Screen (04/16/2023 2:24 PM EDT) Fecal Occult Blood 1 Negative QC Media Lot # [id number] Lot# Expiration Date [id number] Stool 04/16/2023 2:24 PM EDT Malinda Dunbar MD POINT OF CARE SKIP T ENTER/EDIT ORDERABLES Final Result * Hepatitis C Antibody with Reflex to HCV, RNA, Quantitative, Real-Time PCR (12/05/2022 8:11 AM EDT) Hepatitis C Antibody NON-REACT JASON NON-REACT JASON [facility] Index 0.03 <1.00 [facility] Comment: HCV antibody was non-reactive. There is no laboratory evidence of HCV infection. In most cases, no further action is required. However, if recent HCV exposure is suspected, a test for HCV RNA (test code 00368) is suggested. For additional information please refer to http://education.Flyr/faq/BIC41t9 (This link is being provided for informational/ educational purposes only.) Blood Venous blood specimen / Unknown 12/05/2022 8:11 AM EDT 12/05/2022 8:17 AM EDT Narrative [facility] - 12/10/2022 9:56 AM EDT FASTING:NO PATIENT UNABLE TO VOID; ADVISED TO RETURN FOR COLLECTION. FASTING: NO us Malinda Dunbar MD LAB BLOOD ORDERAB LES Final Result [facility] [address], [place] [address] [employer] [place] [facility] [address] [place] [phone] * Hm Colonoscopy (11/28/2015 2:35 PM EDT) us Historical Provider MD HEALTH MAINTENANCE Final Result from Last 3 Months or Most Recently Relevant to Health Maintenance Insurance [facility] STAND[employer]ENTION OPTIONS (HMO D-SNP) [facility] Care Teams Case Operator Relationship Specialty Start Date End Date Malinda Flowers MD [address] [place] [address] PCP - General Internal Medicine 11/13/22
--- OUTSIDE RECORDS SUMMARY | 2025-03-13 09:48 | XMS_ITS | Encounter Summary ---
Author Organization [employer] Address [address] [facility] [address] [place] [address] Care Team Providers Care Director Of Head Start Name Role Phone Malinda Flowers MD Primary Care Pro vider Encounter Details Date Type Department Care Team (Late st Contact Info) Description 10/27/2023 Orders Only [facility] [address] [place] [address] ProviderJose MD Social History Tobacco Use Types [...] Description 03/16/2025 9:30 AM EDT Office Visit [facility] [address] [place] [address] Malinda Flowers MD [address] [place] [address] 06/20/2025 11:00 AM EST Office Visit [facility] [address] [place] [address] Tarka, Laury, OD [address] [place] [address] documented as of this encounter Procedures Procedure [...] documented as of this encounter Care Teams Director Of Head Start Relationship Specialty Start Date End Date Malinda Flowers MD [address] [place] [id number] PCP - General Internal Medicine 11/13/22 documented as of this encounter
--- OUTSIDE RECORDS SUMMARY | 2025-03-13 09:48 | XMS_ITS | Encounter Summary ---
Author Organization [employer] Address [address] [facility] 7[address] [place] [address] Care Team Providers Care Director Of Event Management Name Role Phone Malinda Flowers MD Primary Care Pro vider Encounter Details Date Type Department Care Team ([facility] st Contact Info) Description 01/23/2025 Results Follow-Up [facility] [address] [place] [address] Malinda Flowers MD [address] [place] [address] XR Knee 3 Views Left Social History Tobacco Use Types Packs/Day Years [...] Description 03/16/2025 9:30 AM EDT Office Visit [facility] [address] [place] [address] Malinda Flowers MD [address] [place] [address] 06/20/2025 11:00 AM EST Office Visit [facility] [address] [place] [address] Laury Ceballos, OD [address] [place] [address] documented as of this encounter Visit Diagnoses Not on filedocumented in this encounter Additional Health Concerns Assessment Noted Time PHQ-9 Depression Total Score: 0 01/20/20 25 9:04 AM EDT documented as of this encounter Care Teams Director Of Event Management Relationship Specialty Start Date End Date Malinda Flowers MD [address] [place] [address] PCP - General Internal Medicine 11/13/22 documented as of this encounter
[2025-03-13 11:32] LABS: Hematocrit 41.8 % (42.0-52.0); Hemoglobin 13.5 g/dl (14.0-18.0); Mean Corpuscular HGB Conc 32.3 g/dl (31.0-36.0); Mean Corpuscular Hemoglobin 27.8 pg (27.0-33.0); Mean Corpuscular Volume 86.0 fL (80.0-98.0); NRBC Abs Auto 0.000 X10*3/uL (0.0-0.012); NRBC Pct Auto 0.0 /100WBC (0.0-0.2); Platelet Count 220 X10*3/uL (160-400); Red Blood Count 4.86 X10*6/uL (4.60-5.80); White Blood Count 6.8 X10*3/uL (4.8-10.8)
[2025-03-13 11:40] LABS: Hemoglobin A1C 150.8786 umol/L; Total Hemoglobin (HGBA1C) 3582.5441 umol/L
[2025-03-13 12:06] LABS: Alanine Aminotransferase 20 U/L (0-40); Albumin Level 4.5 g/dL (3.5-5.0); Alkaline Phosphatase 86 U/L (39-117); Anion Gap 13 (12-20); Aspartate Amino Transferase 23 U/L (5-37); Blood Urea Nitrogen 10 mg/dL (9-16); Calcium 9.2 mg/dL (8.4-10.2); Carbon Dioxide 25 mmol/L (22-29); Chloride 108 mmol/L (96-108); Cholesterol 150 mg/dL (<200); Estimated Glomerular Filt Rate > 60; Free T4 (Free Thyroxine) 1.13 ng/dL (0.71-1.85); HDL Cholesterol 45 mg/dL (>40); Potassium 3.9 mmol/L (3.3-5.1); Sodium 142 mmol/L (135-145); Thyroid Stimulating Hormone 3.79 uIU/mL (0.32-4.0); Total Protein 7.7 g/dL (6.5-8.0); Triglycerides 90 mg/dL (<150)
[2025-03-13 12:21] LABS: Prostate Specific Antigen 0.94 ng/mL (<0.05-4.0)
[2025-03-13 13:12] LABS: CT PCR Urine NOT DETECTED (Not Detect.); NG PCR Urine NOT DETECTED (Not Detect.)
[2025-03-14 03:31] LABS: Syphilis Screen Nonreactive (Nonreactive)
[2025-03-14 03:43] LABS: HBsAGNum1 0.41 S/CO (0.00-0.99); HIV Num 1 0.06 S/CO (0.00-0.99); Hepatitis B Surface Antigen Negative (Negative); ~HepC Num1 0.11 S/CO (0.00-0.79); ~Hepatitis C Antibody Nonreactive (Nonreactive)
== END 2025-03-13 08:47 | disposition home or self-care (01) ==
LOC: HO.HHCL 08:46
PROVIDERS: PCP Student in an Organized Health Care Education/Training Program; Visit Provider Student in an Organized Health Care Education/Training Program
DX: Z00.00 Encounter for general adult medical examination without abnormal findings (principal); Z12.5 Encounter for screening for malignant neoplasm of prostate; Z13.6 Encounter for screening for cardiovascular disorders; Z13.1 Encounter for screening for diabetes mellitus; Z11.59 Encounter for screening for other viral diseases; Z11.4 Encounter for screening for human immunodeficiency virus [HIV]
CPT/HCPCS: 80053; 80061; 83036; 84153; 84439; 84443; 85027; 86780; 86803; 87340; 87389; 87491; 87591

== ENCOUNTER 2025-03-24 13:27 | Outpatient (REF) | payer OTHER, SELFPAY ==
--- NOTE | ~2025-03-24 | US_ITS ---
EXAMINATION: US KIDNEY BILATERAL HISTORY: N20.0 - Calculus of kidney TECHNIQUE: Real-time grayscale ultrasound imaging of the kidneys was performed and images were reviewed. COMPARISON: Comparison is made with the prior examination dated 06/10/2023. FINDINGS: Right kidney: The right kidney measures 11.6 x 4.7 x 6.0 cm. Renal parenchymal echotexture and thickness are normal. Multiple cysts are noted including an upper pole cyst measuring 5.9 x 4.7 x 5.2 cm and lower pole cysts measuring 4.4 x 4.5 x 4.7 cm and 1.1 x 1.1 x 1.2 cm. There is no hydronephrosis or renal calculi. Left Kidney: The left kidney measures 10.6 x 6.2 x 5.5 cm. Renal parenchymal echotexture and thickness are normal. There is a lower pole cyst measuring 2.2 x 1.9 x 2.0 cm. There is no hydronephrosis or renal calculi. US/US renal BI IMPRESSION: Bilateral renal cysts as described. Otherwise unremarkable renal ultrasound. Electronically signed by: Ranjeet Drake MD 03/24/2025 02:25 PM EDT
--- OUTSIDE RECORDS SUMMARY | 2025-03-24 13:32 | XMS_ITS | Clinical Summary ---
Author Organization [employer] Address [address] [facility] [address] [place] [address] Care Team Providers Care Power Line Installer And Repairer Name Role Phone Malinda Flowers MD Primary Care Pro vider Allergies Active Allergy Reactions Criticality Noted Date Comments Aspirin Rash Low 11/12/2016 PT tolerates NSAIDS as ibuprofen and celecoxib Lisinopril Angioedema 03/10/2024 Medications acetaminophen (Tylenol) 500 MG tablet Take by mouth. Activ e levothyroxine (Synthroid, Levoxyl) 112 MCG tablet TAKE 1 TABLET BY MOUTH EVERY DAY IN THE MORNING 90 tablet 1 11/23/19 25 Active EPINEPHrine (Epipen) 0.3 MG/0.3ML injection syringeIndicat ions:Angioedem a, sequela Inject 0.3 mL (0.3 mg) as directed 1 (one) time if needed for anaphylaxis for up to 1 dose. Inject into upper leg. Call 911 after use. 1 each 2 01/20/20 25 Active metoprolol succinate XL (Toprol-XL) 25 MG 24 hr tablet TAKE 1 TABLET (25 MG) BY MOUTH ONCE PER DAY. DO NOT CRUSH OR CHEW. 90 tablet 03/16/20 25 Active metFORMIN (Glucophage) 500 MG tabletIndicati ons:Type 2 Diabetes Mellitus Take 1 tablet (500 mg) by mouth Once per day. 90 tablet 03/16/20 25 026 Active metoprolol succinate XL (Toprol-XL) 25 MG 24 hr tablet TAKE 1 TABLET (25 MG) BY MOUTH ONCE PER DAY. DO NOT CRUSH OR CHEW. 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 --evaluated for chronic anemia w no [...] close to normal -pt will call his baseball player's office to check if due x f up apt Assessment & Plan (12/04/2022 10:14 PM EDT): Pt w hx of chronic anemia in eval with hematology -had complete workup done w no obvious cause -had colonoscopy -last 2015 w no source of bleeding and neg stool occult blood -pt will call his baseball player's office to check if due x f up apt Overweight (BMI 25.0-29.9) 12/04/2022 Assessment & Plan (01/02/2023 9:32 PM EDT): Advised pt to improve diet and exercise,discussed healthy life style -discussed movie shot cameraman referral --refusing x now Assessment & Plan (12/04/2022 10:17 PM EDT): Advised pt to improve diet and exercise,discussed healthy life style -discussed movie shot cameraman referral --refusing x now Obstructive sleep apnea [...] Problem Noted Date Diagnosed Date Resolved Date Orthostatic hypotension 01/14/202403/06 Syncope 07/16/2023 01/14/2024 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 04/17/2023 [...] year w cards---pt will call to his stock sheets cleaner inspector to check if due x f up [...] year w cards---pt will call to his stock sheets cleaner inspector to check if due x f up Chronic low back pain 04/06/20122022 Impaired fasting glucose 04/06/201207/2022 Hepatitis B carrier 11/13/2010 12/05/19 23 Encounters Date Type Department Care Team Description 03/16/2025 9:30 AM EDT Office Visit [facility] [address] [place] [address] Malinda Flowers MD Prediabetes (Primary Dx); Postablative hypothyroidism; Health care maintenance; Primary osteoarthritis of right hip 03/16/2025 Travel 03/16/2025 Refill [facility] [address] [place] [address] Malinda Flowers MD 03/15/[address] [facility] [address] [place] [address] Malinda Flowers MD chart prep 03/14/2025 Telephone [facility] ADULT DENTAL [address] [place] [address] Albin Beavers DDS 01/27/2025 8:00 AM EDT Office Visit [facility] ADULT DENTAL [address] [place] [address] Kayla Hannah Dental caries (Primary Dx) 01/26/2025 Travel 01/23/2025 Results Follow-Up [facility] [address] [place] [address] Malinda Flowers MD XR Knee 3 Views Left, Chlamydia/Trichomonas/ Neisseria gonorrhoeae, PCR, Urine, CBC, Additional followed-up results: 6 01/20/2025 2:00 PM EDT Office Visit [facility] ADULT DENTAL [address] [place] [address] Kayla Hannah Periodontal disease (Primary Dx) 01/19/2025 9:00 AM EDT Office Visit [facility] [address] [place] [address] Malinda Flowers MD Chronic pain of left knee (Primary Dx); Angioedema, sequela; Annual physical exam; Postablative hypothyroidism; Health care maintenance 01/19/2025 Travel 01/18/[address] [facility] [address] [place] [address] Malinda Flowers MD CHART PREP 01/16/2025 8:00 AM EDT Office Visit [facility] ADULT DENTAL [address] [place] [address] Kayla Hannah Excessive attrition of teeth (Primary Dx); Non-carious lesion at cervical margin of tooth; Periodontal disease; Missing teeth, acquired; Dental plaque; Dental caries; Dental calculus; Gingival bleeding 01/12/2025 Patient Outreach [facility] [address] [place] [address] Malinda Flowers MD 01/12/2025 Patient Outreach [facility] [address] [place] [address] Malinda Flowers MD Pre-visit Planning (SDOH was already completed) from Last 3 Months Immunizations Immunization Administration [...] Sign Reading Time Taken Comments Blood Pressure 138/88 03/16/2025 9:38 AM EDT Pulse 88 03/16/2025 9:38 AM EDT Temperature 36 C (96.8 F) 03/16/2025 9:38 AM EDT Respiratory Rate 20 03/16/2025 9:38 AM EDT Oxygen Saturation 95% 03/16/2025 9:38 AM EDT Inhaled Oxygen Concentration - - Weight 83.1 kg (183 lb 3.2 oz) 03/16/2025 9:38 A M EDT Height 167.6 cm (5' 6 ) 03/16/2025 9:38 AM EDT Body Mass Index 29.57 03/16/2025 9:38 AM EDT Plan of Treatment Upcoming Encounters Date Type Department Care Team (Late st Contact Info) Description 03/28/2025 9:30 AM EDT Office Visit [facility] ADULT DENTAL [address] [place] [address] 04/03/2025 8:00 AM EDT Office Visit [facility] ADULT DENT[facility] [address] [place] [address] 06/20/2025 11:00 AM EST Office Visit [facility] OPTOMETRY [address] [place], [place] [phone] TarLaury tee, OD [address] [place] [address] Health Maintenance Due Date Last Done Comments CT Colonography 1950 FIT DNA/Cologuard 1950 FIT 1950 Sigmoidoscopy 1950 FOBT 04/16/2024 04/16/2023 COVID-19 Vaccine ( season) 2025 07/14/2022, 10/09/2020, 09/11/2020 Influenza Vaccine (#1) 2025 , 07/14/2022, 03/29/2018, Additional history exists Dental Oral Exam 07/20/2025 01/16/2025 Dental Prophylaxis 07/20/2025 01/16/2025 SDOH Screening 10/18/2025 10/18/2024 Alcohol/Substance Use Screening 10/27/2025 10/27/2024 Colonoscopy 11/27/2025 11/28/2015 Colorectal Cancer Screening 11/27/2025 Dental X-Ray: Bitewings 01/17/2026 01/16/2025 Depression Screening 01/19/2026 01/19/2025, 01/20/20 Diabetes: Hemoglobin A1C 03/13/2026 025, 03/08/2024, 12/05/2022, Additional history exists Tobacco Screening 03/16/2026 03/16/2025 Dental X-Ray: Full Mouth 01/18/2028 01/16/2025 Lipid Panel 03/13/2030 03/13/2025, 0909/2023, 12/05/2022, Additional history exists DTaP/Tdap/Td Vaccines (3 - Td or Tdap) 08/26/2030 08/26/2020, 04/06/2012, 11/11/2006 Pneumococcal Vaccine: 50+ Years Completed 01/13/2023, 12/04/2022, 11/07/2021, Additional history exists Zoster Vaccines Completed 08/12/2023, 03/06/2022 RSV Patients and Patients Aged 60 years or older Completed 04/13/2024 Hepatitis C Screening Completed 03/13/2025, 023 HIB Vaccines Aged Out No longer eligi [...] Procedure Name Priority Date/Time Associated Diagnosis Comments PSA, TOTAL Routine 03/13/2025 8:53 AM EDT Annual physical exam T4, FREE Routine 03/13/2025 8:53 AM EDT Annual physical exam TSH Routine 03/13/2025 8:53 AM EDT Annual physical exam LIPID PANEL, STANDARD Routine 03/13/2025 8:53 AM EDT Annual physical exam SYPHILIS SCREEN Routine 03/13/2025 8:53 AM EDT Annual physical exam HIV 1/2 ANTIGEN/ANTIBODY, FOURTH GENERATION W/RFL Routine 03/13/2025 8:53 AM EDT Annual physical exam HEPATITIS C AB W/REFL TO HCV RNA, QN, PCR Routine 03/13/2025 8:53 AM EDT Annual physical exam HEPATITIS B SURFACE ANTIGEN, EIA Routine 03/13/2025 8:53 AM EDT Annual physical exam HEMOGLOBIN A1C Routine 03/13/2025 8:53 AM EDT Annual physical exam COMPREHENSIVE METABOLIC PANEL Routine 03/13/2025 8:53 AM EDT Annual physical exam CBC Routine 03/13/2025 8:53 AM EDT Annual physical exam CHLAMYDIA/TRICHOMONAS/ NEISSERIA GONORRHOEAE, PCR, URINE Routine 03/13/2025 8:53 AM EDT Annual physical exam CYTOPATH-CELL ENHANCED Routine 4:50 PM EDT CULTURE, [...] AMALGAM FILLING Routine 01/16/2025 12:00 AM EDT POCT OCCULT BLOOD BY PEROXID,FECES,1-3 NON CA SCREEN Routine 04/16/2023 2:24 PM EDT Iron deficiency anemia, unspecified iron deficiency anemia type HM COLONOSCOPY Routine 11/28/2015 2:35 PM EDT from Last 3 Months or Most Recently Relevant to Health Maintenance Results * Chlamydia/Trichomonas/Neisseria gonorrhoeae, PCR, Urine (03/13/2025 8:53 AM EDT) Pathologist [facility] CT PCR, Urine NOT DETECTED Not Detect. [facility] Comment:A not detected test result does not exclude the possibilityof infection because test results can be affected byimproper specimen collection, concurrent antibiotic therapy,or the number of organisms in the specimen which may bebelow the sensitivity of the test. As with many diagnostictests, results from the Xpert CT/NG assay should beinterpreted in conjunction with other laboratory andclinical data available to the clinician.The Xpert CT/NG assay should not be used for the evaluationof suspected sexual abuse or for other medico-legalindications. Additional testing is recommended in anycircumstance when false positive or false negative resultscould lead to adverse medical, social or psychologicalconsequences. NG PCR, Urine NOT DETECTED Not Detect. [facility] Comment:A not detected test result does not exclude the possibilityof infection because test results can be affected byimproper specimen collection, concurrent antibiotic therapy,or the number of organisms in the specimen which may bebelow the sensitivity of the test. As with many diagnostictests, results from the Xpert CT/NG assay should beinterpreted in conjunction with other laboratory andclinical data available to the clinician.The Xpert CT/NG assay should not be used for the evaluationof suspected sexual abuse or for other medico-legalindications. Additional testing is recommended in anycircumstance when false positive or false negative resultscould lead to adverse medical, social or psychologicalconsequences. Urine (Urine, Random) 03/13/2025 8:53 AM EDT 03/13/2025 11:38 AM EDT Malinda Dunbar MD LAB URINE ORDERAB LES Final Result Performing Organization Address [facility] Co de Phone Number [facility] [address] [place] [phone] * Syphilis Screen (03/13/2025 8:53 AM EDT) Syphilis Screen Nonreactive Nonreactive [facility] Blood 03/13/2025 8:53 AM EDT 03/13/2025 11:16 AM EDT Malinda Dunbar MD LAB BLOOD ORDERAB LES Final Result Performing Organization Address [facility] de Phone Number [facility] [address] [place] [phone] * Hepatitis C Antibody with Reflex to HCV, RNA, Quantitative, Real-Time PCR (03/13/2025 8:53 AM EDT) Pathologist [facility] Hepatitis C Antibody Nonreactive Nonreactive [facility] Comment:Antibodies to HCV no t detected; does not exclude early acuteHCV infection. Blood Venous blood specimen / Unknown 03/13/2025 8:53 AM EDT 03/13/2025 11:16 AM EDT us Malinda Dunbar MD LAB BLOOD ORDERAB LES Final Result Performing Organization Address [facility] Co de Phone Number [facility] [address] [place] [phone] * Hepatitis B surface antigen, EIA (03/13/2025 8:53 AM EDT) Hepatitis B Surface Ag Negative Negative [facility] Blood Venous blood specimen / Unknown 03/13/2025 8:53 AM EDT 03/13/2025 11:16 AM EDT Malinda Dunbar MD LAB BLOOD ORDERAB LES Final Result Performing Organization Address City/[facility]/ZIP Co de Phone Number [facility] [address] [place] [address] [phone] * HIV-1/2 Antigen and Antibodies, Fourth Generation, with Reflexes (03/13/2025 8:53 AM EDT) Pathologist [facility] HIV AB/AG Nonreactive Nonreactive [facility] Comment:HIV-1 p24 Ag and/or HIV-1/HIV-2 Ab not detected.A test result that is nonreactive does not exclude thepossibility of exposure to or infection with HIV-1 and/orHIV-2. Nonreactive results in this assay for individualswith prior exposure to HIV-1 and/or HIV-2 may be due toantigen and antibody levels that are below the limit ofdetection of this assay.The [employer] HIV Ag/Ab Combo assay result andsupplemental assay results should be interpreted inconjunction with the patient's clinical presentation,history and other laboratory results. If the results areinconsistent with clinical evidence, additional testing issuggested to confirm the result. Blood Venous blood specimen / Unknown 03/13/2025 8:53 AM EDT 03/13/2025 11:16 AM EDT us Malinda Dunbar MD LAB BLOOD ORDERAB LES Final Result Performing Organization Address City/[facility]/ZIP Co de Phone Number [facility] [address] [place] [address] [phone] * (ABNORMAL) CBC (03/13/2025 8:53 AM EDT) White Blood Count 6.8 4.8 - 10.8 X10*3/uL [facility] Red Blood Count 4.86 4.60 - 5.80 X10*6/uL [facility] Hemoglobin 13.5(L) 14.0 - 18.0 g/dl [facility] Hematocrit 41.8(L) 42.0 - 52.0 % [facility] Mean Corpuscular Volume 86.0 80.0 - 98.0 fL [facility] Mean Corpuscular Hemoglobin 27.8 27.0 - 33.0 pg [facility] Mean Corpuscular HGB Conc 32.3 31.0 - 36.0 g/dl [facility] Red Cell Distribution Width 13.8 11.0 - 16.0 % [facility] Platelet Count 220 160 - 400 X10*3/uL [facility] Mean Platelet Volume 10.2 9.4 - 12.4 fL [facility] NRBC Pct Auto 0.0 0.0 - 0.2 /100WBC [facility] NRBC Abs Auto 0.000 0.0 - 0.012 X10*3/uL [facility] Blood Venous blood specimen / Unknown 03/13/2025 8:53 AM EDT 03/13/2025 11:16 AM EDT us Malinda Dunbar MD LAB BLOOD ORDERAB LES Final Result Performing Organization Address [facility] Co de Phone Number [facility] [address] [place] [phone] * TSH (03/13/2025 8:53 AM EDT) Thyroid Stimulating Hormone 3.79 0.32 - 4.0 uIU/mL [facility] Comment:Note: A sustained TS H level above 2.5 uIU/mL may warrant further investigation. TSH 3rd Generation ([facility]) Blood Venous blood specimen / Unknown 03/13/2025 8:53 AM EDT 03/13/2025 11:16 AM EDT us Malinda Dunbar MD LAB BLOOD ORDERAB LES Final Result [facility] [address] [place] [phone] * T4, Free (03/13/2025 8:53 AM EDT) Free T4 (Free Thyroxine) 1.13 0.71 - 1.85 ng/dL [facility] Blood Venous blood specimen / Unknown 03/13/2025 8:53 AM EDT 03/13/2025 11:16 AM EDT us Malinda Dunbar MD LAB BLOOD ORDERAB LES Final Result [facility] [address] [place] [phone] * PSA,Total (03/13/2025 8:53 AM EDT) Prostate Specific Antigen 0.94 <0.05 - 4.0 ng/mL [facility] Comment:PSA methodology: Abb amalia Alitariqty i ChemiluminescentMicroparticle Immunoassay (CMIA) Blood Venous blood specimen / Unknown 03/13/2025 8:53 AM EDT 03/13/2025 11:16 AM EDT us Malinda Dunbar MD LAB BLOOD ORDERAB LES Final Result [facility] [address] [place] [phone] * Hemoglobin A1c (03/13/2025 8:53 AM EDT) Hemoglobin A1c 6.0 <6.0 % [facility] Comment:Hemoglobin A1C Refer ence Range Adults: 4.8 - 6.0 % Non diabetic: < 6.0 % Goal: < 7.0 %Additional Action Suggested: > 8.0 %Note: Hemoglobin A1c results are invalid for patients with abnormal amounts of HbF. Blood transfusions may impact the HbA1c concentration in the patient sample. Estimated Average Glucose 126 mg/dL [facility] Comment:eAG = Estimated ave rage glucose which is %A1C expressed asaverage glucose, using the formula of the S7R-BknulkzVchwope Glucose study (ADAG), Diabetes Care, Vol.31,#8,Feb. 2007 Blood Venous blood specimen / Unknown 03/13/2025 8:53 AM EDT 03/13/2025 11:16 AM EDT us Malinda Dunbar MD LAB BLOOD ORDERAB LES Final Result Performing Organization Address City/[facility]/ZIP Co de Phone Number [facility] [address] [place] [phone] * Lipid Panel, Standard (03/13/2025 8:53 AM EDT) Triglycerides 90 <150 mg/dL [facility] Comment:Desirable Triglyceri de: less than 150 mg/dLBorderline High Triglyceride 150-199 mg/dLHigh Triglyceride: 200-499 mg/dLVery High Triglyceride: greater than or equal to 5OO mg/dL Cholesterol 150 <200 mg/dL [facility] Comment:Desirable Cholestero l: less than 200 mg/dLBorderline High Cholesterol: 200-239 mg/dLHigh Cholesterol: greater than 239 mg/dL LDL Cholesterol Calculated 87 <100 mg/dL [facility] Comment:Desirable LDL: less than 100 mg/dLNear Optimal/Above Optimal LDL: 110- 129 mg/dLBorderline High LDL: 130-159 mg/dLHigh LDL: 160-189 mg/dLVery High LDL: greater than or equal to 190 mg/dL HDL Cholesterol 45 >40 mg/dL [facility] Comment:Desirable HDL: great er than 40 mg/dL Note: This HDL assay may give artificially low results in patients with liver disease. Blood Venous blood specimen / Unknown 03/13/2025 8:53 AM EDT 03/13/2025 11:16 AM EDT us Malinda Dunbar MD LAB BLOOD ORDERAB LES Final Result Performing Organization Address City/[facility]/ZIP Co de Phone Number [facility] [address] [place] [address] [phone] * Comprehensive Metabolic Panel (03/13/2025 8:53 AM EDT) Sodium 142 135 - 145 mmol/L [facility] Potassium 3.9 3.3 - 5.1 mmol/L [facility] Chloride 108 96 - 108 mmol/L [facility] Carbon Dioxide 25 22 - 29 mmol/L [facility] Anion Gap 13 12 - 20 [facility] Urea Nitrogen (BUN) 10 9 - 16 mg/dL [facility] Creatinine, Serum 1.16 0.5 - 1.4 mg/dL [facility] Estimated Glomerular Filt Rate >60 [facility] Comment:Chronic Kidney Disea se: Estimated GFR < 60 mL/min/1.31h5Xlexkb Kidney Disease: Estimated GFR < 15 mL/min/1.73m2 Glucose 92 60 - 115 mg/dL [facility] Calcium 9.2 8.4 - 10.2 mg/dL [facility] Bilirubin, Total 0.4 0.0 - 1.0 mg/dL [facility] Aspartate Amino Transferase 23 5 - 37 U/L [facility] Alanine Aminotransferase 20 0 - 40 U/L [facility] Total Protein 7.7 6.5 - 8.0 g/dL [facility] Albumin Level 4.5 3.5 - 5.0 g/dL [facility] Alkaline Phosphatase 86 39 - 117 U/L [facility] Blood Venous blood specimen / Unknown 03/13/2025 8:53 AM EDT 03/13/2025 11:16 AM EDT us Malinda Dunbar MD LAB BLOOD ORDERAB LES Final Result [facility] [address] [place] [phone] * Cytopath-cell enhanced (01/31/2025 4:50 PM EDT) 01/31/2025 4:50 PM EDT 02/01/2025 9:41 AM EDT Henrik [facility] - 02/01/2025 4:06 PM EDT ----- ------- Name: Josh Asif Age/Sex: 74/M : 1950 Unit#: [id number] Attend Dr: Giselle Batista [facility] Re01/31/25 Status: [facility] ----- ------- SPEC : [id number] RECD: 02/01/25 STATUS: STEPH STERNJimenez NUM: [id number] MARTHA: 01/31/[address] [facility] [address]: Giselle Batista [facility] ENTERED: 02/01/25 SP TYPE: Cytology OT DR: Malinda Flowers MD ORDERED: Cyto-enhanced Diagnosis [...] developed and their performance characteristics determined by [facility]. They have not been cleared or approved by the U.S. Food and Drug Administration (FDA). However, the FDA has determined that such clearance or approval is not necessary. This laboratory is certified under the Clinical Laboratory Improvement Amendments of 1988 (CLIA) as qualified to perform high complexity clinical laboratory testing. Copies To: Giselle Batista [facility] [address] [place] [address] [address] [place] [address] [email or web address] Malinda Flowers MD [address] [place] [phone] CONTINUED ON NEXT PAGE ----- ------- Name: Josh Asif Age/Sex: 74/M : 1950 Unit#: [id number] Attend Dr: Giselle Batista [facility] Re01/31/25 Status: DEP [facility]F [facility] ----- ------- SPEC : [id number] RECD: 02/01/25 STATUS: STEPH CALABRESE NUM: [id number] MARTHA: 01/31/[address] [facility] [address]: Giselle Batista [facility] ENTERED: 02/01/25 SP TYPE: Cytology OTHR DR: Malinda Flowers MD ORDERED: Cyto-enhanced ----- ------- Signed (signature on file) Morgan Hrecules MD 02/01/25 1606 ----- ------- END OF REPORT Generic External Data Provider LAB CYTOLOGY ORDE RABLES Final Result Performing Organization Address [facility] Co de Phone Number [facility] [address] [place] [phone] * Culture, Urine, Routine (01/31/2025 12:55 PM EDT) Urine Urine specimen obtained by clean catch procedure / Unknown 01/31/2025 12:55 PM EDT 01/31/2025 4:51 PM EDT Comment:[facility] Narrative [facility] - 02/02/2025 10:14 AM EDT Urine Culture No growth. Specimen Source: Urine clean catch [employer] External Data Provider LAB MICROBIOLOGY - GENERAL ORDERABLES Final Result Performing Organization Address [facility] de Phone Number [facility] [address], [place] [phone] * XR Knee 3 Views Left (01/23/2025 8:27 AM EDT) Anatomical Region Laterality Modality Lower Extremities, Knee Left Radiogra phic Imaging 01/23/2025 8:27 AM EDT Narrative 01/23/2025 9:45 AM EDT [facility] [address] [place] [address] XRay Report Signed Patient: Josh Asif MR#: [id number] : 1950 Acct:[id number] Age/Sex: 74 / M ADM Date: 01/23/25 Loc: HO.HHCX Attending Dr: Malinda Dunbar MD Ordering Physician: Malinda Flowers MD Date of Service: 01/23/25 Procedure(s): XR knee LT 3V Accession Number(s): [id number] cc: Malinda Flowers MD EXAMINATION: XR KNEE [...] Ranjeet Drake MD 01/23/2025 09:41 AM EDT RP Dictated By: Ranjeet Drake MD Signed By: <Electronically signed by Ranjeet Drake MD in OV> 01/23/25 0941 DD/ 0827 TD/TT: 01/23/25 09 Cook Cold Meat: Procedure Note Donotuseinterpreter, Image - 01/23/2025 [facility] [address] [place] [address] XRay Report Signed Patient: Josh AsifMR#: [id number] : 1950cct:[id number] Age/Sex: 74 / MADM Date: 01/23/25 Loc: HO.HHCX Attending Dr: Malinda Dunbar MD Ordering Physician: Malinda Flowers MD Date of Service: 01/23/25 Procedure(s): XR knee LT 3V Accession Number(s): [id number] cc: Malinda Flowers MD EXAMINATION: XR KNEE [...] Ranjeet Drake MD 01/23/2025 09:41 AM EDT RP Dictated By: Ranjeet Drake MD Signed By: <Electronically signed by Ranjeet Drake MD in OV> 01/23/25 0941 DD/ 0827 TD/TT: 01/23/25 0900 [employer]: Malinda Dunbar MD IMG XR PROCEDURES Final Result * POCT Occult Blood by Peroxid, Feces, 1-3 Non CA Screen (04/16/2023 2:24 PM EDT) Fecal Occult Blood 1 Negative QC Media Lot # [id number] Lot# Expiration Date [id number] Stool 04/16/2023 2:24 PM EDT Malinda Dunbar MD POINT OF CARE SKIP T ENTER/EDIT ORDERABLES Final Result * Colonoscopy (11/28/2015 2:35 PM EDT) Historical Provider HEALTH MAINTENANCE Final Result from Last 3 Months or Most Recently Relevant to Health Maintenance Insurance [facility] STANDARD [facility] PRISON OPTIONS (HMO D-SNP) [facility] Care Teams Power Line Installer And Repairer Relationship Specialty Start Date End Date Malinda Flowers MD [address] [place] [id number] PCP - General Internal Medicine 11/13/22
--- OUTSIDE RECORDS SUMMARY | 2025-03-24 13:32 | XMS_ITS | Encounter Summary ---
Author Organization [employer] Address [address] [facility] 7t [place] [address] Care Team Providers Care Stave Machine Tender Name Role Phone Malinda Flowers MD Primary Care Pro vider Encounter Details Date Type Department Care Team (Late st Contact Info) Description 10/27/2023 Orders Only [facility] MEDICINE [address] [place] [address] ProviderJose MD Social History Tobacco Use Types [...] Description 03/28/2025 9:30 AM EDT Office Visit [facility] ADULT DENTAL [address] [place] [address] 04/03/2025 8:00 AM EDT Office Visit [facility] ADULT DENTAL [address] [place] [address] 06/20/2025 11:00 AM EST Office Visit [facility] OPTOMETRY [address] [place], [place] [id number] Tarka, Laury, OD [address] [place] [address] documented as of this encounter Procedures Procedure [...] documented as of this encounter Care Teams Stave Machine Tender Relationship Specialty Start Date End Date Malinda Flowers MD [address] [place] [address] PCP - General Internal Medicine 11/13/22 documented as of this encounter
--- OUTSIDE RECORDS SUMMARY | 2025-03-24 13:32 | XMS_ITS | Encounter Summary ---
Author Organization [employer] Address 75 [facility] 7t [place] [address] Care Team Providers Care Cabin Furnishings Installer Name Role Phone Malinda Flowers MD Primary Care Pro vider Encounter Details Date Type Department Care Team ([facility] st Contact Info) Description 01/23/2025 Results Follow-Up [facility] MED[facility]INE [address] [place] [address] Malinda Flowers MD [address] [place] [address] XR Knee 3 Views Left, Chlamydia/Trichomona s/Neisseria gonorrhoeae, PCR, Urine, CBC, Additional followed-up results: 6 Social History Tobacco Use Types Packs/Day Years [...] the past 12 months, has t he [employer] gas, oil or water company threatened to [...] as of this encounter Miscellaneous Notes * Result Encounter Note - Malinda Dunbar MD - 03/13/2025 3:54 PM EDT Please call patient to advise to come to already scheduled apt with me to go over abnormal labs Thanks documented in this encounter Plan of Treatment Upcoming Encounters Date Type Department Care Team (Late st Contact Info) Description 03/28/2025 9:30 AM EDT Office Visit [facility] ADULT DENTAL [address] [place] [address] 04/03/2025 8:00 AM EDT Office Visit [facility] ADULT DENTAL [address] [place] [address] 06/20/2025 11:00 AM EST Office Visit [facility] OPTOMETRY [address] [place] [address] Laury Ceballos, OD [address] [place] [address] documented as of this encounter Visit Diagnoses Not on filedocumented in this encounter Additional Health Concerns Assessment Noted Time PHQ-9 Depression Total Score: 0 01/20/20 25 9:04 AM EDT documented as of this encounter Care Teams Cabin Furnishings Installer Relationship Specialty Start Date End Date Malinda Flowers MD [address] [place] [id number] PCP - General Internal Medicine 11/13/22 documented as of this encounter
--- OUTSIDE RECORDS SUMMARY | 2025-03-24 13:32 | XMS_ITS | Encounter Summary ---
Author Organization [employer] Address 75 [facility] 7t [place] [address] Care Team Providers Care Supervisor Body Assembly Name Role Phone Malinda Flowers MD Primary Care Pro vider Encounter Details Date Type Department Care Team ([facility] st Contact Info) Description 12/17/2022 Abstract [facility] MED[facility]INE [address] [place] [address] Malinda Flowers MD [address] [place] [address] Social History Tobacco Use Types Packs/Day Years [...] Description 03/28/2025 9:30 AM EDT Office Visit [facility] ADULT DENTAL [address] [place] [address] 04/03/2025 8:00 AM EDT Office Visit [facility] ADULT DENTAL [address] [place] [address] 06/20/2025 11:00 AM EST Office Visit [facility] OPTOMETRY [address] [place] [address] Tarka, Laury, OD [address] [place] [address] documented as of this encounter Visit Diagnoses Not on filedocumented in this encounter Additional Health Concerns Assessment Noted Time PHQ-9 Depression Total Score: 0 12/05/19 9:34 AM EDT documented as of this encounter Care Teams Supervisor Body Assembly Relationship Specialty Start Date End Date Malinda Flowers MD [address] [place] [address] PCP - General Internal Medicine 11/13/22 documented as of this encounter
== END 2025-03-24 13:28 | disposition home or self-care (01) ==
LOC: HO.US 13:27
PROVIDERS: PCP Student in an Organized Health Care Education/Training Program; Visit Provider Nurse Practitioner Family
DX: N20.0 Calculus of kidney (principal)
CPT/HCPCS: 76775

== ENCOUNTER → 2025-03-24 13:29 | Outpatient (BNV) | payer OTHER, SELFPAY | PROVIDERS: PCP Student in an Organized Health Care Education/Training Program; Visit Provider Radiology Diagnostic Radiology | DX: N28.1 Cyst of kidney, acquired (principal) | CPT/HCPCS: 76775 ==

== ENCOUNTER 2025-04-10 14:43 | Outpatient (REF) | payer OTHER, SELFPAY | END 2025-04-10 14:44 | disposition home or self-care (01) | LOC: HO.LAB 14:43 | PROVIDERS: PCP Student in an Organized Health Care Education/Training Program; Visit Provider Nurse Practitioner Family | DX: N20.0 Calculus of kidney (principal); N28.1 Cyst of kidney, acquired; R31.29 Other microscopic hematuria; N50.82 Scrotal pain; N52.9 Male erectile dysfunction, unspecified; Z13.89 Encounter for screening for other disorder | CPT/HCPCS: 81003; 88112; 99212 ==

== ENCOUNTER 2025-04-10 14:43 | Outpatient (AMB) | payer OTHER, SELFPAY ==
--- NOTE | 2025-04-10 14:50 | MHC.OFFVIS ---
Intake Visit Reasons: follow up Intake Note: Patient is present for F/U Urology Medication:NONE Antibiotic Allergy:NONE Blood Thinner:NONE Digital Program Manager Required: No Allergies aspirin (ASPIRIN) Allergy (Intermediate, Verified 04/10/25 21:01) SWELLING, rash lisinopril Adverse Reaction (Severe, Verified 04/10/25 21:01) Angioedema Medication List - Last Reconciled 04/10/25 by GUZMAN Rivera-MARGARET celecoxib (Celebrex) 200 mg PO BID 30 days levothyroxine 112 mcg PO QAM metoprolol succinate ER 25 mg PO QAM tadalafil (Cialis) 20 mg PO DAILY PRN 30 days HPI Comments Details: Josh is a very pleasant 73-year-old [place]-speaking male patient of Dr. Frank Dunbar. 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 He presents to the office today for follow-up of his microscopic hematuria, nephrolithiasis, and erectile dysfunction. Patient was last seen over a year ago. In discussion with the patient today reports having lost follow-up as he felt flank pain he had been experiencing as well as scrotal discomfort subsided shortly after his last appointment. He reports most recently he has been experiencing issues with erectile dysfunction in therefore schedule an appointment to review. Although patient reporting flank pain he had been experiencing has since subsided as well as scrotal discomfort we reviewed imaging that was ordered and performed since last office visit. CT urogram 11/26 bilateral kidneys are normal in size, shape, and attenuation. To calculi are present in the lower pole of the left kidney with the largest measuring 3 mm in size. No hydronephrosis, hydroureter, or right-sided ureteral calculi are seen. No perinephric stranding. The bladder is noted with some irregularity at the bladder base per radiology report. However, patient with most recent renal ultrasound 03/30 that noted no hydronephrosis or renal calculi. However bilateral renal cysts otherwise unremarkable renal ultrasound per radiology report. Previous scrotal ultrasound results 09/26 small right intratesticular cysts measuring 2 mm left epididymal head cyst otherwise no abnormalities noted per radiology report. In office urinalysis results reviewed with the patient today. We discussed microscopic hematuria. Previous urine cytology results 08/29 & 01/27 Negative for high-grade urothelial carcinoma. When asked he does reported history of nicotine dependence however quit in March 2023. He reports smoking intermittently throughout his life for approximately a total of 6 years. He otherwise denies any bothersome urinary issues. He denies urinary urgency, urinary frequency, incontinence, nocturia, hematuria, dysuria, foul smelling urine, changes to urinary stream, fever, and or chills. He reports ED has been present for many years however feels over the last 6 months symptoms are worsening. He is able to obtain erection however finds maintaining erections to be difficult. We did discussed at length potential causes of nephrolithiasis, ED, microscopic hematuria, and previous scrotal discomfort patient was experiencing. We did discuss further treatment options and risks and benefits of these treatment options. I discussed reasons for blood in the urine may include but are not limited to kidney stones, cancer in the urinary tract, BPH, kidney stone disease or inflammatory conditions of the urinary tract. I have discussed workup to include cystoscopy evaluation. He otherwise offers no other issues or concerns at this time. PSAs are as follows: 03/29 0.6, 03/30 0.9 PFSH Medical History Graves disease CARLITOS positive Syncope Degenerative joint disease of right hip Degenerative joint disease of left hip Abscess of scalp VIJI (obstructive sleep apnea) NICM (nonischemic cardiomyopathy) Urolithiasis Hypothyroidism Anemia HTN (hypertension) Surgical History History of hip replacement H/O colonoscopy Family History Father No problems noted. Mother No problems noted. 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[employer] Review of Systems Const Reports no additional complaints Eyes Reports no additional complaints ENT Reports no additional complaints Card Reports as per HPI Resp Reports as per HPI GI Reports no additional complaints Reports as per [facility] Musc Reports as per [facility] Neuro Reports no additional complaints Psych Reports no additional complaints Endo Reports no additional complaints Usman/Lymph Reports as per HPI Aller/Immun Reports no additional complaints Physical Exam Const General: cooperative, healthy appearing, comfortable, no acute distress, well developed, alert and awake Orientation/consciousness: patient oriented x3 Limitations: no limitations HEENT Head: Yes normal to inspection, Yes normocephalic and Yes atraumatic Ears: hearing grossly normal bilaterally Eyes General: appearance normal, both eyes and all related structures Neck Neck: Yes normal visual inspection and Yes trachea midline Chest Chest palpation & inspection: normal inspection of the chest Resp Effort & Inspection: normal respiratory effort and able to speak in complete sentences Cardio Rate: regular rate GI Inspection: Yes normal to inspection General: Yes no CVA tenderness Back/Spine/Pelvis Back: no CVA tenderness Skin General skin exam: no rashes or lesions noted Neuro General: patient oriented x3 Extrem General: Yes normal to inspection Psych Appearance: grossly normal and well kempt Mental Status: mental status grossly normal Speech and movement: Normal speech and movement present and Clear speech present Affect: normal affect Attitude: cooperative Thought process: Normal thought process present Thought content: Normal thought content present Insight: Fair insight present (Psych) Judgement: Fair judgement present (Psych) Results AMB Urinalysis, Automated UA Leukoctes 0 Susana/uL Last Edit by ROSI Castellanos on 04/10/25 15:43 UA Nitrite Negative Last Edit by ROSI Castellanos on 04/10/25 15:43 UA Urobilinogen 0.2 mg/dL Last Edit by ROSI Castellanos on 04/10/25 15:43 UA Protein 0 mg/dL Last Edit by ROSI Castellanos on 04/10/25 15:43 UA pH 6.0 Last Edit by ROSI Castellanos on 04/10/25 15:43 UA Blood 200 Ike/uL Last Edit by ROSI Castellanos on 04/10/25 15:43 UA Specific [place] 1.020 Last Edit by ROSI Castellanos on 04/10/25 15:43 UA Ketone Negative Last Edit by ROSI Castellanos on 04/10/25 15:43 UA Bilirubin 0 mg/dL Last Edit by ROSI Castellanos on 04/10/25 15:43 UA Glucose 0 mg/dL Last Edit by ROSI Castellanos on 04/10/25 15:43 Results Reviewed Results Reviewed: Laboratory Last Values Urine pH (Auto) 6.0 04/10/25 15:39 Specific [place] (Auto) 1.020 04/10/25 15:39 Urine Protein (Auto) 0 mg/dL 04/10/25 15:39 Glucose (UA)(Auto) 0 mg/dL 04/10/25 15:39 Urine Ketones (Auto) Negative 04/10/25 15:39 Urine Blood (Auto) 200 Ike/uL 04/10/25 15:39 Urine Nitrite (Auto) Negative 04/10/25 15:39 Urine Bilirubin (Auto) 0 mg/dL 04/10/25 15:39 Urine Urobilinogen (Auto) 0.2 mg/dL 04/10/25 15:39 Leukocyte Esterase (Auto) 0 Susana/uL 04/10/25 15:39 Date of Service: 03/24/25 Procedure(s): US renal BI FINDINGS: Right kidney: The right kidney measures 11.6 x 4.7 x 6.0 cm. Renal parenchymal echotexture and thickness are normal. Multiple cysts are noted including an upper pole cyst measuring 5.9 x 4.7 x 5.2 cm and lower pole cysts measuring 4.4 x 4.5 x 4.7 cm and 1.1 x 1.1 x 1.2 cm. There is no hydronephrosis or renal calculi. Left Kidney: The left kidney measures 10.6 x 6.2 x 5.5 cm. Renal parenchymal echotexture and thickness are normal. There is a lower pole cyst measuring 2.2 x 1.9 x 2.0 cm. There is no hydronephrosis or renal calculi. IMPRESSION: Bilateral renal cysts as described. Otherwise unremarkable renal ultrasound. Date of Service: 12/03/23 Procedure(s): CT urogram FINDINGS: LUNG BASES: The visualized lung bases are unremarkable. LIVER, GALLBLADDER, AND BILIARY TREE: The liver is normal in size, shape, and attenuation. No focal hepatic lesion or biliary ductal dilatation is present. The gallbladder is unremarkable with no evidence of radiopaque gallstones, gallbladder wall thickening, or obvious pericholecystic inflammatory changes. PANCREAS: Unremarkable. SPLEEN: Unremarkable. ADRENAL GLANDS: Unremarkable. There is mild thickening of the lateral limb of the left adrenal without discrete mass. KIDNEYS AND URETERS: The kidneys are normal in size, shape, and attenuation. 2 calculi are present in the lower pole of the left kidney with the largest measuring 3 mm in size. This measures approximately 700 Hounsfield units and is 9.6 cm from posterior axillary line. No hydronephrosis, hydroureter, or right-sided or ureteral calculi seen. No perinephric stranding. BLADDER: Some mild irregularity seen at the bladder base (9:536). No other bladder abnormality is seen. GASTROINTESTINAL TRACT: The small and large bowel are unremarkable. The appendix is unremarkable. ABDOMINAL WALL: No significant hernia is appreciated. Tiny left inguinal hernia seen containing only fat. LYMPH NODES: Retroperitoneal lymphadenopathy. VASCULAR: Unremarkable. PELVIC VISCERA: Mildly prominent prostate with normal-appearing seminal vesicles. Detail is obscured by artifact from the right hip prosthesis. OSSEUS STRUCTURES: Mild degenerative changes in the spine. Right total hip prosthesis. IMPRESSION: 1. Nonobstructing left lower pole renal calculi. 2. Mild irregularity at the bladder base. Cystoscopy may be useful for further evaluation. Date of Service: 09/07/23 Procedure(s): US scrotum FINDINGS: RIGHT: Right testicle measures 3.3 x 2.2 x 2.7 cm, volume 10.2 mL. Small intratesticular cyst measures 0.2 x 0.2 x 0.2 cm. Spectral Doppler analysis of the arterial and venous flow is normal in the right testis. Right epididymal head is normal in size. No right hydrocele or varicocele is seen. Right epididymal Doppler flow is normal. LEFT: Left testicle measures 4.2 x 1.9 x 2.8 cm, volume 11.7 mL. No focal testicular parenchymal lesions are visualized. Spectral Doppler analysis of the arterial and venous flow is normal in the left testis. Left testicular appendix. Left epididymal head cyst measures 0.5 x 0.4 x 0.4 cm. No left hydrocele or varicocele is seen. Left epididymal Doppler flow is normal. IMPRESSION: Small right intratesticular cyst measuring 2 mm. Left epididymal head cyst. Left testicular appendix. Assessment & Plan Assessment & Plan (1) Nephrolithiasis: Code(s): N20.0 - Calculus of kidney Category: Medical (2) Renal cyst: Code(s): N28.1 - Cyst of kidney, acquired Category: Medical (3) Microscopic hematuria: Code(s): R31.29 - Other microscopic hematuria Category: Medical (4) Scrotal pain: Code(s): N50.82 - Scrotal pain Category: Medical (5) Erectile dysfunction: Code(s): N52.9 - Male erectile dysfunction, unspecified Category: Medical Plan In office urinalysis results with the patient today; as noted above; will send for urine cytology. We did discussed at length potential causes of nephrolithiasis, microscopic hematuria, and erectile dysfunction; we did discussed further treatment options of these urological conditions and risks and benefits of these treatment options. All questions were answered. He currently denies any bothersome urinary issues. He reports be happy with current voiding parameters. Previous CT urogram, scrotal ultrasound, and most recent renal imaging results reviewed with the patient today; as noted above. We discussed lifestyle modifications in the importance in doing so. Start Cialis 5 mg daily as discussed and prescribed. Prescription provided for p.r.n. dosing. Most recent PSA results reviewed with the patient today; as noted above. All questions were answered. Follow-up in 3 months; or sooner with any issues, concerns, and or questions. Orders: Orders AMB Urinalysis Automated Today Z13.9 - Encounter for screening, unspecified Urine Cytology Today R31.29 - Other microscopic hematuria Medications: New tadalafil (Cialis) administer approximately 30min before sexual activity; do not use more than 1 dose per 24hrs; do not exceed more than 3 times per week [id number] [facility] GroupGDR[employer] Member [id number] 20 mg PO DAILY PRN 12 tabs 0RF sexual activity 30 days Discontinued hydrocodone-acetaminophen 5-325 mg partial fill okay; Partial Fill upon patient request. Discontinued Reason: Patient Completed Course 1 tab PO Q6H PRN 10 tabs 0RF pain Patient Instructions: The patient had an opportunity to ask questions regarding the treatment plan. All questions were answered. Physical exam, labs, and imaging were discussed and reviewed in detail. As well as risks, benefits, and discussion of treatment choices. No major barriers to understanding were identified. The patient expressed understanding and agreement with the above treatment plan. The patient was made aware they should contact our office by phone for worsening of their current condition, the appearance of new symptoms, or with any questions or concerns. Compliance is encouraged with any medications and follow up testing that is ordered. It is a privilege to be allowed the opportunity to participate in? your urological care.? Again, if you have any questions or concerns If you have any questions or concerns please do not hesitate to contact me. The office is [phone]. This note is constructed using voice recognition software. While every effort has been made to ensure accuracy agricultural systems specialist errors may have been included. Yours sincerely, ROWAN Rivera Coding Level of Care Code Est Pt Level 4 (69893) Complex EM visit Add On G2211 Diagnoses Nephrolithiasis N20.0 Renal cyst N28.1 Microscopic hematuria R31.29 Scrotal pain N50.82 Erectile dysfunction N52.9
--- OUTSIDE RECORDS SUMMARY | 2025-04-10 17:10 | XMS_ITS | Encounter Summary ---
Author Organization [employer] Address 75 [facility] 7t [place] [address] Care Team Providers Care Lastex Thread Winder Name Role Phone Malinda Flowers MD Primary Care Pro vider Encounter Details Date Type Department Care Team ([facility] st Contact Info) Description 12/17/2022 Abstract [facility] MEDICINE [address] [place] [address] Malinda Flowers MD [address] [place] [address] Social History Tobacco Use Types Packs/Day Years [...] Care Team (Late st Contact Info) Description 04/13/2025 8:00 AM EDT Office Visit [facility] ADULT DENTAL [address] [place] [address] 06/20/2025 11:00 AM EST Office Visit [facility] OPTOMETRY [address] [place] [address] Laury Ceballos, OD [address] [place] [address] documented as of this encounter Visit Diagnoses Not on filedocumented in this encounter Additional Health Concerns Assessment Noted Time PHQ-9 Depression Total Score: 0 12/05/19 9:34 AM EDT documented as of this encounter Care Teams Lastex Thread Winder Relationship Specialty Start Date End Date Malinda Flowers MD [address] [place] [address] PCP - General Internal Medicine 11/13/22 documented as of this encounter
--- OUTSIDE RECORDS SUMMARY | 2025-04-10 17:10 | XMS_ITS | Encounter Summary ---
Author Organization [employer] Address 75 [facility] 7t [place] [address] Care Team Providers Care Reserve Operator Name Role Phone Malinda Flowers MD Primary Care Pro vider Encounter Details Date Type Department Care Team (Late st Contact Info) Description 10/27/2023 Orders Only [facility] MEDICINE [address] [place] [address] ProviderJose MD Social History Tobacco Use Types [...] Description 04/13/2025 8:00 AM EDT Office Visit [facility] ADULT DENTAL [address] [place], [place] [id number] 06/20/2025 11:00 AM EST Office Visit [facility] OPTOMETRY [address] [place], [place] [phone] TarkaLaury, OD [address] [place] [address] documented as of this encounter Procedures Procedure [...] documented as of this encounter Care Teams Reserve Operator Relationship Specialty Start Date End Date Malinda Flowers MD [address] [place] [address] PCP - General Internal Medicine 11/13/22 documented as of this encounter
--- OUTSIDE RECORDS SUMMARY | 2025-04-10 17:10 | XMS_ITS | Clinical Summary ---
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 --evaluated for chronic anemia w no other concerning symptoms x lupus -if clinically indicated will repeat CARLITOS titers Assessment & Plan (12/04/2022 10:12 PM EDT): Hx of + CARLITOS 1: 320 from conditioning room worker note --evaluated for chronic anemia w [...] close to normal -pt will call his conditioning room worker's office to check if due x f up apt Assessment & Plan (12/04/2022 10:14 PM EDT): Pt w hx of chronic anemia in eval with hematology -had complete workup done w no obvious cause -had colonoscopy -last 2015 w no source of bleeding and neg stool occult blood -pt will call his conditioning room worker's office to check if due x f up apt Overweight (BMI 25.0-29.9) 12/04/2022 Assessment & Plan (01/02/2023 9:32 PM EDT): Advised pt to improve diet and exercise,discussed healthy life style -discussed hvac designer referral --refusing x now Assessment & Plan (12/04/2022 10:17 PM EDT): Advised pt to improve diet and exercise,discussed healthy life style -discussed hvac designer referral --refusing x now Obstructive sleep apnea [...] now tobacco cessation program referral Nonischemic congestive cardi omyopathy (CMS/HCC) 10/18/2021 07/16/2023 Assessment & Plan (01/02/2023 9:30 [...] year w cards---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 to 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 if due x f up [...] year w cards---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 to check if due x f up Chronic low back pain 04/06/20122022 Impaired fasting glucose 04/06/201207/2022 Hepatitis B carrier (CMS/HCC) 11/13/2010 12/04/2022 Encounters Date Type Department Care Team Description 04/03/2025 8:00 AM EDT Office Visit [facility] [address] [place] [address] Michelle Centeno Non-carious lesion at cervical margin of tooth (Primary Dx) 03/24/2025 Orders Only [facility] External Provider, [facility] 03/16/2025 9:30 AM EDT Office Visit [facility] [place] [address] Malinda Flowers MD Prediabetes (Primary Dx); Postablative hypothyroidism; Health care maintenance; Primary osteoarthritis of right hip 03/16/2025 Travel 03/16/2025 Refill [facility] [place] [facility] [place] [address] Malinda Flowers MD 03/15/2025 Telephone [facility] [address] [place] [phone] Malinda Flowers MD chart prep 03/14/2025 Telephone [facility] [address] [place] [address] Albin Beavers DDS 01/27/2025 8:00 AM EDT Office Visit [facility] [address] [place] [address] Kayla Hannah Dental caries (Primary Dx) 01/26/2025 Travel 01/23/2025 Results Follow-Up [facility] [place] [place] [address] Malinda Flowers MD XR Knee 3 Views Left, Chlamydia/Trichomonas/ Neisseria gonorrhoeae, PCR, Urine, CBC, Additional followed-up results: 6 01/20/2025 2:00 PM EDT Office Visit [facility] [place] [facility] [place] [address] Kayla Hannah Periodontal disease (Primary Dx) 01/19/2025 9:00 AM EDT Office Visit [facility] [place] [address] Malinda Flowers MD Chronic pain of left knee (Primary Dx); Angioedema, sequela; Annual physical exam; Postablative hypothyroidism; Health care maintenance 01/19/2025 Travel 01/18/2025 Telephone [facility] [address] [place] [address] Malinda Flowers MD CHART PREP 01/16/2025 8:00 AM EDT Office Visit [facility] [address] [place] [address] Kayla Hannah Excessive attrition of teeth (Primary Dx); Non-carious lesion at cervical margin of tooth; Periodontal disease; Missing teeth, acquired; Dental plaque; Dental caries; Dental calculus; Gingival bleeding 01/12/2025 Patient Outreach [facility] [address] [place] [address] Malinda Flowers MD 01/12/2025 Patient Outreach [facility] [address] [place] [address] Malinda Flowers MD Pre-visit Planning (SDOH was [...] Sign Reading Time Taken Comments Blood Pressure 136/70 04/03/2025 8:05 AM EDT Pulse 74 04/03/2025 8:05 AM EDT Temperature 36 C (96.8 F) [...] Description 04/13/2025 8:00 AM EDT Office Visit [facility] [address] [place] [address] 06/20/2025 11:00 AM EST Office Visit [facility] [address] [place], [place] [phone] CandirandalLaury, OD [address] [place] [address] Health Maintenance Due Date Last Done Comments [...] 03/08/2024, 12/05/2022, Additional history exists Tobacco Screening 04/03/2026 04/03/2025 Dental X-Ray: Full Mouth 01/18/2028 01/16/2025 Lipid Panel 03/13/2030 03/13/2025, 09/0 09/2023, 12/05/2022, Additional history exists DTaP/Tdap/Td Vaccines (3 [...] Procedure Name Priority Date/Time Associated Diagnosis Comments LL PERIODONTAL SCALING AND ROOT PLANING - 4 OR MORE TEETH PER QUADRANT Routine 04/03/2025 8:00 AM EDT UL PERIODONTAL SCALING AND ROOT PLANING - 4 OR MORE TEETH PER QUADRANT Routine 04/03/2025 8:00 AM EDT US RENAL COMPLETE Routine 03/24/2025 1:4 9 PM EDT PSA, TOTAL Routine 03/13/2025 8:53 AM EDT [...] Recently Relevant to Health Maintenance Results * US Renal Complete (03/24/2025 1:49 PM EDT) Anatomical Region Laterality Modality Kidney Ultrasound 03/24/2025 1:49 PM EDT Narrative 03/24/2025 2:29 PM EDT [place] [address] Ultrasound Report Signed Patient: Josh Asif MR#: [id number] : 1950 Acct:[id number] Age/Sex: 74 / M ADM Date: 03/24/25 Loc: HO.US Attending Dr: Giselle DONAHUE Ordering Physician: Giselle Batista Date of Service: 03/24/25 Procedure(s): US renal BI Accession Number(s): [id number] cc: Giselle Batista; Malinda Flowers MD Reason for Exam: N20.0 - Calculus of kidney EXAMINATION: US KIDNEY BILATERAL HISTORY: N20.0 - Calculus of kidney TECHNIQUE: Real-time grayscale ultrasound imaging of the kidneys was performed and images were reviewed. COMPARISON: Comparison is made with the prior examination dated 06/10/2023. FINDINGS: Right kidney: The right kidney measures 11.6 x 4.7 x 6.0 cm. Renal parenchymal echotexture and thickness are normal. Multiple cysts are noted including an upper pole cyst measuring 5.9 x 4.7 x 5.2 cm and lower pole cysts measuring 4.4 x 4.5 x 4.7 cm and 1.1 x 1.1 x 1.2 cm. There is no hydronephrosis or renal calculi. Left Kidney: The left kidney measures 10.6 x 6.2 x 5.5 cm. Renal parenchymal echotexture and thickness are normal. There is a lower pole cyst measuring 2.2 x 1.9 x 2.0 cm. There is no hydronephrosis or renal calculi. US/US renal BI IMPRESSION: Bilateral renal cysts as described. Otherwise unremarkable renal ultrasound. Electronically signed by: Ranjeet Drake MD 03/24/2025 02:25 PM EDT RP Dictated By: Ranjeet Drake MD Signed By: <Electronically signed by Ranjeet Drake MD in OV> 03/24/25 1425 DD/ 1349 TD/TT: 03/24/25 1359 Team Otr Truck Driver: Procedure Note Donotuseinterpreter, Image - 03/24/2025 [place] [address] Ultrasound Report Signed Patient: Josh Asif#: [id number] : 1950cct:[id number] Age/Sex: 74 / MADM Date: 03/24/25 Loc: HO.US Attending Dr: Giselle DONAHUE Ordering Physician: Giselle Batista Date of Service: 03/24/25 Procedure(s): US renal BI Accession Number(s): [id number] cc: Giselle Batista; Malinda Flowers MD Reason for Exam: N20.0 - Calculus of kidney EXAMINATION: US KIDNEY BILATERAL HISTORY: N20.0 - Calculus of kidney TECHNIQUE: Real-time grayscale ultrasound imaging of the kidneys was performed and images were reviewed. COMPARISON: Comparison is made with the prior examination dated 06/10/2023. FINDINGS: Right kidney: The right kidney measures 11.6 x 4.7 x 6.0 cm. Renal parenchymal echotexture and thickness are normal. Multiple cysts are noted including an upper pole cyst measuring 5.9 x 4.7 x 5.2 cm and lower pole cysts measuring 4.4 x 4.5 x 4.7 cm and 1.1 x 1.1 x 1.2 cm. There is no hydronephrosis or renal calculi. Left Kidney: The left kidney measures 10.6 x 6.2 x 5.5 cm. Renal parenchymal echotexture and thickness are normal. There is a lower pole cyst measuring 2.2 x 1.9 x 2.0 cm. There is no hydronephrosis or renal calculi. US/US renal BI IMPRESSION: Bilateral renal cysts as described. Otherwise unremarkable renal ultrasound. Electronically signed by: Ranjeet Drake MD 03/24/2025 02:25 PM EDT Dictated By: Ranjeet Drake MD Signed By: <Electronically signed by Ranjeet Drake MD in OV> 03/24/25 1425 DD/ 1349 TD/TT: 03/24/25 1359 Team Otr Truck Driver: [facility] External Provider IMG US PROCEDURES Edited Result - Final * Chlamydia/Trichomonas/Neisseria gonorrhoeae, PCR, Urine (03/13/2025 8:53 AM EDT) CT PCR, Urine NOT DETECTED Not Detect. [facility] Comment:A not detected test result [...] NG PCR, Urine NOT DETECTED Not Detect. [facility] Comment:A not detected test result [...] ORDERAB LES Final Result Performing Organization Address [facility] Co de Phone Number [facility] [address] [place] [phone] * Syphilis Screen (03/13/2025 8:53 AM EDT) Syphilis Screen Nonreactive Nonreactive [facility] Blood 03/13/2025 8:53 AM EDT 03/13/2025 11:16 AM EDT Malinda Dunbar MD LAB BLOOD ORDERAB LES Final Result Performing Organization Address [facility] Co de Phone Number [facility] [address] [place] [phone] * Hepatitis C Antibody with Reflex to HCV, RNA, Quantitative, Real-Time PCR (03/13/2025 8:53 AM EDT) Pathologist [facility] Hepatitis C Antibody Nonreactive Nonreactive [facility] Comment:Antibodies to HCV no t detected; does not exclude early acuteHCV infection. Blood Venous blood specimen / Unknown 03/13/2025 8:53 AM EDT 03/13/2025 11:16 AM EDT Malinda Dunbar MD LAB BLOOD ORDERAB LES Final Result Performing Organization Address [facility]/ZIP Co de Phone Number [facility] [address] [place] [phone] * Hepatitis B surface antigen, EIA (03/13/2025 8:53 AM EDT) [facility] Hepatitis B Surface Ag Negative Negative [facility] Blood Venous blood specimen / Unknown 03/13/2025 8:53 AM EDT 03/13/2025 11:16 AM EDT Malinda Dunbar MD LAB BLOOD ORDERAB LES Final Result Performing Organization Address City/[facility] Co de Phone Number [facility] [address] [place] [phone] * HIV-1/2 Antigen and Antibodies, Fourth Generation, with Reflexes (03/13/2025 8:53 AM EDT) Pathologist [facility] HIV AB/AG Nonreactive Nonreactive [facility] Comment:HIV-1 p24 Ag and/or HIV-1/HIV-2 Ab not detected.A test result that is nonreactive does not exclude thepossibility of exposure to or infection with HIV-1 and/orHIV-2. Nonreactive results in this assay for individualswith prior exposure to HIV-1 and/or HIV-2 may be due toantigen and antibody levels that are below the limit ofdetection of this assay.[employer] HIV Ag/Ab Combo assay result andsupplemental assay results should be interpreted inconjunction with the patient's clinical presentation,history and other laboratory results. If the results areinconsistent with clinical evidence, additional testing issuggested to confirm the result. Blood Venous blood specimen / Unknown 03/13/2025 8:53 AM EDT 03/13/2025 11:16 AM EDT Malinda Dunbar MD LAB BLOOD ORDERAB LES Final Result [facility] [address] [place] [phone] * (ABNORMAL) CBC (03/13/2025 8:53 AM EDT) White Blood Count 6.8 4.8 - 10.8 X10*3/uL [facility] Red Blood Count 4.86 4.60 - 5.80 X10*6/uL [facility] Hemoglobin 13.5(L) 14.0 - 18.0 g/dl [facility] Hematocrit 41.8(L) 42.0 - 52.0 % [facility] Mean Corpuscular Volume 86.0 80.0 - 98.0 fL [facility] Mean Corpuscular Hemoglobin 27.8 27.0 - 33.0 pg [facility] Mean Corpuscular HGB Conc 32.3 31.0 - 36.0 g/dl [facility] Red Cell Distribution Width 13.8 11.0 - 16.0 % [facility] Platelet Count 220 160 - 400 X10*3/uL [facility] Mean Platelet Volume 10.2 9.4 - 12.4 fL [facility] NRBC Pct Auto 0.0 0.0 - 0.2 /100WBC [facility] NRBC Abs Auto 0.000 0.0 - 0.012 X10*3/uL [facility] Blood Venous blood specimen / Unknown 03/13/2025 8:53 AM EDT 03/13/2025 11:16 AM EDT us Malinda Dunbar MD LAB BLOOD ORDERAB LES Final Result Performing Organization Address [facility] Co de Phone Number [facility] [address] [place] [phone] * TSH (03/13/2025 8:53 AM EDT) Thyroid Stimulating Hormone 3.79 0.32 - 4.0 uIU/mL [facility] Comment:Note: A sustained TS H level above 2.5 uIU/mL may warrant further investigation. TSH 3rd Generation ([facility]) Blood Venous blood specimen / Unknown 03/13/2025 8:53 AM EDT 03/13/2025 11:16 AM EDT us Malinda Dunbar MD LAB BLOOD ORDERAB LES Final Result Performing Organization Address [facility] Co de Phone Number [facility] [address] [place] [address] [phone] * T4, Free (03/13/2025 8:53 AM EDT) Free T4 (Free Thyroxine) 1.13 0.71 - 1.85 ng/dL [facility] Blood Venous blood specimen / Unknown 03/13/2025 8:53 AM EDT 03/13/2025 11:16 AM EDT us Malinda Dunbar MD LAB BLOOD ORDERAB LES Final Result Performing Organization Address [facility] Co de Phone Number [facility] [address] [place] [phone] * PSA,Total (03/13/2025 8:53 AM EDT) Prostate Specific Antigen 0.94 <0.05 - 4.0 ng/mL [facility] Comment:PSA methodology: Abb amalia Alitariqty i ChemiluminescentMicroparticle Immunoassay (CMIA) Blood Venous blood specimen / Unknown 03/13/2025 8:53 AM EDT 03/13/2025 11:16 AM EDT us Malinda Dunbar MD LAB BLOOD ORDERAB LES Final Result Performing Organization Address [facility] Co de Phone Number [facility] [address] [place] [phone] * Hemoglobin A1c (03/13/2025 8:53 AM EDT) Hemoglobin A1c 6.0 <6.0 % [facility] Comment:Hemoglobin A1C Refer ence Range Adults: 4.8 - 6.0 % Non diabetic: < 6.0 % Goal: < 7.0 %Additional Action Suggested: > 8.0 %Note: Hemoglobin A1c results are invalid for patients with abnormal amounts of HbF. Blood transfusions may impact the HbA1c concentration in the patient sample. Estimated Average Glucose 126 mg/dL [facility] Comment:eAG = Estimated ave rage glucose which is %A1C expressed asaverage glucose, using the formula of the U1J-GkpewfmUofiicn Glucose study (ADAG), Diabetes Care, Vol.31,#8,Feb. 2007 Blood Venous blood specimen / Unknown 03/13/2025 8:53 AM EDT 03/13/2025 11:16 AM EDT us Malinda Dunbar MD LAB BLOOD ORDERAB LES Final Result Performing Organization Address [facility] Co de Phone Number [facility] [address] [place] [address] [phone] * Lipid Panel, Standard (03/13/2025 8:53 AM EDT) Triglycerides 90 <150 mg/dL [facility] Comment:Desirable Triglyceri de: less than 150 mg/dLBorderline High Triglyceride 150-199 mg/dLHigh Triglyceride: 200-499 mg/dLVery High Triglyceride: greater than or equal to 5OO mg/dL Cholesterol 150 <200 mg/dL [facility] Comment:Desirable Cholestero l: less than 200 mg/dLBorderline High Cholesterol: 200-239 mg/dLHigh Cholesterol: greater than 239 mg/dL LDL Cholesterol Calculated 87 <100 mg/dL [facility] Comment:Desirable LDL: less than 100 mg/dLNear Optimal/Above Optimal LDL: 110- 129 mg/dLBorderline High LDL: 130-159 mg/dLHigh LDL: 160-189 mg/dLVery High LDL: greater than or equal to 190 mg/dL HDL Cholesterol 45 >40 mg/dL [facility] Comment:Desirable HDL: great er than 40 mg/dL Note: This HDL assay may give artificially low results in patients with liver disease. Blood Venous blood specimen / Unknown 03/13/2025 8:53 AM EDT 03/13/2025 11:16 AM EDT us Malinda Dunbar MD LAB BLOOD ORDERAB LES Final Result [facility] [address] [place] [phone] * Comprehensive Metabolic Panel (03/13/2025 8:53 AM EDT) Sodium 142 135 - 145 mmol/L [facility] Potassium 3.9 3.3 - 5.1 mmol/L [facility] Chloride 108 96 - 108 mmol/L [facility] Carbon Dioxide 25 22 - 29 mmol/L [facility] Anion Gap 13 12 - 20 [facility] Urea Nitrogen (BUN) 10 9 - 16 mg/dL [facility] Creatinine, Serum 1.16 0.5 - 1.4 mg/dL [facility] Estimated Glomerular Filt Rate >60 [facility] Comment:Chronic Kidney Disea se: Estimated GFR < 60 mL/min/1.29e2Cfnzqe Kidney Disease: Estimated GFR < 15 mL/min/1.73m2 Glucose 92 60 - 115 mg/dL [facility] Calcium 9.2 8.4 - 10.2 mg/dL [facility] Bilirubin, Total 0.4 0.0 - 1.0 mg/dL [facility] Aspartate Amino Transferase 23 5 - 37 U/L [facility] Alanine Aminotransferase 20 0 - 40 U/L [facility] Total Protein 7.7 6.5 - 8.0 g/dL [facility] Albumin Level 4.5 3.5 - 5.0 g/dL [facility] Alkaline Phosphatase 86 39 - 117 U/L [facility] Blood Venous blood specimen / Unknown 03/13/2025 8:53 AM EDT 03/13/2025 11:16 AM EDT us Malinda Dunbar MD LAB BLOOD ORDERAB LES Final Result [facility] [address] [place] [address] [phone] * Cytopath-cell enhanced (01/31/2025 4:50 PM EDT) 01/31/2025 4:50 PM EDT 02/01/2025 9:41 AM EDT Narrative [facility] - 02/01/2025 4:06 PM EDT ----- ------- Name: Josh Asif Age/Sex: 74/M : 1950 Unit#: [id number] Attend Dr: Giselle Batista [facility] Re01/31/25 Status: DEP [facility] Disch: ----- ------- SPEC : [id number] RECD: 02/01/25 STATUS: STEPH CALABRESE NUM: [id number] MARTHA: 01/31/25 [facility] DR: Giselle Batista [facility] ENTERED: 02/01/25 SP TYPE: Cytology OTHR DR: [...] developed and their performance characteristics determined by [facility]. They have not been cleared or approved by the U.S. Food and Drug Administration (FDA). However, the FDA has determined that such clearance or approval is not necessary. This laboratory is certified under the Clinical Laboratory Improvement Amendments of 1988 (CLIA) as qualified to perform high complexity clinical laboratory testing. Copies To: Giselle Batista [facility] [address] [place] [address] Dr. Je[address] [place] [address] [email or web address] Malinda Flowers MD [address] [place] [phone] CONTINUED ON NEXT PAGE ----- ------- Name: Josh Asif Age/Sex: 74/M : 1950 Unit#: [id number] Attend Dr: Giselle Batista [facility] Re01/31/25 Status: CHINEDU REF Location: [facility] Disch: ----- ------- SPEC : [id number] RECD: 02/01/25 STATUS: STEPH CALABRESE NUM: [id number] MARTHA: 01/31/25 [facility] DR: Giselle Batista [facility] ENTERED: 02/01/25 SP TYPE: Cytology OTHR DR: Malinda Flowers MD ORDERED: Cyto-enhanced ----- ------- Signed (signature on file) Morgan Hercules MD 02/01/25 1606 ----- ------- END OF REPORT us Generic External Data Provider LAB CYTOLOGY PAULINA ARCE Final Result [facility] [address] [place] [phone] * Culture, Urine, Routine (01/31/2025 12:55 PM EDT) Urine Urine specimen obtained by clean catch procedure / Unknown 01/31/2025 12:55 PM EDT 01/31/2025 4:51 PM EDT Comment:UACC Narrative [facility] - 02/02/2025 10:14 AM EDT Urine Culture No growth. Specimen Source: Urine clean catch us Generic External Data Provider LAB MICROBIOLOGY - GENERAL ORDERABLES Final Result [facility] [address] [place] [phone] * XR Knee 3 Views Left (01/23/2025 8:27 AM EDT) Anatomical Region Laterality Modality Lower Extremities, Knee Left Radiogra phic Imaging 01/23/2025 8:27 AM EDT Narrative 01/23/2025 9:45 AM EDT [facility] [address] [place] [address] XRay Report Signed Patient: Josh Asif MR#: [id number] : 1950 Acct:[id number] Age/Sex: 74 / M ADM Date: 01/23/25 Loc: .[facility]HCX Attending Dr: Malinda Dunbar MD Ordering Physician: Malinda Flowers MD Date of Service: 01/23/25 Procedure(s): XR knee LT 3V Accession Number(s): [id number] cc: Malinda Flowers MD EXAMINATION: XR KNEE [...] signed by Ranjeet Drake MD in OV> 01/23/25940 DD/ 6 TD/TT: 01/23/25 09 Team Otr Truck Driver: Procedure Note Donotuseinterpreter, Image - 01/23/[address] [address] XRay Report Signed Patient: Melinda Asif#: [id number] : 2Acct:[id number] Age/Sex: 74 / MADM Date: 01/23/25 [facility]: Malinda Dunbar MD Ordering Physician: Malinda Flowers MD Date of Service: 01/23/25 Procedure(s): XR knee LT 3V Accession Number(s): [id number] cc: Malinda Flowers MD EXAMINATION: XR KNEE [...] signed by Ranjeet Drake MD in OV> 01/23/25940 DD/ 6 TD/TT: 01/23/25 0900 Team Otr Truck Driver: Malinda Dunbar MD IMG XR PROCEDURES Final Result * POCT Occult Blood by Peroxid, Feces, 1-3 Non CA Screen (04/16/2023 2:24 PM EDT) Fecal Occult Blood 1 Negative QC Media Lot # [id number] Lot# Expiration Date [id number] Stool 04/16/2023 2:24 PM EDT Malinda Dunbar MD POINT OF CARE SKIP T ENTER/EDIT ORDERABLES Final Result * Colonoscopy (11/28/2015 2:35 PM EDT) Historical Provider HEALTH MAINTENANCE Final Result from Last 3 Months or Most Recently Relevant to Health Maintenance Insurance [facility] OPTIONS (HMO D-SNP) [facility] - [facility] [address] [place] [id number] [place] [phone] [place] [phone] Care Teams Sausage Wrapper Relationship Specialty Start Date End Date Malinda Flowers MD [address] [place] [address] PCP - General Internal Medicine 11/13/22
== END 2025-04-10 15:37 | disposition home or self-care (01) ==
LOC: HO.HUSH 14:44
PROVIDERS: PCP Student in an Organized Health Care Education/Training Program; Visit Provider Nurse Practitioner Family
DX: N20.0 Calculus of kidney (principal); N28.1 Cyst of kidney, acquired; R31.29 Other microscopic hematuria; N50.82 Scrotal pain; N52.9 Male erectile dysfunction, unspecified; Z13.9 Encounter for screening, unspecified
CPT/HCPCS: 99214; G2211

== ENCOUNTER 2025-04-12 13:49 | Outpatient (RCR) | payer OTHER, SELFPAY ==
--- NOTE | 2025-03-16 14:38 | MHC.PT.EP ---
[facility] [place] Office [place] Office [place] Office [address] Haroldo Marcus [address] [phone] F: [phone] F: [phone] F: [phone] F: [phone] Physical Therapy Plan of Care Date of Evaluation: 03/16/25 Date of Surgery: Diagnosis: OSTEOARTHRITIS OF LEFT KNEE Assessment: 74 YO MALE REF TO PT FOR Lt KNEE OA- HOWEVER, HE HAS VERY LIMITED ROM IN Lt HIP Jt. 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 THE Pt HAS DECR Lt LAT AND INF PATELLAR MOB, STRENGTH DEFICITS IN Lt LE, (+) LUMBOPELVIC ASYMM (H/O Rt ANDREWS IN 2023) CREATING LLI, ALTERED GAIT MECH, AND Lt KNEE PAIN. I FEEL THE RESTRICTED ROM IN Lt HIP IS DIRECTLY INFLUENCING HIS Lt KNEE.HE HAS DECR ASH TO SITTING WELL SIT <-> STAND TRANSITIONAL MOTIONS. HE IS MOTIVATED FOR PT AND AGREES W PT POC. Frequency and Duration: The patient will be seen 2 x WK x 4 WKS Short Term Goals: DECR Lt KNEE PAIN TO 2-3/10 IMPROVE Lt PATELLAR MOB INITIATE HEP TO ADDRESS Lt LE FLEXIB, Lt HIP ROM ABLE FURTHER ASSESS LLI S/P Rt ANDREWS-> CORE ENGAGEMENT Risk Modeler Goals: INDEP HEP AND SELF SX MGMT TECHN IMPROVED LEFI, 63/80 AT EVAL Pt DEMON MORE EFFICIENT GAIT MECH ON LEVEL AND STAIRS Treatment Plan: Modalities to reduce pain, spasms and effusion. Manual therapy to restore motion and function. Therapeutic exercise to improve strength and flexibility. Neuromuscular re-education for posture and balance. Therapeutic activities to return to functional activities of daily living. Electronically signed by: OLIVIER WEBB,PT Please sign and return to therapist. Thank you for your referral.
--- NOTE | 2025-04-12 15:05 | MHC.PT.DC ---
[facility] [place] Office [place] Office [place] Office [address] Haroldo Marcus [address] [facility] [phone] F: [phone] F: [phone] F: [phone] F: [phone] Physical Therapy Discharge Report Diagnosis: OSTEOARTHRITIS OF LEFT KNEE Date of Surgery: Date of Evaluation: 03/16/25 Date of Discharge: 04/12/25 Treatments to Date: 10 Cancellations to Date: 0 No Shows to Date: 0 Discharge Status: Achieved Goals Improved Function Independent with HEP Discharge Summary: CHLOÉ HAS PROGRESSED WELL IN PT EVIDENT IN RELATIVELY RESOLVED Lt KNEE PAIN- HE DISPLAYS IMPROVED FUNCTIONAL MOBILITY TOLERANCE AND 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 HE IS INDEP AND MOTIVATED W HIS HEP- HIS LEFI AT D/C IS 50/[address] [facility] IT WAS 63/80. Electronically signed by: OLIVIER WEBB,PT Please sign and return to therapist. Thank you for your referral.
== END 2025-04-12 15:04 | disposition home or self-care (01) ==
LOC: HO.PT 13:49
PROVIDERS: PCP Student in an Organized Health Care Education/Training Program; Visit Provider Physician Assistant
DX: M17.12 Unilateral primary osteoarthritis, left knee (principal)
CPT/HCPCS: 97110; 97140; 97162; 97530